=== PATIENT | male | born 1930 | race Caucasian/White ===

== ENCOUNTER 2017-05-30 11:43 | Inpatient (IN) | payer MEDICARE, OTHER ==
[2017-05-30] MEDS ORDERED: Sodium Chloride 0.9% 1,000 ML IV ONE (12:36)
--- NOTE | 2017-05-30 12:36 | C.PDOC ---
History Of Present Illness 86 yr old male brought in via EMS, presents to the ER s/p fall. Patient is poor historian. States "I fell around 3am". Patient states he was walking to the bathroom, felt dizzy and fell. States has happened 3x in the past but can't recall the last time it happened. Patient knows he is in [place] but does not know the year. As per EMS, they were called by the landlord who states he heard yelling from the apartment. Patient was found laying on the floor, possible downtime 8hrs. ROS is UTO. - HPI Time Seen by Provider: 05/30/17 12:07 Chief Complaint (Nursing): Dizziness/Lightheaded History Per: Patient, EMS History/Exam Limitations: no limitations Onset/Duration Of Symptoms: Hrs (? around 3am) Injury Occurred (Timing): Hours Ago: Past Medical History Reviewed: Historical Data, Nursing Documentation, Vital Signs Vital Signs: Last Vital Signs Temp 97.0 F L 05/30/17 12:47 Pulse 95 H 05/30/17 12:00 Resp 18 05/30/17 12:00 BP 148/82 05/30/17 12:00 Pulse Ox 96 05/30/17 14:34 - Medical History PMH: HTN - [facility] Procedures CATARAC PHACOEMULS/ASPIR (06/06/13) INSERT LENS AT CATAR EXT (06/06/13) Family History: States: No Known Family Hx - Social History Hx Alcohol Use: No Hx Substance Use: No - Immunization History Hx Tetanus Toxoid Vaccination: No Hx Influenza Vaccination: No Hx Pneumococcal Vaccination: No Review Of Systems Review Of Systems: ROS cannot be obtained secondary to pt's inabilty to answer questions. Physical Exam - Physical Exam Appears: Non-toxic, No Acute Distress Skin: Warm, Dry, No Rash Head: Atraumatic, Normacephalic, No Swelling, No Abrasion, No Laceration Eye(s): bilateral: Normal Inspection, PERRL, EOMI, Other (no nystagmus) Oral Mucosa: Moist Neck: Normal, Normal ROM, Supple Cardiovascular: Rhythm Regular, No Murmur Respiratory: Normal Breath Sounds, No Rales, No Rhonchi, No Stridor, No Wheezing Back: Normal Inspection, No CVA Tenderness Extremity: Normal ROM, No Tenderness, No Deformity, No Swelling Neurological/Psych: Normal Speech, Normal Motor, Normal Sensation, Normal Reflexes, Other (No focal deficits.) ED Course And Treatment - Laboratory Results Result Diagrams: 05/30/17 12:55 05/30/17 12:55 ECG: Interpreted By Me ECG Rhythm: Sinus Rhythm Rate From EC O2 Sat by Pulse Oximetry: 96 (RA) Pulse Ox Interpretation: Normal - Radiology CXR: Read By Radiologist CXR Interpretation: Yes: Infiltrates - Other Rad X-Ray - Pelvis X-Ray: Viewed By Me, Read By Radiologist Interpretation: PROCEDURE: Radiographs of the pelvis. HISTORY: trauma. COMPARISON: None. FINDINGS: BONES: Pelvic Bones: No acute fractures. Status post open reduction internal fixation proximal left femoral fracture. No evidence of orthopedic hardware failure. Hips: Grossly unremarkable. JOINTS: Sacroiliac Joints: Unremarkable. Pubic Symphysis: Unremarkable. OTHER FINDINGS : None. IMPRESSION: No acute osseous abnormalities. Limitations of the current examination: Rotated single AP view. CXR X-Ray: Viewed By Me, Read By Radiologist Interpretation: PROCEDURE: CHEST RADIOGRAPH, 1 VIEW. HISTORY: dizzy fall. COMPARISON: 05/14/2015. FINDINGS: LUNGS: Chronic interstitial lung disease. Superimposed infiltrate/atelectasis right lower lobe. PLEURA: No pneumothorax or pleural fluid seen. CARDIOVASCULAR: No radiographic findings to suggest acute or significant cardiovascular disease. OSSEOUS STRUCTURES: Old healed posterior lateral left rib fractures. VISUALIZED UPPER ABDOMEN: Normal. OTHER FINDINGS: None. IMPRESSION: Left lower lobe infiltrate/ atelectasis superimposed upon chronic interstitial lung disease. - CT Scan/US CT - Cervical Spine Other Rad Studies (CT/US): Read By Radiologist, Radiology Report Reviewed CT/US Interpretation: PROCEDURE: CT Cervical Spine without contrast. HISTORY: Trauma. COMPARISON: None available. TECHNIQUE: Axial computed tomography images were obtained of the cervical spine without the use of intravenous contrast. Coronal and sagittal reformatted images were created and reviewed. Radiation dose: Total exam DLP = 682.22 mGy-cm. This CT exam was performed using one or more of the following dose reduction techniques: Automated exposure control, adjustment of the mA and/or kV according to patient size, and/ or use of iterative reconstruction technique. FINDINGS: VERTEBRAE: No fracture. Normal alignment. No destructive bony lesion. DISCS/SPINAL CANAL/ NEURAL FORAMINA: No significant central canal or neural foraminal stenosis. Multilevel degenerative change primarily disc space narrowing. Uncovertebral hypertrophy at multiple levels. PARASPINAL SOFT TISSUES: Unremarkable. OTHER FINDINGS: Right apical scarring findings similar to that seen on a prior CT of the thorax 02/22/2013. IMPRESSION: No acute findings related to/accounting for the clinical presentation. CT - Head Other Rad Studies (CT/US): Read By Radiologist, Radiology Report Reviewed CT/US Interpretation: PROCEDURE: CT HEAD WITHOUT CONTRAST. HISTORY: dizzy fall. COMPARISON: None available. TECHNIQUE: Axial computed tomography images were obtained through the head/brain without intravenous contrast. Radiation dose: Total exam DLP = 889.11 mGy-cm. This CT exam was performed using one or more of the following dose reduction techniques: Automated exposure control, adjustment of the mA and/or kV according to patient size, and/ or use of iterative reconstruction technique. FINDINGS: HEMORRHAGE: No intracranial hemorrhage. BRAIN: No mass effect or edema. Cortical and cerebellar atrophy, periventricular small vessel disease. VENTRICLES: Unremarkable. No hydrocephalus. CALVARIUM: Unremarkable. PARANASAL SINUSES: Unremarkable as visualized. No significant inflammatory changes. MASTOID AIR CELLS: Unremarkable as visualized. No inflammatory changes. OTHER FINDINGS: None. IMPRESSION: No acute intracranial abnormalities. No significant findings to account for the clinical presentation. Progress - Re-Evaluation Re-evaluation Note: 05/30/17 13:39 FRIEND AT BEDSIDE, STATES PT HAS BEEN RECENTLY DX STAGE 4 LUNG CA. PT IS "USUALLY CONFUSED" BUT NOW MORE CONFUSED AND WEAKER THAN USUAL. PT HAS NO FAMILY. 05/30/17 14:27 D/W DR Braulio MADRIGAL [employer]ER AWARE OF ER FINDINGS WILL ADMIT - Data Reviewed Data Reviewed: Lab, Diagnostic imaging, EKG, Old records - Patient Status Patient status: Completely improved - Critical Care Critical Care Time: 90 minutes Medical Decision Making Medical Decision Making: PLAN: * CT - Cervical Spine, Head * X-Ray - Pelvis * CXR * EKG * CBC * CMP * VBG * Alcohol Serum * Drug Screen * Urinalysis * Avelox IV * Sodium Chloride IV Disposition Counseled Patient/Family Regarding: Studies Performed, Diagnosis - Disposition Disposition: HOSPITALIZED Disposition Time: 14:28 Condition: STABLE - POA Present On Arrival: Falls Or Trauma, Poor Glycemic Control - Clinical Impression Clinical Impression: Pneumonia, Dizziness, Fall, Altered mental state - Scribe Statement The provider has reviewed the documentation as recorded by the Alesha Salas Provider Attestation: All medical record entries made by the Maxwelliblindy were at my direction and personally dictated by me. I have reviewed the chart and agree that the record accurately reflects my personal performance of the history, physical exam, medical decision making, and the department course for this patient. I have also personally directed, reviewed, and agree with the discharge instructions and disposition. Decision To Admit - Pt Status Changed To: Hospital Disposition Of: Inpatient - Admit Certification Admit to Inpatient:: After my assessment, the patient will require hospitalization for at least two midnights. This is because of the severity of symptoms shown, intensity of services needed, and/or the medical risk in this patient being treated as an outpatient. - InPatient: Physician Admission Certification: I certify that this patient requires 2 or more midnights of care for the following reason:: SEE NOTE - . Bed Request Type: Regular Admitting Physician: Gary Swain Patient Diagnosis: Pneumonia, Dizziness, Fall, Altered mental state
[2017-05-30 13:04] LABS: VENOUS BLOOD GAS BASE EXCESS 6.4 mmol/L (0.0-2.0); VENOUS BLOOD GAS PCO2 41 mmHg (40-60); VENOUS BLOOD PH 7.48 (7.32-7.43)
[2017-05-30 13:08] LABS: MONO # 0.4 K/uL (0.0-0.8); NEUT # 11.2 K/uL (1.8-7.0); WHITE BLOOD COUNT 12.2 K/uL (4.8-10.8)
[2017-05-30 13:11] LABS: BASO # 0.1 K/uL (0.0-0.2); BASO % 0.5 % (0.0-2.0); LYMPH # 0.6 K/uL (1.0-4.3); LYMPH % 4.9 % (20.0-40.0); MEAN CORPUSCULAR HEMOGLOBIN 30.2 pg (27.0-31.0); MEAN CORPUSCULAR HGB CONC 34.3 g/dL (33.0-37.0); MEAN PLATELET VOLUME 7.5 fL (7.2-11.7); MONO % 3.2 % (0.0-10.0); NEUT % 91.4 % (50.0-75.0); RBC 2.94 Mil/uL (4.40-5.90); RED CELL DISTRIBUTION WIDTH 14.6 % (11.5-14.5)
[2017-05-30 13:12] LABS: PLATELET COUNT 405 K/uL (130-400)
--- NOTE | 2017-05-30 13:12 | RAD ---
PROCEDURE: CHEST RADIOGRAPH, 1 VIEW HISTORY: dizzy fall COMPARISON: 05/14/2015 FINDINGS: LUNGS: Chronic interstitial lung disease. Superimposed infiltrate/atelectasis right lower lobe. PLEURA: No pneumothorax or pleural fluid seen. CARDIOVASCULAR: No radiographic findings to suggest acute or significant cardiovascular disease. OSSEOUS STRUCTURES: Old healed posterior lateral left rib fractures. VISUALIZED UPPER ABDOMEN: Normal. OTHER FINDINGS: None. IMPRESSION: Left lower lobe infiltrate/ atelectasis superimposed upon chronic interstitial lung disease.
[2017-05-30 13:13] LABS: HEMOGLOBIN 8.9 g/dL (12.0-18.0)
[2017-05-30] MEDS ORDERED: Moxifloxacin IV 400mg/250ml NS 400 MG/250 ML BAG IV STA (13:13)
[2017-05-30 13:14] LABS: ALB/GLOB RATIO 0.8 (1.0-2.1); ALBUMIN 3.6 g/dL (3.5-5.0); ALT/SGPT 18 U/L (21-72); AST/SGOT 56 U/L (17-59); BLOOD UREA NITROGEN 23 mg/dL (9-20); CALCIUM 11.8 mg/dl (8.6-10.4); GFR AFRICAN-AMERICAN > 60; GFR NON-AFRICAN AMERICAN > 60
--- NOTE | 2017-05-30 13:14 | RAD ---
PROCEDURE: Radiographs of the pelvis. HISTORY: trauma COMPARISON: None. FINDINGS: BONES: Pelvic Bones: No acute fractures. Status post open reduction internal fixation proximal left femoral fracture. No evidence of orthopedic hardware failure. Hips: Grossly unremarkable. JOINTS: Sacroiliac Joints: Unremarkable. Pubic Symphysis: Unremarkable. OTHER FINDINGS: None. IMPRESSION: No acute osseous abnormalities. Limitations of the current examination: Rotated single AP view.
[2017-05-30 13:21] LABS: INR 1.4; PROTHROMBIN TIME 15.9 SECONDS (9.7-12.2)
--- NOTE | 2017-05-30 13:34 | CT ---
PROCEDURE: CT HEAD WITHOUT CONTRAST. HISTORY: dizzy fall COMPARISON: None available. TECHNIQUE: Axial computed tomography images were obtained through the head/brain without intravenous contrast. Radiation dose: Total exam DLP = 889.11 mGy-cm. This CT exam was performed using one or more of the following dose reduction techniques: Automated exposure control, adjustment of the mA and/or kV according to patient size, and/or use of iterative reconstruction technique. FINDINGS: HEMORRHAGE: No intracranial hemorrhage. BRAIN: No mass effect or edema. Cortical and cerebellar atrophy, periventricular small vessel disease VENTRICLES: Unremarkable. No hydrocephalus. CALVARIUM: Unremarkable. PARANASAL SINUSES: Unremarkable as visualized. No significant inflammatory changes. MASTOID AIR CELLS: Unremarkable as visualized. No inflammatory changes. OTHER FINDINGS: None. IMPRESSION: No acute intracranial abnormalities. No significant findings to account for the clinical presentation.
[2017-05-30 13:36] LABS: BANDS 1 % (0-2); LYMPHOCYTE 3 % (20-40); MONOCYTE 1 % (0-10); NEUTROPHIL 95 % (50-75); TOTAL CELLS COUNTED 100
[2017-05-30 13:37] LABS: HYPOCHROMIC SLIGHT; PLATELET ESTIMATE NORMAL (NORMAL)
[2017-05-30] MEDS ORDERED: Sodium Chloride 0.9% 1,000 ML ONE (13:37)
[2017-05-30] MEDS ORDERED: Moxifloxacin IV 400mg/250ml NS 400 MG/250 ML BAG IVPB ONE (13:37)
[2017-05-30 13:38] LABS: POLYCHROMIC SLIGHT
--- NOTE | 2017-05-30 14:20 | CT ---
PROCEDURE: CT Cervical Spine without contrast HISTORY: Trauma COMPARISON: None available. TECHNIQUE: Axial computed tomography images were obtained of the cervical spine without the use of intravenous contrast. Coronal and sagittal reformatted images were created and reviewed. Radiation dose: Total exam DLP = 682.22 mGy-cm. This CT exam was performed using one or more of the following dose reduction techniques: Automated exposure control, adjustment of the mA and/or kV according to patient size, and/or use of iterative reconstruction technique. FINDINGS: VERTEBRAE: No fracture. Normal alignment. No destructive bony lesion. DISCS/SPINAL CANAL/NEURAL FORAMINA: No significant central canal or neural foraminal stenosis. Multilevel degenerative change primarily disc space narrowing. Uncovertebral hypertrophy at multiple levels. PARASPINAL SOFT TISSUES: Unremarkable. OTHER FINDINGS: Right apical scarring findings similar to that seen on a prior CT of the thorax 02/22/2013 IMPRESSION: No acute findings related to/accounting for the clinical presentation.
--- NOTE | 2017-05-30 15:27 | CP.PCM.HP ---
<Janey WOODYMaribel Wetzel - Last Filed: 05/30/17 17:24> History of Present Illness - History of Present Illness History of Present Illness: CC: "I fell" Patient is an 86 year old male who presents to the ER after being found down in his home. Patient is a poor historian and majority of history is provided by friend, Duy . Per friend, patient has been confused for some time but has become more confused lately. Per friend, patient woke up around 10: 30PM yesterday evening to use the bathroom. Patient felt dizzy upon standing and fell down. Patient denies hitting his head or loss of consciousness. Patient cannot comment on why he could not get up from floor. Patient's friend states that the internet technology manager found the patient on the floor this morning () and called an ambulance. Patient's friend states that patient was recently diagnosed with stage IV lung cancer. Patient's family all reside in [place]. Next of kin is patient's nephew, Van, who also lives in [place] and can be reached at: [phone]. Per friend, patient's family has been trying to obtain information regarding treatment and diagnosis to evaluate treatment options in [place]. Patient admits to 21 pound weight loss over 3 months as well as decreased appetite. Per friend, patient has been unsteady on his feet for last few months with history of falls as well as increasing fatigue. Heme-Onc: Dr. Ramos PMHx: stage IV lung cancer Meds: patient and friend unsure of medications, does not know name of pharmacy PSHx: left hip repair FamHx: denies SocialHx: states tobacco usage in past (cannot quantify), denies alcohol and drugs; lives alone; formerly worked as a jeweler for 42 years Present on Admission - Present on Admission Any Indicators Present on Admission: No Review of Systems - Constitutional Constitutional: Weight Loss, Weakness. absent: Chills, Fever - EENT Ears: Dizziness - Cardiovascular Cardiovascular: absent: Chest Pain - Respiratory Respiratory: Cough - Gastrointestinal Gastrointestinal: absent: Abdominal Pain, Nausea, Vomiting - Genitourinary Genitourinary: absent: Difficulty Urinating, Dysuria - Musculoskeletal Musculoskeletal: absent: Back Pain - Integumentary Integumentary: absent: Rash - Neurological Neurological: Dizziness, Weakness Past Patient History - Past Social History Smoking Status: Former Smoker - CARDIAC Hx Hypertension: Yes - ENDOCRINE/METABOLIC Hx Diabetes Mellitus Type 2: Yes - PSYCHIATRIC Hx Substance Use: No - SURGICAL HISTORY Hx Surgeries: (UNABLE TO OBTAIN) - ANESTHESIA Hx Anesthesia: No Meds Allergies/Adverse Reactions: Allergies Allergy/AdvReac Type Severity Reaction Status Date / Time No Known Allergies Allergy Unverified 05/30/17 11:57 Physical Exam - Constitutional Appears: No Acute Distress, Cachectic, Chronically Ill - Head Exam Head Exam: ATRAUMATIC, NORMOCEPHALIC - Eye Exam Eye Exam: EOMI - ENT Exam ENT Exam: Mucous Membranes Dry - Respiratory Exam Respiratory Exam: Decreased Breath Sounds, NORMAL BREATHING PATTERN. absent: Respiratory Distress - Cardiovascular Exam Cardiovascular Exam: +S1, +S2 - GI/Abdominal Exam GI & Abdominal Exam: Normal Bowel Sounds, Soft. absent: Tenderness - Rectal Exam Rectal Exam: NORMAL INSPECTION. absent: Black Stool, Bloody Stool, Hemorrhoids Additional comments: no gross blood, moderate amount of soft brown stool in rectum - Extremities Exam Extremities exam: Positive for: normal inspection. Negative for: pedal edema - Back Exam Back exam: absent: CVA tenderness (L), CVA tenderness (R), rash noted Additional comments: no ecchymotic lesions noted - Neurological Exam Neurological exam: Alert Additional comments: patient not oriented, states he is at "[employer]" - Skin Skin Exam: Pallor, Warm Results - Vital Signs Recent Vital Signs: Last Vital Signs Temp 97.0 F L 05/30/17 12:47 Pulse 95 H 05/30/17 12:00 Resp 18 05/30/17 12:00 BP 148/82 05/30/17 12:00 Pulse Ox 96 05/30/17 14:34 - Labs Result Diagrams: 05/30/17 12:55 05/30/17 12:55 Labs: Laboratory Results - last 24 hr 05/30/17 05/30/17 05/30/17 12:50 12:51 12:55 WBC 12.2 H RBC 2.94 L Hgb 8.9 L D Hct 25.9 L MCV 88.0 D MCH 30.2 MCHC 34.3 RDW 14.6 H Plt Count 405 H D MPV 7.5 Neut % (Auto) 91.4 H Lymph % (Auto) 4.9 L [place] % (Auto) 3.2 Eos % (Auto) 0.0 Baso % (Auto) 0.5 Neut # 11.2 H Lymph # 0.6 L [place] # 0.4 Eos # 0.0 Baso # 0.1 Neutrophils % (Manual) 95 H Band Neutrophils % 1 Lymphocytes % (Manual) 3 L Monocytes % (Manual) 1 Platelet Estimate Normal Polychromasia Slight Hypochromasia (manual) Slight PT INR APTT VBG pH 7.48 H VBG pCO2 41 VBG Total CO2 31.8 H VBG O2 Sat (Calc) 24.7 L VBG Base Excess 6.4 H VBG Potassium 3.4 L Sodium 141.0 Chloride 104.0 Glucose 181 H Lactate 1.6 Potassium Carbon Dioxide Anion Gap BUN Creatinine Est GFR ( Amer) Est GFR (Non-Af Amer) POC Glucose (mg/dL) 198 H Random Glucose Calcium Total Bilirubin AST ALT Alkaline Phosphatase Total Creatine Kinase Total Protein Albumin Globulin Albumin/Globulin Ratio Venous Blood Potassium 3.4 L Alcohol, Quantitative Influenza Typ A,B (EIA) 05/30/17 05/30/17 05/30/17 12:55 12:55 13:36 WBC RBC Hgb Hct MCV MCH MCHC RDW Plt Count MPV Neut % (Auto) Lymph % (Auto) [place] % (Auto) Eos % (Auto) Baso % (Auto) Neut # Lymph # [place] # Eos # Baso # Neutrophils % (Manual) Band Neutrophils % Lymphocytes % (Manual) Monocytes % (Manual) Platelet Estimate Polychromasia Hypochromasia (manual) PT 15.9 H INR 1.4 APTT 29 VBG pH VBG pCO2 VBG Total CO2 VBG O2 Sat (Calc) VBG Base Excess VBG Potassium Sodium 135 Chloride 95 L Glucose Lactate Potassium 3.6 Carbon Dioxide 30 Anion Gap 14 BUN 23 H Creatinine 1.1 Est GFR ( Amer) > 60 Est GFR (Non-Af Amer) > 60 POC Glucose (mg/dL) Random Glucose 189 H Calcium 11.8 H Total Bilirubin 1.0 AST 56 ALT 18 L D Alkaline Phosphatase 66 Total Creatine Kinase 587 H Total Protein 7.9 Albumin 3.6 Globulin 4.3 H Albumin/Globulin Ratio 0.8 L Venous Blood Potassium Alcohol, Quantitative < 10 Influenza Typ A,B (EIA) Negative for flu a/b Assessment & Plan - Assessment and Plan (Free Text) Assessment: 1. Right lower lobe pneumonia Chest xray (05/30/17): right lower lobe infiltrate/ atelectasis superimposed upon chronic interstitial lung disease (see full report) (05/30/17) will start ceftriaxone 1 g Q24h, azithromycin 500mg q24h ID, Dr. Gray, consulted- help appreciated will check urine for legionella, strep pneumoniae, mycoplasma influenza negative follow up blood culture 2. Anemia with elevated globulin (05/30/17) hemoglobin 8.9 last hemoglobin in EMR from 2014 was 12 globulin 4.3 will check ferretin, B12, folate, FOBT, retic count, serum immunofixation, kappa /lambda free light chains, protein electrophoresis likely due to history of cancer 3. Stage IV Lung Cancer Patient has seen Dr. Ramos in past cannot obtain history from patient regarding medications/ chemotherapy Dr. Ramos, heme-onc, consulted- help appreciated Will consult palliative care, Angle Mena- help appreciated 4. Hypercalcemia likely secondary to lung cancer will continue IV fluids, NS @100cc/h 5. Leukocytosis with left shift likely due to pneumonia follow up blood and urine culture starting ceftriaxone and azithromycin continue to monitor 6. Elevated CPK secondary to possible rhabdomyolysis from fall and prolonged period spent down on floor of home CPK 587 will continue NS @ 100cc/h will check repeat CPK tomorrow morning 7. Cachexia likely secondary to stage IV lung cancer patient states 21 pound weight loss over past 3 months nutrition consult placed- help appreciated will start dietary supplements TID will consider marinol 8. Fall at home CT Head (05/30/17): No intracranial hemorrhage. No hydrocephalus. No acute intracranial abnormalities. No significant findings to account for the clinical presentation CT Cervical Spine (05/30/17): No significant central canal or neural foraminal stenosis. Right apical scarring findings similar to that seen on a prior CT of the thorax 02/22/2013. Multilevel degenerative change primarily disc space narrowing. No acute findings related to/accounting for the clinical presentation. Pelvis xray (05/30/17): Status post open reduction internal fixation proximal left femoral fracture. No evidence of orthopedic hardware failure. No acute osseous abnormalities. will check troponins with EKGs, echocardiogram, to rule out cardiac etiology of fall 9. COPD patient reports past smoking history flattened diaphragm seen on chest xray duonebs q6 prn 10. Prophylaxis pepcid 20mg PO BID SCDs holding chemical anticoagulation until stool occult blood test results return physical therapy/ occupational therapy palliative care case management referral <Gary Swain - Last Filed: 05/30/17 20:06> Results - Vital Signs Recent Vital Signs: Last Vital Signs Temp 97.5 F L 05/30/17 17:40 Pulse 85 05/30/17 17:40 Resp 18 05/30/17 17:40 BP 140/74 05/30/17 17:40 Pulse Ox 96 05/30/17 18:04 - Labs Result Diagrams: 05/30/17 12:55 05/30/17 12:55 Labs: Laboratory Results - last 24 hr 05/30/17 05/30/17 05/30/17 12:50 12:51 12:55 WBC 12.2 H RBC 2.94 L Hgb 8.9 L D Hct 25.9 L MCV 88.0 D MCH 30.2 MCHC 34.3 RDW 14.6 H Plt Count 405 H D MPV 7.5 Neut % (Auto) 91.4 H Lymph % (Auto) 4.9 L [place] % (Auto) 3.2 Eos % (Auto) 0.0 Baso % (Auto) 0.5 Neut # 11.2 H Lymph # 0.6 L [place] # 0.4 Eos # 0.0 Baso # 0.1 Neutrophils % (Manual) 95 H Band Neutrophils % 1 Lymphocytes % (Manual) 3 L Monocytes % (Manual) 1 Platelet Estimate Normal Polychromasia Slight Hypochromasia (manual) Slight Retic Count PT INR APTT VBG pH 7.48 H VBG pCO2 41 VBG Total CO2 31.8 H VBG O2 Sat (Calc) 24.7 L VBG Base Excess 6.4 H VBG Potassium 3.4 L Sodium 141.0 Chloride 104.0 Glucose 181 H Lactate 1.6 Potassium Carbon Dioxide Anion Gap BUN Creatinine Est GFR ( Amer) Est GFR (Non-Af Amer) POC Glucose (mg/dL) 198 H Random Glucose Calcium Ferritin Total Bilirubin AST ALT Alkaline Phosphatase Total Creatine Kinase CK-MB (Mass) Troponin I Total Protein Albumin Globulin Albumin/Globulin Ratio Vitamin B12 Folate Venous Blood Potassium 3.4 L Urine Color Urine Clarity Urine pH Ur Specific [place] Urine Protein Urine Glucose (UA) Urine Ketones Urine Blood Urine Nitrate Urine Bilirubin Urine Urobilinogen Ur Leukocyte Esterase Urine WBC (Auto) Urine RBC (Auto) Hyaline Casts Stool Occult Blood Alcohol, Quantitative Influenza Typ A,B (EIA) 05/30/17 05/30/17 05/30/17 12:55 12:55 13:36 WBC RBC Hgb Hct MCV MCH MCHC RDW Plt Count MPV Neut % (Auto) Lymph % (Auto) [place] % (Auto) Eos % (Auto) Baso % (Auto) Neut # Lymph # [place] # Eos # Baso # Neutrophils % (Manual) Band Neutrophils % Lymphocytes % (Manual) Monocytes % (Manual) Platelet Estimate Polychromasia Hypochromasia (manual) Retic Count PT 15.9 H INR 1.4 APTT 29 VBG pH VBG pCO2 VBG Total CO2 VBG O2 Sat (Calc) VBG Base Excess VBG Potassium Sodium 135 Chloride 95 L Glucose Lactate Potassium 3.6 Carbon Dioxide 30 Anion Gap 14 BUN 23 H Creatinine 1.1 Est GFR ( Amer) > 60 Est GFR (Non-Af Amer) > 60 POC Glucose (mg/dL) Random Glucose 189 H Calcium 11.8 H Ferritin Total Bilirubin 1.0 AST 56 ALT 18 L D Alkaline Phosphatase 66 Total Creatine Kinase 587 H CK-MB (Mass) Troponin I Total Protein 7.9 Albumin 3.6 Globulin 4.3 H Albumin/Globulin Ratio 0.8 L Vitamin B12 Folate Venous Blood Potassium Urine Color Urine Clarity Urine pH Ur Specific [place] Urine Protein Urine Glucose (UA) Urine Ketones Urine Blood Urine Nitrate Urine Bilirubin Urine Urobilinogen Ur Leukocyte Esterase Urine WBC (Auto) Urine RBC (Auto) Hyaline Casts Stool Occult Blood Alcohol, Quantitative < 10 Influenza Typ A,B (EIA) Negative for flu a/b 05/30/17 05/30/17 05/30/17 15:26 15:28 18:07 WBC RBC Hgb Hct MCV MCH MCHC RDW Plt Count MPV Neut % (Auto) Lymph % (Auto) [place] % (Auto) Eos % (Auto) Baso % (Auto) Neut # Lymph # [place] # Eos # Baso # Neutrophils % (Manual) Band Neutrophils % Lymphocytes % (Manual) Monocytes % (Manual) Platelet Estimate Polychromasia Hypochromasia (manual) Retic Count PT INR APTT VBG pH VBG pCO2 VBG Total CO2 VBG O2 Sat (Calc) VBG Base Excess VBG Potassium Sodium Chloride Glucose Lactate Potassium Carbon Dioxide Anion Gap BUN Creatinine Est GFR ( Amer) Est GFR (Non-Af Amer) POC Glucose (mg/dL) Random Glucose Calcium Ferritin 216.0 Total Bilirubin AST ALT Alkaline Phosphatase Total Creatine Kinase 433 H CK-MB (Mass) 4.93 H Troponin I 0.2970 H* Total Protein Albumin Globulin Albumin/Globulin Ratio Vitamin B12 455 Folate 20.0 Venous Blood Potassium Urine Color Straw Urine Clarity Clear Urine pH 7.0 Ur Specific [place] 1.009 Urine Protein 1+ H Urine Glucose (UA) 1+ H Urine Ketones Negative Urine Blood 2+ H Urine Nitrate Negative Urine Bilirubin Negative Urine Urobilinogen Normal Ur Leukocyte Esterase Neg Urine WBC (Auto) 2 Urine RBC (Auto) 14 H Hyaline Casts 3-5 H Stool Occult Blood Negative Alcohol, Quantitative Influenza Typ A,B (EIA) 05/30/17 18:07 WBC RBC Hgb Hct MCV MCH MCHC RDW Plt Count MPV Neut % (Auto) Lymph % (Auto) [place] % (Auto) Eos % (Auto) Baso % (Auto) Neut # Lymph # [place] # Eos # Baso # Neutrophils % (Manual) Band Neutrophils % Lymphocytes % (Manual) Monocytes % (Manual) Platelet Estimate Polychromasia Hypochromasia (manual) Retic Count 1.3 PT INR APTT VBG pH VBG pCO2 VBG Total CO2 VBG O2 Sat (Calc) VBG Base Excess VBG Potassium Sodium Chloride Glucose Lactate Potassium Carbon Dioxide Anion Gap BUN Creatinine Est GFR ( Amer) Est GFR (Non-Af Amer) POC Glucose (mg/dL) Random Glucose Calcium Ferritin Total Bilirubin AST ALT Alkaline Phosphatase Total Creatine Kinase CK-MB (Mass) Troponin I Total Protein Albumin Globulin Albumin/Globulin Ratio Vitamin B12 Folate Venous Blood Potassium Urine Color Urine Clarity Urine pH Ur Specific [place] Urine Protein Urine Glucose (UA) Urine Ketones Urine Blood Urine Nitrate Urine Bilirubin Urine Urobilinogen Ur Leukocyte Esterase Urine WBC (Auto) Urine RBC (Auto) Hyaline Casts Stool Occult Blood Alcohol, Quantitative Influenza Typ A,B (EIA) Attending/Attestation - Attestation I have personally seen and examined this patient.: Yes I have fully participated in the care of the patient.: Yes I have reviewed all pertinent clinical information: Yes Notes (Text): 05/30/17 20:04 Patient was seen and examined in the ER at 6:20 PM. History, Physical, Assessment and Plan were thoroughly gone over with the resident. Gary Swain D.O.
[2017-05-30 15:45] LABS: URINE BILIRUBIN NEGATIVE (NEGATIVE); URINE BLOOD 2+ (NEGATIVE); URINE CLARITY Clear (Clear); URINE COLOR Straw (YELLOW); URINE GLUCOSE (UA) 1+ mg/dL (Normal); URINE LEUKOCYTE ESTERASE NEG Leu/uL (Negative); URINE NITRATE NEGATIVE (NEGATIVE); URINE PROTEIN 1+ mg/dL (NEGATIVE); URINE UROBILINOGEN NORMAL mg/dL (0.2-1.0)
[2017-05-30] MEDS ORDERED: Albuterol-Ipratrop 3 mg / 0.5 (3 ml) UD INH PRN (16:48)
--- NOTE | 2017-05-30 16:48 | CP.PCM.CON ---
History of Present Illness - History of Present Illness History of Present Illness: seen and evaluated in ER full consult to follow admitted with pneumonia s/p fall elevated troponins hx of stage IV lung Ca follows with Dr Rachel milner fever / chills + cough no hemoptysis Review of Systems - Constitutional Constitutional: As Per HPI - EENT Eyes: absent: As Per HPI, Blind Spots, Blurred Vision, Change in Vision, Decreased Night Vision, Diplopia, Discharge, Dry Eye, Exophthalmos, Floaters, Irritation, Itchy Eyes, Loss of Peripheral Vision, Pain, Photophobia, Requires Corrective Lenses, Sees Flashes, Spots in Vision, Tunnel Vision, Other Visual Disturbances, Loss of Vision, Other Ears: absent: As Per HPI, Decreased Hearing, Ear Discharge, Ear Pain, Tinnitus, Abnormal Hearing, Disequilibrium, Dizziness, Other Nose/Mouth/Throat: absent: As Per HPI, Epistaxis, Nasal Congestion, Nasal Discharge, Nasal Obstruction, Nasal Trauma, Nose Pain, Post Nasal Drip, Sinus Pain, Sinus Pressure, Bleeding Gums, Change in Voice, Dental Pain, Dry Mouth, Dysphagia, Halitosis, Hoarsness, Lip Swelling, Mouth Lesions, Mouth Pain, Odynophagia, Sore Throat, Throat Swelling, Tongue Swelling, Facial Pain, Neck Pain, Neck Mass, Other - Cardiovascular Cardiovascular: absent: As Per HPI, Acrocyanosis, Chest Pain, Chest Pain at Rest , Chest Pain with Activity, Claudication, Diaphoresis, Dyspnea, Dyspnea on Exertion, Edema, Irregular Heart Rhythm, Pain Radiating to Arm/Neck/Jaw, Leg Edema, Leg Ulcers, Lightheadedness, Orthopnea, Palpitations, Paroxysmal Nocturnal Dyspnea, Pedal Edema, Radiating Pain, Rapid Heart Rate, Slow Heart Rate, Syncope, Other - Respiratory Respiratory: As Per HPI, Cough, Dyspnea - Gastrointestinal Gastrointestinal: absent: As Per HPI, Abdominal Pain, Belching, Bloating, Change in Bowel Habits, Change in Stool Character, Coffee Ground Emesis, Constipation, Cramping, Diarrhea, Dyspepsia, Dysphagia, Early Satiety, Excessive Flatus, Fecal Incontinence, Heartburn, Hematemesis, Hematochezia, Loose Stools, Melena, Nausea, Odynophagia, Temesmus, Vomiting, Other - Genitourinary Genitourinary: absent: As Per HPI, Change in Urinary Stream, Difficulty Urinating, Dysuria, Flank Pain, Hematuria, Pyuria, Nocturia, Urinary Incontinence, Urinary Frequency, Urinary Hesitance, Urinary Urgency, Voiding Freq/Small Amts, Freq UTI, Hx Renal/Bladder Calculi, Hx /Renal Surgery, Bladder Distension, Other - Musculoskeletal Musculoskeletal: absent: As Per HPI, Abnormal Gait, Arthralgias, Atrophy, Back Pain, Deformity, Joint Swelling, Limited Range of Motion, Loss of Height, Muscle Cramps, Muscle Weakness, Myalgias, Neck Pain, Numbness, Radiating Pain into Limb, Stiffness, Tingling, Other - Integumentary Integumentary: absent: As Per HPI, Acne, Alopecia, Bleeding Lesions, Change in Hair, Change in Nails, Change in Pigmentation, Changing Lesions, Dry Skin, Erythema, Furuncle, Hirsutism, Lesions, New Lesions, Non-Healing Lesions, Photosensitivity, Pruritus, Rash, Skin Pain, Skin Ulcer, Sores, Striae, Swelling , Unusual Bruising, Wounds, Jaundice, Other - Neurological Neurological: absent: As Per HPI, Abnormal Gait, Abnormal Hearing, Abnormal Movements, Abnormal Speech, Behavioral Changes, Burning Sensations, Confusion, Convulsions, Disequilibrium, Dizziness, Numbness, Focal Weakness, Frequent Falls , Headaches, Lack of Coordination, Loss of Vision, Memory Loss, Paresthesias, Radicular Pain, Restless Legs, Sensory Deficit, Syncope, Tingling, Tremor, Vertigo, Weakness, Other Visual Disturbances, Other - Psychiatric Psychiatric: absent: As Per HPI, Abnormal Sleep Pattern, Anhedonia, Anxiety, Auditory Hallucinations, Behavioral Changes, Change in Appetite, Change in Libido, Confusion, Depression, Difficulty Concentrating, Hallucinations, Homicidal Ideation, Hopelessness, Irritability, Memory Loss, Mood Swings, Panic Attacks, Paranoia, Suicidal Ideation, Visual Hallucinations, Tactile Hallucinations, Other - Endocrine Endocrine: absent: As Per HPI, Change in Body Appearance, Change in Libido, Cold Intolorance, Deepening of Voice, Excessive Sweating, Fatigue, Flushing, Heat Intolorance, Increase in Ring/Shoe/Hat Size, Palpitations, Polydipsia, Polyphagia, Polyuria, Other - Hematologic/Lymphatic Hematologic: absent: As Per HPI, Easy Bleeding, Easy Bruising, Lymphadenopathy, Other Past Patient History - Past Social History Smoking Status: Never Smoked - CARDIAC Hx Hypertension: Yes - ENDOCRINE/METABOLIC Hx Diabetes Mellitus Type 2: Yes - PSYCHIATRIC Hx Substance Use: No - SURGICAL HISTORY Hx Surgeries: (UNABLE TO OBTAIN) - ANESTHESIA Hx Anesthesia: No Meds Allergies/Adverse Reactions: Allergies Allergy/AdvReac Type Severity Reaction Status Date / Time No Known Allergies Allergy Unverified 05/30/17 11:57 - Medications Medications: Current Medications Famotidine (Pepcid) 20 mg PO DAILY [facility] Sodium Chloride (Sodium Chloride 0.9%) 1,000 mls @ 100 mls/hr IV .Q10H ONE Stop: 05/30/17 22:35 Last Admin: 05/30/17 13:40 Dose: 100 mls/hr Ceftriaxone Sodium 1 gm/ (Sodium Chloride) 100 mls @ 100 mls/hr IVPB DAILY [facility] Azithromycin 500 mg/ Sodium (Chloride) 250 mls @ 250 mls/hr IVPB DAILY [facility] Physical Exam - Constitutional Appears: Non-toxic, Cachectic, Chronically Ill - Head Exam Head Exam: ATRAUMATIC, NORMAL INSPECTION, NORMOCEPHALIC - Eye Exam Eye Exam: PERRL. absent: Scleral icterus - ENT Exam ENT Exam: Mucous Membranes Dry, Normal External Ear Exam - Neck Exam Neck exam: Negative for: Lymphadenopathy - Respiratory Exam Respiratory Exam: Decreased Breath Sounds, Rhonchi - Cardiovascular Exam Cardiovascular Exam: REGULAR RHYTHM, +S1, +S2 - GI/Abdominal Exam GI & Abdominal Exam: Diminished Bowel Sounds, Soft. absent: Tenderness - Rectal Exam Rectal Exam: Deferred - Exam Exam: NORMAL INSPECTION - Extremities Exam Extremities exam: Positive for: pedal pulses present. Negative for: calf tenderness, pedal edema, tenderness - Back Exam Back exam: absent: CVA tenderness (L), CVA tenderness (R) - Neurological Exam Neurological exam: Alert, CN II-XII Intact, Oriented x3, Reflexes Normal - Psychiatric Exam Psychiatric exam: Normal Mood - Skin Skin Exam: Dry, Intact Results - Vital Signs Recent Vital Signs: Last Vital Signs Temp 97.0 F L 05/30/17 12:47 Pulse 95 H 05/30/17 12:00 Resp 18 05/30/17 12:00 BP 148/82 05/30/17 12:00 Pulse Ox 96 05/30/17 14:34 - Labs Result Diagrams: 05/31/17 07:50 05/31/17 07:50 Labs: Laboratory Results - last 24 hr 05/30/17 05/30/17 05/30/17 12:50 12:51 12:55 WBC 12.2 H RBC 2.94 L Hgb 8.9 L D Hct 25.9 L MCV 88.0 D MCH 30.2 MCHC 34.3 RDW 14.6 H Plt Count 405 H D MPV 7.5 Neut % (Auto) 91.4 H Lymph % (Auto) 4.9 L [place] % (Auto) 3.2 Eos % (Auto) 0.0 Baso % (Auto) 0.5 Neut # 11.2 H Lymph # 0.6 L [place] # 0.4 Eos # 0.0 Baso # 0.1 Neutrophils % (Manual) 95 H Band Neutrophils % 1 Lymphocytes % (Manual) 3 L Monocytes % (Manual) 1 Platelet Estimate Normal Polychromasia Slight Hypochromasia (manual) Slight PT INR APTT VBG pH 7.48 H VBG pCO2 41 VBG Total CO2 31.8 H VBG O2 Sat (Calc) 24.7 L VBG Base Excess 6.4 H VBG Potassium 3.4 L Sodium 141.0 Chloride 104.0 Glucose 181 H Lactate 1.6 Potassium Carbon Dioxide Anion Gap BUN Creatinine Est GFR ( Amer) Est GFR (Non-Af Amer) POC Glucose (mg/dL) 198 H Random Glucose Calcium Total Bilirubin AST ALT Alkaline Phosphatase Total Creatine Kinase Total Protein Albumin Globulin Albumin/Globulin Ratio Venous Blood Potassium 3.4 L Urine Color Urine Clarity Urine pH Ur Specific [place] Urine Protein Urine Glucose (UA) Urine Ketones Urine Blood Urine Nitrate Urine Bilirubin Urine Urobilinogen Ur Leukocyte Esterase Urine WBC (Auto) Urine RBC (Auto) Hyaline Casts Alcohol, Quantitative Influenza Typ A,B (EIA) 05/30/17 05/30/17 05/30/17 12:55 12:55 13:36 WBC RBC Hgb Hct MCV MCH MCHC RDW Plt Count MPV Neut % (Auto) Lymph % (Auto) [place] % (Auto) Eos % (Auto) Baso % (Auto) Neut # Lymph # [place] # Eos # Baso # Neutrophils % (Manual) Band Neutrophils % Lymphocytes % (Manual) Monocytes % (Manual) Platelet Estimate Polychromasia Hypochromasia (manual) PT 15.9 H INR 1.4 APTT 29 VBG pH VBG pCO2 VBG Total CO2 VBG O2 Sat (Calc) VBG Base Excess VBG Potassium Sodium 135 Chloride 95 L Glucose Lactate Potassium 3.6 Carbon Dioxide 30 Anion Gap 14 BUN 23 H Creatinine 1.1 Est GFR ( Amer) > 60 Est GFR (Non-Af Amer) > 60 POC Glucose (mg/dL) Random Glucose 189 H Calcium 11.8 H Total Bilirubin 1.0 AST 56 ALT 18 L D Alkaline Phosphatase 66 Total Creatine Kinase 587 H Total Protein 7.9 Albumin 3.6 Globulin 4.3 H Albumin/Globulin Ratio 0.8 L Venous Blood Potassium Urine Color Urine Clarity Urine pH Ur Specific [place] Urine Protein Urine Glucose (UA) Urine Ketones Urine Blood Urine Nitrate Urine Bilirubin Urine Urobilinogen Ur Leukocyte Esterase Urine WBC (Auto) Urine RBC (Auto) Hyaline Casts Alcohol, Quantitative < 10 Influenza Typ A,B (EIA) Negative for flu a/b 05/30/17 15:28 WBC RBC Hgb Hct MCV MCH MCHC RDW Plt Count MPV Neut % (Auto) Lymph % (Auto) [place] % (Auto) Eos % (Auto) Baso % (Auto) Neut # Lymph # [place] # Eos # Baso # Neutrophils % (Manual) Band Neutrophils % Lymphocytes % (Manual) Monocytes % (Manual) Platelet Estimate Polychromasia Hypochromasia (manual) PT INR APTT VBG pH VBG pCO2 VBG Total CO2 VBG O2 Sat (Calc) VBG Base Excess VBG Potassium Sodium Chloride Glucose Lactate Potassium Carbon Dioxide Anion Gap BUN Creatinine Est GFR ( Amer) Est GFR (Non-Af Amer) POC Glucose (mg/dL) Random Glucose Calcium Total Bilirubin AST ALT Alkaline Phosphatase Total Creatine Kinase Total Protein Albumin Globulin Albumin/Globulin Ratio Venous Blood Potassium Urine Color Straw Urine Clarity Clear Urine pH 7.0 Ur Specific [place] 1.009 Urine Protein 1+ H Urine Glucose (UA) 1+ H Urine Ketones Negative Urine Blood 2+ H Urine Nitrate Negative Urine Bilirubin Negative Urine Urobilinogen Normal Ur Leukocyte Esterase Neg Urine WBC (Auto) 2 Urine RBC (Auto) 14 H Hyaline Casts 3-5 H Alcohol, Quantitative Influenza Typ A,B (EIA) Assessment & Plan (1) Altered mental state Status: Acute (2) Dizziness Status: Acute (3) Pneumonia Status: Acute - Assessment and Plan (Free Text) Assessment: cont rx pneumonia await cultures septic work up Dr Burden on consult
[2017-05-30] MEDS: Azithromycin 500 MG in Sodium Chloride 0.9% 250 ML IVPB SCH (18:27)
[2017-05-30 18:50] LABS: CK-MB 4.93 ng/mL (0.0-3.38)
[2017-05-30 19:05] LABS: TROPONIN I 0.297 ng/mL (0.00-0.120)
[2017-05-30] MEDS: Sodium Chloride 0.9% 1,000 ML IV SCH (19:13)
[2017-05-30] MEDS: Enoxaparin 60 mg Syringe SC SCH ×2 (19:56→20:39)
--- NOTE | 2017-05-30 20:24 | CP.PCM.PCO ---
Physician Communication Note - Physician Communication Note Physician Communication Note: See Above
[2017-05-31 00:31] LABS: BARBITURATES, UR NEGATIVE (NEGATIVE); BENZODIAZEPINES, UR NEGATIVE (NEGATIVE); OPIATES, UR NEGATIVE (NEGATIVE); PHENCYCLIDINE, UR NEGATIVE (NEGATIVE)
[2017-05-31 00:37] LABS: CK-MB 3.73 ng/mL (0.0-3.38); TROPONIN I 0.34 ng/mL (0.00-0.120)
[2017-05-31] MEDS: Sodium Chloride 0.9% 1,000 ML IV SCH ×4 (04:09→23:30)
[2017-05-31 08:04] LABS: BASO % 0.2 % (0.0-2.0); HEMOGLOBIN 9.6 g/dL (12.0-18.0); LYMPH # 0.6 K/uL (1.0-4.3); MEAN CELL VOLUME 87.9 fL (80.0-94.0); MEAN CORPUSCULAR HEMOGLOBIN 29.7 pg (27.0-31.0); MEAN CORPUSCULAR HGB CONC 33.8 g/dL (33.0-37.0); MEAN PLATELET VOLUME 8.2 fL (7.2-11.7); MONO # 0.2 K/uL (0.0-0.8); MONO % 1.4 % (0.0-10.0); NEUT # 11.4 K/uL (1.8-7.0); NEUT % 93.4 % (50.0-75.0); PLATELET COUNT 451 K/uL (130-400); RBC 3.22 Mil/uL (4.40-5.90); RED CELL DISTRIBUTION WIDTH 14.7 % (11.5-14.5); WHITE BLOOD COUNT 12.2 K/uL (4.8-10.8)
[2017-05-31 08:28] LABS: ALB/GLOB RATIO 0.8 (1.0-2.1); ALBUMIN 3.5 g/dL (3.5-5.0); ALT/SGPT 25 U/L (21-72); AST/SGOT 46 U/L (17-59); BLOOD UREA NITROGEN 15 mg/dL (9-20); CALCIUM 11.1 mg/dl (8.6-10.4); GFR AFRICAN-AMERICAN > 60; GFR NON-AFRICAN AMERICAN > 60
[2017-05-31 08:54] LABS: CK-MB 3.56 ng/mL (0.0-3.38)
[2017-05-31 09:06] LABS: LYMPHOCYTE 4 % (20-40); MONOCYTE 1 % (0-10); NEUTROPHIL 95 % (50-75); PLATELET ESTIMATE NORMAL (NORMAL); TOTAL CELLS COUNTED 100
[2017-05-31 09:07] LABS: ANISOCYTOSIS SLIGHT; HYPOCHROMIC SLIGHT; POIKILOCYTOSIS SLIGHT
[2017-05-31 09:08] LABS: LARGE PLATELETS PRESENT; OVALOCYTES SLIGHT
[2017-05-31] MEDS: Enoxaparin 60 mg Syringe SC SCH ×2 (11:13→21:34)
[2017-05-31] MEDS: Azithromycin 500 MG in Sodium Chloride 0.9% 250 ML IVPB SCH (11:14)
[2017-05-31] MEDS ORDERED: Potassium Chloride 20 mEq ER Tab PO ONE ×2 (11:15→14:15)
--- NOTE | 2017-05-31 11:58 | CP.PCM.PN ---
Subjective - Date & Time of Evaluation Date of Evaluation: 05/31/17 Time of Evaluation: 07:00 - Subjective Subjective: awake alert nad Objective - Vital Signs/Intake and Output Vital Signs (last 24 hours): Temp Pulse Resp BP Pulse Ox 97.5 F L 89 20 155/84 H 97 05/31/17 07:05 05/31/17 07:05 05/31/17 07:05 05/31/17 07:05 05/31/17 07:05 - Medications Medications: Current Medications Albuterol/Ipratropium (Duoneb 3 Mg/0.5 Mg (3 Ml) Ud) 3 ml INH RQ6 PRN PRN Reason: Shortness of Breath Enoxaparin Sodium (Lovenox) 50 mg SC Q12 [facility] Last Admin: 05/31/17 11:13 Dose: 50 mg Famotidine (Pepcid) 20 mg PO DAILY [facility] Last Admin: 05/31/17 11:11 Dose: 20 mg Ceftriaxone Sodium 1 gm/ (Sodium Chloride) 100 mls @ 100 mls/hr IVPB DAILY [facility] Last Admin: 05/31/17 11:13 Dose: 100 mls/hr Azithromycin 500 mg/ Sodium (Chloride) 250 mls @ 250 mls/hr IVPB DAILY [facility] Last Admin: 05/31/17 11:14 Dose: 250 mls/hr Sodium Chloride (Sodium Chloride 0.9%) 1,000 mls @ 100 mls/hr IV .Q10H [facility] Last Admin: 05/31/17 04:09 Dose: 100 mls/hr Potassium Chloride (K-Dur 20 Meq Er Tab) 40 meq PO ONCE ONE Stop: 05/31/17 14:16 Saccharomyces Boulardii (Florastor) 250 mg PO BID [facility] - Labs Labs: 05/31/17 07:50 05/31/17 07:50 PT 15.9 SECONDS (9.7-12.2) H 05/30/17 12:55 INR 1.4 05/30/17 12:55 APTT 29 SECONDS (21-34) 05/30/17 12:55 - Constitutional Appears: Non-toxic, Chronically Ill - Head Exam Head Exam: NORMOCEPHALIC - Eye Exam Eye Exam: PERRL - ENT Exam ENT Exam: Mucous Membranes Dry - Neck Exam Neck Exam: absent: Lymphadenopathy - Respiratory Exam Respiratory Exam: Decreased Breath Sounds - Cardiovascular Exam Cardiovascular Exam: REGULAR RHYTHM - GI/Abdominal Exam GI & Abdominal Exam: Distended - Rectal Exam Rectal Exam: Deferred - Exam Exam: NORMAL INSPECTION - Extremities Exam Extremities Exam: absent: Pedal Edema - Back Exam Back Exam: absent: CVA tenderness (L), CVA tenderness (R), paraspinal tenderness - Neurological Exam Neurological Exam: Alert, Awake, Normal Gait - Psychiatric Exam Psychiatric exam: Anxious Assessment and Plan (1) Altered mental state Status: Acute (2) Dizziness Status: Acute (3) Pneumonia Status: Acute
[2017-05-31] MEDS: Saccharomyces Boulardi 250 mg Cap PO SCH ×2 (12:12→18:02)
--- NOTE | 2017-05-31 13:08 | CP.PCM.PN ---
<Joan Loving - Last Filed: 05/31/17 13:22> Subjective - Date & Time of Evaluation Date of Evaluation: 05/31/17 Time of Evaluation: 13:06 - Subjective Subjective: Medicine progress note for Dr. Early's service Patient was seen and examined at bedside in no acute distress. Patient is lethargic, falling asleep during review of systems and exam. Patient reports feeling ok and follows commands; however, he does not respond well to review of systems. Objective - Vital Signs/Intake and Output Vital Signs (last 24 hours): Temp Pulse Resp BP Pulse Ox 97.5 F L 89 20 155/84 H 97 05/31/17 07:05 05/31/17 07:05 05/31/17 07:05 05/31/17 07:05 05/31/17 07:05 - Medications Medications: Current Medications Albuterol/Ipratropium (Duoneb 3 Mg/0.5 Mg (3 Ml) Ud) 3 ml INH RQ6 PRN PRN Reason: Shortness of Breath Enoxaparin Sodium (Lovenox) 50 mg SC Q12 [facility] Last Admin: 05/31/17 11:13 Dose: 50 mg Famotidine (Pepcid) 20 mg PO DAILY [facility] Last Admin: 05/31/17 11:11 Dose: 20 mg Ceftriaxone Sodium 1 gm/ (Sodium Chloride) 100 mls @ 100 mls/hr IVPB DAILY [facility] Last Admin: 05/31/17 11:13 Dose: 100 mls/hr Azithromycin 500 mg/ Sodium (Chloride) 250 mls @ 250 mls/hr IVPB DAILY [facility] Last Admin: 05/31/17 11:14 Dose: 250 mls/hr Sodium Chloride (Sodium Chloride 0.9%) 1,000 mls @ 100 mls/hr IV .Q10H [facility] Last Admin: 05/31/17 12:58 Dose: Not Given Potassium Chloride (K-Dur 20 Meq Er Tab) 40 meq PO ONCE ONE Stop: 05/31/17 14:16 Saccharomyces Boulardii (Florastor) 250 mg PO BID [facility] Last Admin: 05/31/17 12:12 Dose: 250 mg - Labs Labs: 05/31/17 07:50 05/31/17 07:50 PT 15.9 SECONDS (9.7-12.2) H 05/30/17 12:55 INR 1.4 05/30/17 12:55 APTT 29 SECONDS (21-34) 05/30/17 12:55 - Constitutional Appears: No Acute Distress, Cachectic - Head Exam Head Exam: ATRAUMATIC, NORMAL INSPECTION - Eye Exam Eye Exam: EOMI - ENT Exam ENT Exam: Mucous Membranes Dry - Respiratory Exam Respiratory Exam: Decreased Breath Sounds, Rhonchi, Wheezes, NORMAL BREATHING PATTERN. absent: Respiratory Distress - Cardiovascular Exam Cardiovascular Exam: Tachycardia, +S1, +S2 - GI/Abdominal Exam GI & Abdominal Exam: Soft, Normal Bowel Sounds. absent: Distended, Firm, Tenderness - Extremities Exam Extremities Exam: absent: Calf Tenderness, Pedal Edema, Tenderness - Neurological Exam Neurological Exam: Alert - Psychiatric Exam Psychiatric exam: Normal Affect, Normal Mood - Skin Skin Exam: Dry, Intact, Normal Color, Warm Assessment and Plan - Assessment and Plan (Free Text) Plan: 1. Right lower lobe pneumonia * Chest xray (05/30/17): right lower lobe infiltrate/ atelectasis superimposed upon chronic interstitial lung disease (see full report) * Cotninue ceftriaxone 1 g Q24h, azithromycin 500mg q24h (05/30/17) * ID, Dr. Gray, consulted- help appreciated * f/u urine for legionella, strep pneumoniae, mycoplasma * influenza negative * f/u blood culture 2. Anemia with elevated globulin * likely secondary to history of cancer * (05/30/17) hemoglobin 8.9 * last hemoglobin in EMR from 2014 was 12 * globulin 4.3 * B12- 455, wnl; folate 20, wnl * FOBT: negative * Retic count 1.3 * f/u ferritin, serum immunofixation, kappa/lambda free light chains, protein electrophoresis 3. Stage IV Lung Cancer * Patient has seen Dr. Ramos in past * cannot obtain history from patient regarding medications/ chemotherapy * Dr. Ramos, heme-onc, consulted- help appreciated * Consulted palliative care, Angle Mena- help appreciated 4. Hypercalcemia * likely secondary to lung cancer * continue IV fluids, NS @100cc/h 5. Leukocytosis with left shift * likely due to pneumonia * follow up blood and urine culture * Continue ceftriaxone and azithromycin * Continue to monitor 6. Elevated CPK * secondary to possible rhabdomyolysis from fall and prolonged period spent down on floor of home * CPK 587; repeat CPK 433; trending down--> CK on 05/31 311 * Continue NS @ 100cc/h 7. Cachexia * likely secondary to stage IV lung cancer * patient states 21 pound weight loss over past 3 months * nutrition consult placed- help appreciated * continue dietary supplements TID * will consider marinol 8. Fall at home * CT Head (05/30/17): No intracranial hemorrhage. No hydrocephalus. No acute intracranial abnormalities. No significant findings to account for the clinical presentation * CT Cervical Spine (05/30/17): No significant central canal or neural foraminal stenosis. Right apical scarring findings similar to that seen on a prior CT of the thorax 02/22/2013. Multilevel degenerative change primarily disc space narrowing. No acute findings related to/accounting for the clinical presentation. * Pelvis xray (05/30/17): Status post open reduction internal fixation proximal left femoral fracture. No evidence of orthopedic hardware failure. No acute osseous abnormalities. * r/o cardiac etiology of fall * Troponinsx3: 0.297, 0.34, 0.2530; EKGs show ST depression; * Echocardiogram: f/u report * Carotid dopplers: mild disease b/l * Cardiology consults, Dr. Burden, help appreciated * On telemetry 9. 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 Cough * Duonebs Q6sch * Robitussin DM 11. Prophylaxis * pepcid 20mg PO BID * SCDs * Lovenox 50mg SC Q12 * physical therapy/ occupational therapy * palliative care * case management referral <Viktoriya Early V - Last Filed: 06/01/17 08:54> Objective - Vital Signs/Intake and Output Vital Signs (last 24 hours): Temp Pulse Resp BP Pulse Ox 97.5 F L 89 20 155/84 H 97 05/31/17 07:05 05/31/17 07:05 05/31/17 07:05 05/31/17 07:05 05/31/17 07:05 - Medications Medications: Current Medications Albuterol/Ipratropium (Duoneb 3 Mg/0.5 Mg (3 Ml) Ud) 3 ml INH RQ6 JOHAN Enoxaparin Sodium (Lovenox) 50 mg SC Q12 [facility] Last Admin: 05/31/17 11:13 Dose: 50 mg Famotidine (Pepcid) 20 mg PO DAILY [facility] Last Admin: 05/31/17 11:11 Dose: 20 mg Guaifenesin/Dextromethorphan (Robitussin Dm) 5 ml PO Q4H PRN PRN Reason: Cough Ceftriaxone Sodium 1 gm/ (Sodium Chloride) 100 mls @ 100 mls/hr IVPB DAILY [facility] Last Admin: 05/31/17 11:13 Dose: 100 mls/hr Azithromycin 500 mg/ Sodium (Chloride) 250 mls @ 250 mls/hr IVPB DAILY [facility] Last Admin: 05/31/17 11:14 Dose: 250 mls/hr Sodium Chloride (Sodium Chloride 0.9%) 1,000 mls @ 100 mls/hr IV .Q10H [facility] Last Admin: 05/31/17 12:58 Dose: Not Given Pamidronate Disodium 90 mg/ (Sodium Chloride) 530 mls @ 250 mls/hr IV ONCE ONE Stop: 05/31/17 17:37 Last Admin: 05/31/17 15:51 Dose: 250 mls/hr Magnesium Sulfate/Dextrose (Magnesium Sulfate 1 Gm/100 Ml D5w) 1 gm in 100 mls @ 300 mls/hr IVPB Q30M [facility] Stop: 05/31/17 16:49 Saccharomyces Boulardii (Florastor) 250 mg PO BID [facility] Last Admin: 05/31/17 12:12 Dose: 250 mg - Labs Labs: 05/31/17 07:50 05/31/17 07:50 PT 15.9 SECONDS (9.7-12.2) H 05/30/17 12:55 INR 1.4 05/30/17 12:55 APTT 29 SECONDS (21-34) 05/30/17 12:55 Attending/Attestation - Attestation I have personally seen and examined this patient.: Yes I have fully participated in the care of the patient.: Yes I have reviewed all pertinent clinical information, including history, physical exam and plan: Yes Notes (Text): This is a late computer entry for 05/21/17. Patient seen, examined, and case discussed with day-time resident. Patient is currently on IV antibiotics to cover for right lower lobe pneumonia. Patient is status post fall at home, increasing confusion, was found by building performance specialist. I tried to contact patient's nephew Van at [phone] unable to connect through the wet milling wheel operator. Resident spoke with Dr. Ramos for hematology-oncology who is patient's PMD/heme- onc, recommended patient for hospice/comfort care, recommended for Brain MRI and Aredia for hypercalciemia, strongly suspected secondary to malignancy. Palliative care on board-->help appreciated Discussed with cardiology on board, recommending medical management, DVT ppx, Aspirin, Statin, and Beta clarence. Assessment/Plan 1. Right lower lobe pneumonia * Chest xray (05/30/17): right lower lobe infiltrate/ atelectasis superimposed upon chronic interstitial lung disease (see full report) * Rocephin 1 gram IV Q daily (active since 05/30/17) and Azithromycin 500mg IV q daily (05/30/17) * ID, Dr. Gray, consulted- help appreciated * f/u urine for legionella, strep pneumoniae, mycoplasma * influenza negative * Duonebs Q6H scheduled * Robitussin DM 5ml PO Q 4H PRN cough 2. NONSTEMI * Troponin: 0.2970, 0.3400, 0.2530, 0.93943 * Cardiology (Dr. Burden) on board-->help appreciated * on Therapuetic Lovenox * Cardiology seen and evaluated patient, recommending for medical management including aspirin, statin, and beta clarence if patient can tolerate it and reports he will review echocardiogram 3. Stage IV Lung Cancer * Patient has seen Dr. Ramos (heme-onc) in past * cannot obtain history from patient regarding medications/ chemotherapy * Dr. Ramos, heme-onc, consulted- help appreciated * Resident spoke with Dr. Ramos 05/31/17 recommended for hospice for the patient , Brain MRI, and Aredia for hypercalcemia * Consulted palliative care, Angle Mena- help appreciated * Will need to follow-up with patient's family in regards to code status given clinical condition 4. Hypercalcemia * likely secondary to lung cancer * pending ionized calcium, immunofixation, kappa/lambda, protein electrophoresis , PTH intact, PTH related protein, Vitamin D * Patient does not have QT changes on EKG * continue IV fluids, NS @100cc/h * Given one dose of Aredia per heme-onc 5. Leukocytosis with left shift * r/o infection given hx of metastatic lung cancer * Blood culture (05/30/17): no growth after 24hours X2 * urine culture (05/30/17): no growth * Rocephin 1 gram IV Q daily (active since 05/30/17) and Azithromycin 500mg IV q daily (05/30/17) * Chest xray (05/30/17): right lower lobe infiltrate/ atelectasis superimposed upon chronic interstitial lung disease (see full report) * order for Strep Pneumoniae, Legionella urine * Continue to monitor 6. Elevated CPK * secondary to possible rhabdomyolysis from fall and prolonged period spent down on floor of home * CPK 587; repeat CPK 433; trending down--> CK on 05/31 311 * Continue NS @ 100cc/h 7. Cachexia * likely secondary to stage IV lung cancer * patient states 21 pound weight loss over past 3 months * nutrition consult placed- help appreciated * continue dietary supplements TID * will consider marinol 8. Fall at home * CT Head (05/30/17): No intracranial hemorrhage. No hydrocephalus. No acute intracranial abnormalities. No significant findings to account for the clinical presentation * CT Cervical Spine (05/30/17): No significant central canal or neural foraminal stenosis. Right apical scarring findings similar to that seen on a prior CT of the thorax 02/22/2013. Multilevel degenerative change primarily disc space narrowing. No acute findings related to/accounting for the clinical presentation. * Pelvis xray (05/30/17): Status post open reduction internal fixation proximal left femoral fracture. No evidence of orthopedic hardware failure. No acute osseous abnormalities. * Troponinsx3: 0.297, 0.34, 0.2530 * Echocardiogram: f/u report * Carotid dopplers: mild disease b/l * Cardiology consults, Dr. Burden, help appreciated * Recommended for ASA, betablocker, statin, medical management * On telemetry 9. 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 Cough * Duonebs Q6sch * Robitussin DM 11. Prophylaxis * pepcid 20mg PO daily * SCDs * Lovenox 50mg SC Q12 * physical therapy/ occupational therapy eval * palliative care consult * case management referral Disposition: f/u palliative care, f/u heme-onc, f/u cardiology, continue IV antibiotics to cover for pneumonia
[2017-05-31] MEDS: Albuterol-Ipratrop 3 mg / 0.5 (3 ml) UD INH SCH ×2 (13:15→19:09)
[2017-05-31] MEDS ORDERED: guaiFENesin DM 100 mg-10 mg/5 ml UD PO PRN (13:40)
--- NOTE | 2017-05-31 14:58 | CP.PCM.CON ---
History of Present Illness - History of Present Illness History of Present Illness: Palliative consult requested by Janey WOODY for goals of care discussion Patient is a 86 yo man admitted from home S/P fall. Patient found on the bathroom floor by landlord. Estimated downtime about 8 hr. Patient was not able to provide more information due to confusion. All info taken from patient's friend Duy, who had been his friend for many years. Patient's son and nephew live in [place]. CT head and cervical spine negative acute findings. TRPI level X 3 elevated. Doctor miriam called on consult. Patient diagnosed with stage IV lung Cancer. Doctor Rachel for [facility] suggests no treatment, but hospice instead. PMH: HTN, recently diagnosed with stage IV lung cancer, weight loss of 21 lb in last 3 months Soc. Hx: , lives alone, worked as jeweler, smoking and drugs use denied . Fam. Hx: Per friend, no significant fam Hx Review of Systems - Review of Systems All systems: reviewed and no additional remarkable complaints except Review of Systems: ROS obtained from nursing due to patient's lethatgy. Patient was lethargic most of the night. Past Patient History - Past Medical History & Family History Past Medical History?: Yes - Past Social History Smoking Status: Never Smoked - CARDIAC Hx Hypertension: Yes - PULMONARY Hx Respiratory Disorders: No - NEUROLOGICAL Hx Neurological Disorder: No - HEENT Hx HEENT Problems: No - RENAL Hx Chronic Kidney Disease: No - ENDOCRINE/METABOLIC Hx Diabetes Mellitus Type 2: Yes - HEMATOLOGICAL/ONCOLOGICAL Hx Blood Disorders: No - INTEGUMENTARY Hx Dermatological Problems: No - MUSCULOSKELETAL/RHEUMATOLOGICAL Hx Musculoskeletal Disorders: Yes Hx Falls: Yes - GASTROINTESTINAL Hx Gastrointestinal Disorders: No - GENITOURINARY/GYNECOLOGICAL Hx Genitourinary Disorders: No - PSYCHIATRIC Hx Substance Use: No - SURGICAL HISTORY Hx Surgeries: (UNABLE TO OBTAIN) - ANESTHESIA Hx Anesthesia: No Meds Allergies/Adverse Reactions: Allergies Allergy/AdvReac Type Severity Reaction Status Date / Time No Known Allergies Allergy Unverified 05/30/17 11:57 - Medications Medications: Current Medications Albuterol/Ipratropium (Duoneb 3 Mg/0.5 Mg (3 Ml) Ud) 3 ml INH RQ6 AYDEN Enoxaparin Sodium (Lovenox) 50 mg SC Q12 [facility] Last Admin: 05/31/17 11:13 Dose: 50 mg Famotidine (Pepcid) 20 mg PO DAILY [facility] Last Admin: 05/31/17 11:11 Dose: 20 mg Guaifenesin/Dextromethorphan (Robitussin Dm) 5 ml PO Q4H PRN PRN Reason: Cough Ceftriaxone Sodium 1 gm/ (Sodium Chloride) 100 mls @ 100 mls/hr IVPB DAILY [facility] Last Admin: 05/31/17 11:13 Dose: 100 mls/hr Azithromycin 500 mg/ Sodium (Chloride) 250 mls @ 250 mls/hr IVPB DAILY [facility] Last Admin: 05/31/17 11:14 Dose: 250 mls/hr Sodium Chloride (Sodium Chloride 0.9%) 1,000 mls @ 100 mls/hr IV .Q10H [facility] Last Admin: 05/31/17 12:58 Dose: Not Given Pamidronate Disodium 90 mg/ (Sodium Chloride) 530 mls @ 250 mls/hr IV ONCE ONE Stop: 05/31/17 16:38 Saccharomyces Boulardii (Florastor) 250 mg PO BID [facility] Last Admin: 05/31/17 12:12 Dose: 250 mg Physical Exam - Constitutional Appears: Chronically Ill - Head Exam Head Exam: ATRAUMATIC, NORMAL INSPECTION, NORMOCEPHALIC - Eye Exam Eye Exam: Normal appearance, PERRL Pupil Exam: NORMAL ACCOMODATION, PERRL - ENT Exam ENT Exam: Mucous Membranes Dry, Normal Exam - Neck Exam Neck exam: Positive for: Normal Inspection - Respiratory Exam Respiratory Exam: Decreased Breath Sounds, Rhonchi, NORMAL BREATHING PATTERN - Cardiovascular Exam Cardiovascular Exam: Tachycardia, REGULAR RHYTHM - GI/Abdominal Exam GI & Abdominal Exam: Diminished Bowel Sounds - Rectal Exam Rectal Exam: Deferred - Exam Exam: NORMAL INSPECTION - Extremities Exam Extremities exam: Positive for: normal inspection - Back Exam Back exam: NORMAL INSPECTION - Neurological Exam Neurological exam: Alert, Altered - Psychiatric Exam Psychiatric exam: Flat Affect - Skin Skin Exam: Pallor Results - Vital Signs Recent Vital Signs: Last Vital Signs Temp 97.5 F L 05/31/17 07:05 Pulse 89 05/31/17 07:05 Resp 20 05/31/17 07:05 BP 155/84 H 05/31/17 07:05 Pulse Ox 97 05/31/17 07:05 - Labs Result Diagrams: 05/31/17 07:50 05/31/17 07:50 Labs: Laboratory Results - last 24 hr 05/30/17 05/30/17 05/30/17 15:26 15:28 18:07 WBC RBC Hgb Hct MCV MCH MCHC RDW Plt Count MPV Neut % (Auto) Lymph % (Auto) [place] % (Auto) Eos % (Auto) Baso % (Auto) Neut # Lymph # [place] # Eos # Baso # Neutrophils % (Manual) Lymphocytes % (Manual) Monocytes % (Manual) Platelet Estimate Large Platelets Hypochromasia (manual) Poikilocytosis (manual Anisocytosis (manual) Ovalocytes Retic Count Sodium Potassium Chloride Carbon Dioxide Anion Gap BUN Creatinine Est GFR ( Amer) Est GFR (Non-Af Amer) POC Glucose (mg/dL) Random Glucose Calcium Ferritin 216.0 Total Bilirubin AST ALT Alkaline Phosphatase Total Creatine Kinase 433 H CK-MB (Mass) 4.93 H Troponin I 0.2970 H* Total Protein Albumin Globulin Albumin/Globulin Ratio Vitamin B12 455 Folate 20.0 Urine Color Straw Urine Clarity Clear Urine pH 7.0 Ur Specific [place] 1.009 Urine Protein 1+ H Urine Glucose (UA) 1+ H Urine Ketones Negative Urine Blood 2+ H Urine Nitrate Negative Urine Bilirubin Negative Urine Urobilinogen Normal Ur Leukocyte Esterase Neg Urine WBC (Auto) 2 Urine RBC (Auto) 14 H Hyaline Casts 3-5 H Stool Occult Blood Negative Urine Opiates Screen Urine Methadone Screen Ur Barbiturates Screen Ur Phencyclidine Scrn Ur Amphetamines Screen U Benzodiazepines Scrn U Oth Cocaine Metabols U Cannabinoids Screen 05/30/17 05/30/17 05/31/17 18:07 23:43 00:04 WBC RBC Hgb Hct MCV MCH MCHC RDW Plt Count MPV Neut % (Auto) Lymph % (Auto) [place] % (Auto) Eos % (Auto) Baso % (Auto) Neut # Lymph # [place] # Eos # Baso # Neutrophils % (Manual) Lymphocytes % (Manual) Monocytes % (Manual) Platelet Estimate Large Platelets Hypochromasia (manual) Poikilocytosis (manual Anisocytosis (manual) Ovalocytes Retic Count 1.3 Sodium Potassium Chloride Carbon Dioxide Anion Gap BUN Creatinine Est GFR ( Amer) Est GFR (Non-Af Amer) POC Glucose (mg/dL) Random Glucose Calcium Ferritin Total Bilirubin AST ALT Alkaline Phosphatase Total Creatine Kinase 316 H CK-MB (Mass) 3.73 H Troponin I 0.3400 H* Total Protein Albumin Globulin Albumin/Globulin Ratio Vitamin B12 Folate Urine Color Urine Clarity Urine pH Ur Specific [place] Urine Protein Urine Glucose (UA) Urine Ketones Urine Blood Urine Nitrate Urine Bilirubin Urine Urobilinogen Ur Leukocyte Esterase Urine WBC (Auto) Urine RBC (Auto) Hyaline Casts Stool Occult Blood Urine Opiates Screen Negative Urine Methadone Screen Negative Ur Barbiturates Screen Negative Ur Phencyclidine Scrn Negative Ur Amphetamines Screen Negative U Benzodiazepines Scrn Negative U Oth Cocaine Metabols Negative U Cannabinoids Screen Negative 05/31/17 05/31/17 05/31/17 06:20 07:50 07:50 WBC 12.2 H RBC 3.22 L Hgb 9.6 L Hct 28.3 L MCV 87.9 MCH 29.7 MCHC 33.8 RDW 14.7 H Plt Count 451 H MPV 8.2 Neut % (Auto) 93.4 H Lymph % (Auto) 5.0 L [place] % (Auto) 1.4 Eos % (Auto) 0.0 Baso % (Auto) 0.2 Neut # 11.4 H Lymph # 0.6 L [place] # 0.2 Eos # 0.0 Baso # 0.0 Neutrophils % (Manual) 95 H Lymphocytes % (Manual) 4 L Monocytes % (Manual) 1 Platelet Estimate Normal Large Platelets Present Hypochromasia (manual) Slight Poikilocytosis (manual Slight Anisocytosis (manual) Slight Ovalocytes Slight Retic Count Sodium 135 Potassium 2.9 L Chloride 97 L Carbon Dioxide 29 Anion Gap 12 BUN 15 Creatinine 0.9 Est GFR ( Amer) > 60 Est GFR (Non-Af Amer) > 60 POC Glucose (mg/dL) 143 H Random Glucose 173 H Calcium 11.1 H Ferritin Total Bilirubin 0.8 AST 46 ALT 25 Alkaline Phosphatase 75 Total Creatine Kinase 311 H CK-MB (Mass) 3.56 H Troponin I 0.2530 H* Total Protein 8.0 Albumin 3.5 Globulin 4.4 H Albumin/Globulin Ratio 0.8 L Vitamin B12 Folate Urine Color Urine Clarity Urine pH Ur Specific [place] Urine Protein Urine Glucose (UA) Urine Ketones Urine Blood Urine Nitrate Urine Bilirubin Urine Urobilinogen Ur Leukocyte Esterase Urine WBC (Auto) Urine RBC (Auto) Hyaline Casts Stool Occult Blood Urine Opiates Screen Urine Methadone Screen Ur Barbiturates Screen Ur Phencyclidine Scrn Ur Amphetamines Screen U Benzodiazepines Scrn U Oth Cocaine Metabols U Cannabinoids Screen 05/31/17 11:35 WBC RBC Hgb Hct MCV MCH MCHC RDW Plt Count MPV Neut % (Auto) Lymph % (Auto) [place] % (Auto) Eos % (Auto) Baso % (Auto) Neut # Lymph # [place] # Eos # Baso # Neutrophils % (Manual) Lymphocytes % (Manual) Monocytes % (Manual) Platelet Estimate Large Platelets Hypochromasia (manual) Poikilocytosis (manual Anisocytosis (manual) Ovalocytes Retic Count Sodium Potassium Chloride Carbon Dioxide Anion Gap BUN Creatinine Est GFR ( Amer) Est GFR (Non-Af Amer) POC Glucose (mg/dL) 205 H Random Glucose Calcium Ferritin Total Bilirubin AST ALT Alkaline Phosphatase Total Creatine Kinase CK-MB (Mass) Troponin I Total Protein Albumin Globulin Albumin/Globulin Ratio Vitamin B12 Folate Urine Color Urine Clarity Urine pH Ur Specific [place] Urine Protein Urine Glucose (UA) Urine Ketones Urine Blood Urine Nitrate Urine Bilirubin Urine Urobilinogen Ur Leukocyte Esterase Urine WBC (Auto) Urine RBC (Auto) Hyaline Casts Stool Occult Blood Urine Opiates Screen Urine Methadone Screen Ur Barbiturates Screen Ur Phencyclidine Scrn Ur Amphetamines Screen U Benzodiazepines Scrn U Oth Cocaine Metabols U Cannabinoids Screen Assessment & Plan - Assessment and Plan (Free Text) Assessment: Palliative consult Code status Full Code, no Advance directive on chart, PPS 10 % I reviewed medical records, all diagnostic studies, examined patient in the bed. Patient is alert, lethargyc, unable to fallow simple commends. Patient looks cachectic and pale. Hb 9.6. Diminished breath sounds, O2Sat 97 % NC, ronchi on auscultation. Patient needs to be feed and is at great risk for aspiration. Bowel sounds active. Abdomen flat. Incontinent of bowel and bladder. No pedal edema. BP 155/84, HR 107. Goals of care discussed with Duy, patient's friend of many years ). He has been looking after the patient as patient's family is in [facility]. per Duy, patient was able to ambulate until just recently. Duy would give him a ride to [place], take him to a lunch and return home. Patient become increasingly confused lately. Duy was one to take patient to a Doctor when cancer was diagnosed. Duy is not in position to make any medical decision for patient but he is in close contact with patient's nephew Van ( [phone]) who patient wanted to be his surrogate decision maker. I provided my email and phone # for nephew in order to communicate Code status and POLST form. This was shared with Doctor Early who advised that Doctor Rachel did not suggest any treatments due to advanced age and advanced cancer. Instead, hospice was suggested. I asked again for nephew to either contact me over the phone or email me for further discussion. Impression * Chronicle ill patient, newly diagnosed with stage IV lung CA * Unable to advocate for himself due to lethargy and weakness * lack of family support, patient lives alone.Long lasting friend is looking after him * No treatment offered from [facility]; Hospice suggested * Family in [place] contacted for Goals of care discussion Suggestion * Patient should be made DNR/DNI to avoid aggressive interventions which will not improve quality of his life * In the light of diagnosis and advanced age our primary goal should be to promote comfort at the end of life; therefore Hospice care is appropriate level of care for this patient * I will communicate with family in [place] via email for POLST signing and will discuss comfort care * Would consider aspiration precautions due to lethargy * Assist with feedings as tolerated Time spent in Advanced Care discussion is 30 min. I will continue to fallow up with family and assist in process of admitting to Hospice care Thank you for consulting palliative care
[2017-05-31 15:13] LABS: MAGNESIUM 1.4 mg/dL (1.6-2.3)
[2017-05-31] MEDS ORDERED: SODIUM CHLORIDE 0.45% IV ONE (15:30)
[2017-05-31] MEDS ORDERED: PAMIDRONATE IV ONE (15:30)
[2017-05-31 15:31] LABS: CK-MB 2.38 ng/mL (0.0-3.38); TROPONIN I 0.196 ng/mL (0.00-0.120)
[2017-05-31] MEDS: Magnesium Sulfate 1 gm in D5W 1 GM/100 ML BAG IVPB SCH ×2 (16:47→18:01)
--- NOTE | 2017-05-31 19:39 | CARD ---
APPROVED REPORT EXAM: Two-dimensional and M-mode echocardiogram with Doppler and color Doppler. Other Information Quality : GoodRhythm : INDICATION Chest Pain PATIENT FOUND DOWN AT HOME, DIZZINE, FALL 2D DIMENSIONS IVSd0.8 (0.7-1.1cm)LVDd3.3 (3.9-5.9cm) LVOT Diameter2.2 (1.8-2.4cm)PWd0.8 (0.7-1.1cm) LVDs2.6 (2.5-4.0cm)FS (%) 22.2 % LVEF (%)45.9 (>50%) M-Mode DIMENSIONS Left Atrium (MM)2.63 (2.5-4.0cm)Aortic Root3.65 (2.2-3.7cm) Aortic Cusp Exc.1.40 (1.5-2.0cm) Mitral Valve MV E Vsrqoqia49.3cm/sMV A Cqvylemi94.8cm/sE/A ratio1.7 TDI E/Lateral E'0.0E/Medial E'0.0 Tricuspid Valve TR Peak [id number]/sTR Peak Gr.12waKnBSXV43vqLc LEFT VENTRICLE Possible borderline to mild concentric left ventricular hypertrophy. The systolic function is mildly impaired. The Ejection Fraction is 45-50%. RIGHT VENTRICLE The right ventricular systolic function is normal. ATRIA The left atrium is not well visualized. The right atrium is not well visualized. AORTIC VALVE The aortic valve is moderately calcified and displays decreased opening. No aortic regurgitation is present. MITRAL VALVE Mitral annular calcification is mild. There is no mitral valve regurgitation noted. TRICUSPID VALVE The tricuspid valve is normal in structure. There is mild tricuspid regurgitation. Right ventricular systolic pressure is estimated at - 43 mmHg. There is mild pulmonary hypertension. PULMONIC VALVE The pulmonic valve is not well visualized. GREAT VESSELS The aortic root is normal in size. The IVC is normal in size and collapses >50% with inspiration. PERICARDIAL EFFUSION A pericardial fatpad noted but, a loculated small pericardial effusion cannot be excluded. <Conclusion> SUBOPTIMAL STUDY DUE TO POOR ACOUSTIC WINDOWS Possible borderline to mild concentric left ventricular hypertrophy. The systolic function is mildly impaired. The Ejection Fraction is 45-50%. The right ventricular systolic function is normal. The aortic valve is moderately calcified and displays decreased opening. There is mild tricuspid regurgitation. Right ventricular systolic pressure is estimated at - 43 mmHg compatible with mild pulmonary hypertension. A pericardial fatpad noted but, a small loculated pericardial effusion cannot be excluded.
--- NOTE | 2017-05-31 22:06 | CARD ---
APPROVED REPORT EKG Measurement Heart [id number] <Conclusion> PROMINENT BASELINE ARTIFACT - PLEASE REPEAT Sinus rhythm with 1st degree AV block with occasional premature ventricular complexes Nonspecific ST and T wave abnormality Abnormal ECG
--- NOTE | 2017-05-31 22:08 | CARD ---
APPROVED REPORT EKG Measurement Heart [id number] <Conclusion> Normal sinus rhythm ST & T wave abnormality. Abnormal ECG
--- NOTE | 2017-05-31 23:23 | CP.PCM.CON ---
History of Present Illness - History of Present Illness History of Present Illness: Reason For Consultation: Abnormal Troponin Patient is an 86 year old male who presents to the ER after being found down in his home. Patient is a poor historian and majority of history is provided by friend, Duy . Per friend, patient has been confused for some time but has become more confused lately. Per friend, patient woke up around 10: 30PM yesterday evening to use the bathroom. Patient felt dizzy upon standing and fell down. Patient denies hitting his head or loss of consciousness. Patient cannot comment on why he could not get up from floor. Patient's friend states that the building drafting officer found the patient on the floor this morning () and called an ambulance. Patient's friend states that patient was recently diagnosed with stage IV lung cancer. Patient's family all reside in [place]. Next of kin is patient's nephew, Van, who also lives in [place] and can be reached at: [phone]. Per friend, patient's family has been trying to obtain information regarding treatment and diagnosis to evaluate treatment options in [place]. Patient admits to 21 pound weight loss over 3 months as well as decreased appetite. Per friend, patient has been unsteady on his feet for last few months with history of falls as well as increasing fatigue. Heme-Onc: Dr. Ramos PMHx: stage IV lung cancer Meds: patient and friend unsure of medications, does not know name of pharmacy PSHx: left hip repair FamHx: denies SocialHx: states tobacco usage in past (cannot quantify), denies alcohol and drugs; lives alone; formerly worked as a [employer] for 42 years Present on Admission - Present on Admission Any Indicators Present on Admission: No Review of Systems - Constitutional Constitutional: Weight Loss, Weakness. absent: Chills, Fever - EENT Ears: Dizziness - Cardiovascular Cardiovascular: absent: Chest Pain - Respiratory Respiratory: Cough - Gastrointestinal Gastrointestinal: absent: Abdominal Pain, Nausea, Vomiting - Genitourinary Genitourinary: absent: Difficulty Urinating, Dysuria - Musculoskeletal Musculoskeletal: absent: Back Pain - Integumentary Integumentary: absent: Rash - Neurological Neurological: Dizziness, Weakness Meds Allergies/Adverse Reactions: Allergies Allergy/AdvReac Type Severity Reaction Status Date / Time No Known Allergies Allergy Unverified 05/30/17 11:57 Physical Exam - Constitutional Appears: No Acute Distress, Cachectic, Chronically Ill - Head Exam Head Exam: ATRAUMATIC, NORMOCEPHALIC - Eye Exam Eye Exam: EOMI - ENT Exam ENT Exam: Mucous Membranes Dry - Respiratory Exam Respiratory Exam: Decreased Breath Sounds, NORMAL BREATHING PATTERN. absent: Respiratory Distress - Cardiovascular Exam Cardiovascular Exam: +S1, +S2 - GI/Abdominal Exam GI & Abdominal Exam: Normal Bowel Sounds, Soft. absent: Tenderness - Rectal Exam Rectal Exam: NORMAL INSPECTION. absent: Black Stool, Bloody Stool, Hemorrhoids Additional comments: no gross blood, moderate amount of soft brown stool in rectum - Extremities Exam Extremities exam: Positive for: normal inspection. Negative for: pedal edema - Back Exam Back exam: absent: CVA tenderness (L), CVA tenderness (R), rash noted Additional comments: no ecchymotic lesions noted - Neurological Exam Neurological exam: Alert Additional comments: patient not oriented Past Patient History - Past Medical History & Family History Past Medical History?: Yes - Past Social History Smoking Status: Never Smoked - CARDIAC Hx Hypertension: Yes - PULMONARY Hx Respiratory Disorders: No - NEUROLOGICAL Hx Neurological Disorder: No - HEENT Hx HEENT Problems: No - RENAL Hx Chronic Kidney Disease: No - ENDOCRINE/METABOLIC Hx Diabetes Mellitus Type 2: Yes - HEMATOLOGICAL/ONCOLOGICAL Hx Blood Disorders: No - INTEGUMENTARY Hx Dermatological Problems: No - MUSCULOSKELETAL/RHEUMATOLOGICAL Hx Musculoskeletal Disorders: Yes Hx Falls: Yes - GASTROINTESTINAL Hx Gastrointestinal Disorders: No - GENITOURINARY/GYNECOLOGICAL Hx Genitourinary Disorders: No - PSYCHIATRIC Hx Substance Use: No - SURGICAL HISTORY Hx Surgeries: (UNABLE TO OBTAIN) - ANESTHESIA Hx Anesthesia: No Meds Allergies/Adverse Reactions: Allergies Allergy/AdvReac Type Severity Reaction Status Date / Time No Known Allergies Allergy Unverified 05/30/17 11:57 - Medications Medications: Current Medications Albuterol/Ipratropium (Duoneb 3 Mg/0.5 Mg (3 Ml) Ud) 3 ml INH RQ6 [facility] Last Admin: 05/31/17 19:09 Dose: 3 ml Enoxaparin Sodium (Lovenox) 50 mg SC Q12 [facility] Last Admin: 05/31/17 21:34 Dose: 50 mg Famotidine (Pepcid) 20 mg PO DAILY [facility] Last Admin: 05/31/17 11:11 Dose: 20 mg Guaifenesin/Dextromethorphan (Robitussin Dm) 5 ml PO Q4H PRN PRN Reason: Cough Ceftriaxone Sodium 1 gm/ (Sodium Chloride) 100 mls @ 100 mls/hr IVPB DAILY [facility] Last Admin: 05/31/17 11:13 Dose: 100 mls/hr Azithromycin 500 mg/ Sodium (Chloride) 250 mls @ 250 mls/hr IVPB DAILY [facility] Last Admin: 05/31/17 11:14 Dose: 250 mls/hr Sodium Chloride (Sodium Chloride 0.9%) 1,000 mls @ 100 mls/hr IV .Q10H [facility] Last Admin: 05/31/17 21:38 Dose: 100 mls/hr Saccharomyces Boulardii (Florastor) 250 mg PO BID [facility] Last Admin: 05/31/17 18:02 Dose: Not Given Results - Vital Signs Recent Vital Signs: Last Vital Signs Temp 97.5 F L 05/31/17 07:05 Pulse 93 H 05/31/17 19:12 Resp 20 05/31/17 07:05 BP 143/80 05/31/17 16:00 Pulse Ox 97 05/31/17 07:05 - Labs Result Diagrams: 05/31/17 07:50 05/31/17 07:50 Labs: Laboratory Results - last 24 hr 05/30/17 05/31/17 05/31/17 23:43 00:04 06:20 WBC RBC Hgb Hct MCV MCH MCHC RDW Plt Count MPV Neut % (Auto) Lymph % (Auto) [place] % (Auto) Eos % (Auto) Baso % (Auto) Neut # Lymph # [place] # Eos # Baso # Neutrophils % (Manual) Lymphocytes % (Manual) Monocytes % (Manual) Platelet Estimate Large Platelets Hypochromasia (manual) Poikilocytosis (manual Anisocytosis (manual) Ovalocytes Sodium Potassium Chloride Carbon Dioxide Anion Gap BUN Creatinine Est GFR ( Amer) Est GFR (Non-Af Amer) POC Glucose (mg/dL) 143 H Random Glucose Calcium Phosphorus Magnesium Total Bilirubin AST ALT Alkaline Phosphatase Total Creatine Kinase 316 H CK-MB (Mass) 3.73 H Troponin I 0.3400 H* Total Protein Albumin Globulin Albumin/Globulin Ratio 25-OH Vitamin D Total Urine Opiates Screen Negative Urine Methadone Screen Negative Ur Barbiturates Screen Negative Ur Phencyclidine Scrn Negative Ur Amphetamines Screen Negative U Benzodiazepines Scrn Negative U Oth Cocaine Metabols Negative U Cannabinoids Screen Negative 05/31/17 05/31/17 05/31/17 07:50 07:50 11:35 WBC 12.2 H RBC 3.22 L Hgb 9.6 L Hct 28.3 L MCV 87.9 MCH 29.7 MCHC 33.8 RDW 14.7 H Plt Count 451 H MPV 8.2 Neut % (Auto) 93.4 H Lymph % (Auto) 5.0 L [place] % (Auto) 1.4 Eos % (Auto) 0.0 Baso % (Auto) 0.2 Neut # 11.4 H Lymph # 0.6 L [place] # 0.2 Eos # 0.0 Baso # 0.0 Neutrophils % (Manual) 95 H Lymphocytes % (Manual) 4 L Monocytes % (Manual) 1 Platelet Estimate Normal Large Platelets Present Hypochromasia (manual) Slight Poikilocytosis (manual Slight Anisocytosis (manual) Slight Ovalocytes Slight Sodium 135 Potassium 2.9 L Chloride 97 L Carbon Dioxide 29 Anion Gap 12 BUN 15 Creatinine 0.9 Est GFR ( Amer) > 60 Est GFR (Non-Af Amer) > 60 POC Glucose (mg/dL) 205 H Random Glucose 173 H Calcium 11.1 H Phosphorus Magnesium Total Bilirubin 0.8 AST 46 ALT 25 Alkaline Phosphatase 75 Total Creatine Kinase 311 H CK-MB (Mass) 3.56 H Troponin I 0.2530 H* Total Protein 8.0 Albumin 3.5 Globulin 4.4 H Albumin/Globulin Ratio 0.8 L 25-OH Vitamin D Total Urine Opiates Screen Urine Methadone Screen Ur Barbiturates Screen Ur Phencyclidine Scrn Ur Amphetamines Screen U Benzodiazepines Scrn U Oth Cocaine Metabols U Cannabinoids Screen 05/31/17 05/31/17 05/31/17 14:34 14:34 14:37 WBC RBC Hgb Hct MCV MCH MCHC RDW Plt Count MPV Neut % (Auto) Lymph % (Auto) [place] % (Auto) Eos % (Auto) Baso % (Auto) Neut # Lymph # [place] # Eos # Baso # Neutrophils % (Manual) Lymphocytes % (Manual) Monocytes % (Manual) Platelet Estimate Large Platelets Hypochromasia (manual) Poikilocytosis (manual Anisocytosis (manual) Ovalocytes Sodium Potassium Chloride Carbon Dioxide Anion Gap BUN Creatinine Est GFR ( Amer) Est GFR (Non-Af Amer) POC Glucose (mg/dL) Random Glucose Calcium Phosphorus 3.5 Magnesium 1.4 L Total Bilirubin AST ALT Alkaline Phosphatase Total Creatine Kinase 170 CK-MB (Mass) 2.38 Troponin I 0.1960 H* Total Protein Albumin Globulin Albumin/Globulin Ratio 25-OH Vitamin D Total 74.2 Urine Opiates Screen Urine Methadone Screen Ur Barbiturates Screen Ur Phencyclidine Scrn Ur Amphetamines Screen U Benzodiazepines Scrn U Oth Cocaine Metabols U Cannabinoids Screen 05/31/17 05/31/17 16:40 20:58 WBC RBC Hgb Hct MCV MCH MCHC RDW Plt Count MPV Neut % (Auto) Lymph % (Auto) [place] % (Auto) Eos % (Auto) Baso % (Auto) Neut # Lymph # [place] # Eos # Baso # Neutrophils % (Manual) Lymphocytes % (Manual) Monocytes % (Manual) Platelet Estimate Large Platelets Hypochromasia (manual) Poikilocytosis (manual Anisocytosis (manual) Ovalocytes Sodium Potassium Chloride Carbon Dioxide Anion Gap BUN Creatinine Est GFR ( Amer) Est GFR (Non-Af Amer) POC Glucose (mg/dL) 189 H 233 H Random Glucose Calcium Phosphorus Magnesium Total Bilirubin AST ALT Alkaline Phosphatase Total Creatine Kinase CK-MB (Mass) Troponin I Total Protein Albumin Globulin Albumin/Globulin Ratio 25-OH Vitamin D Total Urine Opiates Screen Urine Methadone Screen Ur Barbiturates Screen Ur Phencyclidine Scrn Ur Amphetamines Screen U Benzodiazepines Scrn U Oth Cocaine Metabols U Cannabinoids Screen Assessment & Plan - Assessment and Plan (Free Text) Assessment: 1. Right lower lobe pneumonia * Chest xray (05/30/17): right lower lobe infiltrate/ atelectasis superimposed upon chronic interstitial lung disease (see full report) * Cotninue ceftriaxone 1 g Q24h, azithromycin 500mg q24h (05/30/17) * ID, Dr. Gray, consulted- help appreciated * f/u urine for legionella, strep pneumoniae, mycoplasma * influenza negative * f/u blood culture 2. Anemia with elevated globulin * likely secondary to history of cancer * (05/30/17) hemoglobin 8.9 * last hemoglobin in EMR from 2014 was 12 * globulin 4.3 * B12- 455, wnl; folate 20, wnl * FOBT: negative * Retic count 1.3 * f/u ferritin, serum immunofixation, kappa/lambda free light chains, protein electrophoresis 3. Stage IV Lung Cancer * Patient has seen Dr. Ramos in past * cannot obtain history from patient regarding medications/ chemotherapy * Dr. Ramos, heme-onc, consulted- help appreciated * Consulted palliative care, Angle Mena- help appreciated 4. Hypercalcemia * likely secondary to lung cancer * continue IV fluids, NS @100cc/h 5. Leukocytosis with left shift * likely due to pneumonia * follow up blood and urine culture * Continue ceftriaxone and azithromycin * Continue to monitor 6. Elevated CPK * secondary to possible rhabdomyolysis from fall and prolonged period spent down on floor of home * CPK 587; repeat CPK 433; trending down--> CK on 05/31 311 * Continue NS @ 100cc/h 7. Cachexia * likely secondary to stage IV lung cancer * patient states 21 pound weight loss over past 3 months * nutrition consult placed- help appreciated * continue dietary supplements TID * will consider marinol 8. Fall at home * CT Head (05/30/17): No intracranial hemorrhage. No hydrocephalus. No acute intracranial abnormalities. No significant findings to account for the clinical presentation * CT Cervical Spine (05/30/17): No significant central canal or neural foraminal stenosis. Right apical scarring findings similar to that seen on a prior CT of the thorax 02/22/2013. Multilevel degenerative change primarily disc space narrowing. No acute findings related to/accounting for the clinical presentation. * Pelvis xray (05/30/17): Status post open reduction internal fixation proximal left femoral fracture. No evidence of orthopedic hardware failure. No acute osseous abnormalities. * r/o cardiac etiology of fall * Troponinsx3: 0.297, 0.34, 0.2530; EKGs show ST depression; * Echocardiogram: f/u report * Carotid dopplers: mild disease b/l * Cardiology consults, Dr. Burden, help appreciated * On telemetry 9. 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 Cough * Duonebs Q6sch * Robitussin DM 11. Prophylaxis * pepcid 20mg PO BID * SCDs * Lovenox 50mg SC Q12 * physical therapy/ occupational therapy * palliative care * case management referral Abnormal Troponin. Given overall general condition recommend conservative mgt with ASA, Statins and B blockers, if tolerated
[2017-06-01] MEDS: Albuterol-Ipratrop 3 mg / 0.5 (3 ml) UD INH SCH ×4 (01:42→19:46)
--- NOTE | 2017-06-01 06:33 | CON ---
DATE: ONCOLOGY CONSULTATION HISTORY OF PRESENT ILLNESS: This is an 86-year-old man, who is now admitted for hypercalcemia and change of mental status. 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 So, the workup showed stage IV lung cancer metastatic to the lung and we had a long talk. Now, his family is in [place]. He has these two neighbors that sort of take care of him and they were in the office with me a week and a half ago when we discussed all the findings. He has lost a good 20 to 30 pounds. At that time he had metastatic cancer, elderly, and his workup showed that he did have a PD-L1 positive mutation that is about 60, which is elevated. Now, we gave him the options of no surgery, no invasive therapy, but chemotherapy which would be a PD-L1 drug or chemotherapy with significant toxicities versus hospice and I made an appointment for him to see hospice comfort care; hospice, I believe they did see him once. In the meantime, I was supposed to meet with the family again or the patient and his neighbors this week to make final decisions as to whether he wants chemotherapy or not and what the toxicities would be in terms of the chemotherapy. He is now admitted for falling down and for having markedly decreased mental status. PHYSICAL EXAMINATION: GENERAL: He knows who I am. SKIN: Negative. HEENT: Anicteric, but significant temporal wasting noted. NODES: Nonpalpable in the axillary, cervical, supraclavicular, or inguinal regions. LUNGS: Clear at present. He is able to lie flat. HEART: S1 and S2. ABDOMEN: Shows no liver, no spleen, no tenderness. EXTREMITIES: No edema. CENTRAL NERVOUS SYSTEM: Plantars are downgoing bilaterally. LABORATORY DATA: The laboratory finding shows CAT scan without contrast, otherwise negative. He does have hypercalcemia with a calcium of 11.8; on repeat was 11.1, on some hydration. He is just on antibiotics. He is markedly worse than he was even a month ago. He seems to have lost even more weight and he is not as alert as before. ASSESSMENT: It is unclear to me what his status is in terms of his family is not here; they are in [place]. His neighbors do not have Power of Plant Physiologist, and any chemotherapy will be have to be given as an outpatient. I would recommend that he be put on Xgeva or Aredia 90 mg IV and 250 mL of normal saline IV over an hour or two to bring down the calcium. At that point, if he is more alert, he may be able to give more decisions. Adan Ramos MD
--- NOTE | 2017-06-01 06:48 | CP.PCM.PN ---
Subjective - Date & Time of Evaluation Date of Evaluation: 06/01/17 Time of Evaluation: 06:48 - Subjective Subjective: Medicine progress note for Dr. Early's service Patient was seen and examined at bedside in no acute distress. Patient was more alert and verbal today than yesterday. Patient was sitting up in chair and smiling. He said he "doesn't feel good", but when asked 12-point review of systems, he denies all. Patient is oriented to person and place, but not time ( ). Objective - Vital Signs/Intake and Output Vital Signs (last 24 hours): Temp Pulse Resp BP Pulse Ox 9704 F H 70 20 111/60 96 05/31/17 23:35 06/01/17 01:15 05/31/17 23:35 05/31/17 23:35 05/31/17 23:35 Intake and Output: 05/31/17 06/01/17 18:59 06:59 Intake Total 1999 Balance 1999 - Medications Medications: Current Medications Albuterol/Ipratropium (Duoneb 3 Mg/0.5 Mg (3 Ml) Ud) 3 ml INH RQ6 [facility] Last Admin: 06/01/17 01:42 Dose: Not Given Enoxaparin Sodium (Lovenox) 50 mg SC Q12 [facility] Last Admin: 05/31/17 21:34 Dose: 50 mg Famotidine (Pepcid) 20 mg PO DAILY [facility] Last Admin: 05/31/17 11:11 Dose: 20 mg Guaifenesin/Dextromethorphan (Robitussin Dm) 5 ml PO Q4H PRN PRN Reason: Cough Ceftriaxone Sodium 1 gm/ (Sodium Chloride) 100 mls @ 100 mls/hr IVPB DAILY [facility] Last Admin: 05/31/17 11:13 Dose: 100 mls/hr Azithromycin 500 mg/ Sodium (Chloride) 250 mls @ 250 mls/hr IVPB DAILY [facility] Last Admin: 05/31/17 11:14 Dose: 250 mls/hr Sodium Chloride (Sodium Chloride 0.9%) 1,000 mls @ 100 mls/hr IV .Q10H [facility] Last Admin: 05/31/17 23:30 Dose: Not Given Saccharomyces Boulardii (Florastor) 250 mg PO BID [facility] Last Admin: 05/31/17 18:02 Dose: Not Given - Labs Labs: 05/31/17 07:50 05/31/17 07:50 PT 15.9 SECONDS (9.7-12.2) H 05/30/17 12:55 INR 1.4 05/30/17 12:55 APTT 29 SECONDS (21-34) 05/30/17 12:55 - Constitutional Appears: No Acute Distress - Head Exam Head Exam: ATRAUMATIC, NORMAL INSPECTION - Eye Exam Eye Exam: EOMI - ENT Exam ENT Exam: Mucous Membranes Moist - Respiratory Exam Respiratory Exam: Decreased Breath Sounds, NORMAL BREATHING PATTERN. absent: Clear to Ausculation Bilateral, Rales, Rhonchi, Respiratory Distress - Cardiovascular Exam Cardiovascular Exam: REGULAR RHYTHM, +S1, +S2 - GI/Abdominal Exam GI & Abdominal Exam: Soft, Normal Bowel Sounds. absent: Distended, Firm, Guarding, Tenderness - Extremities Exam Extremities Exam: absent: Pedal Edema, Tenderness - Neurological Exam Neurological Exam: Alert, Awake - Psychiatric Exam Psychiatric exam: Flat Affect, Normal Mood - Skin Skin Exam: Dry, Intact, Normal Color, Warm Assessment and Plan - Assessment and Plan (Free Text) Plan: 1. Right lower lobe pneumonia * Chest xray (05/30/17): right lower lobe infiltrate/ atelectasis superimposed upon chronic interstitial lung disease (see full report) * Continue ceftriaxone 1 g Q24h, azithromycin 500mg q24h (05/30/17) * ID, Dr. Gray, consulted- help appreciated * f/u urine for legionella, strep pneumoniae, mycoplasma * influenza negative * blood culture: 05/30 negativex2 * Urine cx: 05/30 negative 2. Anemia with elevated globulin * likely secondary to history of cancer * (05/30/17) hemoglobin 8.9 * last hemoglobin in EMR from 2014 was 12 * globulin 4.3 * B12- 455, wnl; folate 20, wnl * FOBT: negative * Retic count 1.3 * f/u ferritin, serum immunofixation, kappa/lambda free light chains, protein electrophoresis 3. Stage IV Lung Cancer * Patient has seen Dr. Ramos in past * cannot obtain history from patient regarding medications/ chemotherapy * Dr. Ramos, heme-onc, consulted- help appreciated * Ordered Brain MRI with contrast to r/o mets- f/u results * Consulted palliative care, Angle Mena- help appreciated 4. Hypercalcemia * likely secondary to lung cancer * continue IV fluids, NS @100cc/h * Gave 1 dose of Aredia 90mg on 05/31/[address] Ramos 5. Leukocytosis with left shift * likely due to pneumonia * blood culture: 05/30 negativex2 * Urine cx: 05/30 negative * Continue ceftriaxone and azithromycin * Continue to monitor 6. Elevated CPK * secondary to possible rhabdomyolysis from fall and prolonged period spent down on floor of home * CPK 587; repeat CPK 433; trending down--> CK on 05/31 311 * Continue NS @ 100cc/h 7. Cachexia * likely secondary to stage IV lung cancer * patient states 21 pound weight loss over past 3 months * nutrition consult placed- help appreciated * continue dietary supplements TID * will consider marinol 8. Fall at home * CT Head (05/30/17): No intracranial hemorrhage. No hydrocephalus. No acute intracranial abnormalities. No significant findings to account for the clinical presentation * CT Cervical Spine (05/30/17): No significant central canal or neural foraminal stenosis. Right apical scarring findings similar to that seen on a prior CT of the thorax 02/22/2013. Multilevel degenerative change primarily disc space narrowing. No acute findings related to/accounting for the clinical presentation. * Pelvis xray (05/30/17): Status post open reduction internal fixation proximal left femoral fracture. No evidence of orthopedic hardware failure. No acute osseous abnormalities. * r/o cardiac etiology of fall * Troponinsx3: 0.297, 0.34, 0.2530, 0.1969; EKGs show ST depression; * Echocardiogram: suboptimal study due to poor acoustic window; possible borderline to mild concentric LVH; systolic function mildly impaired; EF 45-50% ; normal RV systolic function, aortic valve is moderately calcified and decreased opening; mild TR; mild pulm HTN; pericardial fatpad noted, but small loculated pericardial effusion cannot be excluded. * Carotid dopplers: mild disease b/l * Cardiology consults, Dr. Burden, help appreciated * as per Dr. Burden, start medical management * Started ASA 81mg PO daily, Toprol XL 12.5mg PO daily, Crestor 5mg PO HS (05/31) * On telemetry 9. 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 Cough * Duonebs Q6sch * Robitussin DM 11. Prophylaxis * Pepcid 20mg PO daily * SCDs * Lovenox 40mg SC daily * Florastor 250mg PO * physical therapy/ occupational therapy * palliative care * case management referral
[2017-06-01] MEDS: Sodium Chloride 0.9% 1,000 ML IV SCH (07:48)
[2017-06-01] MEDS: Saccharomyces Boulardi 250 mg Cap PO SCH ×2 (09:55→18:11)
[2017-06-01] MEDS: Azithromycin 500 MG in Sodium Chloride 0.9% 250 ML IVPB SCH (10:33)
--- NOTE | 2017-06-01 10:57 | VASCLAB ---
PROCEDURE: HISTORY: Syncope COMPARISON: None available. TECHNIQUE: Grayscale and duplex Doppler evaluation of the cervical carotid and vertebral arteries were performed. The common carotid, carotid bifurcations and cervical Internal Carotid Artery (ICA) and proximal External Carotid Artery (ECA) were evaluated. The vertebral arteries were evaluated for gross patency and flow direction. Report prepared by Boris Jaime, BS, RVT FINDINGS: RIGHT CAROTID ARTERIES: 1. Common Carotid Artery: No significant focal plaque formation of the right common carotid artery. Maximum Peak Systolic velocity: 53 cm/sec: End-diastolic velocity 10 cm/sec. 2. Carotid Bifurcation: Heterogeneous plaque formation. Maximum Peak Systolic velocity: 49 cm/sec: End-diastolic velocity 12 cm/sec. 3. Internal Carotid Artery: Minimal plaque formation of the right proximal ICA which does not result in hemodynamically significant stenosis. Plaque description: Heterogeneous 3.1. Proximal Segment: Peak systolic velocity 82 cm/sec: End-diastolic velocity 19 cm/sec - % stenosis 0-15% 3.2. Middle Segment: Peak systolic velocity 109 cm/sec: End-diastolic velocity 22 cm/sec - % stenosis 0-15% 3.3. Distal Segment: Peak systolic velocity 80 cm/sec: End-diastolic velocity 20 cm/sec - % stenosis 0-15% 4. External Carotid Artery: No significant focal plaque formation. Peak systolic velocity 165 cm/sec 5. ICA/CCA Ratio: 2.0 LEFT CAROTID ARTERIES: 1. Common Carotid Artery: No significant focal plaque formation of the left common carotid artery. Maximum Peak Systolic velocity: 65 cm/sec: End-diastolic velocity 12 cm/sec. 2. Carotid Bifurcation: Homogeneous plaque formation. Maximum Peak Systolic velocity: 71 cm/sec: End-diastolic velocity 16 cm/sec. 3. Internal Carotid Artery: Minimal plaque formation of the left proximal ICA which does not result in hemodynamically significant stenosis. Plaque description: Homogeneous 3.1. Proximal Segment: Peak systolic velocity 91 cm/sec: End-diastolic velocity 20 cm/sec - % stenosis 0-15% 3.2. Middle Segment: Peak systolic velocity 77 cm/sec: End-diastolic velocity 19 cm/sec - % stenosis 0-15% 3.3. Distal Segment: Peak systolic velocity 85 cm/sec: End-diastolic velocity 21 cm/sec - % stenosis 0-15% 4. External Carotid Artery: No significant focal plaque formation. Peak systolic velocity 79 cm/sec 5. ICA/CCA Ratio: 1.4 VERTEBRAL ARTERIES: 1. Right Vertebral Artery: The right vertebral artery flow direction is antegrade. 2. Left Vertebral Artery: The left vertebral artery flow direction is antegrade. OTHER FINDINGS: 1. Right Brachial Blood pressure: 156 mmHg. 2. Left Brachial Blood pressure: mmHg. IMPRESSION: RIGHT: Duplex scan does not suggest hemodynamically significant stenosis of the right extracranial carotid arteries. LEFT: Duplex scan does not suggest hemodynamically significant stenosis of the left extracranial carotid arteries.
[2017-06-01 11:12] LABS: ALBUMIN (PEP) 2.6 g/dL (3.8-4.8); ALPHA-1-GLOBULIN (PEP) 0.5 g/dL (0.2-0.3)
[2017-06-01 12:35] LABS: EOS % 0.1 % (0.0-4.0); HEMOGLOBIN 7.8 g/dL (12.0-18.0); LYMPH # 0.5 K/uL (1.0-4.3); LYMPH % 4.5 % (20.0-40.0); MEAN CORPUSCULAR HEMOGLOBIN 29.3 pg (27.0-31.0); MEAN CORPUSCULAR HGB CONC 33.3 g/dL (33.0-37.0); MEAN PLATELET VOLUME 8.1 fL (7.2-11.7); MONO # 0.2 K/uL (0.0-0.8); NEUT # 10.3 K/uL (1.8-7.0); NEUT % 93.4 % (50.0-75.0); PLATELET COUNT 394 K/uL (130-400); RBC 2.65 Mil/uL (4.40-5.90); RED CELL DISTRIBUTION WIDTH 15.3 % (11.5-14.5)
[2017-06-01 13:11] LABS: ANISOCYTOSIS SLIGHT; HYPOCHROMIC SLIGHT; LYMPHOCYTE 3 % (20-40); MONOCYTE 4 % (0-10); NEUTROPHIL 93 % (50-75); PLATELET ESTIMATE NORMAL (NORMAL); TOTAL CELLS COUNTED 100
[2017-06-01 13:21] LABS: ALB/GLOB RATIO 0.8 (1.0-2.1); ALBUMIN 3.2 g/dL (3.5-5.0); ALT/SGPT 28 U/L (21-72); AST/SGOT 27 U/L (17-59); BLOOD UREA NITROGEN 15 mg/dL (9-20); CALCIUM 9.6 mg/dl (8.6-10.4); GFR AFRICAN-AMERICAN > 60; GFR NON-AFRICAN AMERICAN > 60; MAGNESIUM 1.7 mg/dL (1.6-2.3)
[2017-06-01] MEDS ORDERED: Gadodiamide 287 MG/ML VIAL (15ML) IV ONE (17:52)
--- NOTE | 2017-06-01 23:51 | CP.PCM.PN ---
Subjective - Date & Time of Evaluation Date of Evaluation: 06/01/17 Time of Evaluation: 10:45 - Subjective Subjective: Patient seen and evaluated Denies chest pain and dyspnea Medical management for CAD No cardiac procedures planned Review of Systems - Constitutional Constitutional: Weight Loss, Weakness. absent: Chills, Fever - EENT Ears: Dizziness - Cardiovascular Cardiovascular: absent: Chest Pain - Respiratory Respiratory: Cough - Gastrointestinal Gastrointestinal: absent: Abdominal Pain, Nausea, Vomiting - Genitourinary Genitourinary: absent: Difficulty Urinating, Dysuria - Musculoskeletal Musculoskeletal: absent: Back Pain - Integumentary Integumentary: absent: Rash - Neurological Neurological: Dizziness, Weakness Physical Exam - Constitutional Appears: No Acute Distress, Cachectic, Chronically Ill - Head Exam Head Exam: ATRAUMATIC, NORMOCEPHALIC - Eye Exam Eye Exam: EOMI - ENT Exam ENT Exam: Mucous Membranes Dry - Respiratory Exam Respiratory Exam: Decreased Breath Sounds, NORMAL BREATHING PATTERN. absent: Respiratory Distress - Cardiovascular Exam Cardiovascular Exam: +S1, +S2 - GI/Abdominal Exam GI & Abdominal Exam: Normal Bowel Sounds, Soft. absent: Tenderness - Rectal Exam Rectal Exam: NORMAL INSPECTION. absent: Black Stool, Bloody Stool, Hemorrhoids Additional comments: no gross blood, moderate amount of soft brown stool in rectum - Extremities Exam Extremities exam: Positive for: normal inspection. Negative for: pedal edema - Back Exam Back exam: absent: CVA tenderness (L), CVA tenderness (R), rash noted Additional comments: no ecchymotic lesions noted - Neurological Exam Neurological exam: Alert Additional comments: patient not oriented Objective - Vital Signs/Intake and Output Vital Signs (last 24 hours): Temp Pulse Resp BP Pulse Ox 98.3 F 96 H 20 135/64 95 06/01/17 15:56 06/01/17 18:00 06/01/17 15:56 06/01/17 15:56 06/01/17 15:56 - Medications Medications: Current Medications Albuterol/Ipratropium (Duoneb 3 Mg/0.5 Mg (3 Ml) Ud) 3 ml INH RQ6 [facility] Last Admin: 06/01/17 19:46 Dose: 3 ml Aspirin (Aspirin Chewable) 81 mg PO DAILY [facility] Enoxaparin Sodium (Lovenox) 40 mg SC DAILY [facility] Famotidine (Pepcid) 20 mg PO DAILY [facility] Last Admin: 06/01/17 09:55 Dose: 20 mg Guaifenesin/Dextromethorphan (Robitussin Dm) 5 ml PO Q4H PRN PRN Reason: Cough Ceftriaxone Sodium 1 gm/ (Sodium Chloride) 100 mls @ 100 mls/hr IVPB DAILY [facility] Last Admin: 06/01/17 09:55 Dose: 100 mls/hr Azithromycin 500 mg/ Sodium (Chloride) 250 mls @ 250 mls/hr IVPB DAILY [facility] Last Admin: 06/01/17 10:33 Dose: 250 mls/hr Sodium Chloride (Sodium Chloride 0.9%) 1,000 mls @ 100 mls/hr IV .Q10H [facility] Last Admin: 06/01/17 07:48 Dose: 100 mls/hr Metoprolol Succinate (Toprol Xl) 12.5 mg PO DAILY [facility] Rosuvastatin Calcium (Crestor) 5 mg PO HS [facility] Last Admin: 06/01/17 21:21 Dose: 5 mg Saccharomyces Boulardii (Florastor) 250 mg PO BID [facility] Last Admin: 06/01/17 18:11 Dose: 250 mg - Labs Labs: 06/01/17 12:28 06/01/17 12:28 PT 15.9 SECONDS (9.7-12.2) H 05/30/17 12:55 INR 1.4 05/30/17 12:55 APTT 29 SECONDS (21-34) 05/30/17 12:55 Assessment and Plan - Assessment and Plan (Free Text) Assessment: 1. Right lower lobe pneumonia * Chest xray (05/30/17): right lower lobe infiltrate/ atelectasis superimposed upon chronic interstitial lung disease (see full report) * Continue ceftriaxone 1 g Q24h, azithromycin 500mg q24h (05/30/17) * ID, Dr. Gray, consulted- help appreciated * f/u urine for legionella, strep pneumoniae, mycoplasma * influenza negative * blood culture: 05/30 negativex2 * Urine cx: 05/30 negative 2. Anemia with elevated globulin * likely secondary to history of cancer * (05/30/17) hemoglobin 8.9 * Hgb 6.4 on 06/02/17. Received 2 units of PRBC overnight. Consent obtained from Van guerrero. * Repeat Hgb post-transfusion 9.7 * last hemoglobin in EMR from 2014 was 12 * globulin 4.3 * B12- 455, wnl; folate 20, wnl * FOBT: negative * Retic count 1.3 * Ferritin 216, serum immunofixation detected IgG Lambda, kappa/lambda free light chains 392/220 3. Stage IV Lung Cancer * Patient has seen Dr. Ramos in past * cannot obtain history from patient regarding medications/ chemotherapy * Dr. Ramos, heme-onc, consulted- help appreciated * Brain MRI with contrast- trace enhancement at right parietal vertex suspicious solitary metastasis; 2nd area of faint enhancement in right front vertex. * Decadron 4mg IV Q12 started (06/02/17) to reduce brain edema * Glucose was elevated on 06/03, likely secondary to steroids; started ISS * Consulted palliative care, Angle Mena- help appreciated 4. Hypercalcemia * likely secondary to lung cancer * continue IV fluids, NS @100cc/h * Gave 1 dose of Aredia 90mg on 05/31/[address] Ramos 5. Leukocytosis with left shift * likely due to pneumonia * blood culture: 05/30 negativex2 * Urine cx: 05/30 negative * Continue ceftriaxone and azithromycin (started 05/30/17) * Continue to monitor 6. Elevated CPK * Secondary to possible rhabdomyolysis from fall and prolonged period spent down on floor of home * CPK 587; repeat CPK 433; trending down--> CK on 05/31 311 * Continue NS @ 100cc/h 7. Cachexia * likely secondary to stage IV lung cancer * patient states 21 pound weight loss over past 3 months * nutrition consult placed- help appreciated * continue dietary supplements TID * will consider marinol 8. Fall at home * CT Head (05/30/17): No intracranial hemorrhage. No hydrocephalus. No acute intracranial abnormalities. No significant findings to account for the clinical presentation * CT Cervical Spine (05/30/17): No significant central canal or neural foraminal stenosis. Right apical scarring findings similar to that seen on a prior CT of the thorax 02/22/2013. Multilevel degenerative change primarily disc space narrowing. No acute findings related to/accounting for the clinical presentation. * Pelvis xray (05/30/17): Status post open reduction internal fixation proximal left femoral fracture. No evidence of orthopedic hardware failure. No acute osseous abnormalities. * r/o cardiac etiology of fall * Troponinsx3: 0.297, 0.34, 0.2530, 0.1969; EKGs show ST depression; * Echocardiogram: suboptimal study due to poor acoustic window; possible borderline to mild concentric LVH; systolic function mildly impaired; EF 45-50% ; normal RV systolic function, aortic valve is moderately calcified and decreased opening; mild TR; mild pulm HTN; pericardial fatpad noted, but small loculated pericardial effusion cannot be excluded. * Carotid dopplers: mild disease b/l * ASA 81mg PO daily, Toprol XL 12.5mg PO daily, Crestor 5mg PO HS (05/31/17) * On telemetry 9. 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 Cough * Duonebs Q6sch * Robitussin DM 11. Prophylaxis * Pepcid 20mg PO daily * SCDs * Lovenox 40mg SC daily * Florastor 250mg PO * physical therapy/ occupational therapy * palliative care * case management referral
--- NOTE | 2017-06-02 00:01 | CARD ---
APPROVED REPORT EKG Measurement Heart [id number] <Conclusion> Normal sinus rhythm ST & T wave abnormality, consider inferior ischemia Abnormal ECG
[2017-06-02] MEDS: Albuterol-Ipratrop 3 mg / 0.5 (3 ml) UD INH SCH ×4 (02:23→19:29)
--- NOTE | 2017-06-02 07:08 | CP.PCM.PN ---
Subjective - Date & Time of Evaluation Date of Evaluation: 06/02/17 Time of Evaluation: 07:07 - Subjective Subjective: Medicine progress note for Dr. Early Patient was seen and examined at bedside in no acute distress. Patient a slightly more confused at the time of examination. His mental status fluctuates. Patient reports he is not feeling well, but cannot specify what is bothering him. He denies chest pain, abdominal pain, headache, nausea, vomiting , fevers, shortness of breath, and leg pain. Objective - Vital Signs/Intake and Output Vital Signs (last 24 hours): Temp Pulse Resp BP Pulse Ox 98.3 F 53 L 20 135/64 95 06/01/17 15:56 06/02/17 01:00 06/01/17 15:56 06/01/17 15:56 06/01/17 15:56 - Medications Medications: Current Medications Albuterol/Ipratropium (Duoneb 3 Mg/0.5 Mg (3 Ml) Ud) 3 ml INH RQ6 [facility] Last Admin: 06/02/17 02:23 Dose: Not Given Aspirin (Aspirin Chewable) 81 mg PO DAILY [facility] Enoxaparin Sodium (Lovenox) 40 mg SC DAILY [facility] Famotidine (Pepcid) 20 mg PO DAILY [facility] Last Admin: 06/01/17 09:55 Dose: 20 mg Guaifenesin/Dextromethorphan (Robitussin Dm) 5 ml PO Q4H PRN PRN Reason: Cough Ceftriaxone Sodium 1 gm/ (Sodium Chloride) 100 mls @ 100 mls/hr IVPB DAILY [facility] Last Admin: 06/01/17 09:55 Dose: 100 mls/hr Azithromycin 500 mg/ Sodium (Chloride) 250 mls @ 250 mls/hr IVPB DAILY [facility] Last Admin: 06/01/17 10:33 Dose: 250 mls/hr Sodium Chloride (Sodium Chloride 0.9%) 1,000 mls @ 100 mls/hr IV .Q10H [facility] Last Admin: 06/01/17 07:48 Dose: 100 mls/hr Metoprolol Succinate (Toprol Xl) 12.5 mg PO DAILY [facility] Rosuvastatin Calcium (Crestor) 5 mg PO HS [facility] Last Admin: 06/01/17 21:21 Dose: 5 mg Saccharomyces Boulardii (Florastor) 250 mg PO BID [facility] Last Admin: 06/01/17 18:11 Dose: 250 mg - Labs Labs: 06/01/17 12:28 06/01/17 12:28 PT 15.9 SECONDS (9.7-12.2) H 05/30/17 12:55 INR 1.4 05/30/17 12:55 APTT 29 SECONDS (21-34) 05/30/17 12:55 - Additional Findings Additional findings: - Constitutional Appears: No Acute Distress - Head Exam Head Exam: ATRAUMATIC, NORMAL INSPECTION - Eye Exam Eye Exam: EOMI - ENT Exam ENT Exam: Mucous Membranes Moist - Respiratory Exam Respiratory Exam: Decreased Breath Sounds, NORMAL BREATHING PATTERN. absent: Clear to Ausculation Bilateral, Rales, Rhonchi, Respiratory Distress - Cardiovascular Exam Cardiovascular Exam: REGULAR RHYTHM, +S1, +S2 - GI/Abdominal Exam GI & Abdominal Exam: Soft, Normal Bowel Sounds. absent: Distended, Firm, Guarding, Tenderness - Extremities Exam Extremities Exam: absent: Pedal Edema, Tenderness - Neurological Exam Neurological Exam: Alert, Awake - Psychiatric Exam Psychiatric exam: Normal Affect, Normal Mood - Skin Skin Exam: Dry, Intact, Normal Color, Warm Assessment and Plan - Assessment and Plan (Free Text) Plan: 1. Right lower lobe pneumonia * Chest xray (05/30/17): right lower lobe infiltrate/ atelectasis superimposed upon chronic interstitial lung disease (see full report) * Continue ceftriaxone 1 g Q24h, azithromycin 500mg q24h (05/30/17) * ID, Dr. Gray, consulted- help appreciated * f/u urine for legionella, strep pneumoniae, mycoplasma * influenza negative * blood culture: 05/30 negativex2 * Urine cx: 05/30 negative 2. Anemia with elevated globulin * likely secondary to history of cancer * (05/30/17) hemoglobin 8.9 * Hgb 6.4 on 06/02/17. Patient needs transfusion, however, he has unstable mental status. Consent pending on nephew, Van, who will be arriving at the hospital tonight. * last hemoglobin in EMR from 2014 was 12 * globulin 4.3 * B12- 455, wnl; folate 20, wnl * FOBT: negative * Retic count 1.3 * f/u ferritin 216, serum immunofixation detected IgG Lambda, kappa/lambda free light chains, protein electrophoresis 3. Stage IV Lung Cancer * Patient has seen Dr. Ramos in past * cannot obtain history from patient regarding medications/ chemotherapy * Dr. Ramos, heme-onc, consulted- help appreciated * Brain MRI with contrast- trace enhancement at right parietal vertex suspicious solitary metastasis; 2nd area of faint enhancement in right front vertex. * Decadron 4mg IV Q12 started (06/02/17) to reduce brain edema * Consulted palliative care, Angle Mena- help appreciated * scheduled meeting on morning of 06/03/16 with family. 4. Hypercalcemia * likely secondary to lung cancer * continue IV fluids, NS @100cc/h * Gave 1 dose of Aredia 90mg on 05/31/[address] Ramos 5. Leukocytosis with left shift * likely due to pneumonia * blood culture: 05/30 negativex2 * Urine cx: 05/30 negative * Continue ceftriaxone and azithromycin * Continue to monitor 6. Elevated CPK * secondary to possible rhabdomyolysis from fall and prolonged period spent down on floor of home * CPK 587; repeat CPK 433; trending down--> CK on 05/31 311 * Continue NS @ 100cc/h 7. Cachexia * likely secondary to stage IV lung cancer * patient states 21 pound weight loss over past 3 months * nutrition consult placed- help appreciated * continue dietary supplements TID * will consider marinol 8. Fall at home * CT Head (05/30/17): No intracranial hemorrhage. No hydrocephalus. No acute intracranial abnormalities. No significant findings to account for the clinical presentation * CT Cervical Spine (05/30/17): No significant central canal or neural foraminal stenosis. Right apical scarring findings similar to that seen on a prior CT of the thorax 02/22/2013. Multilevel degenerative change primarily disc space narrowing. No acute findings related to/accounting for the clinical presentation. * Pelvis xray (05/30/17): Status post open reduction internal fixation proximal left femoral fracture. No evidence of orthopedic hardware failure. No acute osseous abnormalities. * r/o cardiac etiology of fall * Troponinsx3: 0.297, 0.34, 0.2530, 0.1969; EKGs show ST depression; * Echocardiogram: suboptimal study due to poor acoustic window; possible borderline to mild concentric LVH; systolic function mildly impaired; EF 45-50% ; normal RV systolic function, aortic valve is moderately calcified and decreased opening; mild TR; mild pulm HTN; pericardial fatpad noted, but small loculated pericardial effusion cannot be excluded. * Carotid dopplers: mild disease b/l * Cardiology consults, Dr. Burden, help appreciated * as per Dr. Burden, start medical management * Started ASA 81mg PO daily, Toprol XL 12.5mg PO daily, Crestor 5mg PO HS (05/31) * On telemetry 9. 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 Cough * Duonebs Q6sch * Robitussin DM 11. Prophylaxis * Pepcid 20mg PO daily * SCDs * Lovenox 40mg SC daily * Florastor 250mg PO * physical therapy/ occupational therapy * palliative care * case management referral DISPO: Needs consent for blood transfusion- pending nephews arrival. Family meeting with Palliative care to discuss goals of care scheduled for morning of .
[2017-06-02 08:16] LABS: BASO % 0.6 % (0.0-2.0); EOS % 0.4 % (0.0-4.0); LYMPH # 0.6 K/uL (1.0-4.3); LYMPH % 8.5 % (20.0-40.0); MEAN CELL VOLUME 87.1 fL (80.0-94.0); MEAN CORPUSCULAR HEMOGLOBIN 29.3 pg (27.0-31.0); MEAN CORPUSCULAR HGB CONC 33.6 g/dL (33.0-37.0); MEAN PLATELET VOLUME 7.5 fL (7.2-11.7); MONO # 0.3 K/uL (0.0-0.8); MONO % 4.3 % (0.0-10.0); NEUT # 6.5 K/uL (1.8-7.0); NEUT % 86.2 % (50.0-75.0); PLATELET COUNT 324 K/uL (130-400); WHITE BLOOD COUNT 7.5 K/uL (4.8-10.8)
[2017-06-02 08:32] LABS: HEMOGLOBIN 6.4 g/dL (12.0-18.0)
[2017-06-02 08:45] LABS: ALB/GLOB RATIO 0.8 (1.0-2.1); ALBUMIN 2.6 g/dL (3.5-5.0); ALT/SGPT 19 U/L (21-72); AST/SGOT 15 U/L (17-59); BLOOD UREA NITROGEN 16 mg/dL (9-20); CALCIUM 8.3 mg/dl (8.6-10.4); GFR AFRICAN-AMERICAN > 60; GFR NON-AFRICAN AMERICAN > 60; MAGNESIUM 1.7 mg/dL (1.6-2.3)
--- NOTE | 2017-06-02 10:35 | MRI ---
PROCEDURE: MRI BRAIN WITH AND WITHOUT CONTRAST HISTORY: r/o brain mets COMPARISON: Head CT 05/30/2017. No prior brain MRI available for comparison at this time. TECHNIQUE: Multiplanar, multisequence MR images of the brain were obtained with and without intravenous contrast enhancement. FINDINGS: HEMORRHAGE: None DWI: No evidence of an acute or early subacute infarction. BRAIN PARENCHYMA: There is expansion of the ventriculosulcal and cisternal spaces which appears relatively prominent throughout the cerebrum, compatible diffuse cerebral atrophy. Further, extensive white matter signal changes seen the periventricular and occasional subcortical white matter compatible chronic microangiopathy. Both of these age related features are reiterated compared to the prior CT noted above. There is no mass-effect and there is no suspicious extra-axial fluid collection identified. However, as a small area of linear enhancement appreciated measuring only 8.5 x 4.3 mm at the right parietal vertex medially suspicious for potential metastatic lesion. No edema is associated with this small focus however. With this finding is seen in coronal as well as sagittal post gadolinium enhanced images and is not felt to be artifactual. There is a smaller 3 mm focus which is quite faint but also seen only in the post gadolinium enhanced images of the right frontal lobe (see series 10, image 7) which may be artifactual. A small metastatic lesions not excluded here. Inflammatory or infectious causes are not excluded as etiologies for the right parietal finding and further clinical correlation is recommended here. No prominent post gadolinium-enhanced segment of brain is identified enhancing with posterior fossa contents nonfocal. VENTRICLES: Unremarkable. No hydrocephalus. CRANIUM: Unremarkable. ORBITS: Grossly unremarkable. PARANASAL SINUSES/MASTOIDS: Patient's mastoid air cell complex superior somewhat hypoplastic on comparison of the skullbase MR images with prior head CT noted above. Limited mastoid effusions are not excluded bilaterally though this is not favored. VASCULAR SYSTEM: Skull base flow voids intact. OTHER FINDINGS: None . IMPRESSION: Trace enhancement at the right parietal vertex is suspicious for solitary metastasis. A 2nd area of faint enhancement is difficult to exclude the right frontal vertex but may be artifactual as it is seen on only 1 sequence (axial). No definite additional suspicious intracranial enhancement is identified. Motion artifacts degrade the quality this exam. Center follow-up brain MRI with and without contrast in 4-8 weeks. Age-appropriate age related neuro degenerative changes are reiterated.
[2017-06-02 10:41] LABS: ANISOCYTOSIS SLIGHT; BANDS 1 % (0-2); LYMPHOCYTE 9 % (20-40); MONOCYTE 3 % (0-10); NEUTROPHIL 87 % (50-75); PLATELET ESTIMATE NORMAL (NORMAL); TOTAL CELLS COUNTED 100
[2017-06-02 10:42] LABS: HYPOCHROMIC MODERATE
[2017-06-02] MEDS: Potassium Chloride 20 mEq ER Tab PO SCH ×2 (10:48→15:31)
[2017-06-02] MEDS: Saccharomyces Boulardi 250 mg Cap PO SCH ×2 (10:48→17:06)
[2017-06-02] MEDS: Metoprolol Succinate 12.5 mg XL PO SCH (10:49)
[2017-06-02] MEDS: Magnesium Sulfate 1 gm in D5W 1 GM/100 ML BAG IVPB SCH ×2 (11:16→11:58)
[2017-06-02] MEDS: Azithromycin 500 MG in Sodium Chloride 0.9% 250 ML IVPB SCH (11:55)
--- NOTE | 2017-06-02 14:51 | CP.PCM.PN ---
Subjective - Date & Time of Evaluation Date of Evaluation: 06/02/17 Time of Evaluation: 09:00 - Subjective Subjective: awake alert nad denies fever or chest pain MRI brain noted Objective - Vital Signs/Intake and Output Vital Signs (last 24 hours): Temp Pulse Resp BP Pulse Ox 98.7 F 78 20 110/53 L 95 06/02/17 11:26 06/02/17 11:26 06/02/17 11:26 06/02/17 11:26 06/02/17 11:26 - Medications Medications: Current Medications Albuterol/Ipratropium (Duoneb 3 Mg/0.5 Mg (3 Ml) Ud) 3 ml INH RQ6 [facility] Last Admin: 06/02/17 13:46 Dose: 3 ml Aspirin (Aspirin Chewable) 81 mg PO DAILY [facility] Last Admin: 06/02/17 10:48 Dose: 81 mg Dexamethasone (Decadron) 4 mg PO Q12 [facility] Enoxaparin Sodium (Lovenox) 40 mg SC DAILY [facility] Famotidine (Pepcid) 20 mg PO DAILY [facility] Last Admin: 06/02/17 10:49 Dose: 20 mg Guaifenesin/Dextromethorphan (Robitussin Dm) 5 ml PO Q4H PRN PRN Reason: Cough Ceftriaxone Sodium 1 gm/ (Sodium Chloride) 100 mls @ 100 mls/hr IVPB DAILY [facility] Last Admin: 06/02/17 10:48 Dose: 100 mls/hr Azithromycin 500 mg/ Sodium (Chloride) 250 mls @ 250 mls/hr IVPB DAILY [facility] Last Admin: 06/02/17 11:55 Dose: 250 mls/hr Sodium Chloride (Sodium Chloride 0.9%) 1,000 mls @ 100 mls/hr IV .Q10H [facility] Last Admin: 06/01/17 07:48 Dose: 100 mls/hr Metoprolol Succinate (Toprol Xl) 12.5 mg PO DAILY [facility] Last Admin: 06/02/17 10:49 Dose: 12.5 mg Rosuvastatin Calcium (Crestor) 5 mg PO HS [facility] Last Admin: 06/01/17 21:21 Dose: 5 mg Saccharomyces Boulardii (Florastor) 250 mg PO BID [facility] Last Admin: 06/02/17 10:48 Dose: 250 mg - Labs Labs: 06/02/17 08:03 06/02/17 08:03 PT 15.9 SECONDS (9.7-12.2) H 05/30/17 12:55 INR 1.4 05/30/17 12:55 APTT 29 SECONDS (21-34) 05/30/17 12:55 - Constitutional Appears: Non-toxic, Chronically Ill - Head Exam Head Exam: NORMOCEPHALIC - Eye Exam Eye Exam: PERRL - ENT Exam ENT Exam: Mucous Membranes Dry - Neck Exam Neck Exam: absent: Lymphadenopathy - Respiratory Exam Respiratory Exam: Decreased Breath Sounds - Cardiovascular Exam Cardiovascular Exam: REGULAR RHYTHM - GI/Abdominal Exam GI & Abdominal Exam: Distended - Rectal Exam Rectal Exam: Deferred - Exam Exam: NORMAL INSPECTION - Extremities Exam Extremities Exam: absent: Pedal Edema - Back Exam Back Exam: absent: CVA tenderness (L), CVA tenderness (R) - Neurological Exam Neurological Exam: Alert, Awake, Oriented x3 - Psychiatric Exam Psychiatric exam: Depressed - Skin Skin Exam: Dry Assessment and Plan (1) Altered mental state Status: Acute (2) Dizziness Status: Acute (3) Pneumonia Status: Acute - Assessment and Plan (Free Text) Assessment: possible brain mets cont rx pneumonia follow up CXR
--- NOTE | 2017-06-02 15:21 | CP.PCM.PN ---
Subjective - Date & Time of Evaluation Date of Evaluation: 06/02/17 Time of Evaluation: 01:00 - Subjective Subjective: Offers no complains Objective - Vital Signs/Intake and Output Vital Signs (last 24 hours): Temp Pulse Resp BP Pulse Ox 98.7 F 78 20 110/53 L 95 06/02/17 11:26 06/02/17 11:26 06/02/17 11:26 06/02/17 11:26 06/02/17 11:26 - Medications Medications: Current Medications Albuterol/Ipratropium (Duoneb 3 Mg/0.5 Mg (3 Ml) Ud) 3 ml INH RQ6 [facility] Last Admin: 06/02/17 13:46 Dose: 3 ml Aspirin (Aspirin Chewable) 81 mg PO DAILY [facility] Last Admin: 06/02/17 10:48 Dose: 81 mg Dexamethasone (Decadron) 4 mg PO Q12 [facility] Enoxaparin Sodium (Lovenox) 40 mg SC DAILY [facility] Famotidine (Pepcid) 20 mg PO DAILY [facility] Last Admin: 06/02/17 10:49 Dose: 20 mg Guaifenesin/Dextromethorphan (Robitussin Dm) 5 ml PO Q4H PRN PRN Reason: Cough Ceftriaxone Sodium 1 gm/ (Sodium Chloride) 100 mls @ 100 mls/hr IVPB DAILY [facility] Last Admin: 06/02/17 10:48 Dose: 100 mls/hr Azithromycin 500 mg/ Sodium (Chloride) 250 mls @ 250 mls/hr IVPB DAILY [facility] Last Admin: 06/02/17 11:55 Dose: 250 mls/hr Sodium Chloride (Sodium Chloride 0.9%) 1,000 mls @ 100 mls/hr IV .Q10H [facility] Last Admin: 06/01/17 07:48 Dose: 100 mls/hr Metoprolol Succinate (Toprol Xl) 12.5 mg PO DAILY [facility] Last Admin: 06/02/17 10:49 Dose: 12.5 mg Rosuvastatin Calcium (Crestor) 5 mg PO HS [facility] Last Admin: 06/01/17 21:21 Dose: 5 mg Saccharomyces Boulardii (Florastor) 250 mg PO BID [facility] Last Admin: 06/02/17 10:48 Dose: 250 mg - Labs Labs: 06/02/17 08:03 06/02/17 08:03 PT 15.9 SECONDS (9.7-12.2) H 05/30/17 12:55 INR 1.4 05/30/17 12:55 APTT 29 SECONDS (21-34) 05/30/17 12:55 - Constitutional Appears: No Acute Distress, Chronically Ill - Head Exam Head Exam: ATRAUMATIC, NORMAL INSPECTION, NORMOCEPHALIC - Eye Exam Eye Exam: Normal appearance, PERRL Pupil Exam: Fixed, NORMAL ACCOMODATION - ENT Exam ENT Exam: Mucous Membranes Moist, Normal Exam - Neck Exam Neck Exam: Normal Inspection - Respiratory Exam Respiratory Exam: Decreased Breath Sounds, Rhonchi - Cardiovascular Exam Cardiovascular Exam: Tachycardia, REGULAR RHYTHM - GI/Abdominal Exam GI & Abdominal Exam: Hypoactive Bowel Sounds - Rectal Exam Rectal Exam: Deferred - Extremities Exam Extremities Exam: Normal Inspection - Back Exam Back Exam: NORMAL INSPECTION - Neurological Exam Neurological Exam: Alert, Altered Neuro motor strength exam: Left Upper Extremity: 2/1, Right Upper Extremity: 2/1 , Left Lower Extremity: 2/1, Right Lower Extremity: 2/1 - Psychiatric Exam Psychiatric exam: Normal Affect, Normal Mood - Skin Skin Exam: Pallor, Warm Additional comments: Hb 6.4 Assessment and Plan - Assessment and Plan (Free Text) Assessment: Patient seen and examined in bed much more alert today, verbal and in good mood. patient tries to make jokes and enjoys company of his 2 friends at bed side. Patient did not know where he was, but knew who was a President of [employer] . Patient could not remember his nephew's name at first. Some part of my discussion with patient had to be translated to patient in his [place] language. Patient also appeared [place] and I had to repeat the same question a few times. His Hb dropped form 9.6 to 6.4 today. Skin looks pale. WBC down to 7.5, afebrile. BP 110/53, HR78. I questioned patient if he knew his diagnosis and why was he at the hospital. He acknowledged awareness of stage IV lung cancer. Per patient's close friend Duy at bed side, no treatment was offered at time of diagnosis due to patient' s age. Code status discussion initiated. I reviewed the statistics concerning lung cancer and aly concern regarding the lack of Advance Care Directive. I questioned patient how would he like to be treated if his cancer advances and meaningful recovery was not expected. Patient was very clear that he would want to be allowed natural without CPR or MV support. POLST reviewed. patient asked for presence of his nephew before he signs any documents. I supported him. Patient states readiness to be discharged to [facility] before returning home. Per patient's friend Duy, the nephew was coming over later this PM and was to stay around for few days. Impression * This is chronically ill man recently diagnosed with stage IV Ca, no treatment advised * Patient more alert today, oriented to person and self mostly * Goals of care and Code status discussed; patient wishes his nephew to be present when POLST signed, but is clear wants DNR/DNI status Suggestion * Family meeting tomorrow morning with patient and his nephew for goals of care discussion * Correct Hb level * O2 supplement * Discharge planing to [facility] Time spent in Advance Planing 30 min
[2017-06-02] MEDS: Enoxaparin 40 mg Syringe SC SCH (15:29)
[2017-06-02] MEDS ORDERED: Potassium Chloride 20 mEq ER Tab PO ONE (15:30)
[2017-06-02] MEDS: Sodium Chloride 0.9% 1,000 ML IV SCH ×2 (15:39→19:43)
--- NOTE | 2017-06-02 22:28 | CP.PCM.PN ---
Subjective - Date & Time of Evaluation Date of Evaluation: 06/02/17 Time of Evaluation: 07:40 - Subjective Subjective: Patient seen and evaluated Not in distress Medical management for CAD Review of Systems - Constitutional Constitutional: Weight Loss, Weakness. absent: Chills, Fever - EENT Ears: Dizziness - Cardiovascular Cardiovascular: absent: Chest Pain - Respiratory Respiratory: Cough - Gastrointestinal Gastrointestinal: absent: Abdominal Pain, Nausea, Vomiting - Genitourinary Genitourinary: absent: Difficulty Urinating, Dysuria - Musculoskeletal Musculoskeletal: absent: Back Pain - Integumentary Integumentary: absent: Rash - Neurological Neurological: Dizziness, Weakness Physical Exam - Constitutional Appears: No Acute Distress, Cachectic, Chronically Ill - Head Exam Head Exam: ATRAUMATIC, NORMOCEPHALIC - Eye Exam Eye Exam: EOMI - ENT Exam ENT Exam: Mucous Membranes Dry - Respiratory Exam Respiratory Exam: Decreased Breath Sounds, NORMAL BREATHING PATTERN. absent: Respiratory Distress - Cardiovascular Exam Cardiovascular Exam: +S1, +S2 - GI/Abdominal Exam GI & Abdominal Exam: Normal Bowel Sounds, Soft. absent: Tenderness - Rectal Exam Rectal Exam: NORMAL INSPECTION. absent: Black Stool, Bloody Stool, Hemorrhoids Additional comments: no gross blood, moderate amount of soft brown stool in rectum - Extremities Exam Extremities exam: Positive for: normal inspection. Negative for: pedal edema - Back Exam Back exam: absent: CVA tenderness (L), CVA tenderness (R), rash noted Additional comments: no ecchymotic lesions noted - Neurological Exam Neurological exam: Alert Additional comments: patient not oriented Objective - Vital Signs/Intake and Output Vital Signs (last 24 hours): Temp Pulse Resp BP Pulse Ox 98.4 F 82 20 96/49 L 99 06/02/17 22:03 06/02/17 22:03 06/02/17 22:03 06/02/17 22:03 06/02/17 15:05 Intake and Output: 06/02/17 06/03/17 18:59 06:59 Intake Total 1200 Balance 1200 - Medications Medications: Current Medications Albuterol/Ipratropium (Duoneb 3 Mg/0.5 Mg (3 Ml) Ud) 3 ml INH RQ6 [facility] Last Admin: 06/02/17 19:29 Dose: 3 ml Aspirin (Aspirin Chewable) 81 mg PO DAILY [facility] Last Admin: 06/02/17 10:48 Dose: 81 mg Dexamethasone (Decadron) 4 mg PO Q12 [facility] Last Admin: 06/02/17 21:26 Dose: 4 mg Enoxaparin Sodium (Lovenox) 40 mg SC DAILY [facility] Last Admin: 06/02/17 15:29 Dose: Not Given Famotidine (Pepcid) 20 mg PO DAILY [facility] Last Admin: 06/02/17 10:49 Dose: 20 mg Guaifenesin/Dextromethorphan (Robitussin Dm) 5 ml PO Q4H PRN PRN Reason: Cough Ceftriaxone Sodium 1 gm/ (Sodium Chloride) 100 mls @ 100 mls/hr IVPB DAILY [facility] Last Admin: 06/02/17 10:48 Dose: 100 mls/hr Azithromycin 500 mg/ Sodium (Chloride) 250 mls @ 250 mls/hr IVPB DAILY [facility] Last Admin: 06/02/17 11:55 Dose: 250 mls/hr Sodium Chloride (Sodium Chloride 0.9%) 1,000 mls @ 100 mls/hr IV .Q10H [facility] Last Admin: 06/02/17 19:43 Dose: 100 mls/hr Metoprolol Succinate (Toprol Xl) 12.5 mg PO DAILY [facility] Last Admin: 06/02/17 10:49 Dose: 12.5 mg Rosuvastatin Calcium (Crestor) 5 mg PO HS [facility] Last Admin: 06/02/17 21:26 Dose: 5 mg Saccharomyces Boulardii (Florastor) 250 mg PO BID [facility] Last Admin: 06/02/17 17:06 Dose: 250 mg - Labs Labs: 06/02/17 08:03 06/02/17 08:03 PT 15.9 SECONDS (9.7-12.2) H 05/30/17 12:55 INR 1.4 05/30/17 12:55 APTT 29 SECONDS (21-34) 05/30/17 12:55 Assessment and Plan - Assessment and Plan (Free Text) Assessment: 1. Right lower lobe pneumonia * Chest xray (05/30/17): right lower lobe infiltrate/ atelectasis superimposed upon chronic interstitial lung disease (see full report) * Continue ceftriaxone 1 g Q24h, azithromycin 500mg q24h (05/30/17) * ID, Dr. Gray, consulted- help appreciated * f/u urine for legionella, strep pneumoniae, mycoplasma * influenza negative * blood culture: 05/30 negativex2 * Urine cx: 05/30 negative 2. Anemia with elevated globulin * likely secondary to history of cancer * (05/30/17) hemoglobin 8.9 * Hgb 6.4 on 06/02/17. Received 2 units of PRBC overnight. Consent obtained from nephewVan. * Repeat Hgb post-transfusion 9.7 * last hemoglobin in EMR from 2014 was 12 * globulin 4.3 * B12- 455, wnl; folate 20, wnl * FOBT: negative * Retic count 1.3 * Ferritin 216, serum immunofixation detected IgG Lambda, kappa/lambda free light chains 392/220 3. Stage IV Lung Cancer * Patient has seen Dr. Ramos in past * cannot obtain history from patient regarding medications/ chemotherapy * Dr. Ramos, heme-onc, consulted- help appreciated * Brain MRI with contrast- trace enhancement at right parietal vertex suspicious solitary metastasis; 2nd area of faint enhancement in right front vertex. * Decadron 4mg IV Q12 started (06/02/17) to reduce brain edema * Glucose was elevated on 06/03, likely secondary to steroids; started ISS * Consulted palliative care, Angle Mena- help appreciated 4. Hypercalcemia * likely secondary to lung cancer * continue IV fluids, NS @100cc/h * Gave 1 dose of Aredia 90mg on 05/31/[address] Ramos 5. Leukocytosis with left shift * likely due to pneumonia * blood culture: 05/30 negativex2 * Urine cx: 05/30 negative * Continue ceftriaxone and azithromycin (started 05/30/17) * Continue to monitor 6. Elevated CPK * Secondary to possible rhabdomyolysis from fall and prolonged period spent down on floor of home * CPK 587; repeat CPK 433; trending down--> CK on 05/31 311 * Continue NS @ 100cc/h 7. Cachexia * likely secondary to stage IV lung cancer * patient states 21 pound weight loss over past 3 months * nutrition consult placed- help appreciated * continue dietary supplements TID * will consider marinol 8. Fall at home * CT Head (05/30/17): No intracranial hemorrhage. No hydrocephalus. No acute intracranial abnormalities. No significant findings to account for the clinical presentation * CT Cervical Spine (05/30/17): No significant central canal or neural foraminal stenosis. Right apical scarring findings similar to that seen on a prior CT of the thorax 02/22/2013. Multilevel degenerative change primarily disc space narrowing. No acute findings related to/accounting for the clinical presentation. * Pelvis xray (05/30/17): Status post open reduction internal fixation proximal left femoral fracture. No evidence of orthopedic hardware failure. No acute osseous abnormalities. * r/o cardiac etiology of fall * Troponinsx3: 0.297, 0.34, 0.2530, 0.1969; EKGs show ST depression; * Echocardiogram: suboptimal study due to poor acoustic window; possible borderline to mild concentric LVH; systolic function mildly impaired; EF 45-50% ; normal RV systolic function, aortic valve is moderately calcified and decreased opening; mild TR; mild pulm HTN; pericardial fatpad noted, but small loculated pericardial effusion cannot be excluded. * Carotid dopplers: mild disease b/l * ASA 81mg PO daily, Toprol XL 12.5mg PO daily, Crestor 5mg PO HS (05/31/17) * On telemetry 9. 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 Cough * Duonebs Q6sch * Robitussin DM 11. Prophylaxis * Pepcid 20mg PO daily * SCDs * Lovenox 40mg SC daily * Florastor 250mg PO * physical therapy/ occupational therapy * palliative care * case management referral
[2017-06-03] MEDS: Albuterol-Ipratrop 3 mg / 0.5 (3 ml) UD INH SCH ×4 (01:08→19:22)
--- NOTE | 2017-06-03 07:02 | CP.PCM.PN ---
<Joan Loving - Last Filed: 06/03/17 15:54> Subjective - Date & Time of Evaluation Date of Evaluation: 06/03/17 Time of Evaluation: 07:02 - Subjective Subjective: Medicine progress note for Dr. Early's service Patient was seen and examined at bedside in no acute distress. Patient was awake , alert and smiling. Patient reports feeling a little better today. When asked where he currently is, patient says "I know where I am", but cannot say specifically where he is. Patient says he sometimes forgets things. Patient says he ate without difficulty. Patient denies having chest pain, abdominal pain , shortness of breath, nausea, vomiting, fevers, and headaches. Objective - Vital Signs/Intake and Output Vital Signs (last 24 hours): Temp Pulse Resp BP Pulse Ox 98.7 F 76 20 112/61 95 06/03/17 04:46 06/03/17 04:46 06/03/17 04:46 06/03/17 04:46 06/02/17 23:30 Intake and Output: 06/03/17 06/03/17 06:59 18:59 Intake Total 1850 Balance 1850 - Medications Medications: Current Medications Albuterol/Ipratropium (Duoneb 3 Mg/0.5 Mg (3 Ml) Ud) 3 ml INH RQ6 [facility] Last Admin: 06/03/17 01:08 Dose: Not Given Aspirin (Aspirin Chewable) 81 mg PO DAILY [facility] Last Admin: 06/02/17 10:48 Dose: 81 mg Dexamethasone (Decadron) 4 mg PO Q12 [facility] Last Admin: 06/02/17 21:26 Dose: 4 mg Enoxaparin Sodium (Lovenox) 40 mg SC DAILY [facility] Last Admin: 06/02/17 15:29 Dose: Not Given Famotidine (Pepcid) 20 mg PO DAILY [facility] Last Admin: 06/02/17 10:49 Dose: 20 mg Guaifenesin/Dextromethorphan (Robitussin Dm) 5 ml PO Q4H PRN PRN Reason: Cough Ceftriaxone Sodium 1 gm/ (Sodium Chloride) 100 mls @ 100 mls/hr IVPB DAILY [facility] Last Admin: 06/02/17 10:48 Dose: 100 mls/hr Azithromycin 500 mg/ Sodium (Chloride) 250 mls @ 250 mls/hr IVPB DAILY [facility] Last Admin: 06/02/17 11:55 Dose: 250 mls/hr Sodium Chloride (Sodium Chloride 0.9%) 1,000 mls @ 100 mls/hr IV .Q10H [facility] Last Admin: 06/02/17 19:43 Dose: 100 mls/hr Metoprolol Succinate (Toprol Xl) 12.5 mg PO DAILY [facility] Last Admin: 06/02/17 10:49 Dose: 12.5 mg Rosuvastatin Calcium (Crestor) 5 mg PO HS [facility] Last Admin: 06/02/17 21:26 Dose: 5 mg Saccharomyces Boulardii (Florastor) 250 mg PO BID [facility] Last Admin: 06/02/17 17:06 Dose: 250 mg - Labs Labs: 06/02/17 08:03 06/02/17 08:03 PT 15.9 SECONDS (9.7-12.2) H 05/30/17 12:55 INR 1.4 05/30/17 12:55 APTT 29 SECONDS (21-34) 05/30/17 12:55 - Additional Findings Additional findings: - Constitutional Appears: No Acute Distress - Head Exam Head Exam: ATRAUMATIC, NORMAL INSPECTION - Eye Exam Eye Exam: EOMI - ENT Exam ENT Exam: Mucous Membranes Moist - Respiratory Exam Respiratory Exam: Decreased Breath Sounds, Rales (R>L) NORMAL BREATHING PATTERN. absent: Clear to Ausculation Bilateral, Rhonchi, Respiratory Distress - Cardiovascular Exam Cardiovascular Exam: REGULAR RHYTHM, +S1, +S2 - GI/Abdominal Exam GI & Abdominal Exam: Soft, Normal Bowel Sounds. absent: Distended, Firm, Guarding, Tenderness - Extremities Exam Extremities Exam: absent: Pedal Edema, Tenderness - Neurological Exam Neurological Exam: Alert, Awake - Psychiatric Exam Psychiatric exam: Normal Affect, Normal Mood - Skin Skin Exam: Dry, Intact, Normal Color, Warm Assessment and Plan - Assessment and Plan (Free Text) Plan: 1. Right lower lobe pneumonia * Chest xray (05/30/17): right lower lobe infiltrate/ atelectasis superimposed upon chronic interstitial lung disease (see full report) * Continue ceftriaxone 1 g Q24h, azithromycin 500mg q24h (05/30/17) * ID, Dr. Gray, consulted- help appreciated * f/u urine for legionella, strep pneumoniae, mycoplasma * influenza negative * blood culture: 05/30 negativex2 * Urine cx: 05/30 negative 2. Anemia with elevated globulin * likely secondary to history of cancer * (05/30/17) hemoglobin 8.9 * Hgb 6.4 on 06/02/17. Received 2 units of PRBC overnight. Consent obtained from nephewVan. * Repeat Hgb post-transfusion 9.7 * last hemoglobin in EMR from 2014 was 12 * globulin 4.3 * B12- 455, wnl; folate 20, wnl * FOBT: negative * Retic count 1.3 * Ferritin 216, serum immunofixation detected IgG Lambda, kappa/lambda free light chains 392/220 3. Stage IV Lung Cancer * Patient has seen Dr. Ramos in past * cannot obtain history from patient regarding medications/ chemotherapy * Dr. Ramos, heme-onc, consulted- help appreciated * Brain MRI with contrast- trace enhancement at right parietal vertex suspicious solitary metastasis; 2nd area of faint enhancement in right front vertex. * Decadron 4mg IV Q12 started (06/02/17) to reduce brain edema * Glucose was elevated on 06/03, likely secondary to steroids; started ISS * Consulted palliative care, Angle Mena- help appreciated 4. Hypercalcemia * likely secondary to lung cancer * continue IV fluids, NS @100cc/h * Gave 1 dose of Aredia 90mg on 05/31/[address] Ramos 5. Leukocytosis with left shift * likely due to pneumonia * blood culture: 05/30 negativex2 * Urine cx: 05/30 negative * Continue ceftriaxone and azithromycin (started 05/30/17) * Continue to monitor 6. Elevated CPK * Secondary to possible rhabdomyolysis from fall and prolonged period spent down on floor of home * CPK 587; repeat CPK 433; trending down--> CK on 05/31 311 * Continue NS @ 100cc/h 7. Cachexia * likely secondary to stage IV lung cancer * patient states 21 pound weight loss over past 3 months * nutrition consult placed- help appreciated * continue dietary supplements TID * will consider marinol 8. Fall at home * CT Head (05/30/17): No intracranial hemorrhage. No hydrocephalus. No acute intracranial abnormalities. No significant findings to account for the clinical presentation * CT Cervical Spine (05/30/17): No significant central canal or neural foraminal stenosis. Right apical scarring findings similar to that seen on a prior CT of the thorax 02/22/2013. Multilevel degenerative change primarily disc space narrowing. No acute findings related to/accounting for the clinical presentation. * Pelvis xray (05/30/17): Status post open reduction internal fixation proximal left femoral fracture. No evidence of orthopedic hardware failure. No acute osseous abnormalities. * r/o cardiac etiology of fall * Troponinsx3: 0.297, 0.34, 0.2530, 0.1969; EKGs show ST depression; * Echocardiogram: suboptimal study due to poor acoustic window; possible borderline to mild concentric LVH; systolic function mildly impaired; EF 45-50% ; normal RV systolic function, aortic valve is moderately calcified and decreased opening; mild TR; mild pulm HTN; pericardial fatpad noted, but small loculated pericardial effusion cannot be excluded. * Carotid dopplers: mild disease b/l * Cardiology consults, Dr. Burden, help appreciated * as per Dr. Burden, start medical management * ASA 81mg PO daily, Toprol XL 12.5mg PO daily, Crestor 5mg PO HS (05/31/17) * On telemetry 9. 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 Cough * Duonebs Q6sch * Robitussin DM 11. Prophylaxis * Pepcid 20mg PO daily * SCDs * Lovenox 40mg SC daily * Florastor 250mg PO * physical therapy/ occupational therapy * palliative care * case management referral * CODE status: DNR/DNI DISPO: Palliative care, Angle Mena, met with patient and patient's nephew , Van to discuss goals of care. DNR/DNI status as of 06/03/17. POLST signed and in chart. Continuing to treat pneumonia. Will discuss placement at [facility] with case management. <Viktoriya Early V - Last Filed: 06/04/17 00:40> Objective - Vital Signs/Intake and Output Vital Signs (last 24 hours): Temp Pulse Resp BP Pulse Ox 97.7 F 137 H 20 137/87 85 L 06/03/17 15:05 06/03/17 22:44 06/03/17 15:05 06/03/17 22:44 06/03/17 22:44 Intake and Output: 06/03/17 06/04/17 18:59 06:59 Intake Total 1200 Balance 1200 - Medications Medications: Current Medications Albuterol/Ipratropium (Duoneb 3 Mg/0.5 Mg (3 Ml) Ud) 3 ml INH RQ6 [facility] Last Admin: 06/03/17 19:22 Dose: 3 ml Aspirin (Aspirin Chewable) 81 mg PO DAILY [facility] Last Admin: 06/03/17 10:03 Dose: 81 mg Enoxaparin Sodium (Lovenox) 40 mg SC DAILY [facility] Last Admin: 06/03/17 10:04 Dose: Not Given Famotidine (Pepcid) 20 mg PO DAILY [facility] Last Admin: 06/03/17 10:03 Dose: 20 mg Furosemide (Lasix) 40 mg IVP DAILY [facility] Guaifenesin/Dextromethorphan (Robitussin Dm) 5 ml PO Q4H PRN PRN Reason: Cough Last Admin: 06/03/17 22:12 Dose: 5 ml Ceftriaxone Sodium 1 gm/ (Sodium Chloride) 100 mls @ 100 mls/hr IVPB DAILY [facility] Last Admin: 06/03/17 10:00 Dose: 100 mls/hr Azithromycin 500 mg/ Dextrose 250 mls @ 250 mls/hr IVPB DAILY [facility] Last Admin: 06/03/17 11:35 Dose: 250 mls/hr Insulin Human Regular (Novolin R) 0 unit SC ACHS [facility] PRN Reason: Protocol Last Admin: 06/03/17 22:12 Dose: 3 unit Metoprolol Succinate (Toprol Xl) 12.5 mg PO DAILY [facility] Last Admin: 06/03/17 10:03 Dose: 12.5 mg Rosuvastatin Calcium (Crestor) 5 mg PO HS [facility] Last Admin: 06/03/17 22:12 Dose: 5 mg Saccharomyces Boulardii (Florastor) 250 mg PO BID [facility] Last Admin: 06/03/17 17:54 Dose: 250 mg - Labs Labs: 06/03/17 11:48 06/03/17 11:48 PT 15.9 SECONDS (9.7-12.2) H 05/30/17 12:55 INR 1.4 05/30/17 12:55 APTT 29 SECONDS (21-34) 05/30/17 12:55 Attending/Attestation - Attestation I have personally seen and examined this patient.: Yes I have fully participated in the care of the patient.: Yes I have reviewed all pertinent clinical information, including history, physical exam and plan: Yes Notes (Text): This is late computer entry for 06/03/18. Patient seen, examined and case discussed with day-time resident. Patient was seen this morning with his nephew, Reyes Penny ([phone]--> available thru Wi-fi connect on [employer] application). This is my first meeting with the nephew who has flown overnight from [place]. I have discussed that patient was found status post fall, we have completed imaging to make sure there is no fractures, patient is on IV antibiotics for pneumonia, patient's mental status has changed day to day. Patient has seen, evaluated by his hematology-oncology and has completed Brain MRI confirming mets from his known history of lung cancer. He reports that in [place] they are searching for alternative treatments but are still reviewing the case. He is set to meet with both hematology-oncology as well as palliative care to advocate for his uncle. He reports he is the POA for his uncle in [place]. He also reports patient does not have a relationship with his ex- and does not have a daughter inspite of demographics noted in EMR and advised him to update his information with the clear. Follow-up with palliative care, nephew has signed for DNR/DNI, however no hospice at this time. Wants to continue IV abx for his pneumonia. Patient this morning very pleasant,shaking hands with me, my resident, and happy to have his nephew at bedside. Assessment/Plan 1. Right lower lobe pneumonia * Chest xray (05/30/17): right lower lobe infiltrate/ atelectasis superimposed upon chronic interstitial lung disease (see full report) * Rocephin 1 gram IV Q daily (active since 05/30/17) and Azithromycin 500mg IV q daily (active since05/30/17) * ID, Dr. Gray, consulted- help appreciated * f/u urine for legionella, strep pneumoniae, mycoplasma * influenza negative * Duonebs Q6H scheduled * Robitussin DM 5ml PO Q 4H PRN cough 2. NONSTEMI * Troponin: 0.2970, 0.3400, 0.2530, 0.17305 * Cardiology (Dr. Burden) on board-->help appreciated * Cardiology seen and evaluated patient, recommending for medical management including aspirin, statin, and beta clarence if patient can tolerate it. * Echocardiogram (05/31/17): bordline to mild concentric LVH. Systolic function is mildly inmpaired. EF: 45-50% further findings per report 3. Stage IV Lung Cancer * Patient has seen Dr. Ramos (heme-onc) in past * cannot obtain history from patient regarding medications/ chemotherapy * Dr. Ramos, heme-onc, consulted- help appreciated * Consulted palliative care, Angle Mena- help appreciated * Nephew has come into day. He has spoke with heme-onc and palliative care. Recommended for DNR/DNI. Will continue IV abx. 4. Hypercalcemia * likely secondary to lung cancer * high ionized calcium, + immunofixation, kappa/lambda, protein electrophoresis , PTH intact: low, PTH related protein: pending Vitamin D: 74.2 * Patient does not have QT changes on EKG * Given one dose of Aredia per heme-onc 05/31-->imrpoved * Discontinue IV fluids 5. Leukocytosis with left shift * r/o infection given hx of metastatic lung cancer * Blood culture (05/30/17): no growth after 4 days * urine culture (05/30/17): no growth * procalcitonin: low * Rocephin 1 gram IV Q daily (active since 05/30/17) and Azithromycin 500mg IV q daily (05/30/17) * Chest xray (05/30/17): right lower lobe infiltrate/ atelectasis superimposed upon chronic interstitial lung disease (see full report) * Continue to monitor * Influenza; negative 6. Elevated CPK * secondary to possible rhabdomyolysis from fall and prolonged period spent down on floor of home * CPK 587; repeat CPK 433; trending down--> CK on 05/31 311 * D/C IV fluids 7. Cachexia * likely secondary to stage IV lung cancer * patient states 21 pound weight loss over past 3 months * nutrition consult placed- help appreciated * continue dietary supplements TID * will consider marinol 8. Fall at home * CT Head (05/30/17): No intracranial hemorrhage. No hydrocephalus. No acute intracranial abnormalities. No significant findings to account for the clinical presentation * CT Cervical Spine (05/30/17): No significant central canal or neural foraminal stenosis. Right apical scarring findings similar to that seen on a prior CT of the thorax 02/22/2013. Multilevel degenerative change primarily disc space narrowing. No acute findings related to/accounting for the clinical presentation. * Pelvis xray (05/30/17): Status post open reduction internal fixation proximal left femoral fracture. No evidence of orthopedic hardware failure. No acute osseous abnormalities. * Troponinsx3: 0.297, 0.34, 0.2530 * Echocardiogram: Echocardiogram (05/31/17): bordline to mild concentric LVH. Systolic function is mildly inmpaired. EF: 45-50% further findings per report * Carotid dopplers: mild disease b/l * Cardiology consults, Dr. Burden, help appreciated * Recommended for ASA, betablocker, statin, medical management * On telemetry 9. 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 Cough * Duonebs Q6sch * Robitussin DM 11. Prophylaxis * pepcid 20mg PO daily * SCDs * Lovenox 40mg subqdaily * physical therapy/ occupational therapy eval * palliative care consult * case management referral * DNR/DNI * for [facility] placement Disposition: patient is DNR/DNI. Patient is awaiting for [facility] evaluation. Will continue IV abx to cover for pneumonia.
[2017-06-03] MEDS: Saccharomyces Boulardi 250 mg Cap PO SCH ×2 (10:03→17:54)
[2017-06-03] MEDS: Metoprolol Succinate 12.5 mg XL PO SCH (10:03)
[2017-06-03] MEDS: Enoxaparin 40 mg Syringe SC SCH (10:04)
[2017-06-03 11:59] LABS: BASO % 0.4 % (0.0-2.0); LYMPH # 0.3 K/uL (1.0-4.3); LYMPH % 4.7 % (20.0-40.0); MEAN CELL VOLUME 88.9 fL (80.0-94.0); MEAN CORPUSCULAR HGB CONC 33.7 g/dL (33.0-37.0); MEAN PLATELET VOLUME 8.3 fL (7.2-11.7); MONO # 0.2 K/uL (0.0-0.8); MONO % 2.5 % (0.0-10.0); NEUT # 6.6 K/uL (1.8-7.0); NEUT % 92.4 % (50.0-75.0); PLATELET COUNT 286 K/uL (130-400); RBC 3.25 Mil/uL (4.40-5.90); WHITE BLOOD COUNT 7.2 K/uL (4.8-10.8)
[2017-06-03 12:01] LABS: HEMOGLOBIN 9.7 g/dL (12.0-18.0)
[2017-06-03 12:18] LABS: ALB/GLOB RATIO 0.8 (1.0-2.1); ALBUMIN 2.9 g/dL (3.5-5.0); ALT/SGPT 29 U/L (21-72); AST/SGOT 32 U/L (17-59); BLOOD UREA NITROGEN 23 mg/dL (9-20); CALCIUM 7.9 mg/dl (8.6-10.4); GFR AFRICAN-AMERICAN > 60; GFR NON-AFRICAN AMERICAN > 60; MAGNESIUM 1.9 mg/dL (1.6-2.3)
[2017-06-03 12:34] LABS: LYMPHOCYTE 8 % (20-40); MONOCYTE 1 % (0-10); NEUTROPHIL 91 % (50-75); TOTAL CELLS COUNTED 100
[2017-06-03 12:35] LABS: ANISOCYTOSIS SLIGHT; PLATELET ESTIMATE NORMAL (NORMAL)
[2017-06-03 12:36] LABS: HYPOCHROMIC SLIGHT; POLYCHROMIC SLIGHT
--- NOTE | 2017-06-03 14:09 | CP.PCM.PN ---
Subjective - Date & Time of Evaluation Date of Evaluation: 06/03/17 Time of Evaluation: 12:00 - Subjective Subjective: Offers no complains Objective - Vital Signs/Intake and Output Vital Signs (last 24 hours): Temp Pulse Resp BP Pulse Ox 97.8 F 70 20 127/71 94 L 06/03/17 07:05 06/03/17 07:05 06/03/17 07:05 06/03/17 07:05 06/03/17 07:05 Intake and Output: 06/03/17 06/03/17 06:59 18:59 Intake Total 1850 Balance 1850 - Medications Medications: Current Medications Albuterol/Ipratropium (Duoneb 3 Mg/0.5 Mg (3 Ml) Ud) 3 ml INH RQ6 [facility] Last Admin: 06/03/17 07:38 Dose: 3 ml Aspirin (Aspirin Chewable) 81 mg PO DAILY [facility] Last Admin: 06/03/17 10:03 Dose: 81 mg Dexamethasone (Decadron) 4 mg PO Q12 [facility] Last Admin: 06/03/17 10:03 Dose: 4 mg Enoxaparin Sodium (Lovenox) 40 mg SC DAILY [facility] Last Admin: 06/03/17 10:04 Dose: Not Given Famotidine (Pepcid) 20 mg PO DAILY [facility] Last Admin: 06/03/17 10:03 Dose: 20 mg Guaifenesin/Dextromethorphan (Robitussin Dm) 5 ml PO Q4H PRN PRN Reason: Cough Ceftriaxone Sodium 1 gm/ (Sodium Chloride) 100 mls @ 100 mls/hr IVPB DAILY [facility] Last Admin: 06/03/17 10:00 Dose: 100 mls/hr Sodium Chloride (Sodium Chloride 0.9%) 1,000 mls @ 100 mls/hr IV .Q10H [facility] Last Admin: 06/02/17 19:43 Dose: 100 mls/hr Azithromycin 500 mg/ Dextrose 250 mls @ 250 mls/hr IVPB DAILY [facility] Last Admin: 06/03/17 11:35 Dose: 250 mls/hr Insulin Human Regular (Novolin R) 0 unit SC ACHS [facility] PRN Reason: Protocol Metoprolol Succinate (Toprol Xl) 12.5 mg PO DAILY [facility] Last Admin: 06/03/17 10:03 Dose: 12.5 mg Rosuvastatin Calcium (Crestor) 5 mg PO HS [facility] Last Admin: 06/02/17 21:26 Dose: 5 mg Saccharomyces Boulardii (Florastor) 250 mg PO BID [facility] Last Admin: 06/03/17 10:03 Dose: 250 mg - Labs Labs: 06/03/17 11:48 06/03/17 11:48 PT 15.9 SECONDS (9.7-12.2) H 05/30/17 12:55 INR 1.4 05/30/17 12:55 APTT 29 SECONDS (21-34) 05/30/17 12:55 - Constitutional Appears: No Acute Distress, Chronically Ill - Head Exam Head Exam: ATRAUMATIC, NORMAL INSPECTION, NORMOCEPHALIC - Eye Exam Eye Exam: EOMI, Normal appearance, PERRL Pupil Exam: NORMAL ACCOMODATION, PERRL - ENT Exam ENT Exam: Mucous Membranes Dry - Neck Exam Neck Exam: Normal Inspection - Respiratory Exam Respiratory Exam: Decreased Breath Sounds, Rhonchi - Cardiovascular Exam Cardiovascular Exam: REGULAR RHYTHM - GI/Abdominal Exam GI & Abdominal Exam: Soft, Normal Bowel Sounds - Rectal Exam Rectal Exam: Deferred - Exam Exam: NORMAL INSPECTION - Extremities Exam Extremities Exam: Normal Inspection - Back Exam Back Exam: NORMAL INSPECTION - Neurological Exam Neurological Exam: Alert, Altered Neuro motor strength exam: Left Upper Extremity: 2/1, Right Upper Extremity: 2/1 , Left Lower Extremity: 2/1, Right Lower Extremity: 2/1 - Psychiatric Exam Psychiatric exam: Normal Affect, Normal Mood - Skin Skin Exam: Dry, Intact, Pallor, Warm Assessment and Plan - Assessment and Plan (Free Text) Assessment: Patient seen and examined in bed, alert with mild confusion. At the moment patient appears all alert and answers questions appropriately, than next moment he is not able to answer simple questions. The MRI brain confirmed brain mets yesterday. Patient received PBRCs yesterday for Hb of 6.8. Today Hb aly to 9.7. Breath sounds are diminished with a lot of ronchi. Zithromax and Rocephin on board. VS stable, afebrile. Physical exam reveals generalized weakness. Patient's nephew Van arrived from [place]. Goals of care discussed at bed side. Patient agreed that Mr. Araujo could advocate for him. I reviewed patient' s clinical presentation, latest diagnostic studies results and elicited nephew' s knowledge about patient's condition. Mr. Araujo revealed that he just met with Doctor Early and was fully informed about metastatic cancer. Mr. Araujo was very clear that he did not expect any aggressive interventions for his uncle and his main concern was patient's comfort. I shared with him my this morning discussion with Doctor Ramos who suggested comfort care only as any other treatment would be very risky for the patient and would significantly decrease quality of life. I discussed Hospice care and its benefices for the patient as oppose the agressive measures. Mr. Araujo's concern was present Pneumonia and he wanted it to be treated with IV antibiotics. I agreed. Discharge plan was discussed as patient lives alone . Mr. Araujo was offered three [facility] to choose from . He is still researching the area as he would like his uncle to be placed in [facility]. He asked for help from SS with that matter. POL discussed. Mr. Araujo was very clear that he would not want any aggressive measures in term of CPR, MV assistance or PEG. But he would want continues blood transfusions and IV antibiotics when needed. He choose DNR/DNI. Copy given to Mr. Araujo. This was shared with nursing and Doctor Nneka. Mr. Araujo also suggested that he shares all care related decisions with his family in [place], and said if family from there is against the POLST, he will ask for changes in document. I shared my contact information if he should need further assistance. 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 * Generalized weakness and poor PO intake * The nephew, Van Hinkle prefers [facility] if there is any in the area * Comfort and quality of life chosen over use of aggressive interventions * Nephew choose DNR/DNI for the patient * Family is not ready for Hospice care yet as the nephew wants the IV antibiotics and blood transfusions to be continued as needed Suggestion * Agree with DNR/DNI * SS to assist family member with finding [facility] for placement * Assist with ADLs * Aspiration precautions * Promote safety * Assist with feedings Time spent in Advance Planing 45 min.
--- NOTE | 2017-06-03 15:34 | CON ---
DATE: ONCOLOGY CONSULTATION HISTORY OF PRESENT ILLNESS: This is an 86-year-old man with lung cancer with severe weakness, recently diagnosed with lung cancer metastatic to his lungs. This is a PD-L1 positive mutation cancer. Several issues; 1. He has hypercalcemia, which was 11.9 initially, status post Aredia, is now 8.3. 2. The patient had hemoglobin that dropped down to 6.4. He is status post 2 units of packed cells yesterday and he is feeling much better. He is alert. He knows who I am, he is sitting and eating his breakfast. 3. The MRI of the brain seemed to show a small lesion, about 8 mm, in the parietal area. There is no edema. We have put him on Decadron at this time. I will have to discuss with family in terms of radiation therapy with the possible second lesion that is much smaller of about 3 mm. There is no edema here, we will treat him with Decadron. 4. The issue was hospice versus active chemotherapy treatment in terms of immunotherapy. Currently the nephew is back from [facility] and I will try and get hold of the nephew to discuss the case. The patient at this point is comfortable in bed. He is able to lie flat; there is severe temporal wasting noted, and severe decreased weight. PHYSICAL EXAMINATION: NODES: Nonpalpable in the axillary, cervical, supraclavicular or inguinal regions. LUNGS: Clear at present. No vertebral tenderness. HEART: S1 and S2. ABDOMEN: Shows no liver, no spleen. EXTREMITIES: No edema. CENTRAL NERVOUS SYSTEM: Plantars are downgoing bilaterally. The patient is very weak. He is going to need some physical therapy, we will see how he does now that he has been transfused. PLAN: So I think overall plan is; 1. Physical therapy. 2. Discharge plans. 3. To discuss with family chemotherapy as an outpatient or hospice as an outpatient. Adan Ramos MD
[2017-06-03] MEDS: Sodium Chloride 0.9% 1,000 ML IV SCH ×2 (15:45→21:11)
[2017-06-03] MEDS: (Novolin R) Insulin Human Regular 100 units/ml vial SC SCH ×3 (17:54→22:12)
--- NOTE | 2017-06-03 18:52 | CP.PCM.PN ---
Subjective - Date & Time of Evaluation Date of Evaluation: 06/03/17 Time of Evaluation: 08:00 - Subjective Subjective: seen by palliative rx in progress events noted NAD Objective - Vital Signs/Intake and Output Vital Signs (last 24 hours): Temp Pulse Resp BP Pulse Ox 97.7 F 90 20 118/80 95 06/03/17 15:05 06/03/17 16:58 06/03/17 15:05 06/03/17 15:05 06/03/17 15:05 Intake and Output: 06/03/17 06/03/17 06:59 18:59 Intake Total 1850 Balance 1850 - Medications Medications: Current Medications Albuterol/Ipratropium (Duoneb 3 Mg/0.5 Mg (3 Ml) Ud) 3 ml INH RQ6 [facility] Last Admin: 06/03/17 13:48 Dose: Not Given Aspirin (Aspirin Chewable) 81 mg PO DAILY [facility] Last Admin: 06/03/17 10:03 Dose: 81 mg Enoxaparin Sodium (Lovenox) 40 mg SC DAILY [facility] Last Admin: 06/03/17 10:04 Dose: Not Given Famotidine (Pepcid) 20 mg PO DAILY [facility] Last Admin: 06/03/17 10:03 Dose: 20 mg Guaifenesin/Dextromethorphan (Robitussin Dm) 5 ml PO Q4H PRN PRN Reason: Cough Ceftriaxone Sodium 1 gm/ (Sodium Chloride) 100 mls @ 100 mls/hr IVPB DAILY [facility] Last Admin: 06/03/17 10:00 Dose: 100 mls/hr Sodium Chloride (Sodium Chloride 0.9%) 1,000 mls @ 100 mls/hr IV .Q10H [facility] Last Admin: 06/03/17 15:45 Dose: 100 mls/hr Azithromycin 500 mg/ Dextrose 250 mls @ 250 mls/hr IVPB DAILY [facility] Last Admin: 06/03/17 11:35 Dose: 250 mls/hr Insulin Human Regular (Novolin R) 0 unit SC ACHS [facility] PRN Reason: Protocol Last Admin: 06/03/17 17:58 Dose: Not Given Metoprolol Succinate (Toprol Xl) 12.5 mg PO DAILY [facility] Last Admin: 06/03/17 10:03 Dose: 12.5 mg Rosuvastatin Calcium (Crestor) 5 mg PO HS [facility] Last Admin: 06/02/17 21:26 Dose: 5 mg Saccharomyces Boulardii (Florastor) 250 mg PO BID [facility] Last Admin: 06/03/17 17:54 Dose: 250 mg - Labs Labs: 06/03/17 11:48 06/03/17 11:48 PT 15.9 SECONDS (9.7-12.2) H 05/30/17 12:55 INR 1.4 05/30/17 12:55 APTT 29 SECONDS (21-34) 05/30/17 12:55 - Constitutional Appears: Non-toxic, Cachectic, Chronically Ill - Head Exam Head Exam: NORMOCEPHALIC - Eye Exam Eye Exam: PERRL. absent: Scleral icterus - ENT Exam ENT Exam: Mucous Membranes Dry, Normal External Ear Exam - Neck Exam Neck Exam: absent: Lymphadenopathy - Respiratory Exam Respiratory Exam: Decreased Breath Sounds - Cardiovascular Exam Cardiovascular Exam: REGULAR RHYTHM - GI/Abdominal Exam GI & Abdominal Exam: Distended, Soft Assessment and Plan (1) Altered mental state Status: Acute (2) Dizziness Status: Acute (3) Pneumonia Status: Acute
[2017-06-03] MEDS ORDERED: MethylPREDNISolone 40 mg Vial IV ONE (19:06)
[2017-06-03] MEDS ORDERED: Albuterol-Ipratrop 3 mg / 0.5 (3 ml) UD INH STA (19:07)
--- NOTE | 2017-06-03 20:43 | CP.PCM.PN ---
Subjective - Date & Time of Evaluation Date of Evaluation: 06/03/17 Time of Evaluation: 10:35 - Subjective Subjective: Patient with no additional cardiac events Denies chest pain Review of Systems - Constitutional Constitutional: Weight Loss, Weakness. absent: Chills, Fever - EENT Ears: Dizziness - Cardiovascular Cardiovascular: absent: Chest Pain - Respiratory Respiratory: Cough - Gastrointestinal Gastrointestinal: absent: Abdominal Pain, Nausea, Vomiting - Genitourinary Genitourinary: absent: Difficulty Urinating, Dysuria - Musculoskeletal Musculoskeletal: absent: Back Pain - Integumentary Integumentary: absent: Rash - Neurological Neurological: Dizziness, Weakness Physical Exam - Constitutional Appears: No Acute Distress, Cachectic, Chronically Ill - Head Exam Head Exam: ATRAUMATIC, NORMOCEPHALIC - Eye Exam Eye Exam: EOMI - ENT Exam ENT Exam: Mucous Membranes Dry - Respiratory Exam Respiratory Exam: Decreased Breath Sounds, NORMAL BREATHING PATTERN. absent: Respiratory Distress - Cardiovascular Exam Cardiovascular Exam: +S1, +S2 - GI/Abdominal Exam GI & Abdominal Exam: Normal Bowel Sounds, Soft. absent: Tenderness - Rectal Exam Rectal Exam: NORMAL INSPECTION. absent: Black Stool, Bloody Stool, Hemorrhoids Additional comments: no gross blood, moderate amount of soft brown stool in rectum - Extremities Exam Extremities exam: Positive for: normal inspection. Negative for: pedal edema - Back Exam Back exam: absent: CVA tenderness (L), CVA tenderness (R), rash noted Additional comments: no ecchymotic lesions noted - Neurological Exam Neurological exam: Alert Additional comments: patient not oriented Objective - Vital Signs/Intake and Output Vital Signs (last 24 hours): Temp Pulse Resp BP Pulse Ox 97.7 F 106 H 20 156/94 H 85 L 06/03/17 15:05 06/03/17 19:28 06/03/17 15:05 06/03/17 20:10 06/03/17 19:28 - Medications Medications: Current Medications Albuterol/Ipratropium (Duoneb 3 Mg/0.5 Mg (3 Ml) Ud) 3 ml INH RQ6 [facility] Last Admin: 06/03/17 19:22 Dose: 3 ml Aspirin (Aspirin Chewable) 81 mg PO DAILY [facility] Last Admin: 06/03/17 10:03 Dose: 81 mg Enoxaparin Sodium (Lovenox) 40 mg SC DAILY [facility] Last Admin: 06/03/17 10:04 Dose: Not Given Famotidine (Pepcid) 20 mg PO DAILY [facility] Last Admin: 06/03/17 10:03 Dose: 20 mg Guaifenesin/Dextromethorphan (Robitussin Dm) 5 ml PO Q4H PRN PRN Reason: Cough Ceftriaxone Sodium 1 gm/ (Sodium Chloride) 100 mls @ 100 mls/hr IVPB DAILY [facility] Last Admin: 06/03/17 10:00 Dose: 100 mls/hr Sodium Chloride (Sodium Chloride 0.9%) 1,000 mls @ 100 mls/hr IV .Q10H [facility] Last Admin: 06/03/17 15:45 Dose: 100 mls/hr Azithromycin 500 mg/ Dextrose 250 mls @ 250 mls/hr IVPB DAILY [facility] Last Admin: 06/03/17 11:35 Dose: 250 mls/hr Insulin Human Regular (Novolin R) 0 unit SC ACHS [facility] PRN Reason: Protocol Last Admin: 06/03/17 17:58 Dose: Not Given Metoprolol Succinate (Toprol Xl) 12.5 mg PO DAILY [facility] Last Admin: 06/03/17 10:03 Dose: 12.5 mg Rosuvastatin Calcium (Crestor) 5 mg PO HS [facility] Last Admin: 06/02/17 21:26 Dose: 5 mg Saccharomyces Boulardii (Florastor) 250 mg PO BID [facility] Last Admin: 06/03/17 17:54 Dose: 250 mg - Labs Labs: 06/03/17 11:48 06/03/17 11:48 PT 15.9 SECONDS (9.7-12.2) H 05/30/17 12:55 INR 1.4 05/30/17 12:55 APTT 29 SECONDS (21-34) 05/30/17 12:55 Assessment and Plan - Assessment and Plan (Free Text) Assessment: 1. Right lower lobe pneumonia * Chest xray (05/30/17): right lower lobe infiltrate/ atelectasis superimposed upon chronic interstitial lung disease (see full report) * Continue ceftriaxone 1 g Q24h, azithromycin 500mg q24h (05/30/17) * ID, Dr. Gray, consulted- help appreciated * f/u urine for legionella, strep pneumoniae, mycoplasma * influenza negative * blood culture: 05/30 negativex2 * Urine cx: 05/30 negative 2. Anemia with elevated globulin * likely secondary to history of cancer * (05/30/17) hemoglobin 8.9 * Hgb 6.4 on 06/02/17. Received 2 units of PRBC overnight. Consent obtained from nephewVan. * Repeat Hgb post-transfusion 9.7 * last hemoglobin in EMR from 2014 was 12 * globulin 4.3 * B12- 455, wnl; folate 20, wnl * FOBT: negative * Retic count 1.3 * Ferritin 216, serum immunofixation detected IgG Lambda, kappa/lambda free light chains 392/220 3. Stage IV Lung Cancer * Patient has seen Dr. Ramos in past * cannot obtain history from patient regarding medications/ chemotherapy * Dr. Ramos, heme-onc, consulted- help appreciated * Brain MRI with contrast- trace enhancement at right parietal vertex suspicious solitary metastasis; 2nd area of faint enhancement in right front vertex. * Decadron 4mg IV Q12 started (06/02/17) to reduce brain edema * Glucose was elevated on 06/03, likely secondary to steroids; started ISS * Consulted palliative care, Angle Mena- help appreciated 4. Hypercalcemia * likely secondary to lung cancer * continue IV fluids, NS @100cc/h * Gave 1 dose of Aredia 90mg on 05/31/[address] Ramos 5. Leukocytosis with left shift * likely due to pneumonia * blood culture: 05/30 negativex2 * Urine cx: 05/30 negative * Continue ceftriaxone and azithromycin (started 05/30/17) * Continue to monitor 6. Elevated CPK * Secondary to possible rhabdomyolysis from fall and prolonged period spent down on floor of home * CPK 587; repeat CPK 433; trending down--> CK on 05/31 311 * Continue NS @ 100cc/h 7. Cachexia * likely secondary to stage IV lung cancer * patient states 21 pound weight loss over past 3 months * nutrition consult placed- help appreciated * continue dietary supplements TID * will consider marinol 8. Fall at home * CT Head (05/30/17): No intracranial hemorrhage. No hydrocephalus. No acute intracranial abnormalities. No significant findings to account for the clinical presentation * CT Cervical Spine (05/30/17): No significant central canal or neural foraminal stenosis. Right apical scarring findings similar to that seen on a prior CT of the thorax 02/22/2013. Multilevel degenerative change primarily disc space narrowing. No acute findings related to/accounting for the clinical presentation. * Pelvis xray (05/30/17): Status post open reduction internal fixation proximal left femoral fracture. No evidence of orthopedic hardware failure. No acute osseous abnormalities. * r/o cardiac etiology of fall * Troponinsx3: 0.297, 0.34, 0.2530, 0.1969; EKGs show ST depression; * Echocardiogram: suboptimal study due to poor acoustic window; possible borderline to mild concentric LVH; systolic function mildly impaired; EF 45-50% ; normal RV systolic function, aortic valve is moderately calcified and decreased opening; mild TR; mild pulm HTN; pericardial fatpad noted, but small loculated pericardial effusion cannot be excluded. * Carotid dopplers: mild disease b/l * ASA 81mg PO daily, Toprol XL 12.5mg PO daily, Crestor 5mg PO HS (05/31/17) * On telemetry 9. 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 Cough * Duonebs Q6sch * Robitussin DM 11. Prophylaxis * Pepcid 20mg PO daily * SCDs * Lovenox 40mg SC daily * Florastor 250mg PO * physical therapy/ occupational therapy * palliative care * case management referral * CODE status: DNR/DNI DISPO: Palliative care, Angle Mena, met with patient and patient's nephew , Van to discuss goals of care. DNR/DNI status as of 06/03/17. POLST signed and in chart. Continuing to treat pneumonia. Will discuss placement at [facility] with case management.
[2017-06-03 21:00] LABS: ABG ALLEN TEST POS; ARTERIAL BLOOD GAS HCO3 16.6 mmol/L (21-28); ARTERIAL BLOOD GAS HEMOGLOBIN 13.4 g/dL (11.7-17.4); ARTERIAL BLOOD GAS O2 SAT 97.7 % (95-98); ARTERIAL BLOOD GAS PCO2 36 mm/Hg (35-45); ARTERIAL BLOOD GAS PH 7.25 (7.35-7.45); ARTERIAL BLOOD GAS PO2 91 mm/Hg (80-100); ARTERIAL BLOOD GAS TCO2 16.9 mmol/L (22-28)
[2017-06-03] MEDS ORDERED: (Novolin R) Insulin Human Regular 100 units/ml vial SC ONE (23:45)
[2017-06-04] MEDS: Albuterol-Ipratrop 3 mg / 0.5 (3 ml) UD INH SCH ×6 (03:08→23:42)
[2017-06-04] MEDS: (Novolin R) Insulin Human Regular 100 units/ml vial SC SCH ×4 (07:30→21:28)
[2017-06-04] MEDS: Enoxaparin 40 mg Syringe SC SCH (09:20)
[2017-06-04] MEDS: Saccharomyces Boulardi 250 mg Cap PO SCH ×2 (09:20→18:55)
--- NOTE | 2017-06-04 09:20 | RAD ---
HISTORY: sob COMPARISON: Portable chest 05/30/2017. FINDINGS: LUNGS: Increased patchy density seen at the mid to inferior right lung zone as well as the medial base suggestive of interval infiltrate. Underlying chronic interstitial pulmonary pattern again evident. PLEURA: Trace bilateral pleural effusions are suggested. No pneumothorax bilaterally. CARDIOVASCULAR: Normal cardiac silhouette again appreciated. Hilar vascular markings are somewhat accentuated an element of limited CHF is in question. OSSEOUS STRUCTURES: No significant abnormalities. VISUALIZED UPPER ABDOMEN: Normal. OTHER FINDINGS: None. IMPRESSION: Mild bilateral infiltrates identified greater the right than left. Limited bilateral pleural effusions are noted and mild CHF is in question. Underlying chronic interstitial pulmonary disease again evident.
[2017-06-04] MEDS: Metoprolol Succinate 12.5 mg XL PO SCH (10:00)
[2017-06-04 11:42] LABS: BASO # 0.2 K/uL (0.0-0.2); BASO % 1.4 % (0.0-2.0); HEMOGLOBIN 11.1 g/dL (12.0-18.0); LYMPH # 0.4 K/uL (1.0-4.3); MEAN CORPUSCULAR HEMOGLOBIN 29.9 pg (27.0-31.0); MEAN CORPUSCULAR HGB CONC 32.3 g/dL (33.0-37.0); MEAN PLATELET VOLUME 8.3 fL (7.2-11.7); MONO # 0.2 K/uL (0.0-0.8); MONO % 1.4 % (0.0-10.0); NEUT # 12.5 K/uL (1.8-7.0); NEUT % 94.2 % (50.0-75.0); NRBC % 0.1 % (0.0-2.0); PLATELET COUNT 305 K/uL (130-400); RBC 3.69 Mil/uL (4.40-5.90); RED CELL DISTRIBUTION WIDTH 15.4 % (11.5-14.5)
[2017-06-04 11:46] LABS: ALB/GLOB RATIO 0.8 (1.0-2.1); ALBUMIN 3.1 g/dL (3.5-5.0); CALCIUM 7.5 mg/dl (8.6-10.4); MAGNESIUM 1.9 mg/dL (1.6-2.3)
[2017-06-04 11:52] LABS: MEAN CELL VOLUME 92.6 fL (80.0-94.0); WHITE BLOOD COUNT 13.3 K/uL (4.8-10.8)
[2017-06-04 12:22] LABS: LYMPHOCYTE 5 % (20-40); MONOCYTE 3 % (0-10); NEUTROPHIL 92 % (50-75); TOTAL CELLS COUNTED 100
[2017-06-04 12:23] LABS: ANISOCYTOSIS SLIGHT; LARGE PLATELETS PRESENT; PLATELET ESTIMATE NORMAL (NORMAL)
[2017-06-04 12:29] LABS: HYPOCHROMIC SLIGHT; POLYCHROMIC SLIGHT; TOXIC GRANULATION PRESENT
[2017-06-04 16:44] LABS: ABG ALLEN TEST YES; ARTERIAL BLOOD GAS HCO3 15.8 mmol/L (21-28); ARTERIAL BLOOD GAS O2 SAT 99.4 % (95-98); ARTERIAL BLOOD GAS PCO2 29 mm/Hg (35-45); ARTERIAL BLOOD GAS PH 7.28 (7.35-7.45); ARTERIAL BLOOD GAS PO2 130 mm/Hg (80-100); ARTERIAL BLOOD GAS TCO2 14.5 mmol/L (22-28)
[2017-06-04] MEDS ORDERED: Iodixanol 320 MG/ML 100 ML BOTTLE IV ONE (18:01)
--- NOTE | 2017-06-04 18:39 | CON ---
DATE: ONCOLOGY CONSULTATION An 86-year-old man with lung cancer. He is more alert. Status post the blood transfusion, his hemoglobin is 9.7. I spoke with the relatives over the phone yesterday and they have come to my office this morning, but basically is in agreement that we try to keep him comfortable and do simple measures such as transfusions and antibiotics, but no life support possibilities. We are holding off on any chemotherapy. The Decadron was 4 mg p.o. twice a day; however, simply too high to sustain this. I would advise that he go down to 2 mg p.o. of the Decadron at this point and continue that for a period of time of the next couple of weeks. Adan Ramos MD
--- NOTE | 2017-06-04 20:00 | CP.PCM.PN ---
Subjective - Date & Time of Evaluation Date of Evaluation: 06/04/17 Time of Evaluation: 07:00 - Subjective Subjective: Medicine Progress Note: Patient was seen and examined at bedside in the AM. Per nurse patient's glucose was running high and was given 10 units of insulin. Per nurse patient refused medication in the morning. I discussed with patient the importance of his medications and he did take them. He denied any complaints at the time. Patient denies having chest pain, abdominal pain, shortness of breath, nausea, vomiting, fevers, and headaches. Objective - Vital Signs/Intake and Output Vital Signs (last 24 hours): Temp Pulse Resp BP Pulse Ox 97.2 F L 98 H 20 105/68 80 L 06/04/17 17:04 06/04/17 17:17 06/04/17 17:04 06/04/17 17:04 06/04/17 17:04 Intake and Output: 06/04/17 06/05/17 18:59 06:59 Intake Total 700 Balance 700 - Medications Medications: Current Medications Albuterol/Ipratropium (Duoneb 3 Mg/0.5 Mg (3 Ml) Ud) 3 ml INH RQ4 [facility] Last Admin: 06/04/17 17:15 Dose: 3 ml Aspirin (Aspirin Chewable) 81 mg PO DAILY [facility] Last Admin: 06/04/17 09:20 Dose: 81 mg Dexamethasone (Decadron) 2 mg PO DAILY [facility] Last Admin: 06/04/17 10:05 Dose: 2 mg Enoxaparin Sodium (Lovenox) 40 mg SC DAILY [facility] Last Admin: 06/04/17 09:20 Dose: 40 mg Famotidine (Pepcid) 20 mg PO DAILY [facility] Last Admin: 06/04/17 09:20 Dose: 20 mg Furosemide (Lasix) 40 mg IVP DAILY [facility] Last Admin: 06/04/17 09:20 Dose: 40 mg Guaifenesin/Dextromethorphan (Robitussin Dm) 5 ml PO Q4H PRN PRN Reason: Cough Last Admin: 06/03/17 22:12 Dose: 5 ml Ceftriaxone Sodium 1 gm/ (Sodium Chloride) 100 mls @ 100 mls/hr IVPB DAILY [facility] Last Admin: 06/04/17 10:00 Dose: 100 mls/hr Azithromycin 500 mg/ Dextrose 250 mls @ 250 mls/hr IVPB DAILY [facility] Last Admin: 06/04/17 10:00 Dose: 250 mls/hr Sodium Bicarbonate 50 meq/ (Sodium Chloride) 1,050 mls @ 63 mls/hr IV .[id number] [facility] Last Admin: 06/04/17 19:37 Dose: 63 mls/hr Insulin Human Regular (Novolin R) 0 unit SC ACHS [facility] PRN Reason: Protocol Last Admin: 06/04/17 17:07 Dose: Not Given Metoprolol Succinate (Toprol Xl) 12.5 mg PO DAILY [facility] Last Admin: 06/04/17 10:00 Dose: 12.5 mg Rosuvastatin Calcium (Crestor) 5 mg PO HS [facility] Last Admin: 06/03/17 22:12 Dose: 5 mg Saccharomyces Boulardii (Florastor) 250 mg PO BID [facility] Last Admin: 06/04/17 18:55 Dose: Not Given - Labs Labs: 06/04/17 11:09 06/04/17 11:09 PT 15.9 SECONDS (9.7-12.2) H 05/30/17 12:55 INR 1.4 05/30/17 12:55 APTT 29 SECONDS (21-34) 05/30/17 12:55 - Constitutional Appears: Chronically Ill - Head Exam Head Exam: ATRAUMATIC, NORMAL INSPECTION - Eye Exam Eye Exam: EOMI, Normal appearance - ENT Exam ENT Exam: Mucous Membranes Moist - Respiratory Exam Respiratory Exam: Decreased Breath Sounds, Rhonchi - Cardiovascular Exam Cardiovascular Exam: REGULAR RHYTHM, +S1, +S2 - GI/Abdominal Exam GI & Abdominal Exam: Soft, Normal Bowel Sounds. absent: Tenderness - Extremities Exam Extremities Exam: Normal Inspection - Neurological Exam Neurological Exam: Alert, Awake - Psychiatric Exam Psychiatric exam: Normal Affect Assessment and Plan - Assessment and Plan (Free Text) Assessment: Later in the afternoon patient became short of breath and patient was placed on bipap. 1.) Hypoxia - Patient placed on bipap - ABG: CO2 29; O2 130; HCO3 15.8; pH 7.28 - Bicarb drip started 06/04 - f/u CT angio r/o PE 2.) Right lower lobe pneumonia * Chest xray (05/30/17): right lower lobe infiltrate/ atelectasis superimposed upon chronic interstitial lung disease (see full report) * Continue ceftriaxone 1 g Q24h, azithromycin 500mg q24h (05/30/17) * ID, Dr. Gray, consulted- help appreciated * f/u urine for legionella, strep pneumoniae, mycoplasma * influenza negative * blood culture: 05/30 negativex2 * Urine cx: 05/30 negative 3. Anemia with elevated globulin * likely secondary to history of cancer * (05/30/17) hemoglobin 8.9 * Hgb 6.4 on 06/02/17. Received 2 units of PRBC overnight. Consent obtained from nephewVan. * Repeat Hgb post-transfusion 9.7 * last hemoglobin in EMR from 2014 was 12 * globulin 4.3 * B12- 455, wnl; folate 20, wnl * FOBT: negative * Retic count 1.3 * Ferritin 216, serum immunofixation detected IgG Lambda, kappa/lambda free light chains 392/220 4. Stage IV Lung Cancer * Patient has seen Dr. Ramos in past * cannot obtain history from patient regarding medications/ chemotherapy * Dr. Ramos, heme-onc, consulted- help appreciated * Brain MRI with contrast- trace enhancement at right parietal vertex suspicious solitary metastasis; 2nd area of faint enhancement in right front vertex. * Decadron 2mg PO daily * Glucose was elevated on 06/03, likely secondary to steroids; started ISS * Consulted palliative care, Angle Mena- help appreciated 5. Hypercalcemia * likely secondary to lung cancer * continue IV fluids, NS @100cc/h * Gave 1 dose of Aredia 90mg on 05/31/[address] Ramos 6. Leukocytosis with left shift * likely due to pneumonia * blood culture: 05/30 negativex2 * Urine cx: 05/30 negative * Continue ceftriaxone and azithromycin (started 05/30/17) * Continue to monitor 7. Elevated CPK * Secondary to possible rhabdomyolysis from fall and prolonged period spent down on floor of home * CPK 587; repeat CPK 433; trending down--> CK on 05/31 311 * Continue NS @ 100cc/h 8. Cachexia * likely secondary to stage IV lung cancer * patient states 21 pound weight loss over past 3 months * nutrition consult placed- help appreciated * continue dietary supplements TID * will consider marinol 9. Fall at home * CT Head (05/30/17): No intracranial hemorrhage. No hydrocephalus. No acute intracranial abnormalities. No significant findings to account for the clinical presentation * CT Cervical Spine (05/30/17): No significant central canal or neural foraminal stenosis. Right apical scarring findings similar to that seen on a prior CT of the thorax 02/22/2013. Multilevel degenerative change primarily disc space narrowing. No acute findings related to/accounting for the clinical presentation. * Pelvis xray (05/30/17): Status post open reduction internal fixation proximal left femoral fracture. No evidence of orthopedic hardware failure. No acute osseous abnormalities. * r/o cardiac etiology of fall * Troponinsx3: 0.297, 0.34, 0.2530, 0.1969; EKGs show ST depression; * Echocardiogram: suboptimal study due to poor acoustic window; possible borderline to mild concentric LVH; systolic function mildly impaired; EF 45-50% ; normal RV systolic function, aortic valve is moderately calcified and decreased opening; mild TR; mild pulm HTN; pericardial fatpad noted, but small loculated pericardial effusion cannot be excluded. * Carotid dopplers: mild disease b/l * Cardiology consults, Dr. Burden, help appreciated * as per Dr. Burden, start medical management * ASA 81mg PO daily, Toprol XL 12.5mg PO daily, Crestor 5mg PO HS (05/31/17) * On telemetry 10. 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 Cough * Duonebs Q6sch * Robitussin DM 12. Prophylaxis * Pepcid 20mg PO daily * SCDs * Lovenox 40mg SC daily * Florastor 250mg PO * physical therapy/ occupational therapy * palliative care * case management referral * CODE status: DNR/DNI DISPO: Palliative care, Angle Mena, met with patient and patient's nephew , Van to discuss goals of care. DNR/DNI status as of 06/03/17. POLST signed and in chart. Continuing to treat pneumonia. Will discuss placement at [facility] with case management.
--- NOTE | 2017-06-04 21:58 | CT ---
EXAM: CT Angiography Chest With Intravenous Contrast EXAM DATE/TIME: Exam ordered 06/04/2017 12:50 PM CLINICAL HISTORY: 86 years old, male; Signs and symptoms; Shortness of breath; Additional info: SOB TECHNIQUE: Axial computed tomographic angiography images of the chest with intravenous contrast using pulmonary embolism protocol. All CT scans at this facility use one or more dose reduction techniques, viz.: automated exposure control; ma/kV adjustment per patient size (including targeted exams where dose is matched to indication; i.e. head); or iterative reconstruction technique. MIP reconstructed images were created and reviewed. Coronal and sagittal reformatted images were created and reviewed. CONTRAST: 100 mL of visipaque 320 administered intravenously. COMPARISON: CR - CHEST TWO VIEWS (PA/LAT) 2015-05-14 12:03 FINDINGS: Pulmonary arteries: Unremarkable. No pulmonary embolism. Aorta: No acute findings. No thoracic aortic aneurysm. Inferior vena cava: There is reflux of contrast into the inferior vena cava and right renal vein. Lungs: Centrilobular and paraseptal type emphysema is noted diffusely throughout both lungs There is a consolidation of the right lower lobe and the posterior segment of the right upper lobe. There is relative sparing of the anterior basal segment of the right lower lobe. Chronic atelectasis of the left upper lobe. Compression atelectasis is noted at the dependent portion of the left lower lobe. There is a pleural-based nodule there is hyperinflation. Pleural space: There small bilateral pleural effusions. Fluid dissects into the major fissure on the right. No pneumothorax. Heart: There is coronary artery calcification. No significant pericardial effusion. No evidence of RV dysfunction. Bones/joints: There are fractures of the left eighth through 12th ribs posteriorly. No dislocation. Soft tissues: There is anasarca Lymph nodes: This calcified left perihilar adenopathy. Spleen: Calcification is noted within the spleen. Intraperitoneal space: Is a small amount of perihepatic ascites. A small amount of perisplenic ascites. IMPRESSION: 1. No pulmonary embolism. 2. Severe centrilobular and paraseptal emphysema bilaterally with consolidation in the right lower lobe and atelectasis/consolidation in the posterior segment of the right upper lobe and dependent portion of the left lower lobe. 2. Small bilateral pleural effusions with anasarca. 3. Chronic atelectasis of the left upper lobe. 4. Small amount of intra-abdominal ascites. 5. Previous granulomatous disease.
[2017-06-05] MEDS: Albuterol-Ipratrop 3 mg / 0.5 (3 ml) UD INH SCH ×5 (03:25→19:21)
--- NOTE | 2017-06-05 04:00 | CP.PCM.PN ---
<Joan Loving - Last Filed: 06/05/17 05:25> Subjective - Date & Time of Evaluation Date of Evaluation: 06/05/17 Time of Evaluation: 03:59 - Subjective Subjective: Medicine progress note for Dr. Early's service Patient was seen and examined at bedside in the morning. Patient has BiPap on. Patient complains of feeling short of breath and difficulty breathing, but otherwise has not other complaints. Patient denies chest pain, abdominal pain, headache, nausea, vomiting, and leg pain. Objective - Vital Signs/Intake and Output Vital Signs (last 24 hours): Temp Pulse Resp BP Pulse Ox 97.3 F L 112 H 23 132/90 80 L 06/04/17 23:10 06/05/17 00:50 06/04/17 23:10 06/04/17 23:10 06/04/17 17:04 Intake and Output: 06/04/17 06/05/17 18:59 06:59 Intake Total 700 1000 Balance 700 1000 - Medications Medications: Current Medications Albuterol/Ipratropium (Duoneb 3 Mg/0.5 Mg (3 Ml) Ud) 3 ml INH RQ4 [facility] Last Admin: 06/05/17 03:25 Dose: 3 ml Aspirin (Aspirin Chewable) 81 mg PO DAILY [facility] Last Admin: 06/04/17 09:20 Dose: 81 mg Dexamethasone (Decadron) 2 mg PO DAILY [facility] Last Admin: 06/04/17 10:05 Dose: 2 mg Enoxaparin Sodium (Lovenox) 40 mg SC DAILY [facility] Last Admin: 06/04/17 09:20 Dose: 40 mg Famotidine (Pepcid) 20 mg PO DAILY [facility] Last Admin: 06/04/17 09:20 Dose: 20 mg Furosemide (Lasix) 40 mg IVP DAILY [facility] Last Admin: 06/04/17 09:20 Dose: 40 mg Guaifenesin/Dextromethorphan (Robitussin Dm) 5 ml PO Q4H PRN PRN Reason: Cough Last Admin: 06/03/17 22:12 Dose: 5 ml Ceftriaxone Sodium 1 gm/ (Sodium Chloride) 100 mls @ 100 mls/hr IVPB DAILY [facility] Last Admin: 06/04/17 10:00 Dose: 100 mls/hr Azithromycin 500 mg/ Dextrose 250 mls @ 250 mls/hr IVPB DAILY [facility] Last Admin: 06/04/17 10:00 Dose: 250 mls/hr Sodium Bicarbonate 50 meq/ (Sodium Chloride) 1,050 mls @ 63 mls/hr IV .[id number] [facility] Last Admin: 06/04/17 19:37 Dose: 63 mls/hr Insulin Human Regular (Novolin R) 0 unit SC ACHS [facility] PRN Reason: Protocol Last Admin: 06/04/17 21:28 Dose: Not Given Metoprolol Succinate (Toprol Xl) 12.5 mg PO DAILY [facility] Last Admin: 06/04/17 10:00 Dose: 12.5 mg Rosuvastatin Calcium (Crestor) 5 mg PO HS [facility] Last Admin: 06/04/17 21:31 Dose: Not Given Saccharomyces Boulardii (Florastor) 250 mg PO BID [facility] Last Admin: 06/04/17 18:55 Dose: Not Given - Labs Labs: 06/04/17 11:09 06/04/17 11:09 PT 15.9 SECONDS (9.7-12.2) H 05/30/17 12:55 INR 1.4 05/30/17 12:55 APTT 29 SECONDS (21-34) 05/30/17 12:55 - Additional Findings Additional findings: - Constitutional Appears: Chronically Ill - Head Exam Head Exam: ATRAUMATIC, NORMAL INSPECTION - Eye Exam Eye Exam: EOMI - ENT Exam ENT Exam: Mucous Membranes Moist - Respiratory Exam Respiratory Exam: Decreased Breath Sounds, Rales. On BiPap. - Cardiovascular Exam Cardiovascular Exam: REGULAR RHYTHM, +S1, +S2 - GI/Abdominal Exam GI & Abdominal Exam: Soft, Normal Bowel Sounds. absent: Distended, Firm, Guarding, Tenderness - Extremities Exam Extremities Exam: absent: Pedal Edema, Tenderness - Neurological Exam Neurological Exam: Alert, Awake - Psychiatric Exam Psychiatric exam: Normal Affect - Skin Skin Exam: Dry, Intact, Normal Color, Warm Assessment and Plan - Assessment and Plan (Free Text) Plan: Assessment: Later in the afternoon (06/03), patient became short of breath and patient was placed on bipap. 1.) Hypoxia * Patient placed on bipap * ABG: CO2 29; O2 130; HCO3 15.8; pH 7.28 * Bicarb drip started 06/04 * CXR (06/03): mild b/l infiltrates R>L; limited b/l pleural effusion noted; mild CHF in questions; chronic interstitial pulm disease. * CT angio r/o PE : No PE; severe centrilobular and paraseptal emphysema b/l with consolidation in right lower lobe and atelectasis/consolidation in posterior segment of right upper lobe and portion of left lower lobe; small b/l pleural effusions with anasarca; chronic atelectasis of left upper lobe; small amount of intraabdominal ascites; previous granlomatous disease. 2.) Right lower lobe pneumonia * Chest xray (05/30/17): right lower lobe infiltrate/ atelectasis superimposed upon chronic interstitial lung disease (see full report) * Continue ceftriaxone 1 g Q24h, azithromycin 500mg q24h (05/30/17) * ID, Dr. Gray, consulted- help appreciated * f/u urine for legionella, strep pneumoniae, mycoplasma * influenza negative * blood culture: 05/30 negativex2 * Urine cx: 05/30 negative 3. Anemia with elevated globulin * likely secondary to history of cancer * (05/30/17) hemoglobin 8.9 * Hgb 6.4 on 06/02/17. Received 2 units of PRBC overnight. Consent obtained from Van guerrero. * Repeat Hgb post-transfusion 9.7 * last hemoglobin in EMR from 2014 was 12 * globulin 4.3 * B12- 455, wnl; folate 20, wnl * FOBT: negative * Retic count 1.3, Ferritin 216, serum immunofixation detected IgG Lambda, kappa /lambda free light chains 392/220 4. Stage IV Lung Cancer * Patient has seen Dr. Ramos in past * cannot obtain history from patient regarding medications/ chemotherapy * Dr. Ramos, heme-onc, consulted- help appreciated * Brain MRI with contrast- trace enhancement at right parietal vertex suspicious solitary metastasis; 2nd area of faint enhancement in right front vertex. * Decadron 2mg PO daily * Glucose was elevated on 06/03, likely secondary to steroids; started ISS * Consulted palliative care, Angle Mena- help appreciated 5. Hypercalcemia * likely secondary to lung cancer * continue IV fluids, NS @100cc/h * Gave 1 dose of Aredia 90mg on 05/31/[address] Ramos 6. Leukocytosis with left shift * likely due to pneumonia * blood culture: 05/30 negativex2 * Urine cx: 05/30 negative * Continue ceftriaxone and azithromycin (started 05/30/17) * Continue to monitor 7. Elevated CPK * Secondary to possible rhabdomyolysis from fall and prolonged period spent down on floor of home * CPK 587; repeat CPK 433; trending down--> CK on 05/31 311 * Continue NS @ 100cc/h 8. Cachexia * likely secondary to stage IV lung cancer * patient states 21 pound weight loss over past 3 months * nutrition consult placed- help appreciated * continue dietary supplements TID * will consider marinol 9. Fall at home * CT Head (05/30/17): No intracranial hemorrhage. No hydrocephalus. No acute intracranial abnormalities. No significant findings to account for the clinical presentation * CT Cervical Spine (05/30/17): No significant central canal or neural foraminal stenosis. Right apical scarring findings similar to that seen on a prior CT of the thorax 02/22/2013. Multilevel degenerative change primarily disc space narrowing. No acute findings related to/accounting for the clinical presentation. * Pelvis xray (05/30/17): Status post open reduction internal fixation proximal left femoral fracture. No evidence of orthopedic hardware failure. No acute osseous abnormalities. * r/o cardiac etiology of fall * Troponinsx3: 0.297, 0.34, 0.2530, 0.1969; EKGs show ST depression; * Echocardiogram: suboptimal study due to poor acoustic window; possible borderline to mild concentric LVH; systolic function mildly impaired; EF 45-50% ; normal RV systolic function, aortic valve is moderately calcified and decreased opening; mild TR; mild pulm HTN; pericardial fatpad noted, but small loculated pericardial effusion cannot be excluded. * Carotid dopplers: mild disease b/l * Cardiology consults, Dr. Burden, help appreciated * as per Dr. Burden, start medical management * ASA 81mg PO daily, Toprol XL 12.5mg PO daily, Crestor 5mg PO HS (05/31/17) * On telemetry 10. 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 Cough * Duonebs Q6sch * Robitussin DM 12. Prophylaxis * Pepcid 20mg PO daily * SCDs * Lovenox 40mg SC daily * Florastor 250mg PO * physical therapy/ occupational therapy * palliative care * case management referral * CODE status: DNR/DNI DISPO: Palliative care, Angle Mena, met with patient and patient's nephew , Van to discuss goals of care. DNR/DNI status as of 06/03/17. POLST signed and in chart. Continuing to treat pneumonia. Will discuss placement at [facility] with case management. <Viktoriya Early V - Last Filed: 06/06/17 23:24> Objective - Vital Signs/Intake and Output Vital Signs (last 24 hours): Temp Pulse Resp BP Pulse Ox 97.4 F L 99 H 20 125/79 97 06/06/17 07:25 06/06/17 20:17 06/06/17 07:25 06/06/17 10:34 06/06/17 07:25 - Medications Medications: Current Medications Albuterol/Ipratropium (Duoneb 3 Mg/0.5 Mg (3 Ml) Ud) 3 ml INH RQ4 [facility] Last Admin: 06/06/17 20:16 Dose: 3 ml Aspirin (Aspirin Chewable) 81 mg PO DAILY [facility] Last Admin: 06/06/17 10:35 Dose: 81 mg Dexamethasone (Decadron) 2 mg PO DAILY [facility] Last Admin: 06/06/17 10:34 Dose: 2 mg Docusate Sodium (Colace) 100 mg PO BID PRN PRN Reason: Constipation Last Admin: 06/05/17 13:40 Dose: 100 mg Enoxaparin Sodium (Lovenox) 40 mg SC DAILY [facility] Last Admin: 06/06/17 10:35 Dose: 40 mg Famotidine (Pepcid) 20 mg PO DAILY [facility] Last Admin: 06/06/17 10:34 Dose: 20 mg Furosemide (Lasix) 40 mg IVP DAILY [facility] Last Admin: 06/06/17 10:34 Dose: 40 mg Guaifenesin/Dextromethorphan (Robitussin Dm) 5 ml PO Q4H PRN PRN Reason: Cough Last Admin: 06/03/17 22:12 Dose: 5 ml Sodium Bicarbonate 50 meq/ (Sodium Chloride) 1,050 mls @ 63 mls/hr IV .[id number] [facility] Last Admin: 06/05/17 10:32 Dose: Not Given Piperacillin Sod/Tazobactam Sod (Zosyn 3.375 Gm Iv Premix) 3.375 gm in 50 mls @ 100 mls/hr IVPB Q8H [facility] Last Admin: 06/06/17 17:45 Dose: 100 mls/hr Insulin Human Regular (Novolin R) 0 unit SC ACHS [facility] PRN Reason: Protocol Last Admin: 06/06/17 22:36 Dose: Not Given Metoprolol Succinate (Toprol Xl) 12.5 mg PO DAILY [facility] Last Admin: 06/06/17 10:34 Dose: 12.5 mg Rosuvastatin Calcium (Crestor) 5 mg PO HS [facility] Last Admin: 06/06/17 22:35 Dose: Not Given Saccharomyces Boulardii (Florastor) 250 mg PO BID [facility] Last Admin: 06/06/17 17:59 Dose: 250 mg - Labs Labs: 06/04/17 11:09 06/04/17 11:09 PT 15.9 SECONDS (9.7-12.2) H 05/30/17 12:55 INR 1.4 05/30/17 12:55 APTT 29 SECONDS (21-34) 05/30/17 12:55 Attending/Attestation - Attestation I have personally seen and examined this patient.: Yes I have fully participated in the care of the patient.: Yes I have reviewed all pertinent clinical information, including history, physical exam and plan: Yes Notes (Text): This is late computer entry for 06/05/17. Patient was seen this morning with his nephew, Reyes Jaincoral ([phone]--> also available thru [employer] on [employer] application). Patient refuse blood works morning when he is not present and he is difficult stick for the nursing staff and phlembotomy team. i have discussed with nephew that patient will likely need a PICC if we are unable to collect blood work. Held bicarbonate drip given unable to gather blood work Will seek for pulmonary consult. Patient is difficult to taper off Bipap; he becomes hypoxic in the low 80s in Venti mask. He attempts to remove the bipap but this is currently given him adequate oxygenation. I have also discussed with nephew and patient the result of patient's chest ct completed last night. There is no pulmonary embolism noted but given patient's smoking history extensive emphysema and consolidation (pneumonia vs cancer). The goal is to hopefully treat patient's pneumonia to to stablize him for [facility] when applicable. Assessment/Plan 1. Right lower lobe pneumonia * ID, Dr. Gray, consulted- help appreciated * Pulmonary, Dr. Rodriguez on board-->help appreciated * Chest xray (05/30/17): right lower lobe infiltrate/ atelectasis superimposed upon chronic interstitial lung disease (see full report) * CT angio (06/04/17): no pulmonary embolism. severe centrilobular and paraseptal emphysema bilaterally with consolidation in the right lower love and atelectsis/consolidation in the posterior segement of the right upper lobe and dependent portion of the left lower love. Small bilateral pleural effusions with anasarca, chronic atelctasis of the left upper lobe. small amount of intra- abdominal ascites. * Rocephin 1 gram IV Q daily (active since 05/30/17) and Azithromycin 500mg IV q daily (active since05/30/17)-->will discuss with ID about changing antibiotics * ID, Dr. Gray, consulted- help appreciated * influenza negative * Duonebs Q6H scheduled * Robitussin DM 5ml PO Q 4H PRN cough * On Bipap since evening 06/04; with desaturation when attempt to descalate 2. NONSTEMI * Troponin: 0.2970, 0.3400, 0.2530, 0.11022 * Cardiology (Dr. Burden) on board-->help appreciated * Cardiology seen and evaluated patient, recommending for medical management including aspirin, statin, and beta clarence if patient can tolerate it. * Echocardiogram (05/31/17): bordline to mild concentric LVH. Systolic function is mildly inmpaired. EF: 45-50% further findings per report 3. Stage IV Lung Cancer * Patient has seen Dr. Ramos (heme-onc) in past * cannot obtain history from patient regarding medications/ chemotherapy * Dr. Ramos, heme-onc, consulted- help appreciated * Consulted palliative care, Angle Mena- help appreciated * Nephew is here. He has spoke with heme-onc and palliative care. Recommended for DNR/DNI. Will continue IV abx. The goal is to treat the pneumonia to prepare discharge for [facility] when clinically stable. * CT angio (06/04/17): no pulmonary embolism. severe centrilobular and paraseptal emphysema bilaterally with consolidation in the right lower love and atelectsis/consolidation in the posterior segement of the right upper lobe and dependent portion of the left lower love. Small bilateral pleural effusions with anasarca, chronic atelctasis of the left upper lobe. small amount of intra- abdominal ascites. * Decadron 2mg IV daily (active since 06/04/17) 4. Hypercalcemia * likely secondary to lung cancer * high ionized calcium, + immunofixation, kappa/lambda, protein electrophoresis , PTH intact: low, PTH related protein: pending Vitamin D: 74.2 * Patient does not have QT changes on EKG * Given one dose of Aredia per heme-onc 05/31-->imrpoved * Discontinue IV fluids 5. Leukocytosis with left shift * r/o infection given hx of metastatic lung cancer * Blood culture (05/30/17): negative * urine culture (05/30/17): no growth * procalcitonin: low * Rocephin 1 gram IV Q daily (active since 05/30/17) and Azithromycin 500mg IV q daily (05/30/17) * Chest xray (05/30/17): right lower lobe infiltrate/ atelectasis superimposed upon chronic interstitial lung disease (see full report) * CT angio (06/04/17): no pulmonary embolism. severe centrilobular and paraseptal emphysema bilaterally with consolidation in the right lower love and atelectsis/consolidation in the posterior segement of the right upper lobe and dependent portion of the left lower love. Small bilateral pleural effusions with anasarca, chronic atelctasis of the left upper lobe. small amount of intra- abdominal ascites. * Continue to monitor * Influenza; negative 6. Elevated CPK * secondary to possible rhabdomyolysis from fall and prolonged period spent down on floor of home * CPK 587; repeat CPK 433; trending down--> CK on 05/31 311 * D/C IV fluids 7. Cachexia * likely secondary to stage IV lung cancer * patient states 21 pound weight loss over past 3 months * nutrition consult placed- help appreciated * continue dietary supplements TID * will consider marinol 8. Fall at home * CT Head (05/30/17): No intracranial hemorrhage. No hydrocephalus. No acute intracranial abnormalities. No significant findings to account for the clinical presentation * CT Cervical Spine (05/30/17): No significant central canal or neural foraminal stenosis. Right apical scarring findings similar to that seen on a prior CT of the thorax 02/22/2013. Multilevel degenerative change primarily disc space narrowing. No acute findings related to/accounting for the clinical presentation. * Pelvis xray (05/30/17): Status post open reduction internal fixation proximal left femoral fracture. No evidence of orthopedic hardware failure. No acute osseous abnormalities. * Troponinsx3: 0.297, 0.34, 0.2530 * Echocardiogram: Echocardiogram (05/31/17): bordline to mild concentric LVH. Systolic function is mildly inmpaired. EF: 45-50% further findings per report * Carotid dopplers: mild disease b/l * Cardiology consults, Dr. Burden, help appreciated * Recommended for ASA, betablocker, statin, medical management * On telemetry 9. 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 Cough * Duonebs Q6sch * Robitussin DM 11. Prophylaxis * pepcid 20mg PO daily * SCDs * Lovenox 40mg subqdaily * physical therapy/ occupational therapy eval * palliative care consult * case management referral * DNR/DNI * for [facility] placement Disposition: Patient is refusing blood work or difficult stick for staff. Will consider for possible PICC line. Patient to continue Bipap. Will ask for pulm consult for further recommendation
[2017-06-05] MEDS: (Novolin R) Insulin Human Regular 100 units/ml vial SC SCH ×4 (08:36→21:41)
[2017-06-05] MEDS: Metoprolol Succinate 12.5 mg XL PO SCH (10:30)
[2017-06-05] MEDS: Enoxaparin 40 mg Syringe SC SCH (10:31)
[2017-06-05] MEDS: Saccharomyces Boulardi 250 mg Cap PO SCH ×2 (10:31→17:58)
[2017-06-05 12:33] LABS: SQUAMOUS EPITHIAL 1 /hpf (0-5); URINE AMORPHOUS SEDIMENT RARE /ul (<OCC); URINE BILIRUBIN NEGATIVE (NEGATIVE); URINE BLOOD 2+ (NEGATIVE); URINE CLARITY Hazy (Clear); URINE COLOR Yellow (YELLOW); URINE GLUCOSE (UA) 1+ mg/dL (Normal); URINE LEUKOCYTE ESTERASE NEG Leu/uL (Negative); URINE NITRATE NEGATIVE (NEGATIVE); URINE PROTEIN 1+ mg/dL (NEGATIVE); URINE UROBILINOGEN NORMAL mg/dL (0.2-1.0)
[2017-06-05 12:49] LABS: URINE BACTERIA OCC (<OCC)
--- NOTE | 2017-06-05 19:55 | CP.PCM.CON ---
History of Present Illness - History of Present Illness History of Present Illness: reason for consultation: pneumonia and history of lung cancer Patient is 86-year-old male with history of lung cancer was brought to emergency room after he fell down and was found on the floor by the buildings and grounds superintendent. CAT scan of the chest consistent with bilateral infiltrate and effusion. Patient being treated for pneumonia and on BiPAP for respiratory distress. Heme-Onc: Dr. Ramos PMHx: stage IV lung cancer Meds: patient and friend unsure of medications, does not know name of pharmacy PSHx: left hip repair FamHx: denies SocialHx: states tobacco usage in past (cannot quantify), denies alcohol and drugs; lives alone; formerly worked as a [employer] for 42 years Review of Systems - Review of Systems Systems not reviewed;Unavailable: Other (on BiPAP) Past Patient History - Past Medical History & Family History Past Medical History?: Yes - Past Social History Smoking Status: Never Smoked - CARDIAC Hx Cardiac Disorders: Yes Hx Hypertension: Yes - PULMONARY Hx Respiratory Disorders: No - NEUROLOGICAL Hx Neurological Disorder: No - HEENT Hx HEENT Problems: No - RENAL Hx Chronic Kidney Disease: No - ENDOCRINE/METABOLIC Hx Diabetes Mellitus Type 2: Yes - HEMATOLOGICAL/ONCOLOGICAL Hx Blood Disorders: No - INTEGUMENTARY Hx Dermatological Problems: No - MUSCULOSKELETAL/RHEUMATOLOGICAL Hx Musculoskeletal Disorders: Yes Hx Falls: Yes - GASTROINTESTINAL Hx Gastrointestinal Disorders: No - GENITOURINARY/GYNECOLOGICAL Hx Genitourinary Disorders: No - PSYCHIATRIC Hx Substance Use: No - SURGICAL HISTORY Hx Surgeries: (UNABLE TO OBTAIN) - ANESTHESIA Hx Anesthesia: No Meds Allergies/Adverse Reactions: Allergies Allergy/AdvReac Type Severity Reaction Status Date / Time No Known Allergies Allergy Unverified 05/30/17 11:57 - Medications Medications: Current Medications Albuterol/Ipratropium (Duoneb 3 Mg/0.5 Mg (3 Ml) Ud) 3 ml INH RQ4 [facility] Last Admin: 06/05/17 19:21 Dose: 3 ml Aspirin (Aspirin Chewable) 81 mg PO DAILY [facility] Last Admin: 06/05/17 10:31 Dose: 81 mg Dexamethasone (Decadron) 2 mg PO DAILY [facility] Last Admin: 06/05/17 10:30 Dose: 2 mg Docusate Sodium (Colace) 100 mg PO BID PRN PRN Reason: Constipation Last Admin: 06/05/17 13:40 Dose: 100 mg Enoxaparin Sodium (Lovenox) 40 mg SC DAILY [facility] Last Admin: 06/05/17 10:31 Dose: 40 mg Famotidine (Pepcid) 20 mg PO DAILY [facility] Last Admin: 06/05/17 10:30 Dose: 20 mg Furosemide (Lasix) 40 mg IVP DAILY [facility] Last Admin: 06/05/17 10:31 Dose: 40 mg Guaifenesin/Dextromethorphan (Robitussin Dm) 5 ml PO Q4H PRN PRN Reason: Cough Last Admin: 06/03/17 22:12 Dose: 5 ml Ceftriaxone Sodium 1 gm/ (Sodium Chloride) 100 mls @ 100 mls/hr IVPB DAILY [facility] Last Admin: 06/05/17 10:30 Dose: 100 mls/hr Azithromycin 500 mg/ Dextrose 250 mls @ 250 mls/hr IVPB DAILY [facility] Last Admin: 06/05/17 13:40 Dose: 250 mls/hr Sodium Bicarbonate 50 meq/ (Sodium Chloride) 1,050 mls @ 63 mls/hr IV .[id number] [facility] Last Admin: 06/05/17 10:32 Dose: Not Given Insulin Human Regular (Novolin R) 0 unit SC ACHS [facility] PRN Reason: Protocol Last Admin: 06/05/17 17:58 Dose: 4 unit Metoprolol Succinate (Toprol Xl) 12.5 mg PO DAILY [facility] Last Admin: 06/05/17 10:30 Dose: 12.5 mg Rosuvastatin Calcium (Crestor) 5 mg PO HS [facility] Last Admin: 06/04/17 21:31 Dose: Not Given Saccharomyces Boulardii (Florastor) 250 mg PO BID [facility] Last Admin: 06/05/17 17:58 Dose: 250 mg Physical Exam - Constitutional Appears: In Acute Distress - Head Exam Head Exam: ATRAUMATIC, NORMOCEPHALIC - ENT Exam ENT Exam: Mucous Membranes Moist - Respiratory Exam Respiratory Exam: Decreased Breath Sounds - Cardiovascular Exam Cardiovascular Exam: REGULAR RHYTHM - GI/Abdominal Exam GI & Abdominal Exam: Normal Bowel Sounds, Soft - Extremities Exam Extremities exam: Positive for: normal inspection - Neurological Exam Neurological exam: Altered Results - Vital Signs Recent Vital Signs: Last Vital Signs Temp 97.5 F L 06/05/17 16:45 Pulse 100 H 01/20/18 19:22 Resp 21 06/05/17 15:00 BP 116/82 06/05/17 15:00 Pulse Ox 100 06/05/17 15:00 - Labs Result Diagrams: 06/04/17 11:09 06/04/17 11:09 Labs: Laboratory Results - last 24 hr 05/31/17 06/04/17 06/05/17 14:34 21:18 06:22 POC Glucose (mg/dL) 165 H 118 H PTH Related Protein 33 H Urine Color Urine Clarity Urine pH Ur Specific [place] Urine Protein Urine Glucose (UA) Urine Ketones Urine Blood Urine Nitrate Urine Bilirubin Urine Urobilinogen Ur Leukocyte Esterase Urine WBC (Auto) Urine RBC (Auto) Ur Squamous Epith Cells Amorphous Sediment Urine Bacteria 06/05/17 06/05/17 06/05/17 11:00 12:16 16:14 POC Glucose (mg/dL) 164 H 270 H PTH Related Protein Urine Color Yellow Urine Clarity Hazy Urine pH 5.0 Ur Specific [place] 1.021 Urine Protein 1+ H Urine Glucose (UA) 1+ H Urine Ketones Negative Urine Blood 2+ H Urine Nitrate Negative Urine Bilirubin Negative Urine Urobilinogen Normal Ur Leukocyte Esterase Neg Urine WBC (Auto) 1 Urine RBC (Auto) 3 Ur Squamous Epith Cells 1 Amorphous Sediment Rare H Urine Bacteria Occ H Assessment & Plan (1) Respiratory insufficiency/failure Status: Acute Comment: secondary to pneumonia. Continue BiPAP. Followup ABG. Consider switching to Zosyn. Continue azithromycin (2) Metabolic acidosis Status: Acute (3) Altered mental state Status: Acute (4) Pneumonia Status: Acute
[2017-06-06] MEDS: Albuterol-Ipratrop 3 mg / 0.5 (3 ml) UD INH SCH ×6 (00:23→20:16)
--- NOTE | 2017-06-06 03:12 | CP.PCM.PN ---
<Joan Loving - Last Filed: 06/06/17 03:09> Subjective - Date & Time of Evaluation Date of Evaluation: 06/06/17 Time of Evaluation: 03:09 - Subjective Subjective: Medicine progress note for Dr. Early's service Patient was seen and examined at bedside in no acute distress. Patient has Bipap on. Patient says he still has trouble breathing, but the Bipap helps. Patient otherwise denies remaining review of systems. Objective - Vital Signs/Intake and Output Vital Signs (last 24 hours): Temp Pulse Resp BP Pulse Ox 97.5 F L 115 H 20 132/80 90 L 06/06/17 00:15 06/06/17 00:23 06/06/17 00:15 06/06/17 00:15 06/06/17 00:15 Intake and Output: 06/05/17 06/06/17 18:59 06:59 Intake Total 1084 Balance 1084 - Medications Medications: Current Medications Albuterol/Ipratropium (Duoneb 3 Mg/0.5 Mg (3 Ml) Ud) 3 ml INH RQ4 [facility] Last Admin: 06/06/17 00:23 Dose: 3 ml Aspirin (Aspirin Chewable) 81 mg PO DAILY [facility] Last Admin: 06/05/17 10:31 Dose: 81 mg Dexamethasone (Decadron) 2 mg PO DAILY [facility] Last Admin: 06/05/17 10:30 Dose: 2 mg Docusate Sodium (Colace) 100 mg PO BID PRN PRN Reason: Constipation Last Admin: 06/05/17 13:40 Dose: 100 mg Enoxaparin Sodium (Lovenox) 40 mg SC DAILY [facility] Last Admin: 06/05/17 10:31 Dose: 40 mg Famotidine (Pepcid) 20 mg PO DAILY [facility] Last Admin: 06/05/17 10:30 Dose: 20 mg Furosemide (Lasix) 40 mg IVP DAILY [facility] Last Admin: 06/05/17 10:31 Dose: 40 mg Guaifenesin/Dextromethorphan (Robitussin Dm) 5 ml PO Q4H PRN PRN Reason: Cough Last Admin: 06/03/17 22:12 Dose: 5 ml Ceftriaxone Sodium 1 gm/ (Sodium Chloride) 100 mls @ 100 mls/hr IVPB DAILY [facility] Last Admin: 06/05/17 10:30 Dose: 100 mls/hr Azithromycin 500 mg/ Dextrose 250 mls @ 250 mls/hr IVPB DAILY [facility] Last Admin: 06/05/17 13:40 Dose: 250 mls/hr Sodium Bicarbonate 50 meq/ (Sodium Chloride) 1,050 mls @ 63 mls/hr IV .[id number] [facility] Last Admin: 06/05/17 10:32 Dose: Not Given Insulin Human Regular (Novolin R) 0 unit SC ACHS [facility] PRN Reason: Protocol Last Admin: 06/05/17 21:41 Dose: Not Given Metoprolol Succinate (Toprol Xl) 12.5 mg PO DAILY [facility] Last Admin: 06/05/17 10:30 Dose: 12.5 mg Rosuvastatin Calcium (Crestor) 5 mg PO HS [facility] Last Admin: 06/05/17 21:49 Dose: Not Given Saccharomyces Boulardii (Florastor) 250 mg PO BID [facility] Last Admin: 06/05/17 17:58 Dose: 250 mg - Labs Labs: 06/04/17 11:09 06/04/17 11:09 PT 15.9 SECONDS (9.7-12.2) H 05/30/17 12:55 INR 1.4 05/30/17 12:55 APTT 29 SECONDS (21-34) 05/30/17 12:55 Assessment and Plan - Assessment and Plan (Free Text) Assessment: Assessment: Later in the afternoon (06/03), patient became short of breath and patient was placed on bipap. As per nursing, patient refused blood draw overnight (06/05/17). Spoke with patient and he agreed, however, nurse unable to draw blood due to blown veins. 1.) Hypoxia * Patient placed on bipap * ABG: CO2 29; O2 130; HCO3 15.8; pH 7.28 * Bicarb drip started 06/04, held on 06/05 * CXR (06/03): mild b/l infiltrates R>L; limited b/l pleural effusion noted; mild CHF in questions; chronic interstitial pulm disease. * CT angio r/o PE : No PE; severe centrilobular and paraseptal emphysema b/l with consolidation in right lower lobe and atelectasis/consolidation in posterior segment of right upper lobe and portion of left lower lobe; small b/l pleural effusions with anasarca; chronic atelectasis of left upper lobe; small amount of intraabdominal ascites; previous granlomatous disease. * Pulmonology, Dr. Rodriguez, consulted; recs appreciated 2.) Right lower lobe pneumonia * Chest xray (05/30/17): right lower lobe infiltrate/ atelectasis superimposed upon chronic interstitial lung disease (see full report) * Continue ceftriaxone 1 g Q24h, azithromycin 500mg q24h (05/30/17) * ID, Dr. Gray, consulted- help appreciated * influenza negative * blood culture: 05/30 negativex2 * Urine cx: 05/30 negative 3. Anemia with elevated globulin * likely secondary to history of cancer * (05/30/17) hemoglobin 8.9 * Hgb 6.4 on 06/02/17. Received 2 units of PRBC overnight. Consent obtained from nephregan Van. * Repeat Hgb post-transfusion 9.7 * last hemoglobin in EMR from 2014 was 12 * globulin 4.3 * B12- 455, wnl; folate 20, wnl * FOBT: negative * Retic count 1.3, Ferritin 216, serum immunofixation detected IgG Lambda, kappa /lambda free light chains 392/220 4. Stage IV Lung Cancer * Patient has seen Dr. Ramos in past * cannot obtain history from patient regarding medications/ chemotherapy * Dr. Ramos, heme-onc, consulted- help appreciated * Brain MRI with contrast- trace enhancement at right parietal vertex suspicious solitary metastasis; 2nd area of faint enhancement in right front vertex. * Decadron 2mg PO daily * Glucose was elevated on 06/03, likely secondary to steroids; started ISS * Consulted palliative care, Angle Mena- help appreciated 5. Hypercalcemia * likely secondary to lung cancer * continue IV fluids, NS @100cc/h * Gave 1 dose of Aredia 90mg on 05/31/[address] Ramos 6. Leukocytosis with left shift * likely due to pneumonia * blood culture: 05/30 negativex2 * Urine cx: 05/30 negative * UA (06/05/17): 1+ protein, 1+ glucose, 2+ blood, rare amorphous sediment, Occ bacteria * Procalcitonin 0.11 * Continue ceftriaxone and azithromycin (started 05/30/17) * Continue to monitor 7. Elevated CPK * Secondary to possible rhabdomyolysis from fall and prolonged period spent down on floor of home * CPK 587; repeat CPK 433; trending down--> CK on 05/31 311 * Continue NS @ 100cc/h 8. Cachexia * likely secondary to stage IV lung cancer * patient states 21 pound weight loss over past 3 months * nutrition consult placed- help appreciated * continue dietary supplements TID * will consider marinol 9. Fall at home * CT Head (05/30/17): No intracranial hemorrhage. No hydrocephalus. No acute intracranial abnormalities. No significant findings to account for the clinical presentation * CT Cervical Spine (05/30/17): No significant central canal or neural foraminal stenosis. Right apical scarring findings similar to that seen on a prior CT of the thorax 02/22/2013. Multilevel degenerative change primarily disc space narrowing. No acute findings related to/accounting for the clinical presentation. * Pelvis xray (05/30/17): Status post open reduction internal fixation proximal left femoral fracture. No evidence of orthopedic hardware failure. No acute osseous abnormalities. * r/o cardiac etiology of fall * Troponinsx3: 0.297, 0.34, 0.2530, 0.1969; EKGs show ST depression; * Echocardiogram: suboptimal study due to poor acoustic window; possible borderline to mild concentric LVH; systolic function mildly impaired; EF 45-50% ; normal RV systolic function, aortic valve is moderately calcified and decreased opening; mild TR; mild pulm HTN; pericardial fatpad noted, but small loculated pericardial effusion cannot be excluded. * Carotid dopplers: mild disease b/l * Cardiology consults, Dr. Burden, help appreciated * as per Dr. Burden, start medical management * ASA 81mg PO daily, Toprol XL 12.5mg PO daily, Crestor 5mg PO HS (05/31/17) * On telemetry 10. 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 Cough * Duonebs Q6sch * Robitussin DM 12. Prophylaxis * Pepcid 20mg PO daily * SCDs * Lovenox 40mg SC daily * Florastor 250mg PO * physical therapy/ occupational therapy * palliative care * case management referral * CODE status: DNR/DNI DISPO: Palliative care, Angle Mena, met with patient and patient's nephew , Van to discuss goals of care. DNR/DNI status as of 06/03/17. POLST signed and in chart. Continuing to treat pneumonia. Patient will get PICC line on 06/07/17. Will discuss placement at [facility] with case management. <Viktoriya Early V - Last Filed: 06/06/17 23:18> Objective - Vital Signs/Intake and Output Vital Signs (last 24 hours): Temp Pulse Resp BP Pulse Ox 97.4 F L 99 H 20 125/79 97 06/06/17 07:25 06/06/17 20:17 06/06/17 07:25 06/06/17 10:34 06/06/17 07:25 - Medications Medications: Current Medications Albuterol/Ipratropium (Duoneb 3 Mg/0.5 Mg (3 Ml) Ud) 3 ml INH RQ4 [facility] Last Admin: 06/06/17 20:16 Dose: 3 ml Aspirin (Aspirin Chewable) 81 mg PO DAILY [facility] Last Admin: 06/06/17 10:35 Dose: 81 mg Dexamethasone (Decadron) 2 mg PO DAILY [facility] Last Admin: 06/06/17 10:34 Dose: 2 mg Docusate Sodium (Colace) 100 mg PO BID PRN PRN Reason: Constipation Last Admin: 06/05/17 13:40 Dose: 100 mg Enoxaparin Sodium (Lovenox) 40 mg SC DAILY [facility] Last Admin: 06/06/17 10:35 Dose: 40 mg Famotidine (Pepcid) 20 mg PO DAILY [facility] Last Admin: 06/06/17 10:34 Dose: 20 mg Furosemide (Lasix) 40 mg IVP DAILY [facility] Last Admin: 06/06/17 10:34 Dose: 40 mg Guaifenesin/Dextromethorphan (Robitussin Dm) 5 ml PO Q4H PRN PRN Reason: Cough Last Admin: 06/03/17 22:12 Dose: 5 ml Sodium Bicarbonate 50 meq/ (Sodium Chloride) 1,050 mls @ 63 mls/hr IV .[id number] [facility] Last Admin: 06/05/17 10:32 Dose: Not Given Piperacillin Sod/Tazobactam Sod (Zosyn 3.375 Gm Iv Premix) 3.375 gm in 50 mls @ 100 mls/hr IVPB Q8H [facility] Last Admin: 06/06/17 17:45 Dose: 100 mls/hr Insulin Human Regular (Novolin R) 0 unit SC ACHS [facility] PRN Reason: Protocol Last Admin: 06/06/17 22:36 Dose: Not Given Metoprolol Succinate (Toprol Xl) 12.5 mg PO DAILY [facility] Last Admin: 06/06/17 10:34 Dose: 12.5 mg Rosuvastatin Calcium (Crestor) 5 mg PO HS [facility] Last Admin: 06/06/17 22:35 Dose: Not Given Saccharomyces Boulardii (Florastor) 250 mg PO BID [facility] Last Admin: 06/06/17 17:59 Dose: 250 mg - Labs Labs: 06/04/17 11:09 06/04/17 11:09 PT 15.9 SECONDS (9.7-12.2) H 05/30/17 12:55 INR 1.4 05/30/17 12:55 APTT 29 SECONDS (21-34) 05/30/17 12:55 Attending/Attestation - Attestation I have personally seen and examined this patient.: Yes I have fully participated in the care of the patient.: Yes I have reviewed all pertinent clinical information, including history, physical exam and plan: Yes Notes (Text): Patient was seen this morning with his nephew, Reyes Penny ([phone]--> also available thru [employer] on [employer] application). patient continues to refuse blood work when he is not present and he is difficult stick for the nursing staff and phlembotomy team. We will consent him for PICC line to gain access and enable to draw blood work. Patient continues to need Bipap; he becomes hypoxic without it. Patient is refusing to eat. He is encouraged to. Nephew brings in food he likes but does not eat. I have discussed with nephew if patient continues to not eat, we may need to consider the NGT tube to have feeding which I am sure the patient does not want. The goal is to treat the pneumonia to make patient candidate for [facility]. Patient was seen and evaluated by pulmonary, recommended for Zosyn. Assessment/Plan 1. Right lower lobe pneumonia * ID, Dr. Gray, consulted- help appreciated * Pulmonary, Dr. Rodriguez on board-->help appreciated * Chest xray (05/30/17): right lower lobe infiltrate/ atelectasis superimposed upon chronic interstitial lung disease (see full report) * CT angio (06/04/17): no pulmonary embolism. severe centrilobular and paraseptal emphysema bilaterally with consolidation in the right lower love and atelectsis/consolidation in the posterior segement of the right upper lobe and dependent portion of the left lower love. Small bilateral pleural effusions with anasarca, chronic atelctasis of the left upper lobe. small amount of intra- abdominal ascites. * Rocephin 1 gram IV Q daily (active since 05/30/17) and Azithromycin 500mg IV q daily (active since05/30/17)-->switched to Zosyn 3.375g IVq 8H. * ID, Dr. Gray, consulted- help appreciated * influenza negative * Duonebs Q6H scheduled * Robitussin DM 5ml PO Q 4H PRN cough * On Bipap since evening 06/04; with desaturation when attempt to descalate 2. NONSTEMI * Troponin: 0.2970, 0.3400, 0.2530, 0.15212 * Cardiology (Dr. Burden) on board-->help appreciated * Cardiology seen and evaluated patient, recommending for medical management including aspirin, statin, and beta clarence if patient can tolerate it. * Echocardiogram (05/31/17): bordline to mild concentric LVH. Systolic function is mildly inmpaired. EF: 45-50% further findings per report 3. Stage IV Lung Cancer * Patient has seen Dr. Ramos (heme-onc) in past * cannot obtain history from patient regarding medications/ chemotherapy * Dr. Ramos, heme-onc, consulted- help appreciated * Consulted palliative care, Angle Mena- help appreciated * Nephew is here. He has spoke with heme-onc and palliative care. Recommended for DNR/DNI. Will continue IV abx. The goal is to treat the pneumonia to prepare discharge for [facility] when clinically stable. * CT angio (06/04/17): no pulmonary embolism. severe centrilobular and paraseptal emphysema bilaterally with consolidation in the right lower love and atelectsis/consolidation in the posterior segement of the right upper lobe and dependent portion of the left lower love. Small bilateral pleural effusions with anasarca, chronic atelctasis of the left upper lobe. small amount of intra- abdominal ascites. * Decadron 2mg IV daily (active since 06/04/17) 4. Hypercalcemia * likely secondary to lung cancer * high ionized calcium, + immunofixation, kappa/lambda, protein electrophoresis , PTH intact: low, PTH related protein: pending Vitamin D: 74.2 * Patient does not have QT changes on EKG * Given one dose of Aredia per heme-onc 05/31-->imrpoved * Discontinue IV fluids 5. Leukocytosis with left shift * r/o infection given hx of metastatic lung cancer * Blood culture (05/30/17): negative * urine culture (05/30/17): no growth * procalcitonin: low * Rocephin 1 gram IV Q daily (active since 05/30/17) and Azithromycin 500mg IV q daily (05/30/17) * Chest xray (05/30/17): right lower lobe infiltrate/ atelectasis superimposed upon chronic interstitial lung disease (see full report) * CT angio (06/04/17): no pulmonary embolism. severe centrilobular and paraseptal emphysema bilaterally with consolidation in the right lower love and atelectsis/consolidation in the posterior segement of the right upper lobe and dependent portion of the left lower love. Small bilateral pleural effusions with anasarca, chronic atelctasis of the left upper lobe. small amount of intra- abdominal ascites. * Continue to monitor * Influenza; negative 6. Elevated CPK * secondary to possible rhabdomyolysis from fall and prolonged period spent down on floor of home * CPK 587; repeat CPK 433; trending down--> CK on 05/31 311 * D/C IV fluids 7. Cachexia * likely secondary to stage IV lung cancer * patient states 21 pound weight loss over past 3 months * nutrition consult placed- help appreciated * continue dietary supplements TID * will consider marinol 8. Fall at home * CT Head (05/30/17): No intracranial hemorrhage. No hydrocephalus. No acute intracranial abnormalities. No significant findings to account for the clinical presentation * CT Cervical Spine (05/30/17): No significant central canal or neural foraminal stenosis. Right apical scarring findings similar to that seen on a prior CT of the thorax 02/22/2013. Multilevel degenerative change primarily disc space narrowing. No acute findings related to/accounting for the clinical presentation. * Pelvis xray (05/30/17): Status post open reduction internal fixation proximal left femoral fracture. No evidence of orthopedic hardware failure. No acute osseous abnormalities. * Troponinsx3: 0.297, 0.34, 0.2530 * Echocardiogram: Echocardiogram (05/31/17): bordline to mild concentric LVH. Systolic function is mildly inmpaired. EF: 45-50% further findings per report * Carotid dopplers: mild disease b/l * Cardiology consults, Dr. Burden, help appreciated * Recommended for ASA, betablocker, statin, medical management * On telemetry 9. 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 Cough * Duonebs Q6sch * Robitussin DM 11. Prophylaxis * pepcid 20mg PO daily * SCDs * Lovenox 40mg subqdaily * physical therapy/ occupational therapy eval * palliative care consult * case management referral * DNR/DNI * for [facility] placement Disposition: Patient is awaiting for PICC line placement to able to gather bloodwork and treat pneumonia accordingly. Patient switched to Zosyn IV.
[2017-06-06] MEDS: (Novolin R) Insulin Human Regular 100 units/ml vial SC SCH ×4 (08:13→22:36)
[2017-06-06] MEDS: Metoprolol Succinate 12.5 mg XL PO SCH (10:34)
[2017-06-06] MEDS: Saccharomyces Boulardi 250 mg Cap PO SCH ×2 (10:34→17:59)
[2017-06-06] MEDS: Enoxaparin 40 mg Syringe SC SCH (10:35)
--- NOTE | 2017-06-06 13:42 | CP.PCM.PN ---
Subjective - Date & Time of Evaluation Date of Evaluation: 06/04/17 Time of Evaluation: 10:40 - Subjective Subjective: Patient seen and evaluated Denies chest pain and dyspnea Patient with no additional cardiac events Denies chest pain Review of Systems - Constitutional Constitutional: Weight Loss, Weakness. absent: Chills, Fever - EENT Ears: Dizziness - Cardiovascular Cardiovascular: absent: Chest Pain - Respiratory Respiratory: Cough - Gastrointestinal Gastrointestinal: absent: Abdominal Pain, Nausea, Vomiting - Genitourinary Genitourinary: absent: Difficulty Urinating, Dysuria - Musculoskeletal Musculoskeletal: absent: Back Pain - Integumentary Integumentary: absent: Rash - Neurological Neurological: Dizziness, Weakness Physical Exam - Constitutional Appears: No Acute Distress, Cachectic, Chronically Ill - Head Exam Head Exam: ATRAUMATIC, NORMOCEPHALIC - Eye Exam Eye Exam: EOMI - ENT Exam ENT Exam: Mucous Membranes Dry - Respiratory Exam Respiratory Exam: Decreased Breath Sounds, NORMAL BREATHING PATTERN. absent: Respiratory Distress - Cardiovascular Exam Cardiovascular Exam: +S1, +S2 - GI/Abdominal Exam GI & Abdominal Exam: Normal Bowel Sounds, Soft. absent: Tenderness - Rectal Exam Rectal Exam: NORMAL INSPECTION. absent: Black Stool, Bloody Stool, Hemorrhoids Additional comments: no gross blood, moderate amount of soft brown stool in rectum - Extremities Exam Extremities exam: Positive for: normal inspection. Negative for: pedal edema - Back Exam Back exam: absent: CVA tenderness (L), CVA tenderness (R), rash noted Additional comments: no ecchymotic lesions noted - Neurological Exam Neurological exam: Alert Additional comments: patient not oriented Objective - Vital Signs/Intake and Output Vital Signs (last 24 hours): Temp Pulse Resp BP Pulse Ox 97.4 F L 100 H 20 125/79 97 06/06/17 07:25 06/06/17 13:36 06/06/17 07:25 06/06/17 10:34 06/06/17 07:25 Intake and Output: 06/06/17 06/06/17 06:59 18:59 Intake Total 200 Balance 200 - Medications Medications: Current Medications Albuterol/Ipratropium (Duoneb 3 Mg/0.5 Mg (3 Ml) Ud) 3 ml INH RQ4 [facility] Last Admin: 06/06/17 11:09 Dose: 3 ml Aspirin (Aspirin Chewable) 81 mg PO DAILY [facility] Last Admin: 06/06/17 10:35 Dose: 81 mg Dexamethasone (Decadron) 2 mg PO DAILY [facility] Last Admin: 06/06/17 10:34 Dose: 2 mg Docusate Sodium (Colace) 100 mg PO BID PRN PRN Reason: Constipation Last Admin: 06/05/17 13:40 Dose: 100 mg Enoxaparin Sodium (Lovenox) 40 mg SC DAILY [facility] Last Admin: 06/06/17 10:35 Dose: 40 mg Famotidine (Pepcid) 20 mg PO DAILY [facility] Last Admin: 06/06/17 10:34 Dose: 20 mg Furosemide (Lasix) 40 mg IVP DAILY [facility] Last Admin: 06/06/17 10:34 Dose: 40 mg Guaifenesin/Dextromethorphan (Robitussin Dm) 5 ml PO Q4H PRN PRN Reason: Cough Last Admin: 06/03/17 22:12 Dose: 5 ml Ceftriaxone Sodium 1 gm/ (Sodium Chloride) 100 mls @ 100 mls/hr IVPB DAILY [facility] Last Admin: 06/06/17 09:15 Dose: 100 mls/hr Azithromycin 500 mg/ Dextrose 250 mls @ 250 mls/hr IVPB DAILY [facility] Last Admin: 06/06/17 10:36 Dose: 250 mls/hr Sodium Bicarbonate 50 meq/ (Sodium Chloride) 1,050 mls @ 63 mls/hr IV .[id number] [facility] Last Admin: 06/05/17 10:32 Dose: Not Given Insulin Human Regular (Novolin R) 0 unit SC ACHS JOHAN PRN Reason: Protocol Last Admin: 06/06/17 13:27 Dose: 4 unit Metoprolol Succinate (Toprol Xl) 12.5 mg PO DAILY [facility] Last Admin: 06/06/17 10:34 Dose: 12.5 mg Rosuvastatin Calcium (Crestor) 5 mg PO HS [facility] Last Admin: 06/05/17 21:49 Dose: Not Given Saccharomyces Boulardii (Florastor) 250 mg PO BID [facility] Last Admin: 06/06/17 10:34 Dose: 250 mg - Labs Labs: 06/04/17 11:09 06/04/17 11:09 PT 15.9 SECONDS (9.7-12.2) H 05/30/17 12:55 INR 1.4 05/30/17 12:55 APTT 29 SECONDS (21-34) 05/30/17 12:55 Assessment and Plan - Assessment and Plan (Free Text) Assessment: Assessment and Plan - Assessment and Plan (Free Text) Assessment: 1. Right lower lobe pneumonia * Chest xray (05/30/17): right lower lobe infiltrate/ atelectasis superimposed upon chronic interstitial lung disease (see full report) * Continue ceftriaxone 1 g Q24h, azithromycin 500mg q24h (05/30/17) * ID, Dr. Gray, consulted- help appreciated * f/u urine for legionella, strep pneumoniae, mycoplasma * influenza negative * blood culture: 05/30 negativex2 * Urine cx: 05/30 negative 2. Anemia with elevated globulin * likely secondary to history of cancer * (05/30/17) hemoglobin 8.9 * Hgb 6.4 on 06/02/17. Received 2 units of PRBC overnight. Consent obtained from nephVan spears. * Repeat Hgb post-transfusion 9.7 * last hemoglobin in EMR from 2014 was 12 * globulin 4.3 * B12- 455, wnl; folate 20, wnl * FOBT: negative * Retic count 1.3 * Ferritin 216, serum immunofixation detected IgG Lambda, kappa/lambda free light chains 392/220 3. Stage IV Lung Cancer * Patient has seen Dr. Ramos in past * cannot obtain history from patient regarding medications/ chemotherapy * Dr. Ramos, heme-onc, consulted- help appreciated * Brain MRI with contrast- trace enhancement at right parietal vertex suspicious solitary metastasis; 2nd area of faint enhancement in right front vertex. * Decadron 4mg IV Q12 started (06/02/17) to reduce brain edema * Glucose was elevated on 06/03, likely secondary to steroids; started ISS * Consulted palliative careAngle- help appreciated 4. Hypercalcemia * likely secondary to lung cancer * continue IV fluids, NS @100cc/h * Gave 1 dose of Aredia 90mg on 05/31/[address] Ramos 5. Leukocytosis with left shift * likely due to pneumonia * blood culture: 05/30 negativex2 * Urine cx: 05/30 negative * Continue ceftriaxone and azithromycin (started 05/30/17) * Continue to monitor 6. Elevated CPK * Secondary to possible rhabdomyolysis from fall and prolonged period spent down on floor of home * CPK 587; repeat CPK 433; trending down--> CK on 05/31 311 * Continue NS @ 100cc/h 7. Cachexia * likely secondary to stage IV lung cancer * patient states 21 pound weight loss over past 3 months * nutrition consult placed- help appreciated * continue dietary supplements TID * will consider marinol 8. Fall at home * CT Head (05/30/17): No intracranial hemorrhage. No hydrocephalus. No acute intracranial abnormalities. No significant findings to account for the clinical presentation * CT Cervical Spine (05/30/17): No significant central canal or neural foraminal stenosis. Right apical scarring findings similar to that seen on a prior CT of the thorax 02/22/2013. Multilevel degenerative change primarily disc space narrowing. No acute findings related to/accounting for the clinical presentation. * Pelvis xray (05/30/17): Status post open reduction internal fixation proximal left femoral fracture. No evidence of orthopedic hardware failure. No acute osseous abnormalities. * r/o cardiac etiology of fall * Troponinsx3: 0.297, 0.34, 0.2530, 0.1969; EKGs show ST depression; * Echocardiogram: suboptimal study due to poor acoustic window; possible borderline to mild concentric LVH; systolic function mildly impaired; EF 45-50% ; normal RV systolic function, aortic valve is moderately calcified and decreased opening; mild TR; mild pulm HTN; pericardial fatpad noted, but small loculated pericardial effusion cannot be excluded. * Carotid dopplers: mild disease b/l * ASA 81mg PO daily, Toprol XL 12.5mg PO daily, Crestor 5mg PO HS (05/31/17) * On telemetry 9. 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 Cough * Duonebs Q6sch * Robitussin DM 11. Prophylaxis * Pepcid 20mg PO daily * SCDs * Lovenox 40mg SC daily * Florastor 250mg PO * physical therapy/ occupational therapy * palliative care * case management referral * CODE status: DNR/DNI
--- NOTE | 2017-06-06 13:44 | CP.PCM.PN ---
Subjective - Date & Time of Evaluation Date of Evaluation: 06/05/17 Time of Evaluation: 13:25 - Subjective Subjective: Patient seen and evaluated Denies chest pain and dyspnea Patient with no additional cardiac events Denies chest pain Review of Systems - Constitutional Constitutional: Weight Loss, Weakness. absent: Chills, Fever - EENT Ears: Dizziness - Cardiovascular Cardiovascular: absent: Chest Pain - Respiratory Respiratory: Cough - Gastrointestinal Gastrointestinal: absent: Abdominal Pain, Nausea, Vomiting - Genitourinary Genitourinary: absent: Difficulty Urinating, Dysuria - Musculoskeletal Musculoskeletal: absent: Back Pain - Integumentary Integumentary: absent: Rash - Neurological Neurological: Dizziness, Weakness Physical Exam - Constitutional Appears: No Acute Distress, Cachectic, Chronically Ill - Head Exam Head Exam: ATRAUMATIC, NORMOCEPHALIC - Eye Exam Eye Exam: EOMI - ENT Exam ENT Exam: Mucous Membranes Dry - Respiratory Exam Respiratory Exam: Decreased Breath Sounds, NORMAL BREATHING PATTERN. absent: Respiratory Distress - Cardiovascular Exam Cardiovascular Exam: +S1, +S2 - GI/Abdominal Exam GI & Abdominal Exam: Normal Bowel Sounds, Soft. absent: Tenderness - Rectal Exam Rectal Exam: NORMAL INSPECTION. absent: Black Stool, Bloody Stool, Hemorrhoids Additional comments: no gross blood, moderate amount of soft brown stool in rectum - Extremities Exam Extremities exam: Positive for: normal inspection. Negative for: pedal edema - Back Exam Back exam: absent: CVA tenderness (L), CVA tenderness (R), rash noted Additional comments: no ecchymotic lesions noted - Neurological Exam Neurological exam: Alert Additional comments: patient not oriented Objective - Vital Signs/Intake and Output Vital Signs (last 24 hours): Temp Pulse Resp BP Pulse Ox 97.4 F L 100 H 20 125/79 97 06/06/17 07:25 06/06/17 13:36 06/06/17 07:25 06/06/17 10:34 06/06/17 07:25 Intake and Output: 06/06/17 06/06/17 06:59 18:59 Intake Total 200 Balance 200 - Medications Medications: Current Medications Albuterol/Ipratropium (Duoneb 3 Mg/0.5 Mg (3 Ml) Ud) 3 ml INH RQ4 [facility] Last Admin: 06/06/17 11:09 Dose: 3 ml Aspirin (Aspirin Chewable) 81 mg PO DAILY [facility] Last Admin: 06/06/17 10:35 Dose: 81 mg Dexamethasone (Decadron) 2 mg PO DAILY [facility] Last Admin: 06/06/17 10:34 Dose: 2 mg Docusate Sodium (Colace) 100 mg PO BID PRN PRN Reason: Constipation Last Admin: 06/05/17 13:40 Dose: 100 mg Enoxaparin Sodium (Lovenox) 40 mg SC DAILY [facility] Last Admin: 06/06/17 10:35 Dose: 40 mg Famotidine (Pepcid) 20 mg PO DAILY [facility] Last Admin: 06/06/17 10:34 Dose: 20 mg Furosemide (Lasix) 40 mg IVP DAILY [facility] Last Admin: 06/06/17 10:34 Dose: 40 mg Guaifenesin/Dextromethorphan (Robitussin Dm) 5 ml PO Q4H PRN PRN Reason: Cough Last Admin: 06/03/17 22:12 Dose: 5 ml Ceftriaxone Sodium 1 gm/ (Sodium Chloride) 100 mls @ 100 mls/hr IVPB DAILY [facility] Last Admin: 06/06/17 09:15 Dose: 100 mls/hr Azithromycin 500 mg/ Dextrose 250 mls @ 250 mls/hr IVPB DAILY [facility] Last Admin: 06/06/17 10:36 Dose: 250 mls/hr Sodium Bicarbonate 50 meq/ (Sodium Chloride) 1,050 mls @ 63 mls/hr IV .[id number] [facility] Last Admin: 06/05/17 10:32 Dose: Not Given Insulin Human Regular (Novolin R) 0 unit SC ACHS [facility]OH[facility] PRN Reason: Protocol Last Admin: 06/06/17 13:27 Dose: 4 unit Metoprolol Succinate (Toprol Xl) 12.5 mg PO DAILY [facility] Last Admin: 06/06/17 10:34 Dose: 12.5 mg Rosuvastatin Calcium (Crestor) 5 mg PO HS [facility] Last Admin: 06/05/17 21:49 Dose: Not Given Saccharomyces Boulardii (Florastor) 250 mg PO BID [facility] Last Admin: 06/06/17 10:34 Dose: 250 mg - Labs Labs: 06/04/17 11:09 06/04/17 11:09 PT 15.9 SECONDS (9.7-12.2) H 05/30/17 12:55 INR 1.4 05/30/17 12:55 APTT 29 SECONDS (21-34) 05/30/17 12:55 Assessment and Plan - Assessment and Plan (Free Text) Assessment: Assessment and Plan - Assessment and Plan (Free Text) Assessment: 1. Right lower lobe pneumonia * Chest xray (05/30/17): right lower lobe infiltrate/ atelectasis superimposed upon chronic interstitial lung disease (see full report) * Continue ceftriaxone 1 g Q24h, azithromycin 500mg q24h (05/30/17) * ID, Dr. Gray, consulted- help appreciated * f/u urine for legionella, strep pneumoniae, mycoplasma * influenza negative * blood culture: 05/30 negativex2 * Urine cx: 05/30 negative 2. Anemia with elevated globulin * likely secondary to history of cancer * (05/30/17) hemoglobin 8.9 * Hgb 6.4 on 06/02/17. Received 2 units of PRBC overnight. Consent obtained from nephVan spears. * Repeat Hgb post-transfusion 9.7 * last hemoglobin in EMR from 2014 was 12 * globulin 4.3 * B12- 455, wnl; folate 20, wnl * FOBT: negative * Retic count 1.3 * Ferritin 216, serum immunofixation detected IgG Lambda, kappa/lambda free light chains 392/220 3. Stage IV Lung Cancer * Patient has seen Dr. Ramos in past * cannot obtain history from patient regarding medications/ chemotherapy * Dr. Ramos, heme-onc, consulted- help appreciated * Brain MRI with contrast- trace enhancement at right parietal vertex suspicious solitary metastasis; 2nd area of faint enhancement in right front vertex. * Decadron 4mg IV Q12 started (06/02/17) to reduce brain edema * Glucose was elevated on 06/03, likely secondary to steroids; started ISS * Consulted palliative careAngle- help appreciated 4. Hypercalcemia * likely secondary to lung cancer * continue IV fluids, NS @100cc/h * Gave 1 dose of Aredia 90mg on 05/31/[address] Ramos 5. Leukocytosis with left shift * likely due to pneumonia * blood culture: 05/30 negativex2 * Urine cx: 05/30 negative * Continue ceftriaxone and azithromycin (started 05/30/17) * Continue to monitor 6. Elevated CPK * Secondary to possible rhabdomyolysis from fall and prolonged period spent down on floor of home * CPK 587; repeat CPK 433; trending down--> CK on 05/31 311 * Continue NS @ 100cc/h 7. Cachexia * likely secondary to stage IV lung cancer * patient states 21 pound weight loss over past 3 months * nutrition consult placed- help appreciated * continue dietary supplements TID * will consider marinol 8. Fall at home * CT Head (05/30/17): No intracranial hemorrhage. No hydrocephalus. No acute intracranial abnormalities. No significant findings to account for the clinical presentation * CT Cervical Spine (05/30/17): No significant central canal or neural foraminal stenosis. Right apical scarring findings similar to that seen on a prior CT of the thorax 02/22/2013. Multilevel degenerative change primarily disc space narrowing. No acute findings related to/accounting for the clinical presentation. * Pelvis xray (05/30/17): Status post open reduction internal fixation proximal left femoral fracture. No evidence of orthopedic hardware failure. No acute osseous abnormalities. * r/o cardiac etiology of fall * Troponinsx3: 0.297, 0.34, 0.2530, 0.1969; EKGs show ST depression; * Echocardiogram: suboptimal study due to poor acoustic window; possible borderline to mild concentric LVH; systolic function mildly impaired; EF 45-50% ; normal RV systolic function, aortic valve is moderately calcified and decreased opening; mild TR; mild pulm HTN; pericardial fatpad noted, but small loculated pericardial effusion cannot be excluded. * Carotid dopplers: mild disease b/l * ASA 81mg PO daily, Toprol XL 12.5mg PO daily, Crestor 5mg PO HS (05/31/17) * On telemetry 9. 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 Cough * Duonebs Q6sch * Robitussin DM 11. Prophylaxis * Pepcid 20mg PO daily * SCDs * Lovenox 40mg SC daily * Florastor 250mg PO * physical therapy/ occupational therapy * palliative care * case management referral * CODE status: DNR/DNI DISPO: Palliative care, Angle Mena, met with patient and patient's nephew , Van to discuss goals of care. DNR/DNI status as of 06/03/17. POLST signed and in chart. Continuing to treat pneumonia. Will discuss placement at [facility] with case management.
--- NOTE | 2017-06-06 16:46 | CP.PCM.PN ---
Subjective - Date & Time of Evaluation Date of Evaluation: 06/06/17 Time of Evaluation: 08:00 - Subjective Subjective: discussed on rounds rx as post obstructive pneumonia DNR in effect Objective - Vital Signs/Intake and Output Vital Signs (last 24 hours): Temp Pulse Resp BP Pulse Ox 97.4 F L 100 H 20 125/79 97 06/06/17 07:25 06/06/17 13:36 06/06/17 07:25 06/06/17 10:34 06/06/17 07:25 Intake and Output: 06/06/17 06/06/17 06:59 18:59 Intake Total 200 Balance 200 - Medications Medications: Current Medications Albuterol/Ipratropium (Duoneb 3 Mg/0.5 Mg (3 Ml) Ud) 3 ml INH RQ4 [facility] Last Admin: 06/06/17 11:09 Dose: 3 ml Aspirin (Aspirin Chewable) 81 mg PO DAILY [facility] Last Admin: 06/06/17 10:35 Dose: 81 mg Dexamethasone (Decadron) 2 mg PO DAILY [facility] Last Admin: 06/06/17 10:34 Dose: 2 mg Docusate Sodium (Colace) 100 mg PO BID PRN PRN Reason: Constipation Last Admin: 06/05/17 13:40 Dose: 100 mg Enoxaparin Sodium (Lovenox) 40 mg SC DAILY [facility] Last Admin: 06/06/17 10:35 Dose: 40 mg Famotidine (Pepcid) 20 mg PO DAILY [facility] Last Admin: 06/06/17 10:34 Dose: 20 mg Furosemide (Lasix) 40 mg IVP DAILY [facility] Last Admin: 06/06/17 10:34 Dose: 40 mg Guaifenesin/Dextromethorphan (Robitussin Dm) 5 ml PO Q4H PRN PRN Reason: Cough Last Admin: 06/03/17 22:12 Dose: 5 ml Ceftriaxone Sodium 1 gm/ (Sodium Chloride) 100 mls @ 100 mls/hr IVPB DAILY [facility] Last Admin: 06/06/17 09:15 Dose: 100 mls/hr Azithromycin 500 mg/ Dextrose 250 mls @ 250 mls/hr IVPB DAILY [facility] Last Admin: 06/06/17 10:36 Dose: 250 mls/hr Sodium Bicarbonate 50 meq/ (Sodium Chloride) 1,050 mls @ 63 mls/hr IV .[id number] [facility] Last Admin: 06/05/17 10:32 Dose: Not Given Insulin Human Regular (Novolin R) 0 unit SC ACHS [facility] PRN Reason: Protocol Last Admin: 06/06/17 13:27 Dose: 4 unit Metoprolol Succinate (Toprol Xl) 12.5 mg PO DAILY [facility] Last Admin: 06/06/17 10:34 Dose: 12.5 mg Rosuvastatin Calcium (Crestor) 5 mg PO HS [facility] Last Admin: 06/05/17 21:49 Dose: Not Given Saccharomyces Boulardii (Florastor) 250 mg PO BID [facility] Last Admin: 06/06/17 10:34 Dose: 250 mg - Labs Labs: 06/04/17 11:09 06/04/17 11:09 PT 15.9 SECONDS (9.7-12.2) H 05/30/17 12:55 INR 1.4 05/30/17 12:55 APTT 29 SECONDS (21-34) 05/30/17 12:55 - Constitutional Appears: Non-toxic, Cachectic, Chronically Ill - Head Exam Head Exam: NORMOCEPHALIC - Eye Exam Eye Exam: PERRL - ENT Exam ENT Exam: Mucous Membranes Dry - Neck Exam Neck Exam: absent: Lymphadenopathy - Respiratory Exam Respiratory Exam: Decreased Breath Sounds - Cardiovascular Exam Cardiovascular Exam: REGULAR RHYTHM - GI/Abdominal Exam GI & Abdominal Exam: Distended, Soft - Rectal Exam Rectal Exam: Deferred - Exam Exam: NORMAL INSPECTION Assessment and Plan (1) Altered mental state Status: Acute (2) Dizziness Status: Acute (3) Pneumonia Status: Acute - Assessment and Plan (Free Text) Assessment: cont rx IV antibiotics
[2017-06-06] MEDS ORDERED: Piperacill/Tazo 3.375gm in Dex 3.375 GM/50 ML BAG IVPB SCH (17:00)
[2017-06-06] MEDS: Piperacill/Tazo 3.375gm in Dex 3.375 GM/50 ML BAG IVPB SCH (17:45)
--- NOTE | 2017-06-06 22:44 | CP.PCM.PN ---
Subjective - Date & Time of Evaluation Date of Evaluation: 06/06/17 Time of Evaluation: 07:40 - Subjective Subjective: Patient seen and evaluated No cardiac events noted Comfortable Objective - Vital Signs/Intake and Output Vital Signs (last 24 hours): Temp Pulse Resp BP Pulse Ox 97.4 F L 99 H 20 125/79 97 06/06/17 07:25 06/06/17 20:17 06/06/17 07:25 06/06/17 10:34 06/06/17 07:25 - Medications Medications: Current Medications Albuterol/Ipratropium (Duoneb 3 Mg/0.5 Mg (3 Ml) Ud) 3 ml INH RQ4 [facility] Last Admin: 06/06/17 20:16 Dose: 3 ml Aspirin (Aspirin Chewable) 81 mg PO DAILY [facility] Last Admin: 06/06/17 10:35 Dose: 81 mg Dexamethasone (Decadron) 2 mg PO DAILY [facility] Last Admin: 06/06/17 10:34 Dose: 2 mg Docusate Sodium (Colace) 100 mg PO BID PRN PRN Reason: Constipation Last Admin: 06/05/17 13:40 Dose: 100 mg Enoxaparin Sodium (Lovenox) 40 mg SC DAILY [facility] Last Admin: 06/06/17 10:35 Dose: 40 mg Famotidine (Pepcid) 20 mg PO DAILY [facility] Last Admin: 06/06/17 10:34 Dose: 20 mg Furosemide (Lasix) 40 mg IVP DAILY [facility] Last Admin: 06/06/17 10:34 Dose: 40 mg Guaifenesin/Dextromethorphan (Robitussin Dm) 5 ml PO Q4H PRN PRN Reason: Cough Last Admin: 06/03/17 22:12 Dose: 5 ml Sodium Bicarbonate 50 meq/ (Sodium Chloride) 1,050 mls @ 63 mls/hr IV .[id number] [facility] Last Admin: 06/05/17 10:32 Dose: Not Given Piperacillin Sod/Tazobactam Sod (Zosyn 3.375 Gm Iv Premix) 3.375 gm in 50 mls @ 100 mls/hr IVPB Q8H [facility] Last Admin: 06/06/17 17:45 Dose: 100 mls/hr Insulin Human Regular (Novolin R) 0 unit SC ACHS [facility] PRN Reason: Protocol Last Admin: 06/06/17 22:36 Dose: Not Given Metoprolol Succinate (Toprol Xl) 12.5 mg PO DAILY [facility] Last Admin: 06/06/17 10:34 Dose: 12.5 mg Rosuvastatin Calcium (Crestor) 5 mg PO HS [facility] Last Admin: 06/06/17 22:35 Dose: Not Given Saccharomyces Boulardii (Florastor) 250 mg PO BID [facility] Last Admin: 06/06/17 17:59 Dose: 250 mg - Labs Labs: 06/04/17 11:09 06/04/17 11:09 PT 15.9 SECONDS (9.7-12.2) H 05/30/17 12:55 INR 1.4 05/30/17 12:55 APTT 29 SECONDS (21-34) 05/30/17 12:55
[2017-06-07] MEDS: Albuterol-Ipratrop 3 mg / 0.5 (3 ml) UD INH SCH ×6 (00:33→20:19)
[2017-06-07] MEDS: Piperacill/Tazo 3.375gm in Dex 3.375 GM/50 ML BAG IVPB SCH ×3 (00:38→17:31)
[2017-06-07 05:59] LABS: BASO # 0.1 K/uL (0.0-0.2); BASO % 0.5 % (0.0-2.0); HEMOGLOBIN 10.4 g/dL (12.0-18.0); LYMPH # 0.3 K/uL (1.0-4.3); LYMPH % 2.3 % (20.0-40.0); MEAN CELL VOLUME 87.6 fL (80.0-94.0); MEAN CORPUSCULAR HEMOGLOBIN 28.8 pg (27.0-31.0); MEAN CORPUSCULAR HGB CONC 32.9 g/dL (33.0-37.0); MEAN PLATELET VOLUME 8.7 fL (7.2-11.7); MONO # 0.4 K/uL (0.0-0.8); MONO % 2.5 % (0.0-10.0); NEUT # 14.2 K/uL (1.8-7.0); NEUT % 94.7 % (50.0-75.0); NRBC % 0.1 % (0.0-2.0); PLATELET COUNT 208 K/uL (130-400); RED CELL DISTRIBUTION WIDTH 15.5 % (11.5-14.5)
[2017-06-07 06:31] LABS: ALB/GLOB RATIO 0.9 (1.0-2.1); ALBUMIN 2.7 g/dL (3.5-5.0); CALCIUM 6.6 mg/dl (8.6-10.4)
[2017-06-07] MEDS: (Novolin R) Insulin Human Regular 100 units/ml vial SC SCH ×4 (08:28→21:40)
--- NOTE | 2017-06-07 08:44 | CP.PCM.PN ---
<Joan Loving - Last Filed: 06/07/17 18:04> Subjective - Date & Time of Evaluation Date of Evaluation: 06/07/17 Time of Evaluation: 08:44 - Subjective Subjective: Medicine progress note for Dr. Swain's service Patient was seen and examined at bedside in no acute distress. Patient is pleasant and smiling. Patient no longer has bipap on. Patient says his breathing is better and he "not good" but cannot explain why and when asked, denies all review of systems. Objective - Vital Signs/Intake and Output Vital Signs (last 24 hours): Temp Pulse Resp BP Pulse Ox 97.3 F L 86 18 94/59 L 96 06/07/17 07:30 06/07/17 07:30 06/07/17 07:30 06/07/17 07:30 06/07/17 07:30 - Medications Medications: Current Medications Albuterol/Ipratropium (Duoneb 3 Mg/0.5 Mg (3 Ml) Ud) 3 ml INH RQ4 [facility] Last Admin: 06/07/17 07:58 Dose: 3 ml Aspirin (Aspirin Chewable) 81 mg PO DAILY [facility] Last Admin: 06/06/17 10:35 Dose: 81 mg Dexamethasone (Decadron) 2 mg PO DAILY [facility] Last Admin: 06/06/17 10:34 Dose: 2 mg Docusate Sodium (Colace) 100 mg PO BID PRN PRN Reason: Constipation Last Admin: 06/05/17 13:40 Dose: 100 mg Enoxaparin Sodium (Lovenox) 40 mg SC DAILY [facility] Last Admin: 06/06/17 10:35 Dose: 40 mg Famotidine (Pepcid) 20 mg PO DAILY [facility] Last Admin: 06/06/17 10:34 Dose: 20 mg Furosemide (Lasix) 40 mg IVP DAILY [facility] Last Admin: 06/06/17 10:34 Dose: 40 mg Guaifenesin/Dextromethorphan (Robitussin Dm) 5 ml PO Q4H PRN PRN Reason: Cough Last Admin: 06/03/17 22:12 Dose: 5 ml Sodium Bicarbonate 50 meq/ (Sodium Chloride) 1,050 mls @ 63 mls/hr IV .[id number] [facility] Last Admin: 06/05/17 10:32 Dose: Not Given Piperacillin Sod/Tazobactam Sod (Zosyn 3.375 Gm Iv Premix) 3.375 gm in 50 mls @ 100 mls/hr IVPB Q8H [facility] Last Admin: 06/07/17 00:38 Dose: 100 mls/hr Insulin Human Regular (Novolin R) 0 unit SC ACHS [facility] PRN Reason: Protocol Last Admin: 06/07/17 08:28 Dose: 2 unit Metoprolol Succinate (Toprol Xl) 12.5 mg PO DAILY [facility] Last Admin: 06/06/17 10:34 Dose: 12.5 mg Rosuvastatin Calcium (Crestor) 5 mg PO HS [facility] Last Admin: 06/06/17 22:35 Dose: Not Given Saccharomyces Boulardii (Florastor) 250 mg PO BID [facility] Last Admin: 06/06/17 17:59 Dose: 250 mg - Labs Labs: 06/07/17 05:54 06/07/17 05:54 PT 15.9 SECONDS (9.7-12.2) H 05/30/17 12:55 INR 1.4 05/30/17 12:55 APTT 29 SECONDS (21-34) 05/30/17 12:55 - Additional Findings Additional findings: - Constitutional Appears: Chronically Ill - Head Exam Head Exam: ATRAUMATIC, NORMAL INSPECTION - Eye Exam Eye Exam: EOMI - ENT Exam ENT Exam: Mucous Membranes Moist - Respiratory Exam Respiratory Exam: Decreased Breath Sounds, Rales. - Cardiovascular Exam Cardiovascular Exam: REGULAR RHYTHM, +S1, +S2 - GI/Abdominal Exam GI & Abdominal Exam: Soft, Normal Bowel Sounds. absent: Distended, Firm, Guarding, Tenderness - Extremities Exam Extremities Exam: absent: Pedal Edema, Tenderness - Neurological Exam Neurological Exam: Alert, Awake - Psychiatric Exam Psychiatric exam: Normal Affect - Skin Skin Exam: Dry, Intact, Normal Color, Warm Assessment and Plan - Assessment and Plan (Free Text) Plan: Assessment: 1.) Right lower lobe pneumonia * Chest xray (05/30/17): right lower lobe infiltrate/ atelectasis superimposed upon chronic interstitial lung disease (see full report) * CXR (06/03): mild b/l infiltrates R>L; limited b/l pleural effusion noted; mild CHF in questions; chronic interstitial pulm disease. * CT angio r/o PE : No PE; severe centrilobular and paraseptal emphysema b/l with consolidation in right lower lobe and atelectasis/consolidation in posterior segment of right upper lobe and portion of left lower lobe; small b/l pleural effusions with anasarca; chronic atelectasis of left upper lobe; small amount of intraabdominal ascites; previous granlomatous disease. * influenza negative * blood culture: 05/30 negativex2 * Urine cx: 05/30 negative * Patient placed on bipap on 06/03 * ABG: CO2 29; O2 130; HCO3 15.8; pH 7.28 * Bicarb drip started 06/04, held on 06/05 * Pulmonology, Dr. Rodriguez, consulted; recs appreciated * ID, Dr. Gray, consulted- help appreciated * Started Zosyn 3.375g IV Q24 (06/06/17, likely for a total of 7 days) * Discontinue ceftriaxone 1 g Q24h, azithromycin 500mg q24h (05/30/17) 2. NONSTEMI * Troponinx4: 0.2970, 0.3400, 0.2530, 0.23652 * Cardiology consulted, Dr. Burden, recs appreciated * As per Dr. Burden, medical management including aspirin, statin, and beta clarence if patient can tolerate it. * Echocardiogram (05/31/17): bordline to mild concentric LVH. Systolic function is mildly inmpaired. EF: 45-50% further findings per report 3. Anemia with elevated globulin * likely secondary to history of cancer * (05/30/17) hemoglobin 8.9 * Hgb 6.4 on 06/02/17. Received 2 units of PRBC overnight. Consent obtained from Van guerrero. * Repeat Hgb post-transfusion 9.7 * last hemoglobin in EMR from 2014 was 12 * globulin 4.3 * B12- 455, wnl; folate 20, wnl * FOBT: negative * Retic count 1.3, Ferritin 216, serum immunofixation detected IgG Lambda, kappa /lambda free light chains 392/220 4. Stage IV Lung Cancer * Patient has seen Dr. Ramos in past * cannot obtain history from patient regarding medications/ chemotherapy * Dr. Ramos, heme-onc, consulted- help appreciated * Brain MRI with contrast- trace enhancement at right parietal vertex suspicious solitary metastasis; 2nd area of faint enhancement in right front vertex. * Decadron 2mg PO daily * Glucose was elevated on 06/03, likely secondary to steroids; started ISS * Consulted palliative care, Angle Mena- help appreciated 5. Hypercalcemia * likely secondary to lung cancer * continue IV fluids, NS @100cc/h * Gave 1 dose of Aredia 90mg on 05/31/[address] Ramos 6. Leukocytosis with left shift * likely due to pneumonia * blood culture: 05/30 negativex2 * Urine cx: 05/30 negative * UA (06/05/17): 1+ protein, 1+ glucose, 2+ blood, rare amorphous sediment, Occ bacteria * Procalcitonin 0.11 * Continue ceftriaxone and azithromycin (started 05/30/17) * Continue to monitor 7. Elevated CPK * Secondary to possible rhabdomyolysis from fall and prolonged period spent down on floor of home * CPK 587; repeat CPK 433; trending down--> CK on 05/31 311 * Continue NS @ 100cc/h 8. Cachexia * likely secondary to stage IV lung cancer * patient states 21 pound weight loss over past 3 months * nutrition consult placed- help appreciated * continue dietary supplements TID * will consider marinol 9. Fall at home * CT Head (05/30/17): No intracranial hemorrhage. No hydrocephalus. No acute intracranial abnormalities. No significant findings to account for the clinical presentation * CT Cervical Spine (05/30/17): No significant central canal or neural foraminal stenosis. Right apical scarring findings similar to that seen on a prior CT of the thorax 02/22/2013. Multilevel degenerative change primarily disc space narrowing. No acute findings related to/accounting for the clinical presentation. * Pelvis xray (05/30/17): Status post open reduction internal fixation proximal left femoral fracture. No evidence of orthopedic hardware failure. No acute osseous abnormalities. * r/o cardiac etiology of fall * Troponinsx3: 0.297, 0.34, 0.2530, 0.1969; EKGs show ST depression; * Echocardiogram: suboptimal study due to poor acoustic window; possible borderline to mild concentric LVH; systolic function mildly impaired; EF 45-50% ; normal RV systolic function, aortic valve is moderately calcified and decreased opening; mild TR; mild pulm HTN; pericardial fatpad noted, but small loculated pericardial effusion cannot be excluded. * Carotid dopplers: mild disease b/l * Cardiology consults, Dr. Burden, help appreciated * as per Dr. Burden, start medical management -->ASA 81mg PO daily, Toprol XL 12.5mg PO daily, Crestor 5mg PO HS (05/31/17) * On telemetry 10. 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 Cough * Duonebs Q6sch * Robitussin DM 12. Prophylaxis * Pepcid 20mg PO daily * SCDs * Lovenox 40mg SC daily * Florastor 250mg PO * physical therapy/ occupational therapy * palliative care * case management referral * CODE status: DNR/DNI DISPO: PICC line placed on 06/07/17. DNR/DNI status as of 06/03/17. POLST signed and in chart. Continuing to treat pneumonia (antiobiotics changed to Zosyn). Waiting on placement at [facility] with case management (possible placement at [facility] or [facility]). <Gary Swain - Last Filed: 06/07/17 20:17> Objective - Vital Signs/Intake and Output Vital Signs (last 24 hours): Temp Pulse Resp BP Pulse Ox 97.3 F L 86 18 94/59 L 96 06/07/17 07:30 06/07/17 07:30 06/07/17 07:30 06/07/17 07:30 06/07/17 07:30 - Medications Medications: Current Medications Albuterol/Ipratropium (Duoneb 3 Mg/0.5 Mg (3 Ml) Ud) 3 ml INH RQ4 [facility] Last Admin: 06/07/17 16:47 Dose: 3 ml Aspirin (Aspirin Chewable) 81 mg PO DAILY [facility] Last Admin: 06/07/17 11:56 Dose: 81 mg Dexamethasone (Decadron) 2 mg PO DAILY [facility] Last Admin: 06/07/17 13:20 Dose: 2 mg Docusate Sodium (Colace) 100 mg PO BID PRN PRN Reason: Constipation Last Admin: 06/07/17 11:56 Dose: 100 mg Enoxaparin Sodium (Lovenox) 40 mg SC DAILY [facility] Last Admin: 06/07/17 11:59 Dose: Not Given Famotidine (Pepcid) 20 mg PO DAILY [facility] Last Admin: 06/07/17 11:56 Dose: 20 mg Furosemide (Lasix) 40 mg IVP DAILY [facility] Last Admin: 06/07/17 11:59 Dose: Not Given Guaifenesin/Dextromethorphan (Robitussin Dm) 5 ml PO Q4H PRN PRN Reason: Cough Last Admin: 06/03/17 22:12 Dose: 5 ml Sodium Bicarbonate 50 meq/ (Sodium Chloride) 1,050 mls @ 63 mls/hr IV .[id number] [facility] Last Admin: 06/05/17 10:32 Dose: Not Given Piperacillin Sod/Tazobactam Sod (Zosyn 3.375 Gm Iv Premix) 3.375 gm in 50 mls @ 100 mls/hr IVPB Q8H [facility] Last Admin: 06/07/17 17:31 Dose: 100 mls/hr Insulin Human Regular (Novolin R) 0 unit SC ACHS [facility] PRN Reason: Protocol Last Admin: 06/07/17 17:05 Dose: Not Given Metoprolol Succinate (Toprol Xl) 12.5 mg PO DAILY [facility] Last Admin: 06/07/17 11:59 Dose: Not Given Potassium Chloride (K-Dur 20 Meq Er Tab) 20 meq PO DAILY [facility] Last Admin: 06/07/17 14:45 Dose: 20 meq Rosuvastatin Calcium (Crestor) 5 mg PO HS [facility] Last Admin: 06/06/17 22:35 Dose: Not Given Saccharomyces Boulardii (Florastor) 250 mg PO BID [facility] Last Admin: 06/07/17 17:31 Dose: 250 mg - Labs Labs: 06/07/17 05:54 06/07/17 05:54 PT 15.9 SECONDS (9.7-12.2) H 05/30/17 12:55 INR 1.4 05/30/17 12:55 APTT 29 SECONDS (21-34) 05/30/17 12:55 Attending/Attestation - Attestation I have personally seen and examined this patient.: Yes I have fully participated in the care of the patient.: Yes I have reviewed all pertinent clinical information, including history, physical exam and plan: Yes Notes (Text): 06/07/17 20:15 Patient was seen and examined at 1:15 PM 06/07/17 558 [address] with nephew Mr. Van present. Exam, assessment and plan were gone over with the resident. Spoke with Tax Clerk Shonna and awaiting to hear back from [facility] Gary Swain D.O.
[2017-06-07 09:04] LABS: ANISOCYTOSIS SLIGHT; BANDS 1 % (0-2); LYMPHOCYTE 3 % (20-40); MONOCYTE 1 % (0-10); NEUTROPHIL 95 % (50-75); PLATELET ESTIMATE NORMAL (NORMAL); TOTAL CELLS COUNTED 100
[2017-06-07 09:05] LABS: HYPOCHROMIC SLIGHT
[2017-06-07 09:06] LABS: POLYCHROMIC SLIGHT
[2017-06-07 09:07] LABS: LARGE PLATELETS PRESENT; TOXIC GRANULATION PRESENT
--- NOTE | 2017-06-07 11:37 | CP.PCM.PN ---
Subjective - Date & Time of Evaluation Date of Evaluation: 06/07/17 Time of Evaluation: 10:00 - Subjective Subjective: iv rx adjusted on steroids wbc trending higher Objective - Vital Signs/Intake and Output Vital Signs (last 24 hours): Temp Pulse Resp BP Pulse Ox 97.3 F L 86 18 94/59 L 96 06/07/17 07:30 06/07/17 07:30 06/07/17 07:30 06/07/17 07:30 06/07/17 07:30 - Medications Medications: Current Medications Albuterol/Ipratropium (Duoneb 3 Mg/0.5 Mg (3 Ml) Ud) 3 ml INH RQ4 [facility] Last Admin: 06/07/17 07:58 Dose: 3 ml Aspirin (Aspirin Chewable) 81 mg PO DAILY [facility] Last Admin: 06/06/17 10:35 Dose: 81 mg Dexamethasone (Decadron) 2 mg PO DAILY [facility] Last Admin: 06/06/17 10:34 Dose: 2 mg Docusate Sodium (Colace) 100 mg PO BID PRN PRN Reason: Constipation Last Admin: 06/05/17 13:40 Dose: 100 mg Enoxaparin Sodium (Lovenox) 40 mg SC DAILY [facility] Last Admin: 06/06/17 10:35 Dose: 40 mg Famotidine (Pepcid) 20 mg PO DAILY [facility] Last Admin: 06/06/17 10:34 Dose: 20 mg Furosemide (Lasix) 40 mg IVP DAILY [facility] Last Admin: 06/06/17 10:34 Dose: 40 mg Guaifenesin/Dextromethorphan (Robitussin Dm) 5 ml PO Q4H PRN PRN Reason: Cough Last Admin: 06/03/17 22:12 Dose: 5 ml Sodium Bicarbonate 50 meq/ (Sodium Chloride) 1,050 mls @ 63 mls/hr IV .[id number] [facility] Last Admin: 06/05/17 10:32 Dose: Not Given Piperacillin Sod/Tazobactam Sod (Zosyn 3.375 Gm Iv Premix) 3.375 gm in 50 mls @ 100 mls/hr IVPB Q8H [facility] Last Admin: 06/07/17 00:38 Dose: 100 mls/hr Insulin Human Regular (Novolin R) 0 unit SC ACHS [facility] PRN Reason: Protocol Last Admin: 06/07/17 08:28 Dose: 2 unit Metoprolol Succinate (Toprol Xl) 12.5 mg PO DAILY [facility] Last Admin: 06/06/17 10:34 Dose: 12.5 mg Rosuvastatin Calcium (Crestor) 5 mg PO HS [facility] Last Admin: 06/06/17 22:35 Dose: Not Given Saccharomyces Boulardii (Florastor) 250 mg PO BID [facility] Last Admin: 06/06/17 17:59 Dose: 250 mg - Labs Labs: 06/07/17 05:54 06/07/17 05:54 PT 15.9 SECONDS (9.7-12.2) H 05/30/17 12:55 INR 1.4 05/30/17 12:55 APTT 29 SECONDS (21-34) 05/30/17 12:55 - Constitutional Appears: Non-toxic - Head Exam Head Exam: NORMOCEPHALIC - Eye Exam Eye Exam: absent: Scleral icterus - ENT Exam ENT Exam: Mucous Membranes Dry - Neck Exam Neck Exam: absent: Lymphadenopathy - Respiratory Exam Respiratory Exam: Decreased Breath Sounds - Cardiovascular Exam Cardiovascular Exam: REGULAR RHYTHM - GI/Abdominal Exam GI & Abdominal Exam: Distended, Soft - Rectal Exam Rectal Exam: Deferred - Exam Exam: NORMAL INSPECTION Assessment and Plan (1) Altered mental state Status: Acute (2) Dizziness Status: Acute (3) Pneumonia Status: Acute
[2017-06-07] MEDS: Saccharomyces Boulardi 250 mg Cap PO SCH ×2 (11:56→17:31)
[2017-06-07] MEDS: Metoprolol Succinate 12.5 mg XL PO SCH (11:59)
[2017-06-07] MEDS: Enoxaparin 40 mg Syringe SC SCH (11:59)
--- NOTE | 2017-06-07 13:09 | RAD ---
HISTORY: verify right PICC COMPARISON: No prior. FINDINGS: LUNGS: Opacity throughout the right lung as on prior examination but decreased in the lower portion. Probable interstitial opacity as well throughout right lung. Patchy opacity at left base. PLEURA: Small bilateral pleural effusion. No pneumothorax. CARDIOVASCULAR: Normal heart size. Right PICC catheter terminates the level of the cavoatrial junction. Very prominent right hilum. Possible congestive change. Rule out congestive heart failure. OSSEOUS STRUCTURES: No significant abnormalities. VISUALIZED UPPER ABDOMEN: Normal. OTHER FINDINGS: None. IMPRESSION: New right PICC catheter terminates at the level of the cavoatrial junction. Prominent right hilum. Opacity diminished in lower right lung but diffuse right-sided interstitial prominence noted. Small bilateral pleural effusion. Patchy opacity at left base.
[2017-06-07] MEDS: Potassium Chloride 20 mEq ER Tab PO SCH (14:45)
--- NOTE | 2017-06-07 18:00 | CP.PCM.PN ---
Subjective - Date & Time of Evaluation Date of Evaluation: 06/07/17 Time of Evaluation: 09:00 - Subjective Subjective: The patient was seen and examined this morning. He was very apparently confused today. He would not answer any medical questions and switched between his deering language and Ukrainian throughout our conversation. He did not seem to be in any apparent distress from a general and pulmonary standpoint. His temperature, respiratory rate, and oxygen saturation were within normal limits. Review of systems was unable to be obtained due to patient's confusion and language barrier. Vital signs: Temperature: 97.3F Pulse: 86 bpm Respiratory rate: 18 brpm Blood pressure: 94/59 mm Hg Pulse oximetry: 96% on nasal canula Physical examination: Cardiovascular: RRR, +s1, +s2, no M/R/G Pulmonary: decreased breath sounds, left sided crackles Labs: - WBCs: 15.0, Hgb: 10.4, Hct: 31.5, Plt: 208 - PT: , INR: , aPTT: - Na+: 132, K+: 3.5, Cl-: 98, HCO3-: 24, BUN: 49, Cr: 1.8, Glucose: 159-173 - Ca2+: 6.6, Total protein: 5.7, Albumin: 2.7, AST: 711, ALT: 1277, AP: 168, T. bili: 0.9 Microbiology: - Blood culture negative x2 - Urine culture negative x2 - Influenza negative Assessment & Plan: Respiratory failure, metabolic acidosis - Continue oxygen therapy and BiPAP for respiratory assistance - Continue sodium bicarbonate - Monitor respiratory rate - Monitor oxygen saturation - Follow ABGs Pneumonia - CXR 05/30/2017: left lower lobe infiltrate/atelectasis superimposed upon chronic interstitial lung disease - CXR 06/03/2017: mild bilateral infiltrates identified greater the right than left. Limited bilateral pleural effusions are noted and mild CHF is in question. Underlying chronic interstitial pulmonary disease again evient - Chest CT 06/04/2017: 1. no pulmonary embolism, 2. severe centrilobular and paraseptal emphysema bilaterally with consolidation in the RLL and atelectasis/ consolidation in the posterior segment of the RUL and dependent portion of the LLL, 3. small bilateral pleural effusions with anasarca, 4. chronic atelectasis of the SHIV, 5. small amount of intraabdominal ascites, 6. previous granulomatous disease - CXR 06/07/2017: new right PICC catheter terminates at the level of the cavoatrial junction. Prominent right hilum. Opacity diminished in lower right lung but diffuse right-sided interstitial prominence noted. Small bilateral pleural effusion. Patchy opacity at left base - Blood culture negative x2 - Urine culture negative x2 - Influenza negative - Continue IV Zosyn (3.375 g in 50 mLs @ 100 mLs/hour IVPB q8h) as per ID recommendations COPD - Chest CT 06/04/2017: 1. no pulmonary embolism, 2. severe centrilobular and paraseptal emphysema bilaterally with consolidation in the RLL and atelectasis/ consolidation in the posterior segment of the RUL and dependent portion of the LLL, 3. small bilateral pleural effusions with anasarca, 4. chronic atelectasis of the SHIV, 5. small amount of intraabdominal ascites, 6. previous granulomatous disease - Continue Duonebs for management of COPD and Robitussin Dm for cough Stage IV lung cancer - F/u Dr. Ramos recommendations - F/u palliative care recommendations - Continue Decadron 2 mg po daily Objective - Vital Signs/Intake and Output Vital Signs (last 24 hours): Temp Pulse Resp BP Pulse Ox 97.3 F L 86 18 94/59 L 96 06/07/17 07:30 06/07/17 07:30 06/07/17 07:30 06/07/17 07:30 06/07/17 07:30 - Medications Medications: Current Medications Albuterol/Ipratropium (Duoneb 3 Mg/0.5 Mg (3 Ml) Ud) 3 ml INH RQ4 [facility] Last Admin: 06/07/17 16:47 Dose: 3 ml Aspirin (Aspirin Chewable) 81 mg PO DAILY [facility] Last Admin: 06/07/17 11:56 Dose: 81 mg Dexamethasone (Decadron) 2 mg PO DAILY [facility] Last Admin: 06/07/17 13:20 Dose: 2 mg Docusate Sodium (Colace) 100 mg PO BID PRN PRN Reason: Constipation Last Admin: 06/07/17 11:56 Dose: 100 mg Enoxaparin Sodium (Lovenox) 40 mg SC DAILY [facility] Last Admin: 06/07/17 11:59 Dose: Not Given Famotidine (Pepcid) 20 mg PO DAILY [facility] Last Admin: 06/07/17 11:56 Dose: 20 mg Furosemide (Lasix) 40 mg IVP DAILY [facility] Last Admin: 06/07/17 11:59 Dose: Not Given Guaifenesin/Dextromethorphan (Robitussin Dm) 5 ml PO Q4H PRN PRN Reason: Cough Last Admin: 06/03/17 22:12 Dose: 5 ml Sodium Bicarbonate 50 meq/ (Sodium Chloride) 1,050 mls @ 63 mls/hr IV .[id number] [facility] Last Admin: 06/05/17 10:32 Dose: Not Given Piperacillin Sod/Tazobactam Sod (Zosyn 3.375 Gm Iv Premix) 3.375 gm in 50 mls @ 100 mls/hr IVPB Q8H [facility] Last Admin: 06/07/17 17:31 Dose: 100 mls/hr Insulin Human Regular (Novolin R) 0 unit SC ACHS [facility] PRN Reason: Protocol Last Admin: 06/07/17 17:05 Dose: Not Given Metoprolol Succinate (Toprol Xl) 12.5 mg PO DAILY [facility] Last Admin: 06/07/17 11:59 Dose: Not Given Potassium Chloride (K-Dur 20 Meq Er Tab) 20 meq PO DAILY [facility] Last Admin: 06/07/17 14:45 Dose: 20 meq Rosuvastatin Calcium (Crestor) 5 mg PO HS [facility] Last Admin: 06/06/17 22:35 Dose: Not Given Saccharomyces Boulardii (Florastor) 250 mg PO BID [facility] Last Admin: 06/07/17 17:31 Dose: 250 mg - Labs Labs: 06/07/17 05:54 06/07/17 05:54 PT 15.9 SECONDS (9.7-12.2) H 05/30/17 12:55 INR 1.4 05/30/17 12:55 APTT 29 SECONDS (21-34) 05/30/17 12:55 Assessment and Plan (1) Respiratory insufficiency/failure Status: Acute (2) Metabolic acidosis Status: Acute (3) Altered mental state Status: Acute (4) Pneumonia Status: Acute
--- NOTE | 2017-06-07 22:39 | CP.PCM.PN ---
Subjective - Date & Time of Evaluation Date of Evaluation: 06/07/17 Time of Evaluation: 12:10 - Subjective Subjective: Patient seen and evaluated Confused Denies chest pain and dyspnea Objective - Vital Signs/Intake and Output Vital Signs (last 24 hours): Temp Pulse Resp BP Pulse Ox 97.3 F L 86 18 94/59 L 96 06/07/17 07:30 06/07/17 07:30 06/07/17 07:30 06/07/17 07:30 06/07/17 07:30 - Medications Medications: Current Medications Albuterol/Ipratropium (Duoneb 3 Mg/0.5 Mg (3 Ml) Ud) 3 ml INH RQ4 [facility] Last Admin: 06/07/17 20:19 Dose: 3 ml Aspirin (Aspirin Chewable) 81 mg PO DAILY [facility] Last Admin: 06/07/17 11:56 Dose: 81 mg Dexamethasone (Decadron) 2 mg PO DAILY [facility] Last Admin: 06/07/17 13:20 Dose: 2 mg Docusate Sodium (Colace) 100 mg PO BID PRN PRN Reason: Constipation Last Admin: 06/07/17 11:56 Dose: 100 mg Enoxaparin Sodium (Lovenox) 40 mg SC DAILY [facility] Last Admin: 06/07/17 11:59 Dose: Not Given Famotidine (Pepcid) 20 mg PO DAILY [facility] Last Admin: 06/07/17 11:56 Dose: 20 mg Furosemide (Lasix) 40 mg IVP DAILY [facility] Last Admin: 06/07/17 11:59 Dose: Not Given Guaifenesin/Dextromethorphan (Robitussin Dm) 5 ml PO Q4H PRN PRN Reason: Cough Last Admin: 06/03/17 22:12 Dose: 5 ml Sodium Bicarbonate 50 meq/ (Sodium Chloride) 1,050 mls @ 63 mls/hr IV .[id number] [facility] Last Admin: 06/05/17 10:32 Dose: Not Given Piperacillin Sod/Tazobactam Sod (Zosyn 3.375 Gm Iv Premix) 3.375 gm in 50 mls @ 100 mls/hr IVPB Q8H [facility] Last Admin: 06/07/17 17:31 Dose: 100 mls/hr Insulin Human Regular (Novolin R) 0 unit SC ACHS [facility] PRN Reason: Protocol Last Admin: 06/07/17 21:40 Dose: Not Given Metoprolol Succinate (Toprol Xl) 12.5 mg PO DAILY [facility] Last Admin: 06/07/17 11:59 Dose: Not Given Potassium Chloride (K-Dur 20 Meq Er Tab) 20 meq PO DAILY [facility] Last Admin: 06/07/17 14:45 Dose: 20 meq Rosuvastatin Calcium (Crestor) 5 mg PO HS [facility] Last Admin: 06/07/17 21:23 Dose: Not Given Saccharomyces Boulardii (Florastor) 250 mg PO BID [facility] Last Admin: 06/07/17 17:31 Dose: 250 mg - Labs Labs: 06/07/17 05:54 06/07/17 05:54 PT 15.9 SECONDS (9.7-12.2) H 05/30/17 12:55 INR 1.4 05/30/17 12:55 APTT 29 SECONDS (21-34) 05/30/17 12:55
[2017-06-08] MEDS: Albuterol-Ipratrop 3 mg / 0.5 (3 ml) UD INH SCH ×6 (00:45→20:30)
[2017-06-08] MEDS: Piperacill/Tazo 3.375gm in Dex 3.375 GM/50 ML BAG IVPB SCH ×2 (01:53→08:38)
--- NOTE | 2017-06-08 07:23 | CP.PCM.PN ---
<Renetta Melara - Last Filed: 06/08/17 13:25> Subjective - Date & Time of Evaluation Date of Evaluation: 06/08/17 Time of Evaluation: 07:00 - Subjective Subjective: Medicine Progress Note: Patient was seen and examined at bedside in no acute distress. Patient is pleasant and smiling. Patient continues to be on nasal canula. Patient does have dementia but when asked he denies all review of systems. Objective - Vital Signs/Intake and Output Vital Signs (last 24 hours): Temp Pulse Resp BP Pulse Ox 97.9 F 96 H 20 126/76 90 L 06/08/17 00:31 06/08/17 00:31 06/08/17 00:31 06/08/17 00:31 06/08/17 00:31 - Medications Medications: Current Medications Albuterol/Ipratropium (Duoneb 3 Mg/0.5 Mg (3 Ml) Ud) 3 ml INH RQ4 [facility] Last Admin: 06/08/17 04:37 Dose: Not Given Aspirin (Aspirin Chewable) 81 mg PO DAILY [facility] Last Admin: 06/07/17 11:56 Dose: 81 mg Dexamethasone (Decadron) 2 mg PO DAILY [facility] Last Admin: 06/07/17 13:20 Dose: 2 mg Docusate Sodium (Colace) 100 mg PO BID PRN PRN Reason: Constipation Last Admin: 06/07/17 11:56 Dose: 100 mg Enoxaparin Sodium (Lovenox) 40 mg SC DAILY [facility] Last Admin: 06/07/17 11:59 Dose: Not Given Famotidine (Pepcid) 20 mg PO DAILY [facility] Last Admin: 06/07/17 11:56 Dose: 20 mg Furosemide (Lasix) 40 mg IVP DAILY [facility] Last Admin: 06/07/17 11:59 Dose: Not Given Guaifenesin/Dextromethorphan (Robitussin Dm) 5 ml PO Q4H PRN PRN Reason: Cough Last Admin: 06/03/17 22:12 Dose: 5 ml Sodium Bicarbonate 50 meq/ (Sodium Chloride) 1,050 mls @ 63 mls/hr IV .[id number] [facility] Last Admin: 06/05/17 10:32 Dose: Not Given Piperacillin Sod/Tazobactam Sod (Zosyn 3.375 Gm Iv Premix) 3.375 gm in 50 mls @ 100 mls/hr IVPB Q8H [facility] Last Admin: 06/08/17 01:53 Dose: 100 mls/hr Insulin Human Regular (Novolin R) 0 unit SC ACHS [facility] PRN Reason: Protocol Last Admin: 06/07/17 21:40 Dose: Not Given Metoprolol Succinate (Toprol Xl) 12.5 mg PO DAILY [facility] Last Admin: 06/07/17 11:59 Dose: Not Given Potassium Chloride (K-Dur 20 Meq Er Tab) 20 meq PO DAILY [facility] Last Admin: 06/07/17 14:45 Dose: 20 meq Saccharomyces Boulardii (Florastor) 250 mg PO BID [facility] Last Admin: 06/07/17 17:31 Dose: 250 mg - Labs Labs: 06/07/17 05:54 06/07/17 05:54 PT 15.9 SECONDS (9.7-12.2) H 05/30/17 12:55 INR 1.4 05/30/17 12:55 APTT 29 SECONDS (21-34) 05/30/17 12:55 - Constitutional Appears: No Acute Distress, Chronically Ill - Head Exam Head Exam: ATRAUMATIC, NORMAL INSPECTION - Eye Exam Eye Exam: EOMI, Normal appearance - ENT Exam ENT Exam: Mucous Membranes Moist - Respiratory Exam Respiratory Exam: Decreased Breath Sounds, Rales - Cardiovascular Exam Cardiovascular Exam: REGULAR RHYTHM, +S1, +S2 - Extremities Exam Extremities Exam: Normal Inspection - Neurological Exam Neurological Exam: Alert, Awake - Psychiatric Exam Psychiatric exam: Normal Affect, Normal Mood - Skin Skin Exam: Normal Color, Warm Assessment and Plan - Assessment and Plan (Free Text) Assessment: 1.) Right lower lobe pneumonia * Chest xray (05/30/17): right lower lobe infiltrate/ atelectasis superimposed upon chronic interstitial lung disease (see full report) * CXR (06/03): mild b/l infiltrates R>L; limited b/l pleural effusion noted; mild CHF in questions; chronic interstitial pulm disease. * CT angio r/o PE : No PE; severe centrilobular and paraseptal emphysema b/l with consolidation in right lower lobe and atelectasis/consolidation in posterior segment of right upper lobe and portion of left lower lobe; small b/l pleural effusions with anasarca; chronic atelectasis of left upper lobe; small amount of intraabdominal ascites; previous granlomatous disease. * influenza negative * blood culture: 05/30 negativex2 * Urine cx: 05/30 negative * Patient placed on bipap on 06/03 * ABG: CO2 29; O2 130; HCO3 15.8; pH 7.28 * Bicarb drip started 06/04, held on 06/05 * Pulmonology, Dr. Rodriguez, consulted; recs appreciated * ID, Dr. Gray, consulted- help appreciated * Started Zosyn 3.375g IV Q24 (06/06/17, likely for a total of 7 days) * Discontinue ceftriaxone 1 g Q24h, azithromycin 500mg q24h (05/30/17) 2. NONSTEMI * Troponinx4: 0.2970, 0.3400, 0.2530, 0.26996 * Cardiology consulted, Dr. Burden, recs appreciated * As per Dr. Burden, medical management including aspirin, statin, and beta clarence if patient can tolerate it. * Echocardiogram (05/31/17): bordline to mild concentric LVH. Systolic function is mildly inmpaired. EF: 45-50% further findings per report 3. Anemia with elevated globulin * likely secondary to history of cancer * (05/30/17) hemoglobin 8.9 * Hgb 6.4 on 06/02/17. Received 2 units of PRBC overnight. Consent obtained from nephewVan. * Repeat Hgb post-transfusion 9.7 * last hemoglobin in EMR from 2014 was 12 * globulin 4.3 * B12- 455, wnl; folate 20, wnl * FOBT: negative * Retic count 1.3, Ferritin 216, serum immunofixation detected IgG Lambda, kappa /lambda free light chains 392/220 4. Stage IV Lung Cancer * Patient has seen Dr. Ramos in past * cannot obtain history from patient regarding medications/ chemotherapy * Dr. Ramos, heme-onc, consulted- help appreciated * Brain MRI with contrast- trace enhancement at right parietal vertex suspicious solitary metastasis; 2nd area of faint enhancement in right front vertex. * Decadron 2mg PO daily * Glucose was elevated on 06/03, likely secondary to steroids; started ISS * Consulted palliative care, Angle Mena- help appreciated 5. Hypercalcemia * likely secondary to lung cancer * continue IV fluids, NS @100cc/h * Gave 1 dose of Aredia 90mg on 05/31/[address] Ramos 6. Leukocytosis with left shift * likely due to pneumonia * blood culture: 05/30 negativex2 * Urine cx: 05/30 negative * UA (06/05/17): 1+ protein, 1+ glucose, 2+ blood, rare amorphous sediment, Occ bacteria * Procalcitonin 0.11 * Continue ceftriaxone and azithromycin (started 05/30/17) * Continue to monitor 7. Elevated CPK * Secondary to possible rhabdomyolysis from fall and prolonged period spent down on floor of home * CPK 587; repeat CPK 433; trending down--> CK on 05/31 311 * Continue NS @ 100cc/h 8. Cachexia * likely secondary to stage IV lung cancer * patient states 21 pound weight loss over past 3 months * nutrition consult placed- help appreciated * continue dietary supplements TID * will consider marinol 9. Fall at home * CT Head (05/30/17): No intracranial hemorrhage. No hydrocephalus. No acute intracranial abnormalities. No significant findings to account for the clinical presentation * CT Cervical Spine (05/30/17): No significant central canal or neural foraminal stenosis. Right apical scarring findings similar to that seen on a prior CT of the thorax 02/22/2013. Multilevel degenerative change primarily disc space narrowing. No acute findings related to/accounting for the clinical presentation. * Pelvis xray (05/30/17): Status post open reduction internal fixation proximal left femoral fracture. No evidence of orthopedic hardware failure. No acute osseous abnormalities. * r/o cardiac etiology of fall * Troponinsx3: 0.297, 0.34, 0.2530, 0.1969; EKGs show ST depression; * Echocardiogram: suboptimal study due to poor acoustic window; possible borderline to mild concentric LVH; systolic function mildly impaired; EF 45-50% ; normal RV systolic function, aortic valve is moderately calcified and decreased opening; mild TR; mild pulm HTN; pericardial fatpad noted, but small loculated pericardial effusion cannot be excluded. * Carotid dopplers: mild disease b/l * Cardiology consults, Dr. Burden, help appreciated * as per Dr. Burden, start medical management -->ASA 81mg PO daily, Toprol XL 12.5mg PO daily, Crestor 5mg PO HS (05/31/17) * On telemetry 10. 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 Cough * Duonebs Q6sch * Robitussin DM 12.) Stage 2 Cocyxx Ulcer: - Continue MediHoney - Wound Care: Huber --> help appreciated 13. Prophylaxis * Pepcid 20mg PO daily * SCDs * Lovenox 40mg SC daily * Florastor 250mg PO * physical therapy/ occupational therapy * palliative care * case management referral * CODE status: DNR/DNI DISPO: PICC line placed on 06/07/17. DNR/DNI status as of 06/03/17. POLST signed and in chart. Continuing to treat pneumonia (antiobiotics changed to Zosyn). Waiting on placement at [facility] with case management (possible placement at [facility] or [facility]). <Gary Swain - Last Filed: 06/08/17 20:22> Objective - Vital Signs/Intake and Output Vital Signs (last 24 hours): Temp Pulse Resp BP Pulse Ox 97.7 F 96 H 18 117/81 97 06/08/17 16:52 06/08/17 16:52 06/08/17 16:52 06/08/17 16:52 06/08/17 16:52 Intake and Output: 06/08/17 06/09/17 18:59 06:59 Intake Total 610 Balance 610 - Medications Medications: Current Medications Albuterol/Ipratropium (Duoneb 3 Mg/0.5 Mg (3 Ml) Ud) 3 ml INH RQ4 [facility] Last Admin: 06/08/17 18:18 Dose: Not Given Aspirin (Aspirin Chewable) 81 mg PO DAILY [facility] Last Admin: 06/08/17 11:08 Dose: 81 mg Dexamethasone (Decadron) 2 mg PO DAILY [facility] Last Admin: 06/08/17 11:08 Dose: 2 mg Docusate Sodium (Colace) 100 mg PO BID PRN PRN Reason: Constipation Last Admin: 06/07/17 11:56 Dose: 100 mg Enoxaparin Sodium (Lovenox) 30 mg SC DAILY [facility] Famotidine (Pepcid) 20 mg PO DAILY [facility] Last Admin: 06/08/17 11:08 Dose: 20 mg Furosemide (Lasix) 40 mg IVP DAILY [facility] Last Admin: 06/08/17 11:08 Dose: 40 mg Guaifenesin/Dextromethorphan (Robitussin Dm) 5 ml PO Q4H PRN PRN Reason: Cough Last Admin: 06/03/17 22:12 Dose: 5 ml Sodium Bicarbonate 50 meq/ (Sodium Chloride) 1,050 mls @ 63 mls/hr IV .[id number] [facility] Last Admin: 06/05/17 10:32 Dose: Not Given Piperacillin Sod/Tazobactam Sod (Zosyn 2.25 Gm Iv Premix) 2.25 gm in 50 mls @ 100 mls/hr IVPB Q8H [facility] Last Admin: 06/08/17 18:55 Dose: 100 mls/hr Insulin Human Regular (Novolin R) 0 unit SC ACHS [facility] PRN Reason: Protocol Last Admin: 06/08/17 17:26 Dose: Not Given Metoprolol Succinate (Toprol Xl) 12.5 mg PO DAILY [facility] Last Admin: 06/08/17 11:08 Dose: 12.5 mg Potassium Chloride (K-Dur 20 Meq Er Tab) 20 meq PO DAILY [facility] Last Admin: 06/08/17 11:08 Dose: 20 meq Saccharomyces Boulardii (Florastor) 250 mg PO BID [facility] Last Admin: 06/08/17 17:36 Dose: Not Given - Labs Labs: 06/08/17 07:54 06/08/17 07:54 PT 15.9 SECONDS (9.7-12.2) H 05/30/17 12:55 INR 1.4 05/30/17 12:55 APTT 29 SECONDS (21-34) 05/30/17 12:55 Attending/Attestation - Attestation I have personally seen and examined this patient.: Yes I have fully participated in the care of the patient.: Yes I have reviewed all pertinent clinical information, including history, physical exam and plan: Yes Notes (Text): 06/08/17 20:17 Patient was seen and examined at 10:00 AM 06/08/17 558 B. Exam, assessment and plan were gone over with the resident. Upon ROS: He says NO to everything even to whether he is eating. Nurse William present at time of exam stated that he ate all of his breakfast. Also on Exam: Skin: Stage II small ulcer roughly 1 cm verticle present at the tip of the coccyx. Assessments: 1). RLL Pneumonia 2). Anemia Likely Secondary to Chronic Disease/Lung CA 3). Stage IV Lung CA 4). NSTEMI 5). Hypercalcemia Likely Secondary to Lung CA 6). Leukocytosis Likely Secondary to RLL Pneumonia 7). Elevated CPK Likely Secondary to Rhabdomyolysis on Admission 8). Stage II Coccyx Ulcer: MediHoney with Optifoam Dressing ordered. Wound Care Nurse Celia to see patient 06/09/17 to make further recommendations. Spoke with Software Applications Specialist Shonna and awaiting to hear back from [facility] Gary Swain D.O.
[2017-06-08 08:11] LABS: BASO # 0.1 K/uL (0.0-0.2); BASO % 0.8 % (0.0-2.0); HEMOGLOBIN 10.5 g/dL (12.0-18.0); LYMPH # 0.3 K/uL (1.0-4.3); LYMPH % 1.8 % (20.0-40.0); MEAN CELL VOLUME 89.2 fL (80.0-94.0); MEAN CORPUSCULAR HEMOGLOBIN 29.1 pg (27.0-31.0); MEAN CORPUSCULAR HGB CONC 32.6 g/dL (33.0-37.0); MEAN PLATELET VOLUME 9.7 fL (7.2-11.7); MONO # 0.3 K/uL (0.0-0.8); MONO % 2.4 % (0.0-10.0); NEUT # 13.5 K/uL (1.8-7.0); NRBC % 0.3 % (0.0-2.0); PLATELET COUNT 223 K/uL (130-400); RBC 3.61 Mil/uL (4.40-5.90); WHITE BLOOD COUNT 14.2 K/uL (4.8-10.8)
[2017-06-08 08:28] LABS: ALB/GLOB RATIO 0.8 (1.0-2.1); ALBUMIN 2.8 g/dL (3.5-5.0); CALCIUM 6.7 mg/dl (8.6-10.4)
[2017-06-08] MEDS: (Novolin R) Insulin Human Regular 100 units/ml vial SC SCH ×4 (08:38→22:17)
[2017-06-08 10:22] LABS: BANDS 1 % (0-2); LYMPHOCYTE 1 % (20-40); MONOCYTE 2 % (0-10); NEUTROPHIL 96 % (50-75); PLATELET ESTIMATE NORMAL (NORMAL); TOTAL CELLS COUNTED 100
[2017-06-08 10:23] LABS: ANISOCYTOSIS SLIGHT; BURR CELLS SLIGHT; LARGE PLATELETS PRESENT; POIKILOCYTOSIS SLIGHT
[2017-06-08 10:24] LABS: HYPOCHROMIC SLIGHT; POLYCHROMIC SLIGHT; TOXIC GRANULATION PRESENT
[2017-06-08] MEDS: Saccharomyces Boulardi 250 mg Cap PO SCH ×2 (11:08→17:36)
[2017-06-08] MEDS: Metoprolol Succinate 12.5 mg XL PO SCH (11:08)
[2017-06-08] MEDS: Potassium Chloride 20 mEq ER Tab PO SCH (11:08)
[2017-06-08] MEDS: Enoxaparin 40 mg Syringe SC SCH ×2 (11:09→11:14)
[2017-06-08] MEDS ORDERED: Piperacillin/Tazobact 3.375 GM in Sodium Chloride 100 ML IVPB SCH (17:00)
--- NOTE | 2017-06-08 17:04 | CP.PCM.PN ---
Subjective - Date & Time of Evaluation Date of Evaluation: 06/08/17 Time of Evaluation: 12:30 - Subjective Subjective: The patient was seen and examined this morning. He was much improved with regards to his mentation and was able to converse coherently. He did not seem to be in any apparent distress from a general and pulmonary standpoint. His oxygen requirement today was increased. Need to see how his saturation does on exertion. The patient admits to cough on review of systems. He denies fever, chills, weakness, fatigue, chest pain, palpitations, peripheral edema, shortness of breath, dyspnea, sputum production, pleuritic chest pain, and hemoptysis. Vital signs: Temperature: 97.6F Pulse: 103 bpm Respiratory rate: 20 brpm Blood pressure: 127/80 mm Hg Pulse oximetry: 95% on 4L O2 via nasal canula Physical examination: Cardiovascular: tachycardic, regular rhythm, +s1, +s2, no M/R/G Pulmonary: decreased breath sounds, left sided crackles Labs: - WBCs: 14.2, Hgb: 10.5, Hct: 32.2, Plt: 223 - Na+: 132, K+: 3.8, Cl-: 96, HCO3-: 19, BUN: 55, Cr: 2.0, Glucose: 293-307 - Ca2+: 6.7, Total protein: 6.2, Albumin: 2.8, AST: 289, ALT: 875, AP: 154, T. bili: 1.1 Microbiology: - Blood culture negative x2 - Urine culture negative x2 - Influenza negative Assessment & Plan: Respiratory failure, metabolic acidosis - Continue oxygen therapy and BiPAP for respiratory assistance - Continue sodium bicarbonate - Monitor respiratory rate - Monitor oxygen saturation - Test oxygen saturation with exertion to assess for requirement of continued oxygen therapy - Follow ABGs Pneumonia - CXR 05/30/2017: left lower lobe infiltrate/atelectasis superimposed upon chronic interstitial lung disease - CXR 06/03/2017: mild bilateral infiltrates identified greater the right than left. Limited bilateral pleural effusions are noted and mild CHF is in question. Underlying chronic interstitial pulmonary disease again evient - Chest CT 06/04/2017: 1. no pulmonary embolism, 2. severe centrilobular and paraseptal emphysema bilaterally with consolidation in the RLL and atelectasis/ consolidation in the posterior segment of the RUL and dependent portion of the LLL, 3. small bilateral pleural effusions with anasarca, 4. chronic atelectasis of the SHIV, 5. small amount of intraabdominal ascites, 6. previous granulomatous disease - CXR 06/07/2017: new right PICC catheter terminates at the level of the cavoatrial junction. Prominent right hilum. Opacity diminished in lower right lung but diffuse right-sided interstitial prominence noted. Small bilateral pleural effusion. Patchy opacity at left base - Blood culture negative x2 - Urine culture negative x2 - Influenza negative - Continue IV Zosyn (3.375 g in 50 mLs @ 100 mLs/hour IVPB q8h) as per ID recommendations COPD - Chest CT 06/04/2017: 1. no pulmonary embolism, 2. severe centrilobular and paraseptal emphysema bilaterally with consolidation in the RLL and atelectasis/ consolidation in the posterior segment of the RUL and dependent portion of the LLL, 3. small bilateral pleural effusions with anasarca, 4. chronic atelectasis of the SHIV, 5. small amount of intraabdominal ascites, 6. previous granulomatous disease - Continue Duonebs for management of COPD and Robitussin Dm for cough Stage IV lung cancer - F/u Dr. Ramos recommendations - F/u palliative care recommendations - Continue Decadron 2 mg po daily Objective - Vital Signs/Intake and Output Vital Signs (last 24 hours): Temp Pulse Resp BP Pulse Ox 97.7 F 96 H 18 117/81 97 06/08/17 16:52 06/08/17 16:52 06/08/17 16:52 06/08/17 16:52 06/08/17 16:52 Intake and Output: 06/08/17 06/08/17 06:59 18:59 Intake Total 610 Balance 610 - Medications Medications: Current Medications Albuterol/Ipratropium (Duoneb 3 Mg/0.5 Mg (3 Ml) Ud) 3 ml INH RQ4 [facility] Last Admin: 06/08/17 14:19 Dose: Not Given Aspirin (Aspirin Chewable) 81 mg PO DAILY [facility] Last Admin: 06/08/17 11:08 Dose: 81 mg Dexamethasone (Decadron) 2 mg PO DAILY [facility] Last Admin: 06/08/17 11:08 Dose: 2 mg Docusate Sodium (Colace) 100 mg PO BID PRN PRN Reason: Constipation Last Admin: 06/07/17 11:56 Dose: 100 mg Enoxaparin Sodium (Lovenox) 30 mg SC DAILY [facility] Famotidine (Pepcid) 20 mg PO DAILY [facility] Last Admin: 06/08/17 11:08 Dose: 20 mg Furosemide (Lasix) 40 mg IVP DAILY [facility] Last Admin: 06/08/17 11:08 Dose: 40 mg Guaifenesin/Dextromethorphan (Robitussin Dm) 5 ml PO Q4H PRN PRN Reason: Cough Last Admin: 06/03/17 22:12 Dose: 5 ml Sodium Bicarbonate 50 meq/ (Sodium Chloride) 1,050 mls @ 63 mls/hr IV .[id number] [facility] Last Admin: 06/05/17 10:32 Dose: Not Given Piperacillin Sod/Tazobactam Sod (Zosyn 2.25 Gm Iv Premix) 2.25 gm in 50 mls @ 100 mls/hr IVPB Q8H [facility] Insulin Human Regular (Novolin R) 0 unit SC ACHS [facility] PRN Reason: Protocol Last Admin: 06/08/17 12:42 Dose: 6 unit Metoprolol Succinate (Toprol Xl) 12.5 mg PO DAILY [facility] Last Admin: 06/08/17 11:08 Dose: 12.5 mg Potassium Chloride (K-Dur 20 Meq Er Tab) 20 meq PO DAILY [facility] Last Admin: 06/08/17 11:08 Dose: 20 meq Saccharomyces Boulardii (Florastor) 250 mg PO BID [facility] Last Admin: 06/08/17 11:08 Dose: 250 mg - Labs Labs: 06/08/17 07:54 06/08/17 07:54 PT 15.9 SECONDS (9.7-12.2) H 05/30/17 12:55 INR 1.4 05/30/17 12:55 APTT 29 SECONDS (21-34) 05/30/17 12:55 Assessment and Plan (1) Respiratory insufficiency/failure Status: Acute (2) Metabolic acidosis Status: Acute (3) Altered mental state Status: Acute (4) Pneumonia Status: Acute
[2017-06-08] MEDS: Piperacill/Tazo 2.25gm in Dex 2.25 GM/50 ML BAG IVPB SCH (18:55)
[2017-06-09] MEDS: Albuterol-Ipratrop 3 mg / 0.5 (3 ml) UD INH SCH ×7 (00:02→23:29)
[2017-06-09] MEDS: Piperacill/Tazo 2.25gm in Dex 2.25 GM/50 ML BAG IVPB SCH ×3 (00:38→17:35)
--- NOTE | 2017-06-09 07:20 | CP.PCM.PN ---
<Renetta Melara - Last Filed: 06/09/17 16:18> Subjective - Date & Time of Evaluation Date of Evaluation: 06/09/17 Time of Evaluation: 07:00 - Subjective Subjective: Medicine Progress Note: Patient was seen and examined at bedside in no acute distress. Patient is on bipap currently. Patient does not like the bipap on his face per CRN the patient was trying to removed bipap so the mittens were placed on the patient. Patient does have dementia but when asked he denies all review of systems. Objective - Vital Signs/Intake and Output Vital Signs (last 24 hours): Temp Pulse Resp BP Pulse Ox 98.7 F 99 H 20 120/70 95 06/09/17 01:38 06/09/17 07:15 06/09/17 01:38 06/09/17 01:38 06/09/17 01:38 Intake and Output: 06/09/17 06/09/17 06:59 18:59 Intake Total 50 Balance 50 - Medications Medications: Current Medications Albuterol/Ipratropium (Duoneb 3 Mg/0.5 Mg (3 Ml) Ud) 3 ml INH RQ4 [facility] Last Admin: 06/09/17 07:15 Dose: 3 ml Aspirin (Aspirin Chewable) 81 mg PO DAILY [facility] Last Admin: 06/08/17 11:08 Dose: 81 mg Dexamethasone (Decadron) 2 mg PO DAILY [facility] Last Admin: 06/08/17 11:08 Dose: 2 mg Docusate Sodium (Colace) 100 mg PO BID PRN PRN Reason: Constipation Last Admin: 06/07/17 11:56 Dose: 100 mg Enoxaparin Sodium (Lovenox) 30 mg SC DAILY [facility] Famotidine (Pepcid) 20 mg PO DAILY [facility] Last Admin: 06/08/17 11:08 Dose: 20 mg Furosemide (Lasix) 40 mg IVP DAILY [facility] Last Admin: 06/08/17 11:08 Dose: 40 mg Guaifenesin/Dextromethorphan (Robitussin Dm) 5 ml PO Q4H PRN PRN Reason: Cough Last Admin: 06/03/17 22:12 Dose: 5 ml Sodium Bicarbonate 50 meq/ (Sodium Chloride) 1,050 mls @ 63 mls/hr IV .[id number] [facility] Last Admin: 06/05/17 10:32 Dose: Not Given Piperacillin Sod/Tazobactam Sod (Zosyn 2.25 Gm Iv Premix) 2.25 gm in 50 mls @ 100 mls/hr IVPB Q8H [facility] Last Admin: 06/09/17 00:38 Dose: 100 mls/hr Insulin Human Regular (Novolin R) 0 unit SC ACHS [facility] PRN Reason: Protocol Last Admin: 06/08/17 22:17 Dose: Not Given Metoprolol Succinate (Toprol Xl) 12.5 mg PO DAILY [facility] Last Admin: 06/08/17 11:08 Dose: 12.5 mg Potassium Chloride (K-Dur 20 Meq Er Tab) 20 meq PO DAILY [facility] Last Admin: 06/08/17 11:08 Dose: 20 meq Saccharomyces Boulardii (Florastor) 250 mg PO BID [facility] Last Admin: 06/08/17 17:36 Dose: Not Given - Labs Labs: 06/08/17 07:54 06/08/17 07:54 PT 15.9 SECONDS (9.7-12.2) H 05/30/17 12:55 INR 1.4 05/30/17 12:55 APTT 29 SECONDS (21-34) 05/30/17 12:55 - Constitutional Appears: No Acute Distress, Chronically Ill - Head Exam Head Exam: ATRAUMATIC, NORMAL INSPECTION - Eye Exam Eye Exam: EOMI, Normal appearance - ENT Exam ENT Exam: Mucous Membranes Moist - Respiratory Exam Respiratory Exam: Decreased Breath Sounds, NORMAL BREATHING PATTERN - Cardiovascular Exam Cardiovascular Exam: REGULAR RHYTHM, +S1, +S2 - GI/Abdominal Exam GI & Abdominal Exam: Soft, Normal Bowel Sounds. absent: Tenderness - Extremities Exam Extremities Exam: Normal Inspection - Neurological Exam Neurological Exam: Alert, Awake - Psychiatric Exam Psychiatric exam: Normal Affect, Normal Mood - Skin Skin Exam: Normal Color, Warm Assessment and Plan - Assessment and Plan (Free Text) Assessment: 1.) Right lower lobe pneumonia * Chest xray (05/30/17): right lower lobe infiltrate/ atelectasis superimposed upon chronic interstitial lung disease (see full report) * CXR (06/03): mild b/l infiltrates R>L; limited b/l pleural effusion noted; mild CHF in questions; chronic interstitial pulm disease. * CT angio r/o PE : No PE; severe centrilobular and paraseptal emphysema b/l with consolidation in right lower lobe and atelectasis/consolidation in posterior segment of right upper lobe and portion of left lower lobe; small b/l pleural effusions with anasarca; chronic atelectasis of left upper lobe; small amount of intraabdominal ascites; previous granlomatous disease. * influenza negative * blood culture: 05/30 negativex2 * Urine cx: 05/30 negative * Patient placed on bipap on 06/03 * ABG: CO2 29; O2 130; HCO3 15.8; pH 7.28 * Bicarb drip started 06/04, held on 06/05 * Pulmonology, Dr. Rodriguez, consulted; recs appreciated * ID, Dr. Gray, consulted- help appreciated * Started Zosyn 3.375g IV Q24 (06/06/17, likely for a total of 7 days) * Discontinue ceftriaxone 1 g Q24h, azithromycin 500mg q24h (05/30/17) 2. NONSTEMI * Troponinx4: 0.2970, 0.3400, 0.2530, 0.52601 * Cardiology consulted, Dr. Burden, recs appreciated * As per Dr. Burden, medical management including aspirin, statin, and beta clarence if patient can tolerate it. * Echocardiogram (05/31/17): bordline to mild concentric LVH. Systolic function is mildly inmpaired. EF: 45-50% further findings per report 3. Anemia with elevated globulin * likely secondary to history of cancer * (05/30/17) hemoglobin 8.9 * Hgb 6.4 on 06/02/17. Received 2 units of PRBC overnight. Consent obtained from Van guerrero. * Repeat Hgb post-transfusion 9.7 * last hemoglobin in EMR from 2014 was 12 * globulin 4.3 * B12- 455, wnl; folate 20, wnl * FOBT: negative * Retic count 1.3, Ferritin 216, serum immunofixation detected IgG Lambda, kappa /lambda free light chains 392/220 4. Stage IV Lung Cancer * Patient has seen Dr. Ramos in past * cannot obtain history from patient regarding medications/ chemotherapy * Dr. Ramos, heme-onc, consulted- help appreciated * Brain MRI with contrast- trace enhancement at right parietal vertex suspicious solitary metastasis; 2nd area of faint enhancement in right front vertex. * Decadron 2mg PO daily * Glucose was elevated on 06/03, likely secondary to steroids; started ISS * Consulted palliative care, Angle Mena- help appreciated 5. Hypercalcemia * likely secondary to lung cancer * continue IV fluids, NS @100cc/h * Gave 1 dose of Aredia 90mg on 05/31/[address] Ramos 6. Leukocytosis with left shift * likely due to pneumonia * blood culture: 05/30 negativex2 * Urine cx: 05/30 negative * UA (06/05/17): 1+ protein, 1+ glucose, 2+ blood, rare amorphous sediment, Occ bacteria * Procalcitonin 0.11 * Continue ceftriaxone and azithromycin (started 05/30/17) * Continue to monitor 7. Elevated CPK * Secondary to possible rhabdomyolysis from fall and prolonged period spent down on floor of home * CPK 587; repeat CPK 433; trending down--> CK on 05/31 311 * Continue NS @ 100cc/h 8. Cachexia * likely secondary to stage IV lung cancer * patient states 21 pound weight loss over past 3 months * nutrition consult placed- help appreciated * continue dietary supplements TID * will consider marinol 9. Fall at home * CT Head (05/30/17): No intracranial hemorrhage. No hydrocephalus. No acute intracranial abnormalities. No significant findings to account for the clinical presentation * CT Cervical Spine (05/30/17): No significant central canal or neural foraminal stenosis. Right apical scarring findings similar to that seen on a prior CT of the thorax 02/22/2013. Multilevel degenerative change primarily disc space narrowing. No acute findings related to/accounting for the clinical presentation. * Pelvis xray (05/30/17): Status post open reduction internal fixation proximal left femoral fracture. No evidence of orthopedic hardware failure. No acute osseous abnormalities. * r/o cardiac etiology of fall * Troponinsx3: 0.297, 0.34, 0.2530, 0.1969; EKGs show ST depression; * Echocardiogram: suboptimal study due to poor acoustic window; possible borderline to mild concentric LVH; systolic function mildly impaired; EF 45-50% ; normal RV systolic function, aortic valve is moderately calcified and decreased opening; mild TR; mild pulm HTN; pericardial fatpad noted, but small loculated pericardial effusion cannot be excluded. * Carotid dopplers: mild disease b/l * Cardiology consults, Dr. Burden, help appreciated * as per Dr. Burden, start medical management -->ASA 81mg PO daily, Toprol XL 12.5mg PO daily, Crestor 5mg PO HS (05/31/17) * On telemetry 10. 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 Cough * Duonebs Q6sch * Robitussin DM 12.) Stage 2 Cocyxx Ulcer: - Continue MediHoney - Wound Care: Huber --> help appreciated 13. Prophylaxis * Pepcid 20mg PO daily * SCDs * Lovenox 40mg SC daily * Florastor 250mg PO * physical therapy/ occupational therapy * palliative care * case management referral * CODE status: DNR/DNI DISPO: PICC line placed on 06/07/17. DNR/DNI status as of 06/03/17. POLST signed and in chart. Continuing to treat pneumonia (antiobiotics changed to Zosyn). Waiting on placement at [facility] with case management (possible [facility] at [facility] or [facility]). <Gary Swain - Last Filed: 06/09/17 19:37> Objective - Vital Signs/Intake and Output Vital Signs (last 24 hours): Temp Pulse Resp BP Pulse Ox 97.8 F 98 H 19 119/72 95 06/09/17 15:00 06/09/17 16:01 06/09/17 15:00 06/09/17 15:00 06/09/17 01:38 Intake and Output: 06/09/17 06/10/17 18:59 06:59 Intake Total 50 Balance 50 - Medications Medications: Current Medications Albuterol/Ipratropium (Duoneb 3 Mg/0.5 Mg (3 Ml) Ud) 3 ml INH RQ4 [facility] Last Admin: 06/09/17 15:59 Dose: 3 ml Aspirin (Aspirin Chewable) 81 mg PO DAILY [facility] Last Admin: 06/09/17 10:36 Dose: 81 mg Dexamethasone (Decadron) 2 mg PO DAILY [facility] Last Admin: 06/09/17 10:33 Dose: 2 mg Docusate Sodium (Colace) 100 mg PO BID PRN PRN Reason: Constipation Last Admin: 06/07/17 11:56 Dose: 100 mg Enoxaparin Sodium (Lovenox) 30 mg SC DAILY [facility] Last Admin: 06/09/17 10:40 Dose: Not Given Famotidine (Pepcid) 20 mg PO DAILY [facility] Last Admin: 06/09/17 10:33 Dose: 20 mg Furosemide (Lasix) 40 mg IVP DAILY [facility] Last Admin: 06/09/17 10:33 Dose: 40 mg Guaifenesin/Dextromethorphan (Robitussin Dm) 5 ml PO Q4H PRN PRN Reason: Cough Last Admin: 06/03/17 22:12 Dose: 5 ml Sodium Bicarbonate 50 meq/ (Sodium Chloride) 1,050 mls @ 63 mls/hr IV .[id number] [facility] Last Admin: 06/05/17 10:32 Dose: Not Given Piperacillin Sod/Tazobactam Sod (Zosyn 2.25 Gm Iv Premix) 2.25 gm in 50 mls @ 100 mls/hr IVPB Q8H [facility] Last Admin: 06/09/17 17:35 Dose: 100 mls/hr Insulin Human Regular (Novolin R) 0 unit SC ACHS [facility] PRN Reason: Protocol Last Admin: 06/09/17 17:36 Dose: 4 unit Metoprolol Succinate (Toprol Xl) 12.5 mg PO DAILY [facility] Last Admin: 06/09/17 10:33 Dose: 12.5 mg Potassium Chloride (K-Dur 20 Meq Er Tab) 20 meq PO DAILY [facility] Last Admin: 06/09/17 10:33 Dose: 20 meq Rosuvastatin Calcium (Crestor) 5 mg PO [facility] Saccharomyces Boulardii (Florastor) 250 mg PO BID [facility] Last Admin: 06/09/17 17:36 Dose: 250 mg - Labs Labs: 06/09/17 06:58 06/09/17 06:58 PT 15.9 SECONDS (9.7-12.2) H 05/30/17 12:55 INR 1.4 05/30/17 12:55 APTT 29 SECONDS (21-34) 05/30/17 12:55 Attending/Attestation - Attestation I have personally seen and examined this patient.: Yes I have fully participated in the care of the patient.: Yes I have reviewed all pertinent clinical information, including history, physical exam and plan: Yes Notes (Text): 06/09/17 19:29 Patient was seen and examined at 12:15 PM 06/09/17 558 B. Exam, assessment and plan were gone over with the resident. Upon ROS: He says NO to everything Also on Exam: Skin: Stage II small ulcer roughly 1 cm verticle present at the tip of the coccyx. Assessments: 1). RLL Pneumonia: has right arm PICC line, Zosyn through 06/13/17, CXR 06/07/17 showed improvement in RLL opacity and bilateral small pleural effusions, ID Dr. Gray 2). Anemia Likely Secondary to Chronic Disease/Lung CA: s/p 2 units PRBC. Hgb/ Hct are stable 3). 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 NSTEMI/HTN/HLD: Echo shows EF 45-50% and concentric LVH. Dr. Burden recommends medical management: ASA, Crestor, Metoprolol, Lasix 5). Hypercalcemia Likely Secondary to Lung CA: given Aradia on 05/31/17. Monitor 6). Leukocytosis Likely Secondary to RLL Pneumonia and Decadron: NO fevers and vitals are stable. If rises above 25 then order cultures. 7). Elevated CPK Likely Secondary to Rhabdomyolysis on Admission: CPK normalized 8). Stage II Coccyx Ulcer: MediHoney with Optifoam Dressing ordered. Wound Care Nurse Celia to see patient 06/10/17 to make further recommendations. 9). Prophylaxis: KCl, RISS for Decadron, Duoneb/BiPAP, Colace, Pepcid, Florastor , Lovenox, Guaifenesin/Dextromethorphan Spoke with [employer] and awaiting to hear back from senior care [facility] that is awaiting for confirmation of Medicaid Application being completed/submitted by [employer]. Gary Swain D.O.
[2017-06-09 07:28] LABS: HEMOGLOBIN 10.4 g/dL (12.0-18.0); MEAN CELL VOLUME 89.2 fL (80.0-94.0); MEAN CORPUSCULAR HGB CONC 32.5 g/dL (33.0-37.0); MEAN PLATELET VOLUME 9.6 fL (7.2-11.7); PLATELET COUNT 200 K/uL (130-400); RED CELL DISTRIBUTION WIDTH 15.6 % (11.5-14.5); WHITE BLOOD COUNT 20.3 K/uL (4.8-10.8)
[2017-06-09 08:16] LABS: ALB/GLOB RATIO 0.8 (1.0-2.1); ALBUMIN 2.8 g/dL (3.5-5.0); CALCIUM 6.8 mg/dl (8.6-10.4)
[2017-06-09] MEDS: (Novolin R) Insulin Human Regular 100 units/ml vial SC SCH ×4 (08:57→22:01)
[2017-06-09 09:04] LABS: LYMPH # 0.3 K/uL (1.0-4.3); LYMPH % 1.4 % (20.0-40.0); MONO # 0.2 K/uL (0.0-0.8); MONO % 1.2 % (0.0-10.0); NEUT # 19.7 K/uL (1.8-7.0); NRBC % 0.2 % (0.0-2.0)
[2017-06-09 09:05] LABS: BANDS 1 % (0-2); BASO # 0.1 K/uL (0.0-0.2); BASO % 0.4 % (0.0-2.0); LYMPHOCYTE 4 % (20-40); MONOCYTE 3 % (0-10); NEUTROPHIL 92 % (50-75); TOTAL CELLS COUNTED 100
[2017-06-09 09:06] LABS: ANISOCYTOSIS SLIGHT; PLATELET ESTIMATE NORMAL (NORMAL); TARGET CELLS SLIGHT
[2017-06-09] MEDS: Enoxaparin 30 mg Syringe SC SCH ×2 (10:33→10:40)
[2017-06-09] MEDS: Potassium Chloride 20 mEq ER Tab PO SCH (10:33)
[2017-06-09] MEDS: Metoprolol Succinate 12.5 mg XL PO SCH (10:33)
[2017-06-09] MEDS: Saccharomyces Boulardi 250 mg Cap PO SCH ×2 (10:35→17:36)
--- NOTE | 2017-06-09 17:26 | CP.PCM.PN ---
Objective - Vital Signs/Intake and Output Vital Signs (last 24 hours): Temp Pulse Resp BP Pulse Ox 97.8 F 98 H 19 119/72 95 06/09/17 15:00 06/09/17 16:01 06/09/17 15:00 06/09/17 15:00 06/09/17 01:38 Intake and Output: 06/09/17 06/09/17 06:59 18:59 Intake Total 50 50 Balance 50 50 - Medications Medications: Current Medications Albuterol/Ipratropium (Duoneb 3 Mg/0.5 Mg (3 Ml) Ud) 3 ml INH RQ4 [facility] Last Admin: 06/09/17 15:59 Dose: 3 ml Aspirin (Aspirin Chewable) 81 mg PO DAILY [facility] Last Admin: 06/09/17 10:36 Dose: 81 mg Dexamethasone (Decadron) 2 mg PO DAILY [facility] Last Admin: 06/09/17 10:33 Dose: 2 mg Docusate Sodium (Colace) 100 mg PO BID PRN PRN Reason: Constipation Last Admin: 06/07/17 11:56 Dose: 100 mg Enoxaparin Sodium (Lovenox) 30 mg SC DAILY [facility] Last Admin: 06/09/17 10:40 Dose: Not Given Famotidine (Pepcid) 20 mg PO DAILY [facility] Last Admin: 06/09/17 10:33 Dose: 20 mg Furosemide (Lasix) 40 mg IVP DAILY [facility] Last Admin: 06/09/17 10:33 Dose: 40 mg Guaifenesin/Dextromethorphan (Robitussin Dm) 5 ml PO Q4H PRN PRN Reason: Cough Last Admin: 06/03/17 22:12 Dose: 5 ml Sodium Bicarbonate 50 meq/ (Sodium Chloride) 1,050 mls @ 63 mls/hr IV .[id number] [facility] Last Admin: 06/05/17 10:32 Dose: Not Given Piperacillin Sod/Tazobactam Sod (Zosyn 2.25 Gm Iv Premix) 2.25 gm in 50 mls @ 100 mls/hr IVPB Q8H [facility] Last Admin: 06/09/17 09:55 Dose: 100 mls/hr Insulin Human Regular (Novolin R) 0 unit SC ACHS [facility] PRN Reason: Protocol Last Admin: 06/09/17 13:00 Dose: Not Given Metoprolol Succinate (Toprol Xl) 12.5 mg PO DAILY [facility] Last Admin: 06/09/17 10:33 Dose: 12.5 mg Potassium Chloride (K-Dur 20 Meq Er Tab) 20 meq PO DAILY [facility] Last Admin: 06/09/17 10:33 Dose: 20 meq Rosuvastatin Calcium (Crestor) 5 mg PO [facility] Saccharomyces Boulardii (Florastor) 250 mg PO BID [facility] Last Admin: 06/09/17 10:35 Dose: 250 mg - Labs Labs: 06/09/17 06:58 06/09/17 06:58 PT 15.9 SECONDS (9.7-12.2) H 05/30/17 12:55 INR 1.4 05/30/17 12:55 APTT 29 SECONDS (21-34) 05/30/17 12:55 Assessment and Plan (1) Respiratory insufficiency/failure Status: Acute (2) Metabolic acidosis Status: Acute (3) Altered mental state Status: Acute (4) Pneumonia Status: Acute
--- NOTE | 2017-06-09 22:14 | CP.PCM.PN ---
Subjective - Date & Time of Evaluation Date of Evaluation: 06/08/17 Time of Evaluation: 10:10 - Subjective Subjective: Patient s/p endoleak repair with Stent Denies chest pain and dyspnea No cardiac events noted Objective - Vital Signs/Intake and Output Vital Signs (last 24 hours): Temp Pulse Resp BP Pulse Ox 97.8 F 92 H 19 119/72 95 06/09/17 15:00 06/09/17 21:08 06/09/17 15:00 06/09/17 15:00 06/09/17 01:38 Intake and Output: 06/09/17 06/10/17 18:59 06:59 Intake Total 50 Balance 50 - Medications Medications: Current Medications Albuterol/Ipratropium (Duoneb 3 Mg/0.5 Mg (3 Ml) Ud) 3 ml INH RQ4 [facility] Last Admin: 06/09/17 21:07 Dose: 3 ml Aspirin (Aspirin Chewable) 81 mg PO DAILY [facility] Last Admin: 06/09/17 10:36 Dose: 81 mg Dexamethasone (Decadron) 2 mg PO DAILY [facility] Last Admin: 06/09/17 10:33 Dose: 2 mg Docusate Sodium (Colace) 100 mg PO BID PRN PRN Reason: Constipation Last Admin: 06/07/17 11:56 Dose: 100 mg Enoxaparin Sodium (Lovenox) 30 mg SC DAILY [facility] Last Admin: 06/09/17 10:40 Dose: Not Given Famotidine (Pepcid) 20 mg PO DAILY [facility] Last Admin: 06/09/17 10:33 Dose: 20 mg Furosemide (Lasix) 40 mg IVP DAILY [facility] Last Admin: 06/09/17 10:33 Dose: 40 mg Guaifenesin/Dextromethorphan (Robitussin Dm) 5 ml PO Q4H PRN PRN Reason: Cough Last Admin: 06/03/17 22:12 Dose: 5 ml Sodium Bicarbonate 50 meq/ (Sodium Chloride) 1,050 mls @ 63 mls/hr IV .[id number] [facility] Last Admin: 06/05/17 10:32 Dose: Not Given Piperacillin Sod/Tazobactam Sod (Zosyn 2.25 Gm Iv Premix) 2.25 gm in 50 mls @ 100 mls/hr IVPB Q8H [facility] Last Admin: 06/09/17 17:35 Dose: 100 mls/hr Insulin Human Regular (Novolin R) 0 unit SC ACHS [facility] PRN Reason: Protocol Last Admin: 06/09/17 22:01 Dose: 3 unit Metoprolol Succinate (Toprol Xl) 12.5 mg PO DAILY [facility] Last Admin: 06/09/17 10:33 Dose: 12.5 mg Potassium Chloride (K-Dur 20 Meq Er Tab) 20 meq PO DAILY [facility] Last Admin: 06/09/17 10:33 Dose: 20 meq Rosuvastatin Calcium (Crestor) 5 mg PO HS [facility] Last Admin: 06/09/17 22:01 Dose: Not Given Saccharomyces Boulardii (Florastor) 250 mg PO BID [facility] Last Admin: 06/09/17 17:36 Dose: 250 mg - Labs Labs: 06/09/17 06:58 06/09/17 06:58 PT 15.9 SECONDS (9.7-12.2) H 05/30/17 12:55 INR 1.4 05/30/17 12:55 APTT 29 SECONDS (21-34) 05/30/17 12:55
--- NOTE | 2017-06-09 22:15 | CP.PCM.PN ---
Subjective - Date & Time of Evaluation Date of Evaluation: 06/09/17 Time of Evaluation: 07:30 - Subjective Subjective: Patient s/p endoleak repair with Stent Denies chest pain and dyspnea No cardiac events noted Objective - Vital Signs/Intake and Output Vital Signs (last 24 hours): Temp Pulse Resp BP Pulse Ox 97.8 F 92 H 19 119/72 95 06/09/17 15:00 06/09/17 21:08 06/09/17 15:00 06/09/17 15:00 06/09/17 01:38 Intake and Output: 06/09/17 06/10/17 18:59 06:59 Intake Total 50 Balance 50 - Medications Medications: Current Medications Albuterol/Ipratropium (Duoneb 3 Mg/0.5 Mg (3 Ml) Ud) 3 ml INH RQ4 [facility] Last Admin: 06/09/17 21:07 Dose: 3 ml Aspirin (Aspirin Chewable) 81 mg PO DAILY [facility] Last Admin: 06/09/17 10:36 Dose: 81 mg Dexamethasone (Decadron) 2 mg PO DAILY [facility] Last Admin: 06/09/17 10:33 Dose: 2 mg Docusate Sodium (Colace) 100 mg PO BID PRN PRN Reason: Constipation Last Admin: 06/07/17 11:56 Dose: 100 mg Enoxaparin Sodium (Lovenox) 30 mg SC DAILY [facility] Last Admin: 06/09/17 10:40 Dose: Not Given Famotidine (Pepcid) 20 mg PO DAILY [facility] Last Admin: 06/09/17 10:33 Dose: 20 mg Furosemide (Lasix) 40 mg IVP DAILY [facility] Last Admin: 06/09/17 10:33 Dose: 40 mg Guaifenesin/Dextromethorphan (Robitussin Dm) 5 ml PO Q4H PRN PRN Reason: Cough Last Admin: 06/03/17 22:12 Dose: 5 ml Sodium Bicarbonate 50 meq/ (Sodium Chloride) 1,050 mls @ 63 mls/hr IV .[id number] [facility] Last Admin: 06/05/17 10:32 Dose: Not Given Piperacillin Sod/Tazobactam Sod (Zosyn 2.25 Gm Iv Premix) 2.25 gm in 50 mls @ 100 mls/hr IVPB Q8H [facility] Last Admin: 06/09/17 17:35 Dose: 100 mls/hr Insulin Human Regular (Novolin R) 0 unit SC ACHS [facility] PRN Reason: Protocol Last Admin: 06/09/17 22:01 Dose: 3 unit Metoprolol Succinate (Toprol Xl) 12.5 mg PO DAILY [facility] Last Admin: 06/09/17 10:33 Dose: 12.5 mg Potassium Chloride (K-Dur 20 Meq Er Tab) 20 meq PO DAILY [facility] Last Admin: 06/09/17 10:33 Dose: 20 meq Rosuvastatin Calcium (Crestor) 5 mg PO HS [facility] Last Admin: 06/09/17 22:01 Dose: Not Given Saccharomyces Boulardii (Florastor) 250 mg PO BID [facility] Last Admin: 06/09/17 17:36 Dose: 250 mg - Labs Labs: 06/09/17 06:58 06/09/17 06:58 PT 15.9 SECONDS (9.7-12.2) H 05/30/17 12:55 INR 1.4 05/30/17 12:55 APTT 29 SECONDS (21-34) 05/30/17 12:55
[2017-06-10] MEDS: Piperacill/Tazo 2.25gm in Dex 2.25 GM/50 ML BAG IVPB SCH ×3 (01:00→18:20)
[2017-06-10] MEDS: Albuterol-Ipratrop 3 mg / 0.5 (3 ml) UD INH SCH ×6 (03:13→23:46)
[2017-06-10 05:39] LABS: BASO # 0.1 K/uL (0.0-0.2); BASO % 0.5 % (0.0-2.0); EOS % 0.1 % (0.0-4.0); HEMOGLOBIN 10.8 g/dL (12.0-18.0); LYMPH # 0.4 K/uL (1.0-4.3); LYMPH % 1.7 % (20.0-40.0); MEAN CELL VOLUME 88.2 fL (80.0-94.0); MEAN CORPUSCULAR HEMOGLOBIN 29.7 pg (27.0-31.0); MEAN CORPUSCULAR HGB CONC 33.6 g/dL (33.0-37.0); MONO # 0.4 K/uL (0.0-0.8); NEUT # 19.7 K/uL (1.8-7.0); NEUT % 95.7 % (50.0-75.0); PLATELET COUNT 214 K/uL (130-400); RBC 3.63 Mil/uL (4.40-5.90); RED CELL DISTRIBUTION WIDTH 15.7 % (11.5-14.5); WHITE BLOOD COUNT 20.6 K/uL (4.8-10.8)
[2017-06-10 06:25] LABS: ALB/GLOB RATIO 0.8 (1.0-2.1); ALBUMIN 2.8 g/dL (3.5-5.0); CALCIUM 6.8 mg/dl (8.6-10.4)
--- NOTE | 2017-06-10 06:59 | CP.PCM.PN ---
<Renetta Melara - Last Filed: 06/10/17 14:23> Subjective - Date & Time of Evaluation Date of Evaluation: 06/10/17 Time of Evaluation: 07:00 - Subjective Subjective: Medicine Progress Note: Patient was seen and examined at bedside in no acute distress. Patient is on bipap currently. Patient is pleasant and smiling. Patient does have dementia but when asked he denies all review of systems. Objective - Vital Signs/Intake and Output Vital Signs (last 24 hours): Temp Pulse Resp BP Pulse Ox 97.4 F L 93 H 20 127/77 95 06/09/17 23:25 06/10/17 05:23 06/09/17 23:25 06/09/17 23:25 06/09/17 23:25 Intake and Output: 06/09/17 06/10/17 18:59 06:59 Intake Total 50 600 Balance 50 600 - Medications Medications: Current Medications Albuterol/Ipratropium (Duoneb 3 Mg/0.5 Mg (3 Ml) Ud) 3 ml INH RQ4 [facility] Last Admin: 06/10/17 03:13 Dose: 3 ml Aspirin (Aspirin Chewable) 81 mg PO DAILY [facility] Last Admin: 06/09/17 10:36 Dose: 81 mg Dexamethasone (Decadron) 2 mg PO DAILY [facility] Last Admin: 06/09/17 10:33 Dose: 2 mg Docusate Sodium (Colace) 100 mg PO BID PRN PRN Reason: Constipation Last Admin: 06/07/17 11:56 Dose: 100 mg Enoxaparin Sodium (Lovenox) 30 mg SC DAILY [facility] Last Admin: 06/09/17 10:40 Dose: Not Given Famotidine (Pepcid) 20 mg PO DAILY [facility] Last Admin: 06/09/17 10:33 Dose: 20 mg Furosemide (Lasix) 40 mg IVP DAILY [facility] Last Admin: 06/09/17 10:33 Dose: 40 mg Guaifenesin/Dextromethorphan (Robitussin Dm) 5 ml PO Q4H PRN PRN Reason: Cough Last Admin: 06/03/17 22:12 Dose: 5 ml Sodium Bicarbonate 50 meq/ (Sodium Chloride) 1,050 mls @ 63 mls/hr IV .[id number] [facility] Last Admin: 06/05/17 10:32 Dose: Not Given Piperacillin Sod/Tazobactam Sod (Zosyn 2.25 Gm Iv Premix) 2.25 gm in 50 mls @ 100 mls/hr IVPB Q8H [facility] Last Admin: 06/10/17 01:00 Dose: 100 mls/hr Insulin Human Regular (Novolin R) 0 unit SC ACHS [facility] PRN Reason: Protocol Last Admin: 06/09/17 22:01 Dose: 3 unit Metoprolol Succinate (Toprol Xl) 12.5 mg PO DAILY [facility] Last Admin: 06/09/17 10:33 Dose: 12.5 mg Potassium Chloride (K-Dur 20 Meq Er Tab) 20 meq PO DAILY [facility] Last Admin: 06/09/17 10:33 Dose: 20 meq Rosuvastatin Calcium (Crestor) 5 mg PO HS [facility] Last Admin: 06/09/17 22:01 Dose: Not Given Saccharomyces Boulardii (Florastor) 250 mg PO BID [facility] Last Admin: 06/09/17 17:36 Dose: 250 mg - Labs Labs: 06/10/17 05:22 06/10/17 05:22 PT 15.9 SECONDS (9.7-12.2) H 05/30/17 12:55 INR 1.4 05/30/17 12:55 APTT 29 SECONDS (21-34) 05/30/17 12:55 - Constitutional Appears: No Acute Distress, Chronically Ill - Head Exam Head Exam: ATRAUMATIC, NORMAL INSPECTION - Eye Exam Eye Exam: EOMI, Normal appearance - ENT Exam ENT Exam: Mucous Membranes Moist - Respiratory Exam Respiratory Exam: Clear to Ausculation Bilateral, NORMAL BREATHING PATTERN - Cardiovascular Exam Cardiovascular Exam: REGULAR RHYTHM, +S1, +S2 - GI/Abdominal Exam GI & Abdominal Exam: Soft, Normal Bowel Sounds. absent: Tenderness - Extremities Exam Extremities Exam: Normal Inspection - Neurological Exam Neurological Exam: Alert, Awake, Oriented x3 - Psychiatric Exam Psychiatric exam: Normal Affect, Normal Mood - Skin Skin Exam: Normal Color, Warm. absent: Intact (stage 2 Cocyxx Ulcer) Assessment and Plan - Assessment and Plan (Free Text) Assessment: 1.) Right lower lobe pneumonia * Chest xray (05/30/17): right lower lobe infiltrate/ atelectasis superimposed upon chronic interstitial lung disease (see full report) * CXR (06/03): mild b/l infiltrates R>L; limited b/l pleural effusion noted; mild CHF in questions; chronic interstitial pulm disease. * CT angio r/o PE : No PE; severe centrilobular and paraseptal emphysema b/l with consolidation in right lower lobe and atelectasis/consolidation in posterior segment of right upper lobe and portion of left lower lobe; small b/l pleural effusions with anasarca; chronic atelectasis of left upper lobe; small amount of intraabdominal ascites; previous granlomatous disease. * influenza negative * blood culture: 05/30 negativex2 * Urine cx: 05/30 negative * Patient placed on bipap on 06/03 * ABG: CO2 29; O2 130; HCO3 15.8; pH 7.28 * Bicarb drip started 06/04, held on 06/05 * Pulmonology, Dr. Rodriguez, consulted; recs appreciated * ID, Dr. Gray, consulted- help appreciated * Started Zosyn 3.375g IV Q24 (06/06/17, likely for a total of 7 days) * Discontinue ceftriaxone 1 g Q24h, azithromycin 500mg q24h (05/30/17) 2. NONSTEMI * Troponinx4: 0.2970, 0.3400, 0.2530, 0.83207 * Cardiology consulted, Dr. Burden, recs appreciated * As per Dr. Burden, medical management including aspirin, statin, and beta clarence if patient can tolerate it. * Echocardiogram (05/31/17): bordline to mild concentric LVH. Systolic function is mildly inmpaired. EF: 45-50% further findings per report 3. Anemia with elevated globulin * likely secondary to history of cancer * (06/10/17) hemoglobin 10.8 * Hgb 6.4 on 06/02/17. Received 2 units of PRBC overnight. Consent obtained from Van guerrero. * Repeat Hgb post-transfusion 9.7 * last hemoglobin in EMR from 2014 was 12 * globulin 4.3 * B12- 455, wnl; folate 20, wnl * FOBT: negative * Retic count 1.3, Ferritin 216, serum immunofixation detected IgG Lambda, kappa /lambda free light chains 392/220 4. Stage IV Lung Cancer * Patient has seen Dr. Ramos in past * cannot obtain history from patient regarding medications/ chemotherapy * Dr. Ramos, heme-onc, consulted- help appreciated * Brain MRI with contrast- trace enhancement at right parietal vertex suspicious solitary metastasis; 2nd area of faint enhancement in right front vertex. * Decadron 2mg PO daily * Glucose was elevated on 06/03, likely secondary to steroids; started ISS * Consulted palliative care, Angle Mena- help appreciated 5. Hypercalcemia * likely secondary to lung cancer * continue IV fluids, NS @100cc/h * Gave 1 dose of Aredia 90mg on 05/31/[address] Ramos * Corrected Calcium 7.96 (06/10/17) 6. Leukocytosis with left shift * likely due to pneumonia * blood culture: 05/30 negativex2 * Urine cx: 05/30 negative * UA (06/05/17): 1+ protein, 1+ glucose, 2+ blood, rare amorphous sediment, Occ bacteria * Procalcitonin 0.11 * Continue ceftriaxone and azithromycin (started 05/30/17) * Continue to monitor 7. Elevated CPK * Secondary to possible rhabdomyolysis from fall and prolonged period spent down on floor of home * CPK 587; repeat CPK 433; trending down--> CK on 05/31 311 * Continue NS @ 100cc/h 8. Cachexia * likely secondary to stage IV lung cancer * patient states 21 pound weight loss over past 3 months * nutrition consult placed- help appreciated * continue dietary supplements TID * will consider marinol 9. Fall at home * CT Head (05/30/17): No intracranial hemorrhage. No hydrocephalus. No acute intracranial abnormalities. No significant findings to account for the clinical presentation * CT Cervical Spine (05/30/17): No significant central canal or neural foraminal stenosis. Right apical scarring findings similar to that seen on a prior CT of the thorax 02/22/2013. Multilevel degenerative change primarily disc space narrowing. No acute findings related to/accounting for the clinical presentation. * Pelvis xray (05/30/17): Status post open reduction internal fixation proximal left femoral fracture. No evidence of orthopedic hardware failure. No acute osseous abnormalities. * r/o cardiac etiology of fall * Troponinsx3: 0.297, 0.34, 0.2530, 0.1969; EKGs show ST depression; * Echocardiogram: suboptimal study due to poor acoustic window; possible borderline to mild concentric LVH; systolic function mildly impaired; EF 45-50% ; normal RV systolic function, aortic valve is moderately calcified and decreased opening; mild TR; mild pulm HTN; pericardial fatpad noted, but small loculated pericardial effusion cannot be excluded. * Carotid dopplers: mild disease b/l * Cardiology consults, Dr. Burden, help appreciated * as per Dr. Burden, start medical management -->ASA 81mg PO daily, Toprol XL 12.5mg PO daily, Crestor 5mg PO HS (05/31/17) * On telemetry 10. 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 Cough * Duonebs Q6sch * Robitussin DM 12.) Stage 2 Cocyxx Ulcer: - Continue MediHoney - Wound Care: Huber --> help appreciated 13. Prophylaxis * Pepcid 20mg PO daily * SCDs * Lovenox 40mg SC daily * Florastor 250mg PO * physical therapy/ occupational therapy * palliative care * case management referral * CODE status: DNR/DNI DISPO: PICC line placed on 06/07/17. DNR/DNI status as of 06/03/17. POLST signed and in chart. Continuing to treat pneumonia (antiobiotics changed to Zosyn). Waiting on placement at [facility] with case management (possible [facility] at [facility] or [facility]). <Gary Swain - Last Filed: 06/10/17 19:48> Objective - Vital Signs/Intake and Output Vital Signs (last 24 hours): Temp Pulse Resp BP Pulse Ox 97.9 F 91 H 17 129/74 100 06/10/17 07:00 06/10/17 18:00 06/10/17 07:00 06/10/17 10:06 06/10/17 07:00 - Medications Medications: Current Medications Albuterol/Ipratropium (Duoneb 3 Mg/0.5 Mg (3 Ml) Ud) 3 ml INH RQ4 [facility] Last Admin: 06/10/17 16:37 Dose: 3 ml Aspirin (Aspirin Chewable) 81 mg PO DAILY [facility] Last Admin: 06/10/17 10:12 Dose: 81 mg Dexamethasone (Decadron) 2 mg PO DAILY [facility] Last Admin: 06/10/17 10:11 Dose: 2 mg Docusate Sodium (Colace) 100 mg PO BID PRN PRN Reason: Constipation Last Admin: 06/07/17 11:56 Dose: 100 mg Enoxaparin Sodium (Lovenox) 30 mg SC DAILY [facility] Last Admin: 06/10/17 10:13 Dose: 30 mg Famotidine (Pepcid) 20 mg PO DAILY [facility] Last Admin: 06/10/17 10:14 Dose: Not Given Furosemide (Lasix) 40 mg IVP DAILY [facility] Last Admin: 06/10/17 10:06 Dose: 40 mg Guaifenesin/Dextromethorphan (Robitussin Dm) 5 ml PO Q4H PRN PRN Reason: Cough Last Admin: 06/03/17 22:12 Dose: 5 ml Sodium Bicarbonate 50 meq/ (Sodium Chloride) 1,050 mls @ 63 mls/hr IV .[id number] [facility] Last Admin: 06/05/17 10:32 Dose: Not Given Piperacillin Sod/Tazobactam Sod (Zosyn 2.25 Gm Iv Premix) 2.25 gm in 50 mls @ 100 mls/hr IVPB Q8H [facility] Last Admin: 06/10/17 18:20 Dose: 100 mls/hr Insulin Human Regular (Novolin R) 0 unit SC ACHS [facility] PRN Reason: Protocol Last Admin: 06/10/17 18:20 Dose: 6 unit Metoprolol Succinate (Toprol Xl) 12.5 mg PO DAILY [facility] Last Admin: 06/10/17 10:11 Dose: 12.5 mg Potassium Chloride (K-Dur 20 Meq Er Tab) 20 meq PO DAILY [facility] Last Admin: 06/10/17 10:11 Dose: 20 meq Rosuvastatin Calcium (Crestor) 5 mg PO HS [facility] Last Admin: 06/09/17 22:01 Dose: Not Given Saccharomyces Boulardii (Florastor) 250 mg PO BID [facility] Last Admin: 06/10/17 18:20 Dose: 250 mg - Labs Labs: 06/10/17 05:22 06/10/17 05:22 PT 15.9 SECONDS (9.7-12.2) H 05/30/17 12:55 INR 1.4 05/30/17 12:55 APTT 29 SECONDS (21-34) 05/30/17 12:55 Attending/Attestation - Attestation I have personally seen and examined this patient.: Yes I have fully participated in the care of the patient.: Yes I have reviewed all pertinent clinical information, including history, physical exam and plan: Yes Notes (Text): 06/10/17 19:44 Patient was seen and examined with Resident 06/10/17 558 B. Exam, assessment and plan were gone over with the resident. Also on Exam: Skin: Stage II small ulcer roughly 1 cm verticle present at the tip of the coccyx. Assessments: 1). RLL Pneumonia: has right arm PICC line, Zosyn through 06/13/17, CXR 06/07/17 showed improvement in RLL opacity and bilateral small pleural effusions, ID Dr. Gray 2). Anemia Likely Secondary to Chronic Disease/Lung CA: s/p 2 units PRBC. Hgb/ Hct are stable 3). 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 NSTEMI/HTN/HLD: Echo shows EF 45-50% and concentric LVH. Dr. Burden recommends medical management: ASA, Crestor, Metoprolol, Lasix 5). Hypercalcemia Likely Secondary to Lung CA: given Aradia on 05/31/17. Corrected Ca level on 06/10/17 is 7.96. 6). Leukocytosis Likely Secondary to RLL Pneumonia and Decadron: NO fevers and vitals are stable. If rises above 25 then order cultures. 7). Elevated CPK Likely Secondary to Rhabdomyolysis on Admission: CPK normalized 8). Stage II Coccyx Ulcer: MediHoney with Optifoam Dressing ordered. Wound Care Nurse Celia to see patient 06/10/17 to make further recommendations. 9). Prophylaxis: KCl, RISS for Decadron, Duoneb/BiPAP, Colace, Pepcid, Florastor , Lovenox, Guaifenesin/Dextromethorphan 06/09/17: Spoke with Jd [employer] Developer Shonna and awaiting to hear back from [facility] that is awaiting for confirmation of Medicaid Application being completed/submitted by JAZZMINE. 06/10/17: Spoke with JAZZMINE Araujo at length today and explained that considering patient's diagnosis and his refusal to eat, that his life expectancy is likely 6 months or less. JAZZMINE Araujo has requested Hospice evaluation and order has been placed for [facility] as this is the Hospice service that is affiliated with [facility], where JAZZMINE Araujo would like the patient to go. Jd Edwards Developer Shonna was present at the time of conversation and she is aware. Gary Swain D.O.
[2017-06-10] MEDS: (Novolin R) Insulin Human Regular 100 units/ml vial SC SCH ×4 (09:00→21:21)
[2017-06-10 10:02] LABS: BANDS 2 % (0-2); LYMPHOCYTE 2 % (20-40); MONOCYTE 4 % (0-10); NEUTROPHIL 92 % (50-75); TOTAL CELLS COUNTED 100
[2017-06-10 10:03] LABS: ANISOCYTOSIS SLIGHT; HYPOCHROMIC SLIGHT; PLATELET ESTIMATE NORMAL (NORMAL); POLYCHROMIC SLIGHT
[2017-06-10 10:04] LABS: LARGE PLATELETS PRESENT; PLATELET CLUMPS PRESENT
[2017-06-10 10:05] LABS: TOXIC GRANULATION PRESENT
[2017-06-10] MEDS: Metoprolol Succinate 12.5 mg XL PO SCH (10:11)
[2017-06-10] MEDS: Potassium Chloride 20 mEq ER Tab PO SCH (10:11)
[2017-06-10] MEDS: Saccharomyces Boulardi 250 mg Cap PO SCH ×2 (10:12→18:20)
[2017-06-10] MEDS: Enoxaparin 30 mg Syringe SC SCH (10:13)
--- NOTE | 2017-06-10 22:09 | CP.PCM.PN ---
Subjective - Date & Time of Evaluation Date of Evaluation: 06/10/17 Time of Evaluation: 14:10 - Subjective Subjective: Patient seen and evaluated No cardiac events noted On BiPAP Objective - Vital Signs/Intake and Output Vital Signs (last 24 hours): Temp Pulse Resp BP Pulse Ox 97.6 F 91 H 20 124/71 97 06/10/17 15:00 06/10/17 20:33 06/10/17 15:00 06/10/17 15:00 06/10/17 15:00 - Medications Medications: Current Medications Albuterol/Ipratropium (Duoneb 3 Mg/0.5 Mg (3 Ml) Ud) 3 ml INH RQ4 [facility] Last Admin: 06/10/17 20:30 Dose: 3 ml Aspirin (Aspirin Chewable) 81 mg PO DAILY [facility] Last Admin: 06/10/17 10:12 Dose: 81 mg Dexamethasone (Decadron) 2 mg PO DAILY [facility] Last Admin: 06/10/17 10:11 Dose: 2 mg Docusate Sodium (Colace) 100 mg PO BID PRN PRN Reason: Constipation Last Admin: 06/07/17 11:56 Dose: 100 mg Enoxaparin Sodium (Lovenox) 30 mg SC DAILY [facility] Last Admin: 06/10/17 10:13 Dose: 30 mg Famotidine (Pepcid) 20 mg PO DAILY [facility] Last Admin: 06/10/17 10:14 Dose: Not Given Furosemide (Lasix) 40 mg IVP DAILY [facility] Last Admin: 06/10/17 10:06 Dose: 40 mg Guaifenesin/Dextromethorphan (Robitussin Dm) 5 ml PO Q4H PRN PRN Reason: Cough Last Admin: 06/03/17 22:12 Dose: 5 ml Sodium Bicarbonate 50 meq/ (Sodium Chloride) 1,050 mls @ 63 mls/hr IV .[id number] [facility] Last Admin: 06/05/17 10:32 Dose: Not Given Piperacillin Sod/Tazobactam Sod (Zosyn 2.25 Gm Iv Premix) 2.25 gm in 50 mls @ 100 mls/hr IVPB Q8H [facility] Last Admin: 06/10/17 18:20 Dose: 100 mls/hr Insulin Human Regular (Novolin R) 0 unit SC ACHS [facility] PRN Reason: Protocol Last Admin: 06/10/17 21:21 Dose: Not Given Metoprolol Succinate (Toprol Xl) 12.5 mg PO DAILY [facility] Last Admin: 06/10/17 10:11 Dose: 12.5 mg Potassium Chloride (K-Dur 20 Meq Er Tab) 20 meq PO DAILY [facility] Last Admin: 06/10/17 10:11 Dose: 20 meq Rosuvastatin Calcium (Crestor) 5 mg PO HS [facility] Last Admin: 06/10/17 21:21 Dose: Not Given Saccharomyces Boulardii (Florastor) 250 mg PO BID [facility] Last Admin: 06/10/17 18:20 Dose: 250 mg - Labs Labs: 06/10/17 05:22 06/10/17 05:22 PT 15.9 SECONDS (9.7-12.2) H 05/30/17 12:55 INR 1.4 05/30/17 12:55 APTT 29 SECONDS (21-34) 05/30/17 12:55
[2017-06-11] MEDS: Piperacill/Tazo 2.25gm in Dex 2.25 GM/50 ML BAG IVPB SCH ×3 (00:22→17:32)
[2017-06-11] MEDS: Albuterol-Ipratrop 3 mg / 0.5 (3 ml) UD INH SCH ×5 (03:12→19:04)
--- NOTE | 2017-06-11 07:00 | CP.PCM.PN ---
Objective - Vital Signs/Intake and Output Vital Signs (last 24 hours): Temp Pulse Resp BP Pulse Ox 97.3 F L 92 H 20 132/50 L 100 06/10/17 23:21 06/11/17 05:09 06/10/17 23:21 06/10/17 23:21 06/10/17 23:21 - Medications Medications: Current Medications Albuterol/Ipratropium (Duoneb 3 Mg/0.5 Mg (3 Ml) Ud) 3 ml INH RQ4 [facility] Last Admin: 06/11/17 03:12 Dose: 3 ml Aspirin (Aspirin Chewable) 81 mg PO DAILY [facility] Last Admin: 06/10/17 10:12 Dose: 81 mg Dexamethasone (Decadron) 2 mg PO DAILY [facility] Last Admin: 06/10/17 10:11 Dose: 2 mg Docusate Sodium (Colace) 100 mg PO BID PRN PRN Reason: Constipation Last Admin: 06/07/17 11:56 Dose: 100 mg Enoxaparin Sodium (Lovenox) 30 mg SC DAILY [facility] Last Admin: 06/10/17 10:13 Dose: 30 mg Famotidine (Pepcid) 20 mg PO DAILY [facility] Last Admin: 06/10/17 10:14 Dose: Not Given Furosemide (Lasix) 40 mg IVP DAILY [facility] Last Admin: 06/10/17 10:06 Dose: 40 mg Guaifenesin/Dextromethorphan (Robitussin Dm) 5 ml PO Q4H PRN PRN Reason: Cough Last Admin: 06/03/17 22:12 Dose: 5 ml Sodium Bicarbonate 50 meq/ (Sodium Chloride) 1,050 mls @ 63 mls/hr IV .[id number] [facility] Last Admin: 06/05/17 10:32 Dose: Not Given Piperacillin Sod/Tazobactam Sod (Zosyn 2.25 Gm Iv Premix) 2.25 gm in 50 mls @ 100 mls/hr IVPB Q8H [facility] Last Admin: 06/11/17 00:22 Dose: 100 mls/hr Insulin Human Regular (Novolin R) 0 unit SC ACHS [facility] PRN Reason: Protocol Last Admin: 06/10/17 21:21 Dose: Not Given Metoprolol Succinate (Toprol Xl) 12.5 mg PO DAILY [facility] Last Admin: 06/10/17 10:11 Dose: 12.5 mg Potassium Chloride (K-Dur 20 Meq Er Tab) 20 meq PO DAILY [facility] Last Admin: 06/10/17 10:11 Dose: 20 meq Rosuvastatin Calcium (Crestor) 5 mg PO HS [facility] Last Admin: 06/10/17 21:21 Dose: Not Given Saccharomyces Boulardii (Florastor) 250 mg PO BID [facility] Last Admin: 06/10/17 18:20 Dose: 250 mg - Labs Labs: 06/10/17 05:22 06/10/17 05:22 PT 15.9 SECONDS (9.7-12.2) H 05/30/17 12:55 INR 1.4 05/30/17 12:55 APTT 29 SECONDS (21-34) 05/30/17 12:55
[2017-06-11 07:42] LABS: HEMOGLOBIN 10.5 g/dL (12.0-18.0); MEAN CELL VOLUME 89.9 fL (80.0-94.0); MEAN CORPUSCULAR HEMOGLOBIN 30.2 pg (27.0-31.0); MEAN CORPUSCULAR HGB CONC 33.6 g/dL (33.0-37.0); MEAN PLATELET VOLUME 9.3 fL (7.2-11.7); PLATELET COUNT 198 K/uL (130-400); RBC 3.47 Mil/uL (4.40-5.90); WHITE BLOOD COUNT 18.5 K/uL (4.8-10.8)
[2017-06-11 08:09] LABS: ALB/GLOB RATIO 0.9 (1.0-2.1); ALBUMIN 2.7 g/dL (3.5-5.0); CALCIUM 6.7 mg/dl (8.6-10.4)
[2017-06-11] MEDS: (Novolin R) Insulin Human Regular 100 units/ml vial SC SCH ×3 (08:51→19:28)
[2017-06-11] MEDS: Saccharomyces Boulardi 250 mg Cap PO SCH ×3 (10:45→20:06)
[2017-06-11] MEDS: Metoprolol Succinate 12.5 mg XL PO SCH ×2 (10:46→10:50)
[2017-06-11] MEDS: Potassium Chloride 20 mEq ER Tab PO ONE ×2 (10:46→10:55)
[2017-06-11] MEDS: Potassium Chloride 20 mEq ER Tab PO SCH ×2 (10:47→10:55)
[2017-06-11] MEDS: Enoxaparin 30 mg Syringe SC SCH (10:47)
--- NOTE | 2017-06-11 11:15 | CP.PCM.PN ---
Subjective - Date & Time of Evaluation Date of Evaluation: 06/11/17 Time of Evaluation: 08:00 - Subjective Subjective: patient seen and examined. Patient remained on BiPAP Still short of breath Afebrile Open eyes to stimuli Objective - Vital Signs/Intake and Output Vital Signs (last 24 hours): Temp Pulse Resp BP Pulse Ox 97.5 F L 93 H 20 110/64 96 06/11/17 08:51 06/11/17 08:51 06/11/17 08:51 06/11/17 10:46 06/11/17 08:51 - Medications Medications: Current Medications Albuterol/Ipratropium (Duoneb 3 Mg/0.5 Mg (3 Ml) Ud) 3 ml INH RQ4 [facility] Last Admin: 06/11/17 07:55 Dose: 3 ml Aspirin (Aspirin Chewable) 81 mg PO DAILY [facility] Last Admin: 06/10/17 10:12 Dose: 81 mg Dexamethasone (Decadron) 2 mg PO DAILY [facility] Last Admin: 06/10/17 10:11 Dose: 2 mg Docusate Sodium (Colace) 100 mg PO BID PRN PRN Reason: Constipation Last Admin: 06/07/17 11:56 Dose: 100 mg Enoxaparin Sodium (Lovenox) 30 mg SC DAILY [facility] Last Admin: 06/11/17 10:47 Dose: Not Given Famotidine (Pepcid) 20 mg PO DAILY [facility] Last Admin: 06/10/17 10:14 Dose: Not Given Furosemide (Lasix) 40 mg IVP DAILY [facility] Last Admin: 06/11/17 10:46 Dose: 40 mg Guaifenesin/Dextromethorphan (Robitussin Dm) 5 ml PO Q4H PRN PRN Reason: Cough Last Admin: 06/03/17 22:12 Dose: 5 ml Sodium Bicarbonate 50 meq/ (Sodium Chloride) 1,050 mls @ 63 mls/hr IV .[id number] [facility] Last Admin: 06/05/17 10:32 Dose: Not Given Piperacillin Sod/Tazobactam Sod (Zosyn 2.25 Gm Iv Premix) 2.25 gm in 50 mls @ 100 mls/hr IVPB Q8H [facility] Last Admin: 06/11/17 08:51 Dose: 100 mls/hr Insulin Human Regular (Novolin R) 0 unit SC ACHS [facility] PRN Reason: Protocol Last Admin: 06/11/17 08:51 Dose: 3 unit Metoprolol Succinate (Toprol Xl) 12.5 mg PO DAILY [facility] Last Admin: 06/11/17 10:50 Dose: Not Given Potassium Chloride (K-Dur 20 Meq Er Tab) 20 meq PO DAILY [facility] Last Admin: 06/10/17 10:11 Dose: 20 meq Rosuvastatin Calcium (Crestor) 5 mg PO HS [facility] Last Admin: 06/10/17 21:21 Dose: Not Given Saccharomyces Boulardii (Florastor) 250 mg PO BID [facility] Last Admin: 06/10/17 18:20 Dose: 250 mg - Labs Labs: 06/11/17 07:14 06/11/17 07:14 PT 15.9 SECONDS (9.7-12.2) H 05/30/17 12:55 INR 1.4 05/30/17 12:55 APTT 29 SECONDS (21-34) 05/30/17 12:55 - Head Exam Head Exam: ATRAUMATIC, NORMOCEPHALIC - ENT Exam ENT Exam: Mucous Membranes Moist - Respiratory Exam Respiratory Exam: Decreased Breath Sounds - Cardiovascular Exam Cardiovascular Exam: REGULAR RHYTHM - GI/Abdominal Exam GI & Abdominal Exam: Soft Assessment and Plan (1) Respiratory insufficiency/failure Assessment & Plan: continue BiPAP Nebulizer treatment IV antibiotics Potassium supplement Status: Acute (2) Metabolic acidosis Status: Acute (3) Altered mental state Status: Acute (4) Pneumonia Status: Acute
[2017-06-11 13:33] LABS: BASO % 0.3 % (0.0-2.0); EOS % 0.3 % (0.0-4.0); LYMPH # 0.3 K/uL (1.0-4.3); LYMPH % 1.4 % (20.0-40.0); MONO # 0.2 K/uL (0.0-0.8)
[2017-06-11 13:36] LABS: ANISOCYTOSIS SLIGHT; BANDS 6 % (0-2); LYMPHOCYTE 1 % (20-40); MONOCYTE 1 % (0-10); NEUTROPHIL 92 % (50-75); PLATELET ESTIMATE NORMAL (NORMAL); TOTAL CELLS COUNTED 100
--- NOTE | 2017-06-11 13:53 | CP.PCM.PN ---
<Renetta Melara - Last Filed: 06/11/17 13:50> Subjective - Date & Time of Evaluation Date of Evaluation: 06/11/17 Time of Evaluation: 07:00 - Subjective Subjective: Medicine Progress Note: Patient was seen and examined at bedside in no acute distress. Patient is on bipap currently. Patient is pleasant and smiling. Patient does have dementia but when asked he denies all review of systems. Objective - Vital Signs/Intake and Output Vital Signs (last 24 hours): Temp Pulse Resp BP Pulse Ox 97.5 F L 96 H 20 110/64 96 06/11/17 08:51 06/11/17 11:55 06/11/17 08:51 06/11/17 10:46 06/11/17 08:51 - Medications Medications: Current Medications Albuterol/Ipratropium (Duoneb 3 Mg/0.5 Mg (3 Ml) Ud) 3 ml INH RQ4 [facility] Last Admin: 06/11/17 11:54 Dose: 3 ml Aspirin (Aspirin Chewable) 81 mg PO DAILY [facility] Last Admin: 06/11/17 10:55 Dose: Not Given Dexamethasone (Decadron) 2 mg PO DAILY [facility] Last Admin: 06/11/17 10:55 Dose: Not Given Docusate Sodium (Colace) 100 mg PO BID PRN PRN Reason: Constipation Last Admin: 06/07/17 11:56 Dose: 100 mg Enoxaparin Sodium (Lovenox) 30 mg SC DAILY [facility] Last Admin: 06/11/17 10:47 Dose: Not Given Famotidine (Pepcid) 20 mg PO DAILY [facility] Last Admin: 06/11/17 10:55 Dose: Not Given Furosemide (Lasix) 40 mg IVP DAILY [facility] Last Admin: 06/11/17 10:46 Dose: 40 mg Guaifenesin/Dextromethorphan (Robitussin Dm) 5 ml PO Q4H PRN PRN Reason: Cough Last Admin: 06/03/17 22:12 Dose: 5 ml Sodium Bicarbonate 50 meq/ (Sodium Chloride) 1,050 mls @ 63 mls/hr IV .[id number] [facility] Last Admin: 06/05/17 10:32 Dose: Not Given Piperacillin Sod/Tazobactam Sod (Zosyn 2.25 Gm Iv Premix) 2.25 gm in 50 mls @ 100 mls/hr IVPB Q8H [facility] Last Admin: 06/11/17 08:51 Dose: 100 mls/hr Insulin Human Regular (Novolin R) 0 unit SC ACHS [facility] PRN Reason: Protocol Last Admin: 06/11/17 13:01 Dose: 3 unit Metoprolol Succinate (Toprol Xl) 12.5 mg PO DAILY [facility] Last Admin: 06/11/17 10:50 Dose: Not Given Potassium Chloride (K-Dur 20 Meq Er Tab) 20 meq PO DAILY [facility] Last Admin: 06/11/17 10:55 Dose: Not Given Rosuvastatin Calcium (Crestor) 5 mg PO HS [facility] Last Admin: 06/10/17 21:21 Dose: Not Given Saccharomyces Boulardii (Florastor) 250 mg PO BID [facility] Last Admin: 06/11/17 10:55 Dose: Not Given - Labs Labs: 06/11/17 07:14 06/11/17 07:14 PT 15.9 SECONDS (9.7-12.2) H 05/30/17 12:55 INR 1.4 05/30/17 12:55 APTT 29 SECONDS (21-34) 05/30/17 12:55 - Constitutional Appears: No Acute Distress, Cachectic, Chronically Ill - Head Exam Head Exam: ATRAUMATIC, NORMAL INSPECTION - Eye Exam Eye Exam: EOMI, Normal appearance - ENT Exam ENT Exam: Mucous Membranes Moist - Respiratory Exam Respiratory Exam: NORMAL BREATHING PATTERN - Cardiovascular Exam Cardiovascular Exam: +S1, +S2 - GI/Abdominal Exam GI & Abdominal Exam: Soft, Normal Bowel Sounds. absent: Tenderness - Extremities Exam Extremities Exam: Normal Inspection - Neurological Exam Neurological Exam: Alert, Awake - Psychiatric Exam Psychiatric exam: Normal Affect - Skin Skin Exam: Normal Color, Warm Additional comments: (stage 2 Cocyxx Ulcer Assessment and Plan - Assessment and Plan (Free Text) Assessment: 1.) Right lower lobe pneumonia * Chest xray (05/30/17): right lower lobe infiltrate/ atelectasis superimposed upon chronic interstitial lung disease (see full report) * CXR (06/03): mild b/l infiltrates R>L; limited b/l pleural effusion noted; mild CHF in questions; chronic interstitial pulm disease. * CT angio r/o PE : No PE; severe centrilobular and paraseptal emphysema b/l with consolidation in right lower lobe and atelectasis/consolidation in posterior segment of right upper lobe and portion of left lower lobe; small b/l pleural effusions with anasarca; chronic atelectasis of left upper lobe; small amount of intraabdominal ascites; previous granlomatous disease. * influenza negative * blood culture: 05/30 negativex2 * Urine cx: 05/30 negative * Patient placed on bipap on 06/03 * ABG: CO2 29; O2 130; HCO3 15.8; pH 7.28 * Bicarb drip started 06/04, held on 06/05 * Pulmonology, Dr. Rodriguez, consulted; recs appreciated * ID, Dr. Gray, consulted- help appreciated * Started Zosyn 3.375g IV Q24 (06/06/17, likely for a total of 7 days) * Discontinue ceftriaxone 1 g Q24h, azithromycin 500mg q24h (05/30/17) 2. NONSTEMI * Troponinx4: 0.2970, 0.3400, 0.2530, 0.89058 * Cardiology consulted, Dr. Burden, recs appreciated * As per Dr. Burden, medical management including aspirin, statin, and beta clarence if patient can tolerate it. * Echocardiogram (05/31/17): bordline to mild concentric LVH. Systolic function is mildly inmpaired. EF: 45-50% further findings per report 3. Anemia with elevated globulin * likely secondary to history of cancer * (06/10/17) hemoglobin 10.8 * Hgb 6.4 on 06/02/17. Received 2 units of PRBC overnight. Consent obtained from Van guerrero. * Repeat Hgb post-transfusion 9.7 * last hemoglobin in EMR from 2014 was 12 * globulin 4.3 * B12- 455, wnl; folate 20, wnl * FOBT: negative * Retic count 1.3, Ferritin 216, serum immunofixation detected IgG Lambda, kappa /lambda free light chains 392/220 4. Stage IV Lung Cancer * Patient has seen Dr. Ramos in past * cannot obtain history from patient regarding medications/ chemotherapy * Dr. Ramos, heme-onc, consulted- help appreciated * Brain MRI with contrast- trace enhancement at right parietal vertex suspicious solitary metastasis; 2nd area of faint enhancement in right front vertex. * Decadron 2mg PO daily * Glucose was elevated on 06/03, likely secondary to steroids; started ISS * Consulted palliative care, Angle Mena- help appreciated 5. Hypercalcemia * likely secondary to lung cancer * continue IV fluids, NS @100cc/h * Gave 1 dose of Aredia 90mg on 05/31/[address] Ramos * Corrected Calcium 7.96 (06/10/17) 6. Leukocytosis with left shift * likely due to pneumonia * blood culture: 05/30 negativex2 * Urine cx: 05/30 negative * UA (06/05/17): 1+ protein, 1+ glucose, 2+ blood, rare amorphous sediment, Occ bacteria * Procalcitonin 0.11 * Continue ceftriaxone and azithromycin (started 05/30/17) * Continue to monitor 7. Elevated CPK * Secondary to possible rhabdomyolysis from fall and prolonged period spent down on floor of home * CPK 587; repeat CPK 433; trending down--> CK on 05/31 311 * Continue NS @ 100cc/h 8. Cachexia * likely secondary to stage IV lung cancer * patient states 21 pound weight loss over past 3 months * nutrition consult placed- help appreciated * continue dietary supplements TID * will consider marinol 9. Fall at home * CT Head (05/30/17): No intracranial hemorrhage. No hydrocephalus. No acute intracranial abnormalities. No significant findings to account for the clinical presentation * CT Cervical Spine (05/30/17): No significant central canal or neural foraminal stenosis. Right apical scarring findings similar to that seen on a prior CT of the thorax 02/22/2013. Multilevel degenerative change primarily disc space narrowing. No acute findings related to/accounting for the clinical presentation. * Pelvis xray (05/30/17): Status post open reduction internal fixation proximal left femoral fracture. No evidence of orthopedic hardware failure. No acute osseous abnormalities. * r/o cardiac etiology of fall * Troponinsx3: 0.297, 0.34, 0.2530, 0.1969; EKGs show ST depression; * Echocardiogram: suboptimal study due to poor acoustic window; possible borderline to mild concentric LVH; systolic function mildly impaired; EF 45-50% ; normal RV systolic function, aortic valve is moderately calcified and decreased opening; mild TR; mild pulm HTN; pericardial fatpad noted, but small loculated pericardial effusion cannot be excluded. * Carotid dopplers: mild disease b/l * Cardiology consults, Dr. Burden, help appreciated * as per Dr. Burden, start medical management -->ASA 81mg PO daily, Toprol XL 12.5mg PO daily, Crestor 5mg PO HS (05/31/17) * On telemetry 10. 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 Cough * Duonebs Q6sch * Robitussin DM 12.) Stage 2 Cocyxx Ulcer: - Continue MediHoney - Wound Care: Huber --> help appreciated 13. Prophylaxis * Pepcid 20mg PO daily * SCDs * Lovenox 40mg SC daily * Florastor 250mg PO * physical therapy/ occupational therapy * palliative care * case management referral * CODE status: DNR/DNI DISPO: PICC line placed on 06/07/17. DNR/DNI status as of 06/03/17. POLST signed and in chart. Continuing to treat pneumonia (antibiotics changed to Zosyn). PODavid Araujo has decided for patient to be placed for Hospice. Patient's POA is speaking to Hospice care today. Discussed with Dr. Wiliam Melara PGY-1 <Gary Swain - Last Filed: 06/11/17 19:59> Objective - Vital Signs/Intake and Output Vital Signs (last 24 hours): Temp Pulse Resp BP Pulse Ox 98.0 F 80 20 124/69 99 06/11/17 15:00 06/11/17 16:50 06/11/17 15:00 06/11/17 15:00 06/11/17 15:00 Intake and Output: 06/11/17 06/12/17 18:59 06:59 Intake Total 660 Balance 660 - Medications Medications: Current Medications Albuterol/Ipratropium (Duoneb 3 Mg/0.5 Mg (3 Ml) Ud) 3 ml INH RQ4 [facility] Last Admin: 06/11/17 19:04 Dose: 3 ml Aspirin (Aspirin Chewable) 81 mg PO DAILY [facility] Last Admin: 06/11/17 10:55 Dose: Not Given Dexamethasone (Decadron) 2 mg PO DAILY [facility] Last Admin: 01/26/18 10:55 Dose: Not Given Docusate Sodium (Colace) 100 mg PO BID PRN PRN Reason: Constipation Last Admin: 06/07/17 11:56 Dose: 100 mg Enoxaparin Sodium (Lovenox) 30 mg SC DAILY [facility] Last Admin: 06/11/17 10:47 Dose: Not Given Famotidine (Pepcid) 20 mg PO DAILY [facility] Last Admin: 06/11/17 10:55 Dose: Not Given Furosemide (Lasix) 40 mg IVP DAILY [facility] Last Admin: 06/11/17 10:46 Dose: 40 mg Guaifenesin/Dextromethorphan (Robitussin Dm) 5 ml PO Q4H PRN PRN Reason: Cough Last Admin: 06/03/17 22:12 Dose: 5 ml Sodium Bicarbonate 50 meq/ (Sodium Chloride) 1,050 mls @ 63 mls/hr IV .[id number] [facility] Last Admin: 06/05/17 10:32 Dose: Not Given Piperacillin Sod/Tazobactam Sod (Zosyn 2.25 Gm Iv Premix) 2.25 gm in 50 mls @ 100 mls/hr IVPB Q8H [facility] Last Admin: 06/11/17 17:32 Dose: 100 mls/hr Insulin Human Regular (Novolin R) 0 unit SC ACHS [facility] PRN Reason: Protocol Last Admin: 06/11/17 13:01 Dose: 3 unit Metoprolol Succinate (Toprol Xl) 12.5 mg PO DAILY [facility] Last Admin: 06/11/17 10:50 Dose: Not Given Potassium Chloride (K-Dur 20 Meq Er Tab) 20 meq PO DAILY [facility] Last Admin: 06/11/17 10:55 Dose: Not Given Rosuvastatin Calcium (Crestor) 5 mg PO HS [facility] Last Admin: 06/10/17 21:21 Dose: Not Given Saccharomyces Boulardii (Florastor) 250 mg PO BID [facility] Last Admin: 06/11/17 10:55 Dose: Not Given - Labs Labs: 06/11/17 07:14 06/11/17 07:14 PT 15.9 SECONDS (9.7-12.2) H 05/30/17 12:55 INR 1.4 05/30/17 12:55 APTT 29 SECONDS (21-34) 05/30/17 12:55 Attending/Attestation - Attestation I have personally seen and examined this patient.: Yes I have fully participated in the care of the patient.: Yes I have reviewed all pertinent clinical information, including history, physical exam and plan: Yes Notes (Text): 06/11/17 19:57 Patient was seen and examined with Resident 06/11/17 558 B. Exam, assessment and plan were gone over with the resident. Also on Exam: Skin: Stage II small ulcer roughly 1 cm verticle present at the tip of the coccyx. Assessments: 1). RLL Pneumonia: has right arm PICC line, Zosyn through 06/13/17, CXR 06/07/17 showed improvement in RLL opacity and bilateral small pleural effusions, ID Dr. Gray 2). Anemia Likely Secondary to Chronic Disease/Lung CA: s/p 2 units PRBC. Hgb/ Hct are stable 3). 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 NSTEMI/HTN/HLD: Echo shows EF 45-50% and concentric LVH. Dr. Burden recommends medical management: ASA, Crestor, Metoprolol, Lasix 5). Hypercalcemia Likely Secondary to Lung CA: given Aradia on 05/31/17. Corrected Ca level on 06/10/17 is 7.86. 6). Leukocytosis Likely Secondary to RLL Pneumonia and Decadron: NO fevers and vitals are stable. If rises above 25 then order cultures. 7). Elevated CPK Likely Secondary to Rhabdomyolysis on Admission: CPK normalized 8). Stage II Coccyx Ulcer: MediHoney with Optifoam Dressing ordered. Wound Care Nurse Celia to see patient 06/10/17 to make further recommendations. 9). Prophylaxis: KCl, RISS for Decadron, Duoneb/BiPAP, Colace, Pepcid, Florastor , Lovenox, Guaifenesin/Dextromethorphan 06/09/17: Spoke with Peanut Grader Shonna and awaiting to hear back from residential [facility] that is awaiting for confirmation of Medicaid Application being completed/submitted by JAZZMINE. 06/10/17: Spoke with JAZZMINE Araujo at length today and explained that considering patient's diagnosis and his refusal to eat, that his life expectancy is likely 6 months or less. JAZZMINE Araujo has requested Hospice evaluation and order has been placed for [facility] as this is the Hospice service that is affiliated with [facility], where JAZZMINE Araujo would like the patient to go. Peanut Grader Shonna was present at the time of conversation and she is aware. 06/11/17: Spoke with Peanut Grader Shonna and confirmed that the JAZZMINE Araujo is on his way to hospital to have meeting with [facility] Rural Service Engineer Rick quintero today Gary Swain D.O.
[2017-06-12] MEDS: Piperacill/Tazo 2.25gm in Dex 2.25 GM/50 ML BAG IVPB SCH ×3 (00:33→17:37)
[2017-06-12] MEDS: Albuterol-Ipratrop 3 mg / 0.5 (3 ml) UD INH SCH ×6 (01:03→20:00)
[2017-06-12] MEDS: (Novolin R) Insulin Human Regular 100 units/ml vial SC SCH ×5 (13:02→22:13)
[2017-06-12] MEDS: Saccharomyces Boulardi 250 mg Cap PO SCH ×2 (13:06→17:02)
[2017-06-12] MEDS: Enoxaparin 30 mg Syringe SC SCH (13:06)
[2017-06-12] MEDS: Potassium Chloride 20 mEq ER Tab PO SCH (13:06)
[2017-06-12] MEDS: Metoprolol Succinate 12.5 mg XL PO SCH (13:08)
--- NOTE | 2017-06-12 13:53 | CP.PCM.DIS ---
Provider - Provider Date of Admission: 05/30/17 15:01 Attending physician: Gary Swain MD Primary care physician: PMD: Consults: Hematology/Oncology: Dr. Ramos ID: Dr. Gray Palliative: Angle Cardiology: Dr. Burden Pulmonary: Dr. Rodriguez Time Spent in preparation of Discharge (in minutes): 45 Hospital Course - Lab Results Lab Results: Micro Results 06/05/17 16:30 Urine,Clean Catch Urine Culture - Final No Growth (<1,000 CFU/ML) 05/30/17 13:40 Blood Blood Culture - Final NO GROWTH AFTER 5 DAYS 05/30/17 13:40 Blood Gram Stain - Final TEST NOT PERFORMED 05/30/17 13:10 Blood Blood Culture - Final NO GROWTH AFTER 5 DAYS 05/30/17 13:10 Blood Gram Stain - Final TEST NOT PERFORMED 05/30/17 13:13 Urine Urine Culture - Final No Growth (<1,000 CFU/ML) Most Recent Lab Values WBC 18.5 K/uL (4.8-10.8) H 06/11/17 07:14 RBC 3.47 Mil/uL (4.40-5.90) L 06/11/17 07:14 Hgb 10.5 g/dL (12.0-18.0) L 06/11/17 07:14 Hct 31.2 % (35.0-51.0) L 06/11/17 07:14 MCV 89.9 fL (80.0-94.0) 06/11/17 07:14 MCH 30.2 pg (27.0-31.0) 06/11/17 07:14 MCHC 33.6 g/dL (33.0-37.0) 06/11/17 07:14 RDW 16.0 % (11.5-14.5) H 06/11/17 07:14 Plt Count 198 K/uL (130-400) 06/11/17 07:14 MPV 9.3 fL (7.2-11.7) 06/11/17 07:14 Neut % (Auto) 97.0 % (50.0-75.0) H 06/11/17 07:14 Lymph % (Auto) 1.4 % (20.0-40.0) L 06/11/17 07:14 [place] % (Auto) 1.0 % (0.0-10.0) 06/11/17 07:14 Eos % (Auto) 0.3 % (0.0-4.0) 06/11/17 07:14 Baso % (Auto) 0.3 % (0.0-2.0) 06/11/17 07:14 Neut # 18.0 K/uL (1.8-7.0) H 06/11/17 07:14 Lymph # 0.3 K/uL (1.0-4.3) L 06/11/17 07:14 [place] # 0.2 K/uL (0.0-0.8) 06/11/17 07:14 Eos # 0.0 K/uL (0.0-0.7) 06/11/17 07:14 Baso # 0.0 K/uL (0.0-0.2) 06/11/17 07:14 Neutrophils % (Manual) 92 % (50-75) H 06/11/17 07:14 Band Neutrophils % 6 % (0-2) H 06/11/17 07:14 Lymphocytes % (Manual) 1 % (20-40) L 06/11/17 07:14 Monocytes % (Manual) 1 % (0-10) 06/11/17 07:14 Toxic Granulation Present 06/10/17 05:22 Platelet Estimate Normal (NORMAL) 06/11/17 07:14 Plt Clumps, EDTA Present 06/10/17 05:22 Large Platelets Present 06/10/17 05:22 Polychromasia Slight 06/10/17 05:22 Hypochromasia (manual) Slight 06/10/17 05:22 Poikilocytosis (manual Slight 06/08/17 07:54 Basophilic Stippling Slight 06/10/17 05:22 Anisocytosis (manual) Slight 06/11/17 07:14 Macrocytosis (manual) Slight 06/07/17 05:54 Target Cells Slight 06/09/17 06:58 Ovalocytes Slight 05/31/17 07:50 [place] Cells Slight 06/08/17 07:54 Retic Count 1.3 % (0.5-1.5) 05/30/17 18:07 PT 15.9 SECONDS (9.7-12.2) H 05/30/17 12:55 INR 1.4 05/30/17 12:55 APTT 29 SECONDS (21-34) 05/30/17 12:55 Puncture Site Lra 06/04/17 16:35 pCO2 29 mm/Hg (35-45) L 06/04/17 16:35 pO2 130 mm/Hg (80-100) H 06/04/17 16:35 HCO3 15.8 mmol/L (21-28) L 06/04/17 16:35 ABG pH 7.28 (7.35-7.45) L 06/04/17 16:35 ABG Total CO2 14.5 mmol/L (22-28) L 06/04/17 16:35 ABG O2 Saturation 99.4 % (95-98) H 06/04/17 16:35 ABG Base Excess -11.7 mmol/L (-2.0-3.0) L 06/04/17 16:35 ABG Hemoglobin 13.4 g/dL (11.7-17.4) 06/03/17 20:57 ABG Carboxyhemoglobin 2.1 % (0.5-1.5) H 06/03/17 20:57 POC ABG HHb (Measured) 2.2 % (0.0-5.0) 06/03/17 20:57 ABG Methemoglobin 1.1 % (0.0-3.0) 06/03/17 20:57 Cedric Test Yes 06/04/17 16:35 ABG Potassium 3.6 mmol/L (3.6-5.2) 06/04/17 16:35 VBG pH 7.48 (7.32-7.43) H 05/30/17 12:50 VBG pCO2 41 mmHg (40-60) 05/30/17 12:50 VBG Total CO2 31.8 mmol/L (22-28) H 05/30/17 12:50 VBG O2 Sat (Calc) 24.7 % (40-65) L 05/30/17 12:50 VBG Base Excess 6.4 mmol/L (0.0-2.0) H 05/30/17 12:50 VBG Potassium 3.4 mmol/L (3.6-5.2) L 05/30/17 12:50 A-a O2 Difference 547.0 mm/Hg 06/04/17 16:35 Respiratory Index 4.2 06/04/17 16:35 Hgb O2 Saturation 94.6 % (95.0-98.0) L 06/03/17 20:57 Sodium 132.0 mmol/l (132-148) 06/04/17 16:35 Chloride 107.0 mmol/L (98-107) 06/04/17 16:35 Glucose 244 mg/dl (75-110) H 06/04/17 16:35 Lactate 3.4 mmol/L (0.7-2.1) H 06/04/17 16:35 Liter Flow 12.0 06/03/17 20:57 Vent Mode Bipap 06/04/17 16:35 FiO2 100.0 % 06/04/17 16:35 Inspiratory BiPAP 12 06/04/17 16:35 Expiratory BiPAP 5 06/04/17 16:35 Sodium 138 mmol/L (132-148) 06/11/17 07:14 Potassium 2.9 mmol/L (3.6-5.2) L 06/11/17 07:14 Chloride 100 mmol/L (98-107) 06/11/17 07:14 Carbon Dioxide 27 mmol/L (22-30) 06/11/17 07:14 Anion Gap 14 (10-20) 06/11/17 07:14 BUN 57 mg/dL (9-20) H 06/11/17 07:14 Creatinine 1.8 mg/dL (0.8-1.5) H 06/11/17 07:14 Est GFR ( Amer) 43 06/11/17 07:14 Est GFR (Non-Af Amer) 36 06/11/17 07:14 POC Glucose (mg/dL) 349 mg/dL (65-110) H 06/12/17 11:14 Random Glucose 195 mg/dL (75-110) H 06/11/17 07:14 Calcium 6.7 mg/dl (8.6-10.4) L 06/11/17 07:14 Ionized Calcium 7.0 mg/dL (4.80-5.60) H 05/31/17 14:34 Phosphorus 3.4 mg/dL (2.5-4.5) 06/04/17 11:09 Magnesium 1.9 mg/dL (1.6-2.3) 06/04/17 11:09 Ferritin 216.0 ng/mL 05/30/17 18:07 Total Bilirubin 1.2 mg/dL (0.2-1.3) 06/11/17 07:14 AST 46 U/L (17-59) 06/11/17 07:14 ALT 361 U/L (21-72) H D 06/11/17 07:14 Alkaline Phosphatase 104 U/L (38-126) 06/11/17 07:14 Total Creatine Kinase 170 U/L (55-170) 05/31/17 14:37 CK-MB (Mass) 2.38 ng/mL (0.0-3.38) 05/31/17 14:37 Troponin I 0.1960 ng/mL (0.00-0.120) H* 05/31/17 14:37 Total Protein 5.7 g/dL (6.3-8.3) L 06/11/17 07:14 Total Protein (PEP) 6.9 g/dL (6.1-8.1) 05/30/17 18:09 Albumin 2.7 g/dL (3.5-5.0) L 06/11/17 07:14 Albumin (PEP) 2.6 g/dL (3.8-4.8) L 05/30/17 18:09 Globulin 3.1 gm/dL (2.2-3.9) 06/11/17 07:14 Albumin/Globulin Ratio 0.9 (1.0-2.1) L 06/11/17 07:14 Suphm-4-Xcxxwcyhe 0.5 g/dL (0.2-0.3) H 05/30/17 18:09 Fxyma-2-Wvnqouoqh 1.4 g/dL (0.5-0.9) H 05/30/17 18:09 Tcqc-3-Umhkbynp 0.4 g/dL (0.4-0.6) 05/30/17 18:09 Ablr-8-Oaaclgvx 0.5 g/dL (0.2-0.5) 05/30/17 18:09 Gamma Globulins 1.5 g/dL (0.8-1.7) 05/30/17 18:09 Abnorm Protein Band 1 0.30 g/dL (None Detected) H 05/30/17 18:09 Abnorm Protein Band 2 TEST NOT PERFORMED 05/30/17 18:09 Abnorm Protein Band 3 TEST NOT PERFORMED 05/30/17 18:09 Vitamin B12 455 pg/mL (239-931) 05/30/17 18:07 25-OH Vitamin D Total 74.2 NG/ML (30.0-100.0) 05/31/17 14:34 Folate 20.0 ng/mL 05/30/17 18:07 Procalcitonin 0.11 NG/ML (0.19-0.49) L 06/01/17 12:28 PTH Intact Whole Molec 5 pg/mL (14-64) L 05/31/17 14:34 PTH Related Protein 33 pg/mL (14-27) H 05/31/17 14:34 Arterial Blood Potassium 3.6 mmol/L (3.6-5.2) 06/04/17 16:35 Venous Blood Potassium 3.4 mmol/L (3.6-5.2) L 05/30/17 12:50 Urine Color Yellow (YELLOW) 06/05/17 12:16 Urine Clarity Hazy (Clear) 06/05/17 12:16 Urine pH 5.0 (5.0-8.0) 06/05/17 12:16 Ur Specific [place] 1.021 (1.003-1.030) 06/05/17 12:16 Urine Protein 1+ mg/dL (NEGATIVE) H 06/05/17 12:16 Urine Glucose (UA) 1+ mg/dL (Normal) H 06/05/17 12:16 Urine Ketones Negative mg/dL (NEGATIVE) 06/05/17 12:16 Urine Blood 2+ (NEGATIVE) H 06/05/17 12:16 Urine Nitrate Negative (NEGATIVE) 06/05/17 12:16 Urine Bilirubin Negative (NEGATIVE) 06/05/17 12:16 Urine Urobilinogen Normal mg/dL (0.2-1.0) 06/05/17 12:16 Ur Leukocyte Esterase Neg [place]/uL (Negative) 06/05/17 12:16 Urine WBC (Auto) 1 /hpf (0-5) 06/05/17 12:16 Urine RBC (Auto) 3 /hpf (0-3) 06/05/17 12:16 Ur Squamous Epith Cells 1 /hpf (0-5) 06/05/17 12:16 Amorphous Sediment Rare /ul (<OCC) H 06/05/17 12:16 Urine Bacteria Occ (<OCC) H 06/05/17 12:16 Hyaline Casts 3-5 /lpf (0-2) H 05/30/17 15:28 Stool Occult Blood Negative (NEGATIVE) 05/30/17 15:26 Urine Opiates Screen Negative (NEGATIVE) 05/31/17 00:04 Urine Methadone Screen Negative (NEGATIVE) 05/31/17 00:04 Ur Barbiturates Screen Negative (NEGATIVE) 05/31/17 00:04 Ur Phencyclidine Scrn Negative (NEGATIVE) 05/31/17 00:04 Ur Amphetamines Screen Negative (NEGATIVE) 05/31/17 00:04 U Benzodiazepines Scrn Negative (NEGATIVE) 05/31/17 00:04 U Oth Cocaine Metabols Negative (NEGATIVE) 05/31/17 00:04 U Cannabinoids Screen Negative (NEGATIVE) 05/31/17 00:04 Alcohol, Quantitative < 10 mg/dl (0-10) 05/30/17 12:55 GATITO & SPEP Interp See note 05/30/17 18:09 Serum Immunofixation Detected (Not Detected) H 05/30/17 18:09 Tot [place]/Lambda Ratio 1.78 (1.29-2.55) 05/30/17 18:09 [place] Light Chain Anal 392 mg/dL (176-443) 05/30/17 18:09 Lambda Light Chain Anal 220 mg/dL (91-240) 05/30/17 18:09 Influenza Typ A,B (EIA) Negative for flu a/b (NEGATIVE) 05/30/17 13:36 Blood Type B POSITIVE 06/02/17 11:14 Antibody Screen Negative 06/02/17 11:14 - Hospital Course Hospital Course: Please discharge to [facility]. Please see discharge medication reconciliation. Gayr Swain D.O. Discharge Exam - Head Exam Head Exam: ATRAUMATIC, NORMAL INSPECTION - Eye Exam Eye Exam: EOMI, Normal appearance, PERRL Pupil Exam: NORMAL ACCOMODATION, PERRL. absent: Irregular, Unequal - ENT Exam ENT Exam: Mucous Membranes Moist, Normal Oropharynx - Respiratory Exam Respiratory Exam: Clear to PA & Lateral, NORMAL BREATHING PATTERN, UNREMARKABLE. absent: Stridor - Cardiovascular Exam Cardiovascular Exam: REGULAR RHYTHM, RRR, +S1, +S2. absent: Rubs - GI/Abdominal Exam GI & Abdominal Exam: Normal Bowel Sounds, Soft - Neurological Exam Neurological exam: Alert - Psychiatric Exam Psychiatric exam: Normal Affect, Normal Mood - Skin Skin Exam: Dry, Intact Discharge Plan - Follow Up Plan Condition: STABLE Disposition: HOME/ ROUTINE Additional Instructions: Please discharge to [facility]. Please see discharge medication reconciliation. Gary Swain D.O.
--- NOTE | 2017-06-12 15:37 | CP.PCM.PN ---
<Osmany Nickerson - Last Filed: 06/12/17 18:54> Subjective - Date & Time of Evaluation Date of Evaluation: 06/12/17 Time of Evaluation: 06:37 - Subjective Subjective: Medicine Progress Note: Patient was seen and examined at bedside in no acute distress. Patient is on bipap currently. Patient is pleasant and smiling. Patient does have dementia but when asked he denies all review of systems. Objective - Vital Signs/Intake and Output Vital Signs (last 24 hours): Temp Pulse Resp BP Pulse Ox 98.3 F 80 20 121/81 96 06/12/17 08:22 06/12/17 08:22 06/12/17 08:22 06/12/17 08:22 06/12/17 08:22 - Medications Medications: Current Medications Albuterol/Ipratropium (Duoneb 3 Mg/0.5 Mg (3 Ml) Ud) 3 ml INH RQ4 [facility] Last Admin: 06/12/17 11:27 Dose: 3 ml Aspirin (Aspirin Chewable) 81 mg PO DAILY [facility] Last Admin: 06/12/17 13:06 Dose: Not Given Dexamethasone (Decadron) 2 mg PO DAILY [facility] Last Admin: 06/12/17 13:06 Dose: Not Given Docusate Sodium (Colace) 100 mg PO BID PRN PRN Reason: Constipation Last Admin: 06/07/17 11:56 Dose: 100 mg Enoxaparin Sodium (Lovenox) 30 mg SC DAILY [facility] Last Admin: 06/12/17 13:06 Dose: Not Given Famotidine (Pepcid) 20 mg PO DAILY [facility] Last Admin: 06/12/17 13:08 Dose: Not Given Furosemide (Lasix) 40 mg IVP DAILY [facility] Last Admin: 06/12/17 13:06 Dose: Not Given Guaifenesin/Dextromethorphan (Robitussin Dm) 5 ml PO Q4H PRN PRN Reason: Cough Last Admin: 06/03/17 22:12 Dose: 5 ml Sodium Bicarbonate 50 meq/ (Sodium Chloride) 1,050 mls @ 63 mls/hr IV .[id number] [facility] Last Admin: 06/05/17 10:32 Dose: Not Given Piperacillin Sod/Tazobactam Sod (Zosyn 2.25 Gm Iv Premix) 2.25 gm in 50 mls @ 100 mls/hr IVPB Q8H [facility] Last Admin: 06/12/17 13:10 Dose: Not Given Insulin Human Regular (Novolin R) 0 unit SC ACHS [facility] PRN Reason: Protocol Last Admin: 06/12/17 13:07 Dose: 8 unit Metoprolol Succinate (Toprol Xl) 12.5 mg PO DAILY [facility] Last Admin: 06/12/17 13:08 Dose: Not Given Potassium Chloride (K-Dur 20 Meq Er Tab) 20 meq PO DAILY [facility] Last Admin: 06/12/17 13:06 Dose: Not Given Rosuvastatin Calcium (Crestor) 5 mg PO HS [facility] Last Admin: 06/10/17 21:21 Dose: Not Given Saccharomyces Boulardii (Florastor) 250 mg PO BID [facility] Last Admin: 06/12/17 13:06 Dose: Not Given - Labs Labs: 06/11/17 07:14 06/11/17 07:14 PT 15.9 SECONDS (9.7-12.2) H 05/30/17 12:55 INR 1.4 05/30/17 12:55 APTT 29 SECONDS (21-34) 05/30/17 12:55 Assessment and Plan - Assessment and Plan (Free Text) Plan: 1.) Right lower lobe pneumonia * Chest xray (05/30/17): right lower lobe infiltrate/ atelectasis superimposed upon chronic interstitial lung disease (see full report) * CXR (06/03): mild b/l infiltrates R>L; limited b/l pleural effusion noted; mild CHF in questions; chronic interstitial pulm disease. * CT angio r/o PE : No PE; severe centrilobular and paraseptal emphysema b/l with consolidation in right lower lobe and atelectasis/consolidation in posterior segment of right upper lobe and portion of left lower lobe; small b/l pleural effusions with anasarca; chronic atelectasis of left upper lobe; small amount of intraabdominal ascites; previous granlomatous disease. * influenza negative * blood culture: negativex5 days * Urine cx: 05/30 negative * Patient placed on bipap on 06/03 * ABG: CO2 29; O2 130; HCO3 15.8; pH 7.28 * Bicarb drip started 06/04, held on 06/05 * Pulmonology, Dr. Rodriguez, consulted; recs appreciated * ID, Dr. Gray, consulted- help appreciated * ContinueZosyn 3.375g IV Q24 (06/06/17, likely for a total of 7 days) * Discontinue ceftriaxone 1 g Q24h, azithromycin 500mg q24h (05/30/17) 2. NONSTEMI * Troponinx4: 0.2970, 0.3400, 0.2530, 0.49192 * Cardiology consulted, Dr. Burden, recs appreciated * As per Dr. Burden, medical management including aspirin, statin, and beta clarence if patient can tolerate it. * Echocardiogram (05/31/17): borderline to mild concentric LVH. Systolic function is mildly inmpaired. EF: 45-50% further findings per report 3. Anemia with elevated globulin * likely secondary to history of cancer * (06/10/17) hemoglobin 10.8 * Hgb 6.4 on 06/02/17. Received 2 units of PRBC overnight. Consent obtained from Van guerrero. * Repeat Hgb post-transfusion 9.7 * last hemoglobin in EMR from 2014 was 12 * globulin 4.3 * B12- 455, wnl; folate 20, wnl * FOBT: negative * Retic count 1.3, Ferritin 216, serum immunofixation detected IgG Lambda, kappa /lambda free light chains 392/220 4. Stage IV Lung Cancer * Patient has seen Dr. Ramos in past * cannot obtain history from patient regarding medications/ chemotherapy * Dr. Ramos, heme-onc, consulted- help appreciated * Brain MRI with contrast- trace enhancement at right parietal vertex suspicious solitary metastasis; 2nd area of faint enhancement in right front vertex. * Decadron 2mg PO daily * Glucose was elevated on 06/03, likely secondary to steroids; started ISS * Consulted palliative care, Angle Mena- help appreciated 5. Hypercalcemia * likely secondary to lung cancer * continue IV fluids, NS @100cc/h * Gave 1 dose of Aredia 90mg on 05/31/[address] Ramos * Corrected Calcium 7.96 (06/10/17) 6. Leukocytosis with left shift * likely due to pneumonia * blood culture: 05/30 negativex2 * Urine cx: 05/30 negative * UA (06/05/17): 1+ protein, 1+ glucose, 2+ blood, rare amorphous sediment, Occ bacteria * Procalcitonin 0.11 * Continue to monitor 7. Elevated CPK * Secondary to possible rhabdomyolysis from fall and prolonged period spent down on floor of home * CPK 587; repeat CPK 433; trending down--> CK on 05/31 311 8. Cachexia * likely secondary to stage IV lung cancer * patient states 21 pound weight loss over past 3 months * nutrition consult placed- help appreciated * continue dietary supplements TID 9. Fall at home * CT Head (05/30/17): No intracranial hemorrhage. No hydrocephalus. No acute intracranial abnormalities. No significant findings to account for the clinical presentation * CT Cervical Spine (05/30/17): No significant central canal or neural foraminal stenosis. Right apical scarring findings similar to that seen on a prior CT of the thorax 02/22/2013. Multilevel degenerative change primarily disc space narrowing. No acute findings related to/accounting for the clinical presentation. * Pelvis xray (05/30/17): Status post open reduction internal fixation proximal left femoral fracture. No evidence of orthopedic hardware failure. No acute osseous abnormalities. * r/o cardiac etiology of fall * Troponinsx3: 0.297, 0.34, 0.2530, 0.1969; EKGs show ST depression; * Echocardiogram: suboptimal study due to poor acoustic window; possible borderline to mild concentric LVH; systolic function mildly impaired; EF 45-50% ; normal RV systolic function, aortic valve is moderately calcified and decreased opening; mild TR; mild pulm HTN; pericardial fatpad noted, but small loculated pericardial effusion cannot be excluded. * Carotid dopplers: mild disease b/l * Cardiology consults, Dr. Burden, help appreciated * as per Dr. Burden, start medical management -->ASA 81mg PO daily, Toprol XL 12.5mg PO daily, Crestor 5mg PO HS (05/31/17) * On telemetry 10. 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 Cough * Duonebs Q4sch * Robitussin DM 12.) Stage 2 Cocyxx Ulcer: - Continue MediHoney - Wound Care: Huber --> help appreciated 13. Prophylaxis * Pepcid 20mg PO daily * SCDs * Lovenox 40mg SC daily * Florastor 250mg PO * physical therapy/ occupational therapy * palliative care * case management referral * CODE status: DNR/DNI DISPO: PICC line placed on 06/07/17. DNR/DNI status as of 06/03/17. CRUZ signed and in chart. Continuing to treat pneumonia (antibiotics changed to Zosyn). JAZZMINE Araujo has decided for patient to be placed for Hospice. Patient approved by [facility], however [facility]. Discharge is pending. <Gary Swain - Last Filed: 06/12/17 20:35> Objective - Vital Signs/Intake and Output Vital Signs (last 24 hours): Temp Pulse Resp BP Pulse Ox 97.9 F 109 H 22 102/68 90 L 06/12/17 15:42 06/12/17 15:42 06/12/17 15:42 06/12/17 15:42 06/12/17 15:42 Intake and Output: 06/12/17 06/13/17 18:59 06:59 Intake Total 110 Balance 110 - Medications Medications: Current Medications Albuterol/Ipratropium (Duoneb 3 Mg/0.5 Mg (3 Ml) Ud) 3 ml INH RQ4 [facility] Last Admin: 06/12/17 16:04 Dose: Not Given Aspirin (Aspirin Chewable) 81 mg PO DAILY [facility] Last Admin: 06/12/17 13:06 Dose: Not Given Dexamethasone (Decadron) 2 mg PO DAILY [facility] Last Admin: 06/12/17 13:06 Dose: Not Given Docusate Sodium (Colace) 100 mg PO BID PRN PRN Reason: Constipation Last Admin: 06/07/17 11:56 Dose: 100 mg Enoxaparin Sodium (Lovenox) 30 mg SC DAILY [facility] Last Admin: 06/12/17 13:06 Dose: Not Given Famotidine (Pepcid) 20 mg PO DAILY [facility] Last Admin: 06/12/17 13:08 Dose: Not Given Furosemide (Lasix) 40 mg IVP DAILY [facility] Last Admin: 06/12/17 13:06 Dose: Not Given Guaifenesin/Dextromethorphan (Robitussin Dm) 5 ml PO Q4H PRN PRN Reason: Cough Last Admin: 06/03/17 22:12 Dose: 5 ml Sodium Bicarbonate 50 meq/ (Sodium Chloride) 1,050 mls @ 63 mls/hr IV .[id number] [facility] Last Admin: 06/05/17 10:32 Dose: Not Given Piperacillin Sod/Tazobactam Sod (Zosyn 2.25 Gm Iv Premix) 2.25 gm in 50 mls @ 100 mls/hr IVPB Q8H [facility] Last Admin: 06/12/17 17:37 Dose: 100 mls/hr Insulin Human Regular (Novolin R) 0 unit SC ACHS [facility] PRN Reason: Protocol Last Admin: 06/12/17 20:24 Dose: Not Given Metoprolol Succinate (Toprol Xl) 12.5 mg PO DAILY [facility] Last Admin: 06/12/17 13:08 Dose: Not Given Potassium Chloride (K-Dur 20 Meq Er Tab) 20 meq PO DAILY [facility] Last Admin: 06/12/17 13:06 Dose: Not Given Rosuvastatin Calcium (Crestor) 5 mg PO HS [facility] Last Admin: 06/10/17 21:21 Dose: Not Given Saccharomyces Boulardii (Florastor) 250 mg PO BID [facility] Last Admin: 06/12/17 17:02 Dose: Not Given - Labs Labs: 06/11/17 07:14 06/11/17 07:14 PT 15.9 SECONDS (9.7-12.2) H 05/30/17 12:55 INR 1.4 05/30/17 12:55 APTT 29 SECONDS (21-34) 05/30/17 12:55 Attending/Attestation - Attestation I have personally seen and examined this patient.: Yes I have fully participated in the care of the patient.: Yes I have reviewed all pertinent clinical information, including history, physical exam and plan: Yes Notes (Text): 06/12/17 20:30 Patient was seen and examined at 1:45 PM 06/12/17 558 B. Exam, assessment and plan were gone over with the resident. Exam: - Constitutional Appears: No Acute Distress, Cachectic, Chronically Ill - Head Exam Head Exam: ATRAUMATIC, NORMAL INSPECTION - Eye Exam Eye Exam: EOMI, Normal appearance, PERRLA - ENT Exam ENT Exam: Mucous Membranes Moist - Respiratory Exam Respiratory Exam: NORMAL BREATHING PATTERN - Cardiovascular Exam Cardiovascular Exam: +S1, +S2, NO M/R/G - GI/Abdominal Exam GI & Abdominal Exam: Soft, Normal Bowel Sounds. absent: Tenderness - Extremities Exam Extremities Exam: Normal Inspection - Neurological Exam Neurological Exam: Alert, Awake - Psychiatric Exam Psychiatric exam: Normal Affect - Skin Skin Exam: Normal Color, Warm Additional comments: Stage II small ulcer roughly 1 cm verticle present at the tip of the coccyx. Assessments: 1). RLL Pneumonia: has right arm PICC line, Zosyn through 06/13/17, CXR 06/07/17 showed improvement in RLL opacity and bilateral small pleural effusions, ID Dr. Gray 2). Anemia Likely Secondary to Chronic Disease/Lung CA: s/p 2 units PRBC. Hgb/ Hct are stable 3). 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 NSTEMI/HTN/HLD: Echo shows EF 45-50% and concentric LVH. Dr. Burden recommends medical management: ASA, Crestor, Metoprolol, Lasix 5). Hypercalcemia Likely Secondary to Lung CA: given Aradia on 05/31/17. Corrected Ca level on 06/10/17 is 7.86. 6). Leukocytosis Likely Secondary to RLL Pneumonia and Decadron: NO fevers and vitals are stable. 7). Elevated CPK Likely Secondary to Rhabdomyolysis on Admission: CPK normalized 8). Stage II Coccyx Ulcer: MediHoney with Optifoam Dressing ordered. Wound Care Nurse Celia saw patient and agrees with current management 9). Prophylaxis: KCl, RISS for Decadron, Duoneb/BiPAP, Colace, Pepcid, Florastor , Lovenox, Guaifenesin/Dextromethorphan 06/09/17: Spoke with Web Applications Programmer Maria and awaiting to hear back from [facility] [employer] [employer] that is awaiting for confirmation of Medicaid Application being completed/submitted by JAZZMINE. 06/10/17: Spoke with JAZZMINE Araujo at length today and explained that considering patient's diagnosis and his refusal to eat, that his life expectancy is likely 6 months or less. JAZZMINE Araujo has requested Hospice evaluation and order has been placed for [facility] as [facility] is the [facility] that [facility], [facility]MINE Araujo would like the patient to go. Web Applications Programmer Maria was present at the time of conversation and she is aware. 1/26/18: Spoke with Web Applications Programmer Shonna and confirmed that the PODavid Araujo is on his way to hospital to have meeting with [facility] Group Director Experience Rick quintero today 06/12/17: Spoke with Web Applications Programmer Toni and patient was accepted by [facility] but not yet by [facility] where [facility] will be caring for patient. Awaiting acceptance from [facility]. NO more labs have been ordered for this patient in light of going to Hospice Gary Swain D.O 06/12/17 20:34
--- NOTE | 2017-06-12 22:08 | CP.PCM.PN ---
Subjective - Date & Time of Evaluation Date of Evaluation: 06/11/17 Time of Evaluation: 07:35 - Subjective Subjective: Patient seen and evaluated Without acute cardiac events CAD s/p Non STEMI Medical management Objective - Vital Signs/Intake and Output Vital Signs (last 24 hours): Temp Pulse Resp BP Pulse Ox 97.9 F 109 H 22 102/68 90 L 06/12/17 15:42 06/12/17 15:42 06/12/17 15:42 06/12/17 15:42 06/12/17 15:42 Intake and Output: 06/12/17 06/13/17 18:59 06:59 Intake Total 110 Balance 110 - Medications Medications: Current Medications Albuterol/Ipratropium (Duoneb 3 Mg/0.5 Mg (3 Ml) Ud) 3 ml INH RQ4 [facility] Last Admin: 06/12/17 16:04 Dose: Not Given Aspirin (Aspirin Chewable) 81 mg PO DAILY [facility] Last Admin: 06/12/17 13:06 Dose: Not Given Dexamethasone (Decadron) 2 mg PO DAILY [facility] Last Admin: 06/12/17 13:06 Dose: Not Given Docusate Sodium (Colace) 100 mg PO BID PRN PRN Reason: Constipation Last Admin: 06/07/17 11:56 Dose: 100 mg Enoxaparin Sodium (Lovenox) 30 mg SC DAILY [facility] Last Admin: 06/12/17 13:06 Dose: Not Given Famotidine (Pepcid) 20 mg PO DAILY [facility] Last Admin: 06/12/17 13:08 Dose: Not Given Furosemide (Lasix) 40 mg IVP DAILY [facility] Last Admin: 06/12/17 13:06 Dose: Not Given Guaifenesin/Dextromethorphan (Robitussin Dm) 5 ml PO Q4H PRN PRN Reason: Cough Last Admin: 06/03/17 22:12 Dose: 5 ml Sodium Bicarbonate 50 meq/ (Sodium Chloride) 1,050 mls @ 63 mls/hr IV .[id number] [facility] Last Admin: 06/05/17 10:32 Dose: Not Given Piperacillin Sod/Tazobactam Sod (Zosyn 2.25 Gm Iv Premix) 2.25 gm in 50 mls @ 100 mls/hr IVPB Q8H [facility] Last Admin: 01/27/18 17:37 Dose: 100 mls/hr Insulin Human Regular (Novolin R) 0 unit SC ACHS [facility] PRN Reason: Protocol Last Admin: 06/12/17 20:24 Dose: Not Given Metoprolol Succinate (Toprol Xl) 12.5 mg PO DAILY [facility] Last Admin: 06/12/17 13:08 Dose: Not Given Potassium Chloride (K-Dur 20 Meq Er Tab) 20 meq PO DAILY [facility] Last Admin: 06/12/17 13:06 Dose: Not Given Rosuvastatin Calcium (Crestor) 5 mg PO HS [facility] Last Admin: 06/12/17 21:01 Dose: Not Given Saccharomyces Boulardii (Florastor) 250 mg PO BID [facility] Last Admin: 06/12/17 17:02 Dose: Not Given - Labs Labs: 06/11/17 07:14 06/11/17 07:14 PT 15.9 SECONDS (9.7-12.2) H 05/30/17 12:55 INR 1.4 05/30/17 12:55 APTT 29 SECONDS (21-34) 05/30/17 12:55
--- NOTE | 2017-06-12 22:09 | CP.PCM.PN ---
Subjective - Date & Time of Evaluation Date of Evaluation: 06/12/17 Time of Evaluation: 18:25 - Subjective Subjective: Patient seen and evaluated Without acute cardiac events CAD s/p Non STEMI Medical management Objective - Vital Signs/Intake and Output Vital Signs (last 24 hours): Temp Pulse Resp BP Pulse Ox 97.9 F 109 H 22 102/68 90 L 06/12/17 15:42 06/12/17 15:42 06/12/17 15:42 06/12/17 15:42 06/12/17 15:42 Intake and Output: 06/12/17 06/13/17 18:59 06:59 Intake Total 110 Balance 110 - Medications Medications: Current Medications Albuterol/Ipratropium (Duoneb 3 Mg/0.5 Mg (3 Ml) Ud) 3 ml INH RQ4 [facility] Last Admin: 06/12/17 16:04 Dose: Not Given Aspirin (Aspirin Chewable) 81 mg PO DAILY [facility] Last Admin: 06/12/17 13:06 Dose: Not Given Dexamethasone (Decadron) 2 mg PO DAILY [facility] Last Admin: 06/12/17 13:06 Dose: Not Given Docusate Sodium (Colace) 100 mg PO BID PRN PRN Reason: Constipation Last Admin: 06/07/17 11:56 Dose: 100 mg Enoxaparin Sodium (Lovenox) 30 mg SC DAILY [facility] Last Admin: 06/12/17 13:06 Dose: Not Given Famotidine (Pepcid) 20 mg PO DAILY [facility] Last Admin: 06/12/17 13:08 Dose: Not Given Furosemide (Lasix) 40 mg IVP DAILY [facility] Last Admin: 06/12/17 13:06 Dose: Not Given Guaifenesin/Dextromethorphan (Robitussin Dm) 5 ml PO Q4H PRN PRN Reason: Cough Last Admin: 06/03/17 22:12 Dose: 5 ml Sodium Bicarbonate 50 meq/ (Sodium Chloride) 1,050 mls @ 63 mls/hr IV .[id number] [facility] Last Admin: 06/05/17 10:32 Dose: Not Given Piperacillin Sod/Tazobactam Sod (Zosyn 2.25 Gm Iv Premix) 2.25 gm in 50 mls @ 100 mls/hr IVPB Q8H [facility] Last Admin: 01/27/18 17:37 Dose: 100 mls/hr Insulin Human Regular (Novolin R) 0 unit SC ACHS [facility] PRN Reason: Protocol Last Admin: 06/12/17 20:24 Dose: Not Given Metoprolol Succinate (Toprol Xl) 12.5 mg PO DAILY [facility] Last Admin: 06/12/17 13:08 Dose: Not Given Potassium Chloride (K-Dur 20 Meq Er Tab) 20 meq PO DAILY [facility] Last Admin: 06/12/17 13:06 Dose: Not Given Rosuvastatin Calcium (Crestor) 5 mg PO HS [facility] Last Admin: 06/12/17 21:01 Dose: Not Given Saccharomyces Boulardii (Florastor) 250 mg PO BID [facility] Last Admin: 06/12/17 17:02 Dose: Not Given - Labs Labs: 06/11/17 07:14 06/11/17 07:14 PT 15.9 SECONDS (9.7-12.2) H 05/30/17 12:55 INR 1.4 05/30/17 12:55 APTT 29 SECONDS (21-34) 05/30/17 12:55
[2017-06-13] MEDS: Albuterol-Ipratrop 3 mg / 0.5 (3 ml) UD INH SCH ×6 (00:04→20:53)
[2017-06-13] MEDS: Piperacill/Tazo 2.25gm in Dex 2.25 GM/50 ML BAG IVPB SCH ×3 (00:20→16:51)
[2017-06-13] MEDS: (Novolin R) Insulin Human Regular 100 units/ml vial SC SCH ×4 (07:42→22:09)
[2017-06-13] MEDS: Saccharomyces Boulardi 250 mg Cap PO SCH ×2 (09:15→17:05)
[2017-06-13] MEDS: Enoxaparin 30 mg Syringe SC SCH (09:16)
[2017-06-13] MEDS: Metoprolol Succinate 12.5 mg XL PO SCH (09:16)
[2017-06-13] MEDS: Potassium Chloride 20 mEq ER Tab PO SCH (09:16)
[2017-06-13 11:53] LABS: BASO % 0.3 % (0.0-2.0); HEMOGLOBIN 10.8 g/dL (12.0-18.0); LYMPH # 0.2 K/uL (1.0-4.3); LYMPH % 1.5 % (20.0-40.0); MEAN CELL VOLUME 88.1 fL (80.0-94.0); MEAN CORPUSCULAR HEMOGLOBIN 28.5 pg (27.0-31.0); MEAN CORPUSCULAR HGB CONC 32.4 g/dL (33.0-37.0); MEAN PLATELET VOLUME 9.1 fL (7.2-11.7); MONO # 0.5 K/uL (0.0-0.8); MONO % 3.6 % (0.0-10.0); NEUT # 13.4 K/uL (1.8-7.0); NEUT % 94.6 % (50.0-75.0); NRBC % 0.1 % (0.0-2.0); PLATELET COUNT 135 K/uL (130-400); RBC 3.77 Mil/uL (4.40-5.90); RED CELL DISTRIBUTION WIDTH 16.4 % (11.5-14.5); WHITE BLOOD COUNT 14.2 K/uL (4.8-10.8)
[2017-06-13 12:26] LABS: ALB/GLOB RATIO 0.8 (1.0-2.1); ALBUMIN 2.8 g/dL (3.5-5.0); CALCIUM 6.8 mg/dl (8.6-10.4)
[2017-06-13 12:28] LABS: BANDS 3 % (0-2); LYMPHOCYTE 1 % (20-40); MONOCYTE 3 % (0-10); NEUTROPHIL 92 % (50-75); REACTIVE LYMPHOCYTES 1 % (0-0); TOTAL CELLS COUNTED 100
[2017-06-13 12:29] LABS: ANISOCYTOSIS SLIGHT; PLATELET ESTIMATE NORMAL (NORMAL)
--- NOTE | 2017-06-13 14:21 | CP.PCM.PN ---
Subjective - Date & Time of Evaluation Date of Evaluation: 06/13/17 Time of Evaluation: 14:10 - Subjective Subjective: Patient was seen and examined at 2:10 AM 06/13/17 558 B. He is awake and does not appear to be in distress. He is following commands but not answering ROS questions. Exam: - Constitutional Appears: No Acute Distress, Cachectic, Chronically Ill - Head Exam Head Exam: ATRAUMATIC, NORMAL INSPECTION - Eye Exam Eye Exam: EOMI, Normal appearance, PERRLA - ENT Exam ENT Exam: Mucous Membranes Moist - Respiratory Exam Respiratory Exam: NORMAL BREATHING PATTERN - Cardiovascular Exam Cardiovascular Exam: +S1, +S2, NO M/R/G - GI/Abdominal Exam GI & Abdominal Exam: Soft, Normal Bowel Sounds. absent: Tenderness - Extremities Exam Extremities Exam: Normal Inspection - Neurological Exam Neurological Exam: Alert, Awake - Psychiatric Exam Psychiatric exam: Normal Affect - Skin Skin Exam: Normal Color, Warm Additional comments: Stage II small ulcer roughly 1 cm verticle present at the tip of the coccyx. NO other ulcers noted on any of the bessie prominences Assessments: 1). RLL Pneumonia: has right arm PICC line, Zosyn through 06/13/17, CXR 06/07/17 showed improvement in RLL opacity and bilateral small pleural effusions, ID Dr. Gray 2). Anemia Likely Secondary to Chronic Disease/Lung CA: s/p 2 units PRBC. Hgb/ Hct are stable 3). 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 NSTEMI/HTN/HLD: Echo shows EF 45-50% and concentric LVH. Dr. Burden recommends medical management: ASA, Crestor, Metoprolol, Lasix 5). Hypercalcemia Likely Secondary to Lung CA: given Aradia on 05/31/17. Corrected Ca level on 06/10/17 is 7.86. 6). Leukocytosis Likely Secondary to RLL Pneumonia and Decadron: NO fevers and vitals are stable. 7). Elevated CPK Likely Secondary to Rhabdomyolysis on Admission: CPK normalized 8). Stage II Coccyx Ulcer: MediHoney with Optifoam Dressing ordered. Wound Care Nurse Celia saw patient and agrees with current management 9). Hyperkalemia: K at 2.3. KCl 20 mEQ IV x 4 doses to finish at 9 PM. Follow up K at 10 PM tonight 06/13/17. 10). Prophylaxis: KCl, RISS for Decadron, Duoneb/BiPAP, Colace, Pepcid, Florastor, Lovenox, Guaifenesin/Dextromethorphan 06/09/17: Spoke with Construction Executive Maria and awaiting to hear back from long term [facility] that is awaiting for confirmation of Medicaid Application being completed/submitted by JAZZMINE. 06/10/17: Spoke with JAZZMINE Araujo at length today and explained that considering patient's diagnosis and his refusal to eat, that his life expectancy is likely 6 months or less. JAZZMINE Araujo has requested Hospice evaluation and order has been placed for [facility] as this is the Hospice service that is affiliated with [facility], where JAZZMINE Araujo would like the patient to go. Construction Executive Maria was present at the time of conversation and she is aware. 06/11/17: Spoke with Construction Executive Maria and confirmed that the JAZZMINE Araujo is on his way to hospital to have meeting with [facility] [employer] Rick later today 06/12/17: Spoke with Construction Executive Andrea and patient was accepted by [facility] but not yet by [facility] where [facility] will be caring for patient. Awaiting acceptance from [facility]. NO more labs have been ordered for this patient in light of going to Hospice Medicine Team: please speak with Social Justus Kilpatrick on 06/14/17 about makining sure that [facility] is aware of patient and make sure they have accepted patient into their facility under [facility]. Objective - Vital Signs/Intake and Output Vital Signs (last 24 hours): Temp Pulse Resp BP Pulse Ox 97.3 F L 120 H 20 120/73 90 L 06/13/17 09:17 06/13/17 09:17 06/13/17 09:17 06/13/17 09:20 06/13/17 09:17 Intake and Output: 06/13/17 06/13/17 06:59 18:59 Intake Total 100 Balance 100 - Medications Medications: Current Medications Albuterol/Ipratropium (Duoneb 3 Mg/0.5 Mg (3 Ml) Ud) 3 ml INH RQ4 [facility] Last Admin: 06/13/17 11:14 Dose: 3 ml Aspirin (Aspirin Chewable) 81 mg PO DAILY [facility] Last Admin: 06/13/17 09:15 Dose: Not Given Dexamethasone (Decadron) 2 mg PO DAILY [facility] Last Admin: 06/13/17 09:15 Dose: Not Given Docusate Sodium (Colace) 100 mg PO BID PRN PRN Reason: Constipation Last Admin: 06/07/17 11:56 Dose: 100 mg Enoxaparin Sodium (Lovenox) 30 mg SC DAILY [facility] Last Admin: 06/13/17 09:16 Dose: Not Given Famotidine (Pepcid) 20 mg PO DAILY [facility] Last Admin: 06/13/17 09:16 Dose: Not Given Furosemide (Lasix) 40 mg IVP DAILY [facility] Last Admin: 06/13/17 09:20 Dose: 40 mg Guaifenesin/Dextromethorphan (Robitussin Dm) 5 ml PO Q4H PRN PRN Reason: Cough Last Admin: 06/03/17 22:12 Dose: 5 ml Sodium Bicarbonate 50 meq/ (Sodium Chloride) 1,050 mls @ 63 mls/hr IV .[id number] [facility] Last Admin: 06/05/17 10:32 Dose: Not Given Piperacillin Sod/Tazobactam Sod (Zosyn 2.25 Gm Iv Premix) 2.25 gm in 50 mls @ 100 mls/hr IVPB Q8H [facility] Last Admin: 06/13/17 09:21 Dose: 100 mls/hr Potassium Chloride (Potassium Chloride 20 Meq/100 Ml) 20 meq in 100 mls @ 50 mls/hr IVPB ONCE ONE Stop: 06/13/17 14:55 Last Admin: 06/13/17 13:09 Dose: 50 mls/hr Potassium Chloride (Potassium Chloride 20 Meq/100 Ml) 20 meq in 100 mls @ 50 mls/hr IVPB ONCE ONE Stop: 06/13/17 16:59 Potassium Chloride (Potassium Chloride 20 Meq/100 Ml) 20 meq in 100 mls @ 50 mls/hr IVPB ONCE ONE Stop: 06/13/17 18:59 Potassium Chloride (Potassium Chloride 20 Meq/100 Ml) 20 meq in 100 mls @ 50 mls/hr IVPB ONCE ONE Stop: 06/13/17 20:59 Insulin Human Regular (Novolin R) 0 unit SC [facility] PRN Reason: Protocol Last Admin: 06/13/17 12:32 Dose: 4 unit Metoprolol Succinate (Toprol Xl) 12.5 mg PO DAILY [facility] Last Admin: 06/13/17 09:16 Dose: Not Given Potassium Chloride (K-Dur 20 Meq Er Tab) 20 meq PO DAILY [facility] Last Admin: 06/13/17 09:16 Dose: Not Given Rosuvastatin Calcium (Crestor) 5 mg PO HS [facility] Last Admin: 06/12/17 21:01 Dose: Not Given Saccharomyces Boulardii (Florastor) 250 mg PO BID [facility] Last Admin: 06/13/17 09:15 Dose: Not Given - Labs Labs: 06/13/17 11:48 06/13/17 11:48 PT 15.9 SECONDS (9.7-12.2) H 05/30/17 12:55 INR 1.4 05/30/17 12:55 APTT 29 SECONDS (21-34) 05/30/17 12:55
--- NOTE | 2017-06-13 16:14 | CP.PCM.PN ---
Subjective - Date & Time of Evaluation Date of Evaluation: 06/13/17 Time of Evaluation: 06:00 - Subjective Subjective: no fever awake alert cachectic NAD Objective - Vital Signs/Intake and Output Vital Signs (last 24 hours): Temp Pulse Resp BP Pulse Ox 97.3 F L 110 H 20 109/62 109 H 06/13/17 16:00 06/13/17 16:00 06/13/17 16:00 06/13/17 16:00 06/13/17 16:00 Intake and Output: 06/13/17 06/13/17 06:59 18:59 Intake Total 100 Balance 100 - Medications Medications: Current Medications Albuterol/Ipratropium (Duoneb 3 Mg/0.5 Mg (3 Ml) Ud) 3 ml INH RQ4 [facility] Last Admin: 06/13/17 15:38 Dose: 3 ml Aspirin (Aspirin Chewable) 81 mg PO DAILY [facility] Last Admin: 06/13/17 09:15 Dose: Not Given Dexamethasone (Decadron) 2 mg PO DAILY [facility] Last Admin: 06/13/17 09:15 Dose: Not Given Docusate Sodium (Colace) 100 mg PO BID PRN PRN Reason: Constipation Last Admin: 06/07/17 11:56 Dose: 100 mg Enoxaparin Sodium (Lovenox) 30 mg SC DAILY [facility] Last Admin: 06/13/17 09:16 Dose: Not Given Famotidine (Pepcid) 20 mg PO DAILY [facility] Last Admin: 06/13/17 09:16 Dose: Not Given Furosemide (Lasix) 40 mg IVP DAILY [facility] Last Admin: 06/13/17 09:20 Dose: 40 mg Guaifenesin/Dextromethorphan (Robitussin Dm) 5 ml PO Q4H PRN PRN Reason: Cough Last Admin: 06/03/17 22:12 Dose: 5 ml Sodium Bicarbonate 50 meq/ (Sodium Chloride) 1,050 mls @ 63 mls/hr IV .[id number] [facility] Last Admin: 06/05/17 10:32 Dose: Not Given Piperacillin Sod/Tazobactam Sod (Zosyn 2.25 Gm Iv Premix) 2.25 gm in 50 mls @ 100 mls/hr IVPB Q8H [facility] Last Admin: 06/13/17 09:21 Dose: 100 mls/hr Potassium Chloride (Potassium Chloride 20 Meq/100 Ml) 20 meq in 100 mls @ 50 mls/hr IVPB ONCE ONE Stop: 06/13/17 16:59 Last Admin: 06/13/17 14:42 Dose: 50 mls/hr Potassium Chloride (Potassium Chloride 20 Meq/100 Ml) 20 meq in 100 mls @ 50 mls/hr IVPB ONCE ONE Stop: 06/13/17 18:59 Potassium Chloride (Potassium Chloride 20 Meq/100 Ml) 20 meq in 100 mls @ 50 mls/hr IVPB ONCE ONE Stop: 06/13/17 20:59 Insulin Human Regular (Novolin R) 0 unit SC ACHS [facility] PRN Reason: Protocol Last Admin: 06/13/17 12:32 Dose: 4 unit Metoprolol Succinate (Toprol Xl) 12.5 mg PO DAILY [facility] Last Admin: 06/13/17 09:16 Dose: Not Given Potassium Chloride (K-Dur 20 Meq Er Tab) 20 meq PO DAILY [facility] Last Admin: 06/13/17 09:16 Dose: Not Given Rosuvastatin Calcium (Crestor) 5 mg PO [facility] Last Admin: 06/12/17 21:01 Dose: Not Given Saccharomyces Boulardii (Florastor) 250 mg PO BID [facility] Last Admin: 06/13/17 09:15 Dose: Not Given - Labs Labs: 06/13/17 11:48 06/13/17 11:48 PT 15.9 SECONDS (9.7-12.2) H 05/30/17 12:55 INR 1.4 05/30/17 12:55 APTT 29 SECONDS (21-34) 05/30/17 12:55 - Constitutional Appears: Non-toxic, Cachectic, Chronically Ill - Head Exam Head Exam: NORMOCEPHALIC - Eye Exam Eye Exam: PERRL - ENT Exam ENT Exam: Mucous Membranes Dry - Neck Exam Neck Exam: absent: Lymphadenopathy - Respiratory Exam Respiratory Exam: Decreased Breath Sounds - Cardiovascular Exam Cardiovascular Exam: REGULAR RHYTHM - GI/Abdominal Exam GI & Abdominal Exam: Distended Assessment and Plan (1) Altered mental state Status: Acute (2) Dizziness Status: Acute (3) Pneumonia Status: Acute - Assessment and Plan (Free Text) Assessment: will renew rx
--- NOTE | 2017-06-13 19:38 | CP.PCM.PN ---
Subjective - Date & Time of Evaluation Date of Evaluation: 06/13/17 Time of Evaluation: 18:20 - Subjective Subjective: the patient seen and examined Off BiPAP No shortness of breath Awake Poor appetite Being treated for pneumonia Objective - Vital Signs/Intake and Output Vital Signs (last 24 hours): Temp Pulse Resp BP Pulse Ox 97.3 F L 110 H 20 109/62 109 H 06/13/17 16:00 06/13/17 16:00 06/13/17 16:00 06/13/17 16:00 06/13/17 16:00 - Medications Medications: Current Medications Albuterol/Ipratropium (Duoneb 3 Mg/0.5 Mg (3 Ml) Ud) 3 ml INH RQ4 [facility] Last Admin: 06/13/17 15:38 Dose: 3 ml Aspirin (Aspirin Chewable) 81 mg PO DAILY [facility] Last Admin: 06/13/17 09:15 Dose: Not Given Dexamethasone (Decadron) 2 mg PO DAILY [facility] Last Admin: 06/13/17 09:15 Dose: Not Given Docusate Sodium (Colace) 100 mg PO BID PRN PRN Reason: Constipation Last Admin: 06/07/17 11:56 Dose: 100 mg Enoxaparin Sodium (Lovenox) 30 mg SC DAILY [facility] Last Admin: 06/13/17 09:16 Dose: Not Given Famotidine (Pepcid) 20 mg PO DAILY [facility] Last Admin: 06/13/17 09:16 Dose: Not Given Furosemide (Lasix) 40 mg IVP DAILY [facility] Last Admin: 06/13/17 09:20 Dose: 40 mg Guaifenesin/Dextromethorphan (Robitussin Dm) 5 ml PO Q4H PRN PRN Reason: Cough Last Admin: 06/03/17 22:12 Dose: 5 ml Sodium Bicarbonate 50 meq/ (Sodium Chloride) 1,050 mls @ 63 mls/hr IV .[id number] [facility] Last Admin: 06/05/17 10:32 Dose: Not Given Piperacillin Sod/Tazobactam Sod (Zosyn 2.25 Gm Iv Premix) 2.25 gm in 50 mls @ 100 mls/hr IVPB Q8H [facility] Last Admin: 06/13/17 16:51 Dose: 100 mls/hr Potassium Chloride (Potassium Chloride 10 Meq/100 Ml) 20 meq in 200 mls @ 100 mls/hr IVPB ONCE ONE Stop: 06/13/17 20:59 Last Admin: 06/13/17 19:31 Dose: 100 mls/hr Insulin Human Regular (Novolin R) 0 unit SC ACHS [facility] PRN Reason: Protocol Last Admin: 06/13/17 17:01 Dose: 8 unit Metoprolol Succinate (Toprol Xl) 12.5 mg PO DAILY [facility] Last Admin: 06/13/17 09:16 Dose: Not Given Potassium Chloride (K-Dur 20 Meq Er Tab) 20 meq PO DAILY [facility] Last Admin: 06/13/17 09:16 Dose: Not Given Rosuvastatin Calcium (Crestor) 5 mg PO HS [facility] Last Admin: 06/12/17 21:01 Dose: Not Given Saccharomyces Boulardii (Florastor) 250 mg PO BID [facility] Last Admin: 06/13/17 17:05 Dose: Not Given - Labs Labs: 06/13/17 11:48 06/13/17 11:48 PT 15.9 SECONDS (9.7-12.2) H 05/30/17 12:55 INR 1.4 05/30/17 12:55 APTT 29 SECONDS (21-34) 05/30/17 12:55 Assessment and Plan (1) Respiratory insufficiency/failure Status: Acute (2) Metabolic acidosis Status: Acute (3) Altered mental state Status: Acute (4) Pneumonia Status: Acute
[2017-06-13 23:28] LABS: MAGNESIUM 1.6 mg/dL (1.6-2.3)
[2017-06-14] MEDS: Albuterol-Ipratrop 3 mg / 0.5 (3 ml) UD INH SCH ×5 (00:56→16:11)
[2017-06-14] MEDS: Piperacill/Tazo 2.25gm in Dex 2.25 GM/50 ML BAG IVPB SCH ×2 (01:11→10:19)
--- NOTE | 2017-06-14 07:26 | CP.PCM.PN ---
Objective - Vital Signs/Intake and Output Vital Signs (last 24 hours): Temp Pulse Resp BP Pulse Ox 97.6 F 118 H 24 120/78 96 06/13/17 23:52 06/13/17 23:52 06/13/17 23:52 06/13/17 23:52 06/14/17 00:17 Intake and Output: 06/14/17 06/14/17 06:59 18:59 Intake Total 450 Balance 450 - Medications Medications: Current Medications Albuterol/Ipratropium (Duoneb 3 Mg/0.5 Mg (3 Ml) Ud) 3 ml INH RQ4 [facility] Last Admin: 06/14/17 07:10 Dose: 3 ml Aspirin (Aspirin Chewable) 81 mg PO DAILY [facility] Last Admin: 06/13/17 09:15 Dose: Not Given Dexamethasone (Decadron) 2 mg PO DAILY [facility] Last Admin: 06/13/17 09:15 Dose: Not Given Docusate Sodium (Colace) 100 mg PO BID PRN PRN Reason: Constipation Last Admin: 06/07/17 11:56 Dose: 100 mg Enoxaparin Sodium (Lovenox) 30 mg SC DAILY [facility] Last Admin: 06/13/17 09:16 Dose: Not Given Famotidine (Pepcid) 20 mg PO DAILY [facility] Last Admin: 06/13/17 09:16 Dose: Not Given Furosemide (Lasix) 40 mg IVP DAILY [facility] Last Admin: 06/13/17 09:20 Dose: 40 mg Guaifenesin/Dextromethorphan (Robitussin Dm) 5 ml PO Q4H PRN PRN Reason: Cough Last Admin: 06/03/17 22:12 Dose: 5 ml Sodium Bicarbonate 50 meq/ (Sodium Chloride) 1,050 mls @ 63 mls/hr IV .[id number] [facility] Last Admin: 06/05/17 10:32 Dose: Not Given Piperacillin Sod/Tazobactam Sod (Zosyn 2.25 Gm Iv Premix) 2.25 gm in 50 mls @ 100 mls/hr IVPB Q8H [facility] Last Admin: 06/14/17 01:11 Dose: 100 mls/hr Insulin Human Regular (Novolin R) 0 unit SC ACHS [facility] PRN Reason: Protocol Last Admin: 06/13/17 22:09 Dose: Not Given Metoprolol Succinate (Toprol Xl) 12.5 mg PO DAILY [facility] Last Admin: 06/13/17 09:16 Dose: Not Given Potassium Chloride (K-Dur 20 Meq Er Tab) 20 meq PO DAILY [facility] Last Admin: 06/13/17 09:16 Dose: Not Given Rosuvastatin Calcium (Crestor) 5 mg PO HS [facility] Last Admin: 06/13/17 22:09 Dose: Not Given Saccharomyces Boulardii (Florastor) 250 mg PO BID [facility] Last Admin: 06/13/17 17:05 Dose: Not Given - Labs Labs: 06/13/17 11:48 06/13/17 23:09 PT 15.9 SECONDS (9.7-12.2) H 05/30/17 12:55 INR 1.4 05/30/17 12:55 APTT 29 SECONDS (21-34) 05/30/17 12:55
[2017-06-14 07:52] VITALS: RESP 20
[2017-06-14 08:07] LABS: BASO % 0.2 % (0.0-2.0); HEMOGLOBIN 10.9 g/dL (12.0-18.0); LYMPH # 0.3 K/uL (1.0-4.3); MEAN CORPUSCULAR HEMOGLOBIN 29.1 pg (27.0-31.0); MEAN CORPUSCULAR HGB CONC 32.2 g/dL (33.0-37.0); MEAN PLATELET VOLUME 10.2 fL (7.2-11.7); MONO # 0.3 K/uL (0.0-0.8); MONO % 1.6 % (0.0-10.0); NEUT # 16.2 K/uL (1.8-7.0); NEUT % 96.2 % (50.0-75.0); NRBC % 0.1 % (0.0-2.0); PLATELET COUNT 143 K/uL (130-400); RBC 3.75 Mil/uL (4.40-5.90); RED CELL DISTRIBUTION WIDTH 16.9 % (11.5-14.5); WHITE BLOOD COUNT 16.8 K/uL (4.8-10.8)
[2017-06-14 08:10] LABS: MEAN CELL VOLUME 90.2 fL (80.0-94.0)
[2017-06-14] MEDS: (Novolin R) Insulin Human Regular 100 units/ml vial SC SCH ×2 (08:45→13:04)
[2017-06-14 09:13] LABS: ALB/GLOB RATIO 0.8 (1.0-2.1); ALBUMIN 2.9 g/dL (3.5-5.0); CALCIUM 7.2 mg/dl (8.6-10.4)
[2017-06-14 10:00] LABS: BANDS 7 % (0-2); LYMPHOCYTE 3 % (20-40); MONOCYTE 2 % (0-10); NEUTROPHIL 88 % (50-75); TOTAL CELLS COUNTED 100
[2017-06-14 10:03] LABS: ANISOCYTOSIS SLIGHT; PLATELET ESTIMATE NORMAL (NORMAL)
[2017-06-14 10:04] LABS: LARGE PLATELETS PRESENT; TARGET CELLS SLIGHT
[2017-06-14] MEDS: Metoprolol Succinate 12.5 mg XL PO SCH ×2 (10:22→10:29)
[2017-06-14] MEDS: Saccharomyces Boulardi 250 mg Cap PO SCH ×2 (10:22→10:28)
[2017-06-14] MEDS: Potassium Chloride 20 mEq ER Tab PO SCH ×2 (10:24→10:28)
[2017-06-14] MEDS: Enoxaparin 30 mg Syringe SC SCH (10:25)
[2017-06-14 15:07] VITALS: BP 122/73; PULSE 113; TEMP 98.3; O2SAT 87
--- NOTE | 2017-06-14 15:21 | CP.PCM.DIS ---
<Renetta Melara - Last Filed: 06/14/17 18:58> Provider - Provider Date of Admission: 05/30/17 15:01 Attending physician: Viktoriya Early DO Time Spent in preparation of Discharge (in minutes): 40 Hospital Course - Lab Results Lab Results: Micro Results 06/05/17 16:30 Urine,Clean Catch Urine Culture - Final No Growth (<1,000 CFU/ML) 05/30/17 13:40 Blood Blood Culture - Final NO GROWTH AFTER 5 DAYS 05/30/17 13:40 Blood Gram Stain - Final TEST NOT PERFORMED 05/30/17 13:10 Blood Blood Culture - Final NO GROWTH AFTER 5 DAYS 05/30/17 13:10 Blood Gram Stain - Final TEST NOT PERFORMED 05/30/17 13:13 Urine Urine Culture - Final No Growth (<1,000 CFU/ML) Most Recent Lab Values WBC 16.8 K/uL (4.8-10.8) H 06/14/17 07:34 RBC 3.75 Mil/uL (4.40-5.90) L 06/14/17 07:34 Hgb 10.9 g/dL (12.0-18.0) L 06/14/17 07:34 Hct 33.8 % (35.0-51.0) L 06/14/17 07:34 MCV 90.2 fL (80.0-94.0) D 06/14/17 07:34 MCH 29.1 pg (27.0-31.0) 06/14/17 07:34 MCHC 32.2 g/dL (33.0-37.0) L 06/14/17 07:34 RDW 16.9 % (11.5-14.5) H 06/14/17 07:34 Plt Count 143 K/uL (130-400) 06/14/17 07:34 MPV 10.2 fL (7.2-11.7) 06/14/17 07:34 Neut % (Auto) 96.2 % (50.0-75.0) H 06/14/17 07:34 Lymph % (Auto) 2.0 % (20.0-40.0) L 06/14/17 07:34 Republic % (Auto) 1.6 % (0.0-10.0) 06/14/17 07:34 Eos % (Auto) 0.0 % (0.0-4.0) 06/14/17 07:34 Baso % (Auto) 0.2 % (0.0-2.0) 06/14/17 07:34 Neut # 16.2 K/uL (1.8-7.0) H 06/14/17 07:34 Lymph # 0.3 K/uL (1.0-4.3) L 06/14/17 07:34 Republic # 0.3 K/uL (0.0-0.8) 06/14/17 07:34 Eos # 0.0 K/uL (0.0-0.7) 06/14/17 07:34 Baso # 0.0 K/uL (0.0-0.2) 06/14/17 07:34 Neutrophils % (Manual) 88 % (50-75) H 06/14/17 07:34 Band Neutrophils % 7 % (0-2) H 06/14/17 07:34 Lymphocytes % (Manual) 3 % (20-40) L 06/14/17 07:34 Reactive Lymphs % 1 % (0-0) H 06/13/17 11:48 Monocytes % (Manual) 2 % (0-10) 06/14/17 07:34 Toxic Granulation Present 06/10/17 05:22 Platelet Estimate Normal (NORMAL) 06/14/17 07:34 Plt Clumps, EDTA Present 06/10/17 05:22 Large Platelets Present 06/14/17 07:34 Polychromasia Slight 06/10/17 05:22 Hypochromasia (manual) Slight 06/10/17 05:22 Poikilocytosis (manual Slight 06/08/17 07:54 Basophilic Stippling Slight 06/14/17 07:34 Anisocytosis (manual) Slight 06/14/17 07:34 Macrocytosis (manual) Slight 06/07/17 05:54 Target Cells Slight 06/14/17 07:34 Ovalocytes Slight 05/31/17 07:50 Shalonda Cells Slight 06/08/17 07:54 Retic Count 1.3 % (0.5-1.5) 05/30/17 18:07 PT 15.9 SECONDS (9.7-12.2) H 05/30/17 12:55 INR 1.4 05/30/17 12:55 APTT 29 SECONDS (21-34) 05/30/17 12:55 Puncture Site Lra 06/04/17 16:35 pCO2 29 mm/Hg (35-45) L 06/04/17 16:35 pO2 130 mm/Hg (80-100) H 06/04/17 16:35 HCO3 15.8 mmol/L (21-28) L 06/04/17 16:35 ABG pH 7.28 (7.35-7.45) L 06/04/17 16:35 ABG Total CO2 14.5 mmol/L (22-28) L 06/04/17 16:35 ABG O2 Saturation 99.4 % (95-98) H 06/04/17 16:35 ABG Base Excess -11.7 mmol/L (-2.0-3.0) L 06/04/17 16:35 ABG Hemoglobin 13.4 g/dL (11.7-17.4) 06/03/17 20:57 ABG Carboxyhemoglobin 2.1 % (0.5-1.5) H 06/03/17 20:57 POC ABG HHb (Measured) 2.2 % (0.0-5.0) 06/03/17 20:57 ABG Methemoglobin 1.1 % (0.0-3.0) 06/03/17 20:57 Cedric Test Yes 06/04/17 16:35 ABG Potassium 3.6 mmol/L (3.6-5.2) 06/04/17 16:35 VBG pH 7.48 (7.32-7.43) H 05/30/17 12:50 VBG pCO2 41 mmHg (40-60) 05/30/17 12:50 VBG Total CO2 31.8 mmol/L (22-28) H 05/30/17 12:50 VBG O2 Sat (Calc) 24.7 % (40-65) L 05/30/17 12:50 VBG Base Excess 6.4 mmol/L (0.0-2.0) H 05/30/17 12:50 VBG Potassium 3.4 mmol/L (3.6-5.2) L 05/30/17 12:50 A-a O2 Difference 547.0 mm/Hg 06/04/17 16:35 Respiratory Index 4.2 06/04/17 16:35 Hgb O2 Saturation 94.6 % (95.0-98.0) L 06/03/17 20:57 Sodium 132.0 mmol/l (132-148) 06/04/17 16:35 Chloride 107.0 mmol/L (98-107) 06/04/17 16:35 Glucose 244 mg/dl (75-110) H 06/04/17 16:35 Lactate 3.4 mmol/L (0.7-2.1) H 06/04/17 16:35 Liter Flow 12.0 06/03/17 20:57 Vent Mode Bipap 06/04/17 16:35 FiO2 100.0 % 06/04/17 16:35 Inspiratory BiPAP 12 06/04/17 16:35 Expiratory BiPAP 5 06/04/17 16:35 Sodium 141 mmol/L (132-148) 06/14/17 07:34 Potassium 3.8 mmol/L (3.6-5.2) 06/14/17 07:34 Chloride 99 mmol/L (98-107) 06/14/17 07:34 Carbon Dioxide 28 mmol/L (22-30) 06/14/17 07:34 Anion Gap 18 (10-20) 06/14/17 07:34 BUN 47 mg/dL (9-20) H 06/14/17 07:34 Creatinine 1.7 mg/dL (0.8-1.5) H 06/14/17 07:34 Est GFR ( Amer) 46 06/14/17 07:34 Est GFR (Non-Af Amer) 38 06/14/17 07:34 POC Glucose (mg/dL) 258 mg/dL (65-110) H 06/14/17 11:30 Random Glucose 272 mg/dL (75-110) H 06/14/17 07:34 Calcium 7.2 mg/dl (8.6-10.4) L 06/14/17 07:34 Ionized Calcium 7.0 mg/dL (4.80-5.60) H 05/31/17 14:34 Phosphorus 1.8 mg/dL (2.5-4.5) L 06/13/17 23:09 Magnesium 1.6 mg/dL (1.6-2.3) 06/13/17 23:09 Ferritin 216.0 ng/mL 05/30/17 18:07 Total Bilirubin 1.8 mg/dL (0.2-1.3) H 06/14/17 07:34 AST 36 U/L (17-59) 06/14/17 07:34 ALT 196 U/L (21-72) H 06/14/17 07:34 Alkaline Phosphatase 91 U/L (38-126) 06/14/17 07:34 Total Creatine Kinase 170 U/L (55-170) 05/31/17 14:37 CK-MB (Mass) 2.38 ng/mL (0.0-3.38) 05/31/17 14:37 Troponin I 0.1960 ng/mL (0.00-0.120) H* 05/31/17 14:37 Total Protein 6.5 g/dL (6.3-8.3) 06/14/17 07:34 Total Protein (PEP) 6.9 g/dL (6.1-8.1) 05/30/17 18:09 Albumin 2.9 g/dL (3.5-5.0) L 06/14/17 07:34 Albumin (PEP) 2.6 g/dL (3.8-4.8) L 05/30/17 18:09 Globulin 3.6 gm/dL (2.2-3.9) 06/14/17 07:34 Albumin/Globulin Ratio 0.8 (1.0-2.1) L 06/14/17 07:34 Dwuxz-3-Kvgpidbbf 0.5 g/dL (0.2-0.3) H 05/30/17 18:09 Fdewh-0-Uxzxwcjgn 1.4 g/dL (0.5-0.9) H 05/30/17 18:09 Onra-9-Xciewpiq 0.4 g/dL (0.4-0.6) 05/30/17 18:09 Bdvx-5-Mnxtvwpr 0.5 g/dL (0.2-0.5) 05/30/17 18:09 Gamma Globulins 1.5 g/dL (0.8-1.7) 05/30/17 18:09 Abnorm Protein Band 1 0.30 g/dL (None Detected) H 05/30/17 18:09 Abnorm Protein Band 2 TEST NOT PERFORMED 05/30/17 18:09 Abnorm Protein Band 3 TEST NOT PERFORMED 05/30/17 18:09 Vitamin B12 455 pg/mL (239-931) 05/30/17 18:07 25-OH Vitamin D Total 74.2 NG/ML (30.0-100.0) 05/31/17 14:34 Folate 20.0 ng/mL 05/30/17 18:07 Procalcitonin 0.11 NG/ML (0.19-0.49) L 06/01/17 12:28 PTH Intact Whole Molec 5 pg/mL (14-64) L 05/31/17 14:34 PTH Related Protein 33 pg/mL (14-27) H 05/31/17 14:34 Arterial Blood Potassium 3.6 mmol/L (3.6-5.2) 06/04/17 16:35 Venous Blood Potassium 3.4 mmol/L (3.6-5.2) L 05/30/17 12:50 Urine Color Yellow (YELLOW) 06/05/17 12:16 Urine Clarity Hazy (Clear) 06/05/17 12:16 Urine pH 5.0 (5.0-8.0) 06/05/17 12:16 Ur Specific Schuyler 1.021 (1.003-1.030) 06/05/17 12:16 Urine Protein 1+ mg/dL (NEGATIVE) H 06/05/17 12:16 Urine Glucose (UA) 1+ mg/dL (Normal) H 06/05/17 12:16 Urine Ketones Negative mg/dL (NEGATIVE) 06/05/17 12:16 Urine Blood 2+ (NEGATIVE) H 06/05/17 12:16 Urine Nitrate Negative (NEGATIVE) 06/05/17 12:16 Urine Bilirubin Negative (NEGATIVE) 06/05/17 12:16 Urine Urobilinogen Normal mg/dL (0.2-1.0) 06/05/17 12:16 Ur Leukocyte Esterase Neg Bertha/uL (Negative) 06/05/17 12:16 Urine WBC (Auto) 1 /hpf (0-5) 06/05/17 12:16 Urine RBC (Auto) 3 /hpf (0-3) 06/05/17 12:16 Ur Squamous Epith Cells 1 /hpf (0-5) 06/05/17 12:16 Amorphous Sediment Rare /ul (<OCC) H 06/05/17 12:16 Urine Bacteria Occ (<OCC) H 06/05/17 12:16 Hyaline Casts 3-5 /lpf (0-2) H 05/30/17 15:28 Stool Occult Blood Negative (NEGATIVE) 05/30/17 15:26 Urine Opiates Screen Negative (NEGATIVE) 05/31/17 00:04 Urine Methadone Screen Negative (NEGATIVE) 05/31/17 00:04 Ur Barbiturates Screen Negative (NEGATIVE) 05/31/17 00:04 Ur Phencyclidine Scrn Negative (NEGATIVE) 05/31/17 00:04 Ur Amphetamines Screen Negative (NEGATIVE) 05/31/17 00:04 U Benzodiazepines Scrn Negative (NEGATIVE) 05/31/17 00:04 U Oth Cocaine Metabols Negative (NEGATIVE) 05/31/17 00:04 U Cannabinoids Screen Negative (NEGATIVE) 05/31/17 00:04 Alcohol, Quantitative < 10 mg/dl (0-10) 05/30/17 12:55 GATITO & SPEP Interp See note 05/30/17 18:09 Serum Immunofixation Detected (Not Detected) H 05/30/17 18:09 Tot [place]/Lambda Ratio 1.78 (1.29-2.55) 05/30/17 18:09 [place] Light Chain Anal 392 mg/dL (176-443) 05/30/17 18:09 Lambda Light Chain Anal 220 mg/dL (91-240) 05/30/17 18:09 Influenza Typ A,B (EIA) Negative for flu a/b (NEGATIVE) 05/30/17 13:36 Blood Type B POSITIVE 06/02/17 11:14 Antibody Screen Negative 06/02/17 11:14 - Hospital Course Hospital Course: CC: "I fell" Patient is an 86 year old male who presents to the ER after being found down in his home. Patient is a poor historian and majority of history is provided by friend, Duy . Per friend, patient has been confused for some time but has become more confused lately. Per friend, patient woke up around 10: 30PM yesterday evening to use the bathroom. Patient felt dizzy upon standing and fell down. Patient denies hitting his head or loss of consciousness. Patient cannot comment on why he could not get up from floor. Patient's friend states that the superintendent building found the patient on the floor this morning () and called an ambulance. Patient's friend states that patient was recently diagnosed with stage IV lung cancer. Patient's family all reside in [place]. Next of kin is patient's nephew, Van, who also lives in [place] and can be reached at: [phone]. Per friend, patient's family has been trying to obtain information regarding treatment and diagnosis to evaluate treatment options in [place]. Patient admits to 21 pound weight loss over 3 months as well as decreased appetite. Per friend, patient has been unsteady on his feet for last few months with history of falls as well as increasing fatigue. Heme-Onc: Dr. Ramos PMHx: stage IV lung cancer Meds: patient and friend unsure of medications, does not know name of pharmacy PSHx: left hip repair FamHx: denies SocialHx: states tobacco usage in past (cannot quantify), denies alcohol and drugs; lives alone; formerly worked as a [employer] for 42 years Hospital Course: Patient was found to have a NSTEMI and cardiology Dr. Burden was consulted. Patient was started on medical management including aspirin, statin, and beta clarence. An Echocardiogram (05/31/17): bordline to mild concentric LVH. Systolic function is mildly inmpaired. EF: 45-50% further findings per report. Patient also had a right lower lobe pneumonia: Chest xray (05/30/17): right lower lobe infiltrate/ atelectasis superimposed upon chronic interstitial lung disease (see full report) CXR (06/03): mild b/l infiltrates R>L; limited b/l pleural effusion noted; mild CHF in questions; chronic interstitial pulm disease. CT angio r/o PE : No PE; severe centrilobular and paraseptal emphysema b/l with consolidation in right lower lobe and atelectasis/consolidation in posterior segment of right upper lobe and portion of left lower lobe; small b/l pleural effusions with anasarca; chronic atelectasis of left upper lobe; small amount of intraabdominal ascites; previous granlomatous disease. Pulmonolgy Dr. Rodriguez was consulted and ID Dr. Gray was consulted. Patient was started on Zosyn for a total of 7 days. Patient was discharged with Augmentin PO for 7 more days at the [facility]. Oncologist Dr. Ramos was also consulted for patient's stage IV lung cancer. Brain MRI with contrast was done which showed trace enhancement at right parietal vertex suspicious solitary metastasis; 2nd area of faint enhancement in right front vertex. Decadron 2mg po daily was started. Patient was also worked up after he had the fall at home and images were done which showed: CT Head (05/30/17): No intracranial hemorrhage. No hydrocephalus. No acute intracranial abnormalities. No significant findings to account for the clinical presentation CT Cervical Spine (05/30/17): No significant central canal or neural foraminal stenosis. Right apical scarring findings similar to that seen on a prior CT of the thorax 02/22/2013. Multilevel degenerative change primarily disc space narrowing. No acute findings related to/accounting for the clinical presentation. Pelvis xray (05/30/17): Status post open reduction internal fixation proximal left femoral fracture. No evidence of orthopedic hardware failure. No acute osseous abnormalities. Also during the patient's hospital stay the patient was found to have a stage 2 cocyxx ulcer which was treated daily with medihoney as well as moving the patient. During the patient's hospital stay palliative care was consulted - Angle who spoke with the patient's POA. DNR/DNI status as of 06/03/17. CRUZ signed and in chart. JAZZMINE Araujo has decided for patient to be placed for Hospice. Patient was seen and examined at bedside in no acute distress. Patient is pleasant and smiling. Patient does have dementia but when asked he denies all review of systems. Patient transferred to [facility]. - Tylenol 640mg q6 PRN - Augmentin 875mg BID for 7 more days - Ducolax PRN for constipation - Decadron daily - Ativan 1mg q6h prn for restlessness - Morphine PRN for pain This is a summary of patient's hospital course, please see chart for full details. Discharge Exam - Head Exam Head Exam: NORMOCEPHALIC - Eye Exam Eye Exam: EOMI, Normal appearance - ENT Exam ENT Exam: Mucous Membranes Dry - Respiratory Exam Respiratory Exam: NORMAL BREATHING PATTERN - Cardiovascular Exam Cardiovascular Exam: REGULAR RHYTHM, +S1, +S2 - GI/Abdominal Exam GI & Abdominal Exam: Normal Bowel Sounds, Soft. absent: Tenderness - Extremities Exam Extremities exam: normal inspection - Neurological Exam Neurological exam: Alert - Psychiatric Exam Psychiatric exam: Normal Affect - Skin Skin Exam: Normal Color, Warm Discharge Plan - Discharge Medications Prescriptions: Acetaminophen [Tylenol 325mg tab] 650 mg PO Q6 PRN #30 tab PRN Reason: Pain, Mild (1-3) Amoxicillin/Clavulanate [Augmentin 875 MG-125 MG] 1 tab PO BID #14 tab Bisacodyl [Ducolax] 10 mg RC BID PRN #30 sup PRN Reason: Constipation LORazepam [Ativan] 1 mg PO Q6H PRN #30 tab PRN Reason: Restlessness Morphine Sulfate [Morphine] 1 mg IV Q2 PRN #20 ml PRN Reason: Pain, Moderate (4-7) Morphine Sulfate [Morphine] 1 mg PO Q2H #1 ml - Follow Up Plan Condition: STABLE Disposition: HOSPICE - MEDICAL FACILITY Instructions: Altered Mental Status (GEN), Fall Prevention (DC), Pneumonia (DC) , Metabolic Acidosis (GEN) Additional Instructions: Please discharge to [facility]. Please see discharge medication reconciliation. Gary Swain D.O. <Viktoriya Early V - Last Filed: 06/14/17 22:14> Provider - Provider Date of Admission: 05/30/17 15:01 Attending physician: Viktoriya Early, Hospital Course - Lab Results Lab Results: Micro Results 06/05/17 16:30 Urine,Clean Catch Urine Culture - Final No Growth (<1,000 CFU/ML) 05/30/17 13:40 Blood Blood Culture - Final NO GROWTH AFTER 5 DAYS 05/30/17 13:40 Blood Gram Stain - Final TEST NOT PERFORMED 05/30/17 13:10 Blood Blood Culture - Final NO GROWTH AFTER 5 DAYS 05/30/17 13:10 Blood Gram Stain - Final TEST NOT PERFORMED 05/30/17 13:13 Urine Urine Culture - Final No Growth (<1,000 CFU/ML) Most Recent Lab Values WBC 16.8 K/uL (4.8-10.8) H 06/14/17 07:34 RBC 3.75 Mil/uL (4.40-5.90) L 06/14/17 07:34 Hgb 10.9 g/dL (12.0-18.0) L 06/14/17 07:34 Hct 33.8 % (35.0-51.0) L 06/14/17 07:34 MCV 90.2 fL (80.0-94.0) D 06/14/17 07:34 MCH 29.1 pg (27.0-31.0) 06/14/17 07:34 MCHC 32.2 g/dL (33.0-37.0) L 06/14/17 07:34 RDW 16.9 % (11.5-14.5) H 06/14/17 07:34 Plt Count 143 K/uL (130-400) 06/14/17 07:34 MPV 10.2 fL (7.2-11.7) 06/14/17 07:34 Neut % (Auto) 96.2 % (50.0-75.0) H 06/14/17 07:34 Lymph % (Auto) 2.0 % (20.0-40.0) L 06/14/17 07:34 Republic % (Auto) 1.6 % (0.0-10.0) 06/14/17 07:34 Eos % (Auto) 0.0 % (0.0-4.0) 06/14/17 07:34 Baso % (Auto) 0.2 % (0.0-2.0) 06/14/17 07:34 Neut # 16.2 K/uL (1.8-7.0) H 06/14/17 07:34 Lymph # 0.3 K/uL (1.0-4.3) L 06/14/17 07:34 Republic # 0.3 K/uL (0.0-0.8) 06/14/17 07:34 Eos # 0.0 K/uL (0.0-0.7) 06/14/17 07:34 Baso # 0.0 K/uL (0.0-0.2) 06/14/17 07:34 Neutrophils % (Manual) 88 % (50-75) H 06/14/17 07:34 Band Neutrophils % 7 % (0-2) H 06/14/17 07:34 Lymphocytes % (Manual) 3 % (20-40) L 06/14/17 07:34 Reactive Lymphs % 1 % (0-0) H 06/13/17 11:48 Monocytes % (Manual) 2 % (0-10) 06/14/17 07:34 Toxic Granulation Present 06/10/17 05:22 Platelet Estimate Normal (NORMAL) 06/14/17 07:34 Plt Clumps, EDTA Present 06/10/17 05:22 Large Platelets Present 06/14/17 07:34 Polychromasia Slight 06/10/17 05:22 Hypochromasia (manual) Slight 06/10/17 05:22 Poikilocytosis (manual Slight 06/08/17 07:54 Basophilic Stippling Slight 06/14/17 07:34 Anisocytosis (manual) Slight 06/14/17 07:34 Macrocytosis (manual) Slight 06/07/17 05:54 Target Cells Slight 06/14/17 07:34 Ovalocytes Slight 05/31/17 07:50 [place] Cells Slight 06/08/17 07:54 Retic Count 1.3 % (0.5-1.5) 05/30/17 18:07 PT 15.9 SECONDS (9.7-12.2) H 05/30/17 12:55 INR 1.4 05/30/17 12:55 APTT 29 SECONDS (21-34) 05/30/17 12:55 Puncture Site Lra 06/04/17 16:35 pCO2 29 mm/Hg (35-45) L 06/04/17 16:35 pO2 130 mm/Hg (80-100) H 06/04/17 16:35 HCO3 15.8 mmol/L (21-28) L 06/04/17 16:35 ABG pH 7.28 (7.35-7.45) L 06/04/17 16:35 ABG Total CO2 14.5 mmol/L (22-28) L 06/04/17 16:35 ABG O2 Saturation 99.4 % (95-98) H 06/04/17 16:35 ABG Base Excess -11.7 mmol/L (-2.0-3.0) L 06/04/17 16:35 ABG Hemoglobin 13.4 g/dL (11.7-17.4) 06/03/17 20:57 ABG Carboxyhemoglobin 2.1 % (0.5-1.5) H 06/03/17 20:57 POC ABG HHb (Measured) 2.2 % (0.0-5.0) 06/03/17 20:57 ABG Methemoglobin 1.1 % (0.0-3.0) 06/03/17 20:57 Cedric Test Yes 06/04/17 16:35 ABG Potassium 3.6 mmol/L (3.6-5.2) 06/04/17 16:35 VBG pH 7.48 (7.32-7.43) H 05/30/17 12:50 VBG pCO2 41 mmHg (40-60) 05/30/17 12:50 VBG Total CO2 31.8 mmol/L (22-28) H 05/30/17 12:50 VBG O2 Sat (Calc) 24.7 % (40-65) L 05/30/17 12:50 VBG Base Excess 6.4 mmol/L (0.0-2.0) H 05/30/17 12:50 VBG Potassium 3.4 mmol/L (3.6-5.2) L 05/30/17 12:50 A-a O2 Difference 547.0 mm/Hg 06/04/17 16:35 Respiratory Index 4.2 06/04/17 16:35 Hgb O2 Saturation 94.6 % (95.0-98.0) L 06/03/17 20:57 Sodium 132.0 mmol/l (132-148) 06/04/17 16:35 Chloride 107.0 mmol/L (98-107) 06/04/17 16:35 Glucose 244 mg/dl (75-110) H 06/04/17 16:35 Lactate 3.4 mmol/L (0.7-2.1) H 06/04/17 16:35 Liter Flow 12.0 06/03/17 20:57 Vent Mode Bipap 06/04/17 16:35 FiO2 100.0 % 06/04/17 16:35 Inspiratory BiPAP 12 06/04/17 16:35 Expiratory BiPAP 5 06/04/17 16:35 Sodium 141 mmol/L (132-148) 06/14/17 07:34 Potassium 3.8 mmol/L (3.6-5.2) 06/14/17 07:34 Chloride 99 mmol/L (98-107) 06/14/17 07:34 Carbon Dioxide 28 mmol/L (22-30) 06/14/17 07:34 Anion Gap 18 (10-20) 06/14/17 07:34 BUN 47 mg/dL (9-20) H 06/14/17 07:34 Creatinine 1.7 mg/dL (0.8-1.5) H 06/14/17 07:34 Est GFR ( Amer) 46 06/14/17 07:34 Est GFR (Non-Af Amer) 38 06/14/17 07:34 POC Glucose (mg/dL) 258 mg/dL (65-110) H 06/14/17 16:42 Random Glucose 272 mg/dL (75-110) H 06/14/17 07:34 Calcium 7.2 mg/dl (8.6-10.4) L 06/14/17 07:34 Ionized Calcium 7.0 mg/dL (4.80-5.60) H 05/31/17 14:34 Phosphorus 1.8 mg/dL (2.5-4.5) L 06/13/17 23:09 Magnesium 1.6 mg/dL (1.6-2.3) 06/13/17 23:09 Ferritin 216.0 ng/mL 05/30/17 18:07 Total Bilirubin 1.8 mg/dL (0.2-1.3) H 06/14/17 07:34 AST 36 U/L (17-59) 06/14/17 07:34 ALT 196 U/L (21-72) H 06/14/17 07:34 Alkaline Phosphatase 91 U/L (38-126) 06/14/17 07:34 Total Creatine Kinase 170 U/L (55-170) 05/31/17 14:37 CK-MB (Mass) 2.38 ng/mL (0.0-3.38) 05/31/17 14:37 Troponin I 0.1960 ng/mL (0.00-0.120) H* 05/31/17 14:37 Total Protein 6.5 g/dL (6.3-8.3) 06/14/17 07:34 Total Protein (PEP) 6.9 g/dL (6.1-8.1) 05/30/17 18:09 Albumin 2.9 g/dL (3.5-5.0) L 06/14/17 07:34 Albumin (PEP) 2.6 g/dL (3.8-4.8) L 05/30/17 18:09 Globulin 3.6 gm/dL (2.2-3.9) 06/14/17 07:34 Albumin/Globulin Ratio 0.8 (1.0-2.1) L 06/14/17 07:34 Fgkjf-0-Sszcqcstc 0.5 g/dL (0.2-0.3) H 05/30/17 18:09 Mrtsm-9-Syfkbthsa 1.4 g/dL (0.5-0.9) H 05/30/17 18:09 Orho-9-Fhjzlivd 0.4 g/dL (0.4-0.6) 05/30/17 18:09 Ymbg-4-Vbrtuzji 0.5 g/dL (0.2-0.5) 05/30/17 18:09 Gamma Globulins 1.5 g/dL (0.8-1.7) 05/30/17 18:09 Abnorm Protein Band 1 0.30 g/dL (None Detected) H 05/30/17 18:09 Abnorm Protein Band 2 TEST NOT PERFORMED 05/30/17 18:09 Abnorm Protein Band 3 TEST NOT PERFORMED 05/30/17 18:09 Vitamin B12 455 pg/mL (239-931) 05/30/17 18:07 25-OH Vitamin D Total 74.2 NG/ML (30.0-100.0) 05/31/17 14:34 Folate 20.0 ng/mL 05/30/17 18:07 Procalcitonin 0.11 NG/ML (0.19-0.49) L 06/01/17 12:28 PTH Intact Whole Molec 5 pg/mL (14-64) L 05/31/17 14:34 PTH Related Protein 33 pg/mL (14-27) H 05/31/17 14:34 Arterial Blood Potassium 3.6 mmol/L (3.6-5.2) 06/04/17 16:35 Venous Blood Potassium 3.4 mmol/L (3.6-5.2) L 05/30/17 12:50 Urine Color Yellow (YELLOW) 06/05/17 12:16 Urine Clarity Hazy (Clear) 06/05/17 12:16 Urine pH 5.0 (5.0-8.0) 06/05/17 12:16 Ur Specific Schuyler 1.021 (1.003-1.030) 06/05/17 12:16 Urine Protein 1+ mg/dL (NEGATIVE) H 06/05/17 12:16 Urine Glucose (UA) 1+ mg/dL (Normal) H 06/05/17 12:16 Urine Ketones Negative mg/dL (NEGATIVE) 06/05/17 12:16 Urine Blood 2+ (NEGATIVE) H 06/05/17 12:16 Urine Nitrate Negative (NEGATIVE) 06/05/17 12:16 Urine Bilirubin Negative (NEGATIVE) 06/05/17 12:16 Urine Urobilinogen Normal mg/dL (0.2-1.0) 06/05/17 12:16 Ur Leukocyte Esterase Neg Bertha/uL (Negative) 06/05/17 12:16 Urine WBC (Auto) 1 /hpf (0-5) 06/05/17 12:16 Urine RBC (Auto) 3 /hpf (0-3) 06/05/17 12:16 Ur Squamous Epith Cells 1 /hpf (0-5) 06/05/17 12:16 Amorphous Sediment Rare /ul (<OCC) H 06/05/17 12:16 Urine Bacteria Occ (<OCC) H 06/05/17 12:16 Hyaline Casts 3-5 /lpf (0-2) H 05/30/17 15:28 Stool Occult Blood Negative (NEGATIVE) 05/30/17 15:26 Urine Opiates Screen Negative (NEGATIVE) 05/31/17 00:04 Urine Methadone Screen Negative (NEGATIVE) 05/31/17 00:04 Ur Barbiturates Screen Negative (NEGATIVE) 05/31/17 00:04 Ur Phencyclidine Scrn Negative (NEGATIVE) 05/31/17 00:04 Ur Amphetamines Screen Negative (NEGATIVE) 05/31/17 00:04 U Benzodiazepines Scrn Negative (NEGATIVE) 05/31/17 00:04 U Oth Cocaine Metabols Negative (NEGATIVE) 05/31/17 00:04 U Cannabinoids Screen Negative (NEGATIVE) 05/31/17 00:04 Alcohol, Quantitative < 10 mg/dl (0-10) 05/30/17 12:55 GATITO & SPEP Interp See note 05/30/17 18:09 Serum Immunofixation Detected (Not Detected) H 05/30/17 18:09 Tot [place]/Lambda Ratio 1.78 (1.29-2.55) 05/30/17 18:09 [place] Light Chain Anal 392 mg/dL (176-443) 05/30/17 18:09 Lambda Light Chain Anal 220 mg/dL (91-240) 05/30/17 18:09 Influenza Typ A,B (EIA) Negative for flu a/b (NEGATIVE) 05/30/17 13:36 Blood Type B POSITIVE 06/02/17 11:14 Antibody Screen Negative 06/02/17 11:14 Attending/Attestation - Attestation I have personally seen and examined this patient.: Yes I have fully participated in the care of the patient.: Yes I have reviewed all pertinent clinical information, including history, physical exam and plan: Yes Notes (Text): Patient seen, examined and case discussed with day-time resident. Compared to my last visit with the patient, patient appears more cachetic, more lethargic, more altered. Patient has removed Bipap, transitioned to nonway-breather or Ventimask during the day. Saturating mid 80s-90s oxygen status. Discussed with Social work, who has coordinated with [facility], who have discussed with [place]. Patient has been approved for [facility] and at [facility] as hospice care. Hospice has recommended for tylenol PRN fever , suppository PRN, and liquid Morphine 1ml POQ2 HR prn severe pain and respiratory distress, and Ativan 1mg PO Q6H PRN agitation. POA is aware of what hospice diagnoses means and wants only comfort measures, does not want to promote any suffering to the patient to be provided to his uncle given mortality associated with metastatic lung cancer. Resident has discussed with ID, PO antibiotic to cover for pneumonia. POA expected to return to [facility] later this week. Patient's involved neighbor and friends are also at bedside and aware of wishes. Family has called in for their Rabbi for the patient. Patient discharge to [facility] under Hospice Care. Discharge diagnoses: 1) Stage IV, Lung Cancer Metastatic * Patient has seen Dr. Ramos in past * cannot obtain history from patient regarding medications/ chemotherapy on admission * Dr. Ramos, heme-onc, consulted- help appreciated during the case * Has spoken with POA during hospitalization, POA understands no available treatment in regards to advanced lung cancer * Brain MRI with contrast- trace enhancement at right parietal vertex suspicious solitary metastasis; 2nd area of faint enhancement in right front vertex. * Decadron 2mg PO daily continued upon discharge * Consulted palliative care, Angle Mena- help appreciated * Patient is DNR/DNI, under hospice care 2.) Right lower lobe pneumonia * Chest xray (05/30/17): right lower lobe infiltrate/ atelectasis superimposed upon chronic interstitial lung disease (see full report) * CXR (06/03): mild b/l infiltrates R>L; limited b/l pleural effusion noted; mild CHF in questions; chronic interstitial pulm disease. * CT angio r/o PE : No PE; severe centrilobular and paraseptal emphysema b/l with consolidation in right lower lobe and atelectasis/consolidation in posterior segment of right upper lobe and portion of left lower lobe; small b/l pleural effusions with anasarca; chronic atelectasis of left upper lobe; small amount of intraabdominal ascites; previous granlomatous disease. * influenza negative * blood culture: negativex5 days * Urine cx: 05/30 negative * Patient placed on bipap on 06/03 * ABG: CO2 29; O2 130; HCO3 15.8; pH 7.28 * Bicarb drip started 06/04, held on 06/05 * Pulmonology, Dr. Rodriguez, consulted; recs appreciated * ID, Dr. Gray, consulted- help appreciated * Completed IV abx to cover-->discharged on 2 weeks of PO augmentin to cover 3. NONSTEMI * Troponinx4: 0.2970, 0.3400, 0.2530, 0.44879 * Cardiology consulted, Dr. Burden, recs appreciated * As per Dr. Burden, medical management including aspirin, statin, and beta clarence if patient can tolerate it. * Echocardiogram (05/31/17): borderline to mild concentric LVH. Systolic function is mildly inmpaired. EF: 45-50% further findings per report * Patient discharged under hospice care. Discontinue upon discharge 4. Anemia with elevated globulin * likely secondary to history of cancer * As low as Hgb 6.4 during hospitalization, required blood transfusion and remained stable in 10s * globulin 4.3 * B12- 455, wnl; folate 20, wnl * FOBT: negative * Retic count 1.3, Ferritin 216, serum immunofixation detected IgG Lambda, kappa /lambda free light chains 392/220 5. Hypercalcemia * likely secondary to lung cancer * Gave 1 dose of Aredia 90mg on 05/31/[address] Ramos * Corrected Calcium 7.96 (06/10/17) 6. Leukocytosis with left shift * multiple etiologies: metastatic lung cancer, possible pneumonia * blood culture: 05/30 negativex2 * Urine cx: 05/30 negative * Procalcitonin 0.11 * Has received IV abx to cover for pneumonia 7. Elevated CPK * Secondary to possible rhabdomyolysis from fall and prolonged period spent down on floor of home * CPK 587; repeat CPK 433; trending down--> CK on 05/31 311 8. Cachexia; Failure to Thrive * likely secondary to stage IV lung cancer * patient states 21 pound weight loss over past 3 months 9. Fall at home * CT Head (05/30/17): No intracranial hemorrhage. No hydrocephalus. No acute intracranial abnormalities. No significant findings to account for the clinical presentation * CT Cervical Spine (05/30/17): No significant central canal or neural foraminal stenosis. Right apical scarring findings similar to that seen on a prior CT of the thorax 02/22/2013. Multilevel degenerative change primarily disc space narrowing. No acute findings related to/accounting for the clinical presentation. * Pelvis xray (05/30/17): Status post open reduction internal fixation proximal left femoral fracture. No evidence of orthopedic hardware failure. No acute osseous abnormalities. * Brain MRI with contrast- trace enhancement at right parietal vertex suspicious solitary metastasis; 2nd area of faint enhancement in right front vertex. * Cardiology consults, Dr. Burden, help appreciated * as per Dr. Burden, start medical management -->ASA 81mg PO daily, Toprol XL 12.5mg PO daily, Crestor 5mg PO HS (05/31/17) if tolater * Troponinsx3: 0.297, 0.34, 0.2530, 0.1969; EKGs show ST depression; * Echocardiogram: suboptimal study due to poor acoustic window; possible borderline to mild concentric LVH; systolic function mildly impaired; EF 45-50% ; normal RV systolic function, aortic valve is moderately calcified and decreased opening; mild TR; mild pulm HTN; pericardial fatpad noted, but small loculated pericardial effusion cannot be excluded. * Carotid dopplers: mild disease b/l * On telemetry 10. 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 Cough * Duonebs Q4sch * Robitussin DM 12.) Stage 2 Cocyxx Ulcer: * Continue MediHoney * Wound Care: Huber --> help appreciated 13. Prophylaxis * Pepcid 20mg PO daily * SCDs * Lovenox 40mg SC daily * Florastor 250mg PO * physical therapy/ occupational therapy * palliative care * case management referral * CODE status: DNR/DNI Discharged to Hospice care at [facility].
--- NOTE | 2017-06-14 17:01 | CP.PCM.PN ---
Subjective - Date & Time of Evaluation Date of Evaluation: 06/14/17 Time of Evaluation: 10:30 - Subjective Subjective: the patient seen and examined patient refused to take medication and eating Off BiPAP For transfer to [facility] Objective - Vital Signs/Intake and Output Vital Signs (last 24 hours): Temp Pulse Resp BP Pulse Ox 98.3 F 113 H 20 122/73 87 L 06/14/17 15:05 06/14/17 15:05 06/14/17 15:05 06/14/17 15:05 06/14/17 15:05 Intake and Output: 06/14/17 06/14/17 06:59 18:59 Intake Total 450 120 Balance 450 120 - Medications Medications: Current Medications Albuterol/Ipratropium (Duoneb 3 Mg/0.5 Mg (3 Ml) Ud) 3 ml INH RQ4 [facility] Last Admin: 06/14/17 16:11 Dose: 3 ml Aspirin (Aspirin Chewable) 81 mg PO DAILY [facility] Last Admin: 06/14/17 10:28 Dose: Not Given Dexamethasone (Decadron) 2 mg PO DAILY [facility] Last Admin: 06/14/17 10:28 Dose: Not Given Docusate Sodium (Colace) 100 mg PO BID PRN PRN Reason: Constipation Last Admin: 06/07/17 11:56 Dose: 100 mg Enoxaparin Sodium (Lovenox) 30 mg SC DAILY [facility] Last Admin: 06/14/17 10:25 Dose: Not Given Famotidine (Pepcid) 20 mg PO DAILY [facility] Last Admin: 06/14/17 10:29 Dose: Not Given Furosemide (Lasix) 40 mg IVP DAILY [facility] Last Admin: 06/14/17 10:19 Dose: 40 mg Guaifenesin/Dextromethorphan (Robitussin Dm) 5 ml PO Q4H PRN PRN Reason: Cough Last Admin: 06/03/17 22:12 Dose: 5 ml Sodium Bicarbonate 50 meq/ (Sodium Chloride) 1,050 mls @ 63 mls/hr IV .[id number] [facility] Last Admin: 06/05/17 10:32 Dose: Not Given Piperacillin Sod/Tazobactam Sod (Zosyn 2.25 Gm Iv Premix) 2.25 gm in 50 mls @ 100 mls/hr IVPB Q8H [facility] Last Admin: 06/14/17 10:19 Dose: 100 mls/hr Insulin Human Regular (Novolin R) 0 unit SC ACHS [facility] PRN Reason: Protocol Last Admin: 06/14/17 13:04 Dose: Not Given Metoprolol Succinate (Toprol Xl) 12.5 mg PO DAILY [facility] Last Admin: 06/14/17 10:29 Dose: Not Given Potassium Chloride (K-Dur 20 Meq Er Tab) 20 meq PO DAILY [facility] Last Admin: 06/14/17 10:28 Dose: Not Given Rosuvastatin Calcium (Crestor) 5 mg PO HS [facility] Last Admin: 06/13/17 22:09 Dose: Not Given Saccharomyces Boulardii (Florastor) 250 mg PO BID [facility] Last Admin: 06/14/17 10:28 Dose: Not Given - Labs Labs: 06/14/17 07:34 06/14/17 07:34 PT 15.9 SECONDS (9.7-12.2) H 05/30/17 12:55 INR 1.4 05/30/17 12:55 APTT 29 SECONDS (21-34) 05/30/17 12:55 Assessment and Plan (1) Respiratory insufficiency/failure Status: Acute (2) Metabolic acidosis Status: Acute (3) Altered mental state Status: Acute (4) Pneumonia Status: Acute
== END 2017-06-14 18:16 | disposition hospice, inpatient (51) | DRG 193 ==
LOC: C.ER 11:43 → C.9E 15:01 → C.5S 23:14
PROVIDERS: ADMIT Hospitalist; ATTEND Hospitalist
PROC: 30233N1 Transfusion of Nonautologous Red Blood Cells into Peripheral Vein, Percutaneous Approach (ICD-10-PCS; principal; 2017-06-02)
PROC: 02HV33Z Insertion of Infusion Device into Superior Vena Cava, Percutaneous Approach (ICD-10-PCS; 2017-06-07)
PROC: B548ZZA Ultrasonography of Superior Vena Cava, Guidance (ICD-10-PCS; 2017-06-07)
DX: J18.9 Pneumonia, unspecified organism (principal); I21.4 Non-ST elevation (NSTEMI) myocardial infarction; J96.91 Respiratory failure, unspecified with hypoxia; J84.9 Interstitial pulmonary disease, unspecified; I11.0 Hypertensive heart disease with heart failure; C78.00 Secondary malignant neoplasm of unspecified lung; C79.31 Secondary malignant neoplasm of brain; E87.2 Acidosis; E11.622 Type 2 diabetes mellitus with other skin ulcer; R18.8 Other ascites; I50.9 Heart failure, unspecified; C34.90 Malignant neoplasm of unspecified part of unspecified bronchus or lung; J44.0 Chronic obstructive pulmonary disease with (acute) lower respiratory infection; R64 Cachexia; M62.82 Rhabdomyolysis; J98.11 Atelectasis; E83.52 Hypercalcemia; F03.90 Unspecified dementia, unspecified severity, without behavioral disturbance, psychotic disturbance, mood disturbance, and anxiety; E78.5 Hyperlipidemia, unspecified; I25.10 Atherosclerotic heart disease of native coronary artery without angina pectoris; D63.0 Anemia in neoplastic disease; R32 Unspecified urinary incontinence; R62.7 Adult failure to thrive; T38.0X5A Adverse effect of glucocorticoids and synthetic analogues, initial encounter; W18.30XA Fall on same level, unspecified, initial encounter; L98.429 Non-pressure chronic ulcer of back with unspecified severity; J44.9 Chronic obstructive pulmonary disease, unspecified; Z66 Do not resuscitate; Z51.5 Encounter for palliative care; Y92.009 Unspecified place in unspecified non-institutional (private) residence as the place of occurrence of the external cause; Z87.891 Personal history of nicotine dependence; Z91.81 History of falling